=== PATIENT | female | born 1950 | race Caucasian/White ===

== ENCOUNTER 2019-09-12 06:06 | Outpatient (RCR) | payer MEDICARE, MEDICAID, SELFPAY | END 2019-09-25 00:01 | LOC: ONCMED 06:06 | PROVIDERS: Family Provider Nurse Practitioner Family; Visit Provider Internal Medicine Hematology & Oncology | DX: C50.811 Malignant neoplasm of overlapping sites of right female breast (principal); C79.51 Secondary malignant neoplasm of bone; F41.8 Other specified anxiety disorders; M19.90 Unspecified osteoarthritis, unspecified site; G89.29 Other chronic pain; Z17.0 Estrogen receptor positive status [ER+]; Z91.19 Patient's noncompliance with other medical treatment and regimen; Z92.3 Personal history of irradiation; Z79.811 Long term (current) use of aromatase inhibitors; Z79.899 Other long term (current) drug therapy ==

== ENCOUNTER 2019-10-15 06:21 | Outpatient (RCR) | payer MEDICARE, MEDICAID, SELFPAY ==
[2019-10-15 14:50] LABS: Basophils % 0.2 %; Eosinophils # 0.2 10^3/uL (0.0-0.8); Eosinophils % 2.9 %; Hematocrit 36.4 % (37.0-47.0); Hemoglobin 10.9 g/dL (11.5-15.3); Lymphocytes % 16.8 %; Mean Corpuscular HGB Conc 29.9 g/dL (30.0-36.0); Mean Corpuscular Hemoglobin 27.7 pg (28.0-34.0); Mean Corpuscular Volume 92.4 fL (81-99); Mean Platelet Volume 10.5 fL (7.4-10.4); Monocytes # 0.4 10^3/uL (0.2-0.9); Neutrophils # 4.5 10^3/uL (1.8-7.7); Neutrophils % 73.8 %; Nucleated Red Blood Cells % 0 %; Platelet Count 174 10^3/cmm (130-400); Red Blood Count 3.94 10^6/uL (4.1-5.3); Red Cell Distribution Width 15.9 % (12.1-15.1); White Blood Count 6.1 10^3/uL (4.0-10.0)
[2019-10-15 15:08] LABS: Alanine Aminotransferase 12 U/L (0-33); Albumin Level 4.1 g/dL (3.5-5.2); Alkaline Phosphatase 86 IU/L (35-105); Anion Gap 15.9 (5-19); Aspartate Amino Transferase 20 U/L (0-32); Blood Urea Nitrogen 19 mg/dL (8-23); Calcium 10.2 mg/Dl (8.8-10.2); Carbon Dioxide 29 mmol/L (22-29); Chloride 101 mmol/L (98-107); Globulin 3.7 g/dL (1.3-4.6); Glomerular Filtration Rate 62.6 mL/min (90-130); Glucose 109 mg/dL (74-106); Potassium 4.9 mmol/L (3.5-5.1); Sodium 141 mmol/L (136-145); Total Bilirubin 0.3 mg/dL (0.15-1.2); Total Protein 7.8 g/dL (6.6-8.7)
== END 2019-10-26 23:59 | disposition home or self-care (01) ==
LOC: ONCMED 06:21
PROVIDERS: Family Provider Nurse Practitioner Family; PCP Nurse Practitioner Family; Visit Provider Internal Medicine Hematology & Oncology
DX: C79.51 Secondary malignant neoplasm of bone (principal); C50.811 Malignant neoplasm of overlapping sites of right female breast; C77.3 Secondary and unspecified malignant neoplasm of axilla and upper limb lymph nodes; G89.3 Neoplasm related pain (acute) (chronic); F41.8 Other specified anxiety disorders; Z91.14 Patient's other noncompliance with medication regimen; Z91.19 Patient's noncompliance with other medical treatment and regimen; M25.562 Pain in left knee; M25.561 Pain in right knee; Z17.0 Estrogen receptor positive status [ER+]; Z79.899 Other long term (current) drug therapy; Z79.51 Long term (current) use of inhaled steroids; Z79.811 Long term (current) use of aromatase inhibitors
CPT/HCPCS: 36415; 80053; 85025; 86300; 99214

== ENCOUNTER → 2019-10-18 12:39 | Outpatient (BNVA) | payer MEDICARE, MEDICAID, SELFPAY | PROVIDERS: Family Provider Nurse Practitioner Family; PCP Nurse Practitioner Family; Visit Provider Nurse Practitioner | DX: M54.5 Low back pain (principal); M79.651 Pain in right thigh; M79.652 Pain in left thigh; R07.81 Pleurodynia; F17.210 Nicotine dependence, cigarettes, uncomplicated; Z79.891 Long term (current) use of opiate analgesic | CPT/HCPCS: 99214 ==

== ENCOUNTER 2019-10-30 05:54 | Outpatient (RCR) | payer MEDICARE, MEDICAID, SELFPAY ==
[2019-10-30 13:50] LABS: Basophils % 0.3 %; Eosinophils # 0.2 10^3/uL (0.0-0.8); Eosinophils % 3.2 %; Hemoglobin 11.4 g/dL (11.5-15.3); Lymphocytes % 15.6 %; Mean Corpuscular Hemoglobin 28.4 pg (28.0-34.0); Mean Corpuscular Volume 94.8 fL (81-99); Mean Platelet Volume 10.3 fL (7.4-10.4); Monocytes # 0.3 10^3/uL (0.2-0.9); Monocytes % 4.3 %; Neutrophils % 76.1 %; Nucleated Red Blood Cells % 0 %; Platelet Count 173 10^3/cmm (130-400); Red Blood Count 4.01 10^6/uL (4.1-5.3); Red Cell Distribution Width 15.7 % (12.1-15.1); White Blood Count 6.6 10^3/uL (4.0-10.0)
[2019-10-30 13:58] LABS: Alanine Aminotransferase 12 U/L (0-33); Albumin Level 3.9 g/dL (3.5-5.2); Alkaline Phosphatase 89 IU/L (35-105); Anion Gap 14.8 (5-19); Aspartate Amino Transferase 17 U/L (0-32); Blood Urea Nitrogen 26 mg/dL (8-23); Calcium 9.9 mg/dL (8.5-10.5); Carbon Dioxide 31 mmol/L (22-29); Chloride 100 mmol/L (98-107); Globulin 3.8 g/dL (1.3-4.6); Glomerular Filtration Rate 55.5 mL/min (90-130); Glucose 196 mg/dL (74-106); Potassium 4.8 mmol/L (3.5-5.1); Sodium 141 mmol/L (136-145); Total Bilirubin 0.2 mg/dL (0.15-1.2); Total Protein 7.7 g/dL (6.6-8.7)
== END 2019-11-24 23:59 | disposition home or self-care (01) ==
LOC: ONCMED 05:54
PROVIDERS: Family Provider Nurse Practitioner Family; PCP Nurse Practitioner Family; Visit Provider Internal Medicine Hematology & Oncology
DX: C50.811 Malignant neoplasm of overlapping sites of right female breast (principal); C79.51 Secondary malignant neoplasm of bone; Z17.0 Estrogen receptor positive status [ER+]; F41.8 Other specified anxiety disorders; Z92.3 Personal history of irradiation; Z79.899 Other long term (current) drug therapy; Z79.51 Long term (current) use of inhaled steroids; Z79.891 Long term (current) use of opiate analgesic; Z98.890 Other specified postprocedural states; Z92.23 Personal history of estrogen therapy
CPT/HCPCS: 80053; 85025; 86300; G0463

== ENCOUNTER 2019-11-29 05:57 | Outpatient (RCR) | payer MEDICARE, MEDICAID, SELFPAY ==
[2019-11-29 12:51] LABS: Basophils % 0.5 %; Eosinophils # 0.3 10^3/uL (0.0-0.8); Eosinophils % 3.8 %; Hematocrit 36.4 % (37.0-47.0); Hemoglobin 10.6 g/dL (11.5-15.3); Lymphocytes # 1.4 10^3/uL (0.8-4.8); Lymphocytes % 19.5 %; Mean Corpuscular HGB Conc 29.1 g/dL (30.0-36.0); Mean Corpuscular Volume 92.9 fL (81-99); Mean Platelet Volume 10.8 fL (7.4-10.4); Monocytes # 0.5 10^3/uL (0.2-0.9); Monocytes % 6.3 %; Neutrophils % 68.9 %; Nucleated Red Blood Cells % 0 %; Platelet Count 146 10^3/cmm (130-400); Red Blood Count 3.92 10^6/uL (4.1-5.3); Red Cell Distribution Width 16.5 % (12.1-15.1); White Blood Count 7.3 10^3/uL (4.0-10.0)
[2019-11-29 13:14] LABS: Alanine Aminotransferase 14 U/L (0-33); Albumin Level 3.8 g/dL (3.5-5.2); Alkaline Phosphatase 101 IU/L (35-105); Anion Gap 17.2 (5-19); Aspartate Amino Transferase 18 U/L (0-32); Blood Urea Nitrogen 27 mg/dL (8-23); Calcium 9.5 mg/dL (8.5-10.5); Carbon Dioxide 28 mmol/L (22-29); Chloride 99 mmol/L (98-107); Globulin 3.8 g/dL (1.3-4.6); Glomerular Filtration Rate 40.9 mL/min (90-130); Glucose 191 mg/dL (65-115); Potassium 5.2 mmol/L (3.5-5.1); Sodium 139 mmol/L (136-145); Total Bilirubin 0.3 mg/dL (0.15-1.2); Total Protein 7.6 g/dL (6.6-8.7)
--- NOTE | 2019-11-29 14:43 | ONC FU_ITS ---
Dr. Buck follow up note Patient: Samia Sarmiento Unit #: [id number]: 1950 Dicatated By: Quang Buck M.D.Date of Visit:Nov 29, 2019 Onc Med Follow-up/Prog Note History of Present Illness: Mrs. Samia Sarmiento, 68-year-old female with history of right breast cancer, as per patient in November 2016 she had a follow-up mammogram which showed 2 cm mass in her right breast, ultrasound of breast confirmed hypoechoic mass present at 12:00 in the right breast measuring 1.2 cm and no abnormal axillary lymph node were seen. On 01/12/2017 she underwent ultrasound-guided right breast core needle biopsy and pathology showed invasive ductal carcinoma with lobular growth future ER/UT positive HER-2/dre negative on 02/07/2017 she underwent right lobectomy and final pathology report confirmed invasive ductal carcinoma measuring 2.1 cm clear margins, 1/3 sentinel lymph node from right axilla was positive for metastatic adenocarcinoma, metastatic focus measures 1.4 cm with extracapsular extension present grade 2/3, pT2N1a(sn) ER 94% UT 86% HER-2/dre negative Ki-67 41% CT scan of chest abdomen pelvis showed mildly expansile osteolytic lesion vertebral segment of T9 , follow-up bone scan confirmed the 9 lytic lesion, biopsy of T9 lesion confirmed metastatic adenocarcinoma of breast origin PET scan done on 04/19/2017 showed single prominent focus of increased metabolic activity in the caudate lobe, the T9 vertebral body with a large lytic lesion the on straight increase in metabolic activity, other possible early are she is lesion are present without lytic or sclerotic changes. She was started on Femara and Xgeva, she took it for some time but decided to stop it as she thought Xgeva was causing joint pains. So she was noncompliant with Femara also. Follow-up CT PET scan done on 08/25/2017 showed progression of abnormal metabolic foci in the axial skeleton the previous T9 vertebral body lesion demonstrates mild decrease of metabolic activity, the T10 vertebral body appears to be involved as well with a new lytic lesion and the maximum SUV of 5.40, the L1 vertebral body demonstrates new increase of metabolic activity with maximal SUV 5.25. The S1 right ala demonstrate a focal increase of metabolic activity and is a new focal increase in metabolic activity in the right proximal femoral metaphysis and a new focus of increased metabolic activity in the left posterior iliac crest, but resolution of hepatic lesion, and no evidence for soft tissue involvement She has history of postmenopausal bleeding for which in the January 2015 she underwent dilatation and endometrial curettage and was found to have endometrial polyps with proliferative endometrium Genetic testing was done which was negative for any deleterious mutation. She has a problem with recurrent dental abscesses for which she underwent extraction of all teeth. As per patient she was referred to hospice but she declined and now she has decided to transfer her care to [facility]. Patient is complaining of back pain but under control with current pain medication, no lower extremity numbness no urine or stool incontinence. No nausea or vomiting, appetite is good, but looking for denture as financially she can't afford. Also complaining of anxiety and depression. Fatigue and excessive drowsiness during daytime , in the past she had sleep study done which confirmed sleep apnea but patient decided not to consider CPAP machine. As per patient she tried Femara in the past , but it caused palpitation in her blood pressure gone up and she also had ringing in her ear. And she stopped taking it immediately. underwent MRI scan of spine on 08/14/2018 which showed extensive metastatic disease throughout thoracic spine Follow-up CT PET scan done on 09/30/2018 showed extensive osseous metastatic disease in the sacrum, left iliac, right iliac, bilateral acetabulum, proximal femurs, bilateral scapular, sternum, clavicles and vertebral bodies from C2-L5. Lesions are lytic and the most hypermetabolic lesion in the anterior left iliac has SUV of 5.4. As per patient, month ago she started taking Femara, but could not tolerate and stopped taking it after 1 week because of progressive weakness e.g. could not get out of chair. Hot flashes etc. now doesn't want to take it knowing the risk versus benefits involved with hormonal therapy in recurrent ER positive breast cancer. As per patient she started taking her alternative therapy and tolerating it well her back pain has improved although she recently underwent radiation therapy to spine but she thinks her herbal therapy is helping her more than radiation did. So she wants to see her tumor markers to confirm that her herbal therapy is controlling her disease. As per patient if her tumor marker continued to go up then she might consider conventional therapy otherwise she will rely on her herbal therapy. But agreed for Xgeva, Later on decided not to consider Xgeva patient is was admitted to hospital on 03/15/19 with mental status changes, frequent fall, confusion and progressive back pain and she was diagnosed with hypercalcemia and treated with calcitonin, biphosphonate and hydration and forced diuresis with that calcium improved and she felt better, confusion resolved. CT scan of head showed no brain metastases but extensive bone metastases involving skull bones MRI scan of spine showed T8 vertebra damage and radiation therapy was consulted, s/p radiation therapy to T8 vertebra.Which she completed on 04/03/2019 CT PET scan done on 04/21/2019 showed widespread marrow activity bone marrow recovery versus active osseous metastatic disease Now being treated with Aromasin/Xgeva on hold since 10/15/2019, at patient request because of related side effects Patient start taking Aromasin again on 11/27/2019 but still not ready for Xgeva. Came for follow-up, denies any specific complaints except generalized chronic pains bilateral knee, chronic back pain but under control with current pain medication. Also complaining of off and on bloatedness. Start taking Aromasin last Tuesday, tolerating well. Also on vitamin D and calcium supplements. Not taking any potassium supplement Medications: Albuterol Sulfate 1 puff(s) Aerosol Powder, Breath Activated Inhalation q 4 to 6 hours PRN, Bumetanide 1 Tablet (of 1 mg) Oral b.i.d., Calcium 1 Tablet (of 250 mg) Capsule Oral daily, [place] 1 Capsule (of 450 mg) Oral daily, CloNIDine HCl 1 (0.1 mg) Tablet Oral b.i.d., Enalapril Maleate 1 (10 mg) Tablet Oral b.i.d., Hydrocodone-Acetaminophen 1 Tablet (of 10-325 mg) Oral q 4 hours PRN, LORazepam 1 (0.5 mg) Tablet Oral b.i.d., Magnesium 2 Tablet (of 400 mg) Oral at bedtime, Potassium Chloride ER 1 Capsule (of 10 meq) Capsule, controlled release Oral daily, Torsemide 1 Tablet (of 20 mg) Oral daily, Torsemide 1 Tablet (of 20 mg) Oral daily Allergies: Advil, morphine , NSAIDs, and Tetanus Immune Globulin. Review of Systems: Review of Systems is not available for this patient. Vital Signs: Performed on Nov 29, 2019 14:07 Height - 64.00 in Weight - 280.0 lbs (HIGH) BSA - 2.26 sq.m BMI - 48.06 (HIGH) Temperature - 97.4 F (LOW) Pulse - 72 /min Respiration - 16 /min BP - 139/79 mm(hg) O2 Sat - 96 % Pain - 8 Fatigue - 8 Performance Status: 1 - No physically strenuous activity, but ambulatory and able to carry out light or sedentary work (e.g. office work, light house work). (ECOG) Physical Examination: Respiratory - Lungs are clear to auscultation without rhonchi or wheezing, Cardiovascular - Regular rate and rhythm of heart, Extremities - no edema. Lab/Imaging: Test performed on Oct 30, 2019 13:20 Sodium 141 mmol/L Potassium 4.8 mmol/L Chloride 100 mmol/L CO2 31 mmol/L Anion Gap 14.8 BUN 26 mg/dL Creatinine 1.0 mg/dL Cr Clearance (Est) 108.97 mL/min eGFR 55.5 mL/min Glucose 196 mg/dL Calcium 9.9 mg/dL Protein, Total 7.7 g/dL Albumin 3.9 g/dL Globulin 3.8 g/dL Bilirubin, Total 0.2 mg/dL ALT (SGPT) 12 U/L AST (SGOT) 17 U/L Alkaline Phosphatase 89 IU/L WBC 6.6 10 3/uL RBC 4.01 10 6/uL HGB 11.4 g/dL HCT 38.0 % MCV 94.8 fL MCH 28.4 pg MCHC 30.0 g/dL RDW 15.7 % Platelet Count 173 10 3/cmm MPV 10.3 fL Neutrophils 5.0 10 3/uL Lymphocytes 1.0 10 3/uL Monocytes 0.3 10 3/uL Eosinophils 0.2 10 3/uL Basophils 0.0 10 3/uL Neutrophil % 76.1 % Lymphocyte % 15.6 % Monocyte % 4.3 % Eosinophil % 3.2 % Basophils % 0.3 % Test performed on Oct 30, 2019 11:45 CA 27.29 65 Units/mL Test performed on Oct 15, 2019 14:20 Manual Lymphocytes 16.8 % Manual Monocytes 6.0 % Manual Eosinophils 2.9 % Manual Basophils 0.2 % NRBCs 0.0 /100 WBC Test performed on Jun 11, 2019 10:34 Ua Color YELLOW Ua Appearance CLEAR Ua Glucose NORM Ua Bilirubin NEG Colored urine samples may result in false positive dipstick reactions. Ua Ketones NEG Ua Specific [place] 1.005 Ua Blood NEG Ua pH 6 Ua Protein NEG Ua Nitrites NEG Ua Leukocyte Esterase 1+ Ua Micro: WBC 15-25 /hpf Urine Culture NO GROWTH AT DAY 2 Ua Micro: RBC NONE /hpf Ua Micro: Squam Epith Cells 0-4 /hpf Ua Micro: Bacteria NONE Impression: Metastatic breast cancer with extensive axial skeleton involvement including T9, 10 and L1, S1 right ala, right proximal femoral metaphysis and left posterior iliac crest. Initially diagnosed on 01/12/2017 per ultrasound guided right breast core needle biopsy followed by a right lobectomy on 02/07/2017 which showed invasive ductal carcinoma measuring 2.1 cm clear margins 1/3 sentinel lymph node from the right axilla positive for metastatic adenocarcinoma, metastatic focus measured 1.4 cm with extracapsular extension present p T2,N1a (sn) ER 94%, UT 86% HER-2/dre negative Ki-67 41% staging workup confirmed T9 lesion further confirmation by biopsy. Intolerance to Femara causing palpitation, ringing in ear and hypertension. Intolerance to Xgeva causing joint pains. Anxiety/depression Excessive daytime drowsiness probably due to sleep apnea but patient is noncompliant .CT PET scan done on 11/05/2017 showed interval normalization of uptake in previously described osseous lesions indicated positive response to therapy, mild FDG uptake in lytic T9 vertebral body lesion. Minimal residual disease at the site is likely, no evidence of soft tissue disease. MRI scan of spine done on 08/14/2018 showed extensive metastatic disease is seen throughout the thoracic spine with marrow signal replacement with edema there is a pathological T8 fracture with loss of 10% height T9 and causing moderate thecal sac stenosis multiple hyperintense lesions are seen throughout the thoracic and lumbar and sacral spine suggestive of metastatic disease Treated with radiation therapy to the spine with good pain control As per radiation oncology patient never received radiation last year, as per patient she did go there, thought she had radiation therapy done.But did not receive any radiation at that time Follow-up CT PET scan done on 09/30/2018 showed extensive osseous metastatic disease involving sacrum, bilateral iliac, and acetabulum, proximal femurs, bilateral scapulae, sternum, clavicles and vertebral bodies from C2-L5, lesions are lytic and the most hypermetabolic lesion in the anterior left iliac has SUV of 5.4 On 03/15/2019 patient was admitted to hospital with mental status changes confusion and CT scan of brain showed no metastases but lab workup showed hypercalcemia treated with calcitonin, biphosphonate and hydration. Patient had MRI scan of spine which showed T8 vertebra damage and radiation therapy was consulted and she was given radiation therapy to her T8 vertebra from 03/20/2019 till 04/03/2019. CT PET scan done on 04/21/2019 showed widespread activity throughout the bone marrow, metabolically active disease cannot be reliably differentiated from the simple reactive uptake. Multiple pathological left-sided rib fractures are noted at previously seen sites of lytic disease Plan: Discussed with patient regarding her labs white blood count 7.3 hemoglobin 10.6 crit 36.4 platelets 146,000 CMP within normal limit except potassium 5 due to creatinine 1.3 [place] [id number] was 65 on 10/30/2019 and today's pending Clinically, patient is doing reasonably well, her chronic pains is under control with current pain medication. Patient start taking recommended Aromasin last Tuesday and so far tolerating well but still refusing Xgeva. At this point we'll continue with Aromasin and vitamin D/calcium supplement and then repeat her CBC CMP and tumor marker and a month if continued to improve we will monitor otherwise consider CT PET scan to assess disease status and then plan accordingly. Mild anemia, appears multifactorial, hemoglobin stable we'll continue to monitor Mild hyperkalemia, patient was on potassium supplement now recently stopped taking. We'll monitor patient was advised to maintain good hydration. We'll monitor her renal function test and electrolytes. Signed By: Quang Buck M.D. <<Signature on File>>
[2019-11-30 11:06] LABS: CA 27.29 87 U/mL (<38)
== END 2019-12-25 23:59 | disposition home or self-care (01) ==
LOC: ONCMED 05:57
PROVIDERS: Family Provider Nurse Practitioner Family; PCP Nurse Practitioner Family; Visit Provider Internal Medicine Hematology & Oncology
DX: C50.811 Malignant neoplasm of overlapping sites of right female breast (principal); C79.51 Secondary malignant neoplasm of bone; Z17.0 Estrogen receptor positive status [ER+]; D64.9 Anemia, unspecified; E87.5 Hyperkalemia; Z79.811 Long term (current) use of aromatase inhibitors; F41.8 Other specified anxiety disorders; G47.30 Sleep apnea, unspecified; Z91.19 Patient's noncompliance with other medical treatment and regimen
CPT/HCPCS: 80053; 85025; 86300; 99214

== ENCOUNTER → 2020-03-11 14:21 | Outpatient (BNVA) | payer MEDICARE, MEDICAID, SELFPAY | PROVIDERS: Family Provider Nurse Practitioner Family; PCP Nurse Practitioner Family; Visit Provider Anesthesiology | DX: M54.5 Low back pain (principal); M54.6 Pain in thoracic spine; R07.81 Pleurodynia; F17.210 Nicotine dependence, cigarettes, uncomplicated; Z79.891 Long term (current) use of opiate analgesic | CPT/HCPCS: 99214 ==

== ENCOUNTER 2020-03-13 13:52 | Outpatient (CLI) | payer MEDICARE, MEDICAID, SELFPAY ==
[2020-03-13 14:22] LABS: Basophils % 0.6 %; Eosinophils # 0.2 10^3/uL (0.0-0.8); Eosinophils % 3.3 %; Hematocrit 43.6 % (37.0-47.0); Hemoglobin 12.6 g/dL (11.5-15.3); Lymphocytes # 1.1 10^3/uL (0.8-4.8); Lymphocytes % 15.3 %; Mean Corpuscular HGB Conc 28.9 g/dL (30.0-36.0); Mean Corpuscular Hemoglobin 26.9 pg (28.0-34.0); Mean Corpuscular Volume 93.2 fL (81-99); Mean Platelet Volume 10.4 fL (7.4-10.4); Monocytes # 0.3 10^3/uL (0.2-0.9); Monocytes % 4.6 %; Neutrophils # 5.3 10^3/uL (1.8-7.7); Neutrophils % 75.8 %; Nucleated Red Blood Cells % 0 %; Platelet Count 169 10^3/cmm (130-400); Red Blood Count 4.68 10^6/uL (4.1-5.3); Red Cell Distribution Width 17.4 % (12.1-15.1); White Blood Count 6.9 10^3/uL (4.0-10.0)
[2020-03-13 14:35] LABS: Alanine Aminotransferase 19 U/L (0-33); Albumin Level 4.4 g/dL (3.5-5.2); Alkaline Phosphatase 95 IU/L (35-105); Anion Gap 15.5 (5-19); Aspartate Amino Transferase 24 U/L (0-32); Blood Urea Nitrogen 19 mg/dL (8-23); Calcium 9.8 mg/dL (8.5-10.5); Carbon Dioxide 32 mmol/L (22-29); Chloride 96 mmol/L (98-107); Globulin 3.7 g/dL (1.3-4.6); Glomerular Filtration Rate 55.3 mL/min (90-130); Glucose 151 mg/dL (65-115); Osmolality Calculated 287 mOsm/kg (285-295); Potassium 4.5 mmol/L (3.5-5.1); Sodium 139 mmol/L (136-145); Total Bilirubin 0.4 mg/dL (0.15-1.2); Total Protein 8.1 g/dL (6.6-8.7)
--- NOTE | 2020-03-13 16:22 | ONC FU_ITS ---
Dr. Buck follow up note Patient: Samia Sarmiento Unit #: [id number]: 1950 Dicatated By: Quang Buck M.D.Date of Visit:Mar 13, 2020 Onc Med Follow-up/Prog Note History of Present Illness: Mrs. Samia Sarmiento, 69-year-old female with history of right breast cancer, as per patient in November 2016 she had a follow-up mammogram which showed 2 cm mass in her right breast, ultrasound of breast confirmed hypoechoic mass present at 12:00 in the right breast measuring 1.2 cm and no abnormal axillary lymph node were seen. On 01/12/2017 she underwent ultrasound-guided right breast core needle biopsy and pathology showed invasive ductal carcinoma with lobular growth future ER/KY positive HER-2/dre negative on 02/07/2017 she underwent right lobectomy and final pathology report confirmed invasive ductal carcinoma measuring 2.1 cm clear margins, 1/3 sentinel lymph node from right axilla was positive for metastatic adenocarcinoma, metastatic focus measures 1.4 cm with extracapsular extension present grade 2/3, pT2N1a(sn) ER 94% KY 86% HER-2/dre negative Ki-67 41% CT scan of chest abdomen pelvis showed mildly expansile osteolytic lesion vertebral segment of T9 , follow-up bone scan confirmed the 9 lytic lesion, biopsy of T9 lesion confirmed metastatic adenocarcinoma of breast origin PET scan done on 04/19/2017 showed single prominent focus of increased metabolic activity in the caudate lobe, the T9 vertebral body with a large lytic lesion the on straight increase in metabolic activity, other possible early are she is lesion are present without lytic or sclerotic changes. She was started on Femara and Xgeva, she took it for some time but decided to stop it as she thought Xgeva was causing joint pains. So she was noncompliant with Femara also. Follow-up CT PET scan done on 08/25/2017 showed progression of abnormal metabolic foci in the axial skeleton the previous T9 vertebral body lesion demonstrates mild decrease of metabolic activity, the T10 vertebral body appears to be involved as well with a new lytic lesion and the maximum SUV of 5.40, the L1 vertebral body demonstrates new increase of metabolic activity with maximal SUV 5.25. The S1 right ala demonstrate a focal increase of metabolic activity and is a new focal increase in metabolic activity in the right proximal femoral metaphysis and a new focus of increased metabolic activity in the left posterior iliac crest, but resolution of hepatic lesion, and no evidence for soft tissue involvement She has history of postmenopausal bleeding for which in the January 2015 she underwent dilatation and endometrial curettage and was found to have endometrial polyps with proliferative endometrium Genetic testing was done which was negative for any deleterious mutation. She has a problem with recurrent dental abscesses for which she underwent extraction of all teeth. As per patient she was referred to hospice but she declined and now she has decided to transfer her care to [facility]. Patient is complaining of back pain but under control with current pain medication, no lower extremity numbness no urine or stool incontinence. No nausea or vomiting, appetite is good, but looking for denture as financially she can't afford. Also complaining of anxiety and depression. Fatigue and excessive drowsiness during daytime , in the past she had sleep study done which confirmed sleep apnea but patient decided not to consider CPAP machine. As per patient she tried Femara in the past , but it caused palpitation in her blood pressure gone up and she also had ringing in her ear. And she stopped taking it immediately. underwent MRI scan of spine on 08/14/2018 which showed extensive metastatic disease throughout thoracic spine Follow-up CT PET scan done on 09/30/2018 showed extensive osseous metastatic disease in the sacrum, left iliac, right iliac, bilateral acetabulum, proximal femurs, bilateral scapular, sternum, clavicles and vertebral bodies from C2-L5. Lesions are lytic and the most hypermetabolic lesion in the anterior left iliac has SUV of 5.4. As per patient, month ago she started taking Femara, but could not tolerate and stopped taking it after 1 week because of progressive weakness e.g. could not get out of chair. Hot flashes etc. now doesn't want to take it knowing the risk versus benefits involved with hormonal therapy in recurrent ER positive breast cancer. As per patient she started taking her alternative therapy and tolerating it well her back pain has improved although she recently underwent radiation therapy to spine but she thinks her herbal therapy is helping her more than radiation did. So she wants to see her tumor markers to confirm that her herbal therapy is controlling her disease. As per patient if her tumor marker continued to go up then she might consider conventional therapy otherwise she will rely on her herbal therapy. But agreed for Xgeva, Later on decided not to consider Xgeva patient is was admitted to hospital on 03/15/19 with mental status changes, frequent fall, confusion and progressive back pain and she was diagnosed with hypercalcemia and treated with calcitonin, biphosphonate and hydration and forced diuresis with that calcium improved and she felt better, confusion resolved. CT scan of head showed no brain metastases but extensive bone metastases involving skull bones MRI scan of spine showed T8 vertebra damage and radiation therapy was consulted, s/p radiation therapy to T8 vertebra.Which she completed on 04/03/2019 CT PET scan done on 04/21/2019 showed widespread marrow activity bone marrow recovery versus active osseous metastatic disease Now being treated with Aromasin/Xgeva, was on hold since 10/15/2019, at patient request because of related side effects and Patient started taking Aromasin again on 11/27/2019 but still not ready for Xgeva. Came for follow-up, complaining of weight gain and bloatedness but no abdominal pain, no diarrhea or constipation, no jaundice, no new bony pains except joint pain in the hand and wrist and shoulder patient says she has chronic arthritis and otherwise no fever chills no nausea or vomiting, patient says she is watching her diet. Medications: Albuterol Sulfate 1 puff(s) Aerosol Powder, Breath Activated Inhalation q 4 to 6 hours PRN, CloNIDine HCl 1 (0.1 mg) Tablet Oral b.i.d., Enalapril Maleate 1 (10 mg) Tablet Oral b.i.d., Hydrocodone-Acetaminophen 1 Tablet (of 10-325 mg) Oral q 4 hours PRN, LORazepam 1 (0.5 mg) Tablet Oral b.i.d., Magnesium 2 Tablet (of 400 mg) Oral at bedtime Allergies: Advil, morphine , NSAIDs, and Tetanus Immune Globulin. Review of Systems: Constitutional - Appetite is poor and weight is stable. No fever, chills, hot flashes, or night sweats. Energy level is poor, ENMT - No sinus congestion/drainage. No mouth sores. No sore throat or difficulty swallowing, Hematologic/Lymphatic - No abnormal bruising or bleeding, Respiratory - No shortness of breath. No cough. No pleuritic pain or hemoptysis, Cardiovascular - No angina pain. No palpitations, Gastrointestinal - Patient has some nausea and vomiting. No heartburn or acid reflux. No diarrhea or constipation. No blood in the stool or black stools, Genitourinary (F) - No dysuria, hematuria, frequency, urgency or incontinence, Musculoskeletal - Pt reports joint pain, Integumentary - Positive for bilateral lower edema, Neurologic - No headache or dizziness. No numbness/paresthesias or other focal neurologic symptoms, Psychiatric - Pt reports some anxiety. No depression. No insomnia. Vital Signs: Performed on Mar 13, 2020 15:45 Height - 64.00 in Weight - 296.8 lbs (HIGH) BSA - 2.31 sq.m BMI - 50.95 (HIGH) Temperature - 98.2 F (LOW) Pulse - 96 /min Respiration - 22 /min BP - 162/85 mm(hg) (HIGH) O2 Sat - 90 % (LOW) Pain - 9 Performance Status: 1 - No physically strenuous activity, but ambulatory and able to carry out light or sedentary work (e.g. office work, light house work). (ECOG) Physical Examination: Respiratory - Poor air entry, Cardiovascular - Regular rate and rhythm of heart, Extremities - 1+ edema bilaterally. Lab/Imaging: Test performed on Mar 13, 2020 14:04 Sodium 139 mmol/L Potassium 4.5 mmol/L Chloride 96 mmol/L CO2 32 mmol/L Anion Gap 15.5 BUN 19 mg/dL Creatinine 1.0 mg/dL Cr Clearance (Est) 116.0200 mL/min eGFR 55.3 mL/min Glucose 151 mg/dL Calcium 9.8 mg/dL Protein, Total 8.1 g/dL Albumin 4.4 g/dL Globulin 3.7 g/dL Bilirubin, Total 0.4 mg/dL ALT (SGPT) 19 U/L AST (SGOT) 24 U/L Alkaline Phosphatase 95 IU/L WBC 6.9 10 3/uL RBC 4.68 10 6/uL HGB 12.6 g/dL HCT 43.6 % MCV 93.2 fL MCH 26.9 pg MCHC 28.9 g/dL RDW 17.4 % Platelet Count 169 10 3/cmm MPV 10.4 fL Neutrophils 5.3 10 3/uL Lymphocytes 1.1 10 3/uL Monocytes 0.3 10 3/uL Eosinophils 0.2 10 3/uL Basophils 0.0 10 3/uL Neutrophil % 75.8 % Lymphocyte % 15.3 % Monocyte % 4.6 % Eosinophil % 3.3 % Basophils % 0.6 % NRBC % 0 % Test performed on Oct 30, 2019 11:45 CA 27.29 65 Units/mL Test performed on Oct 15, 2019 14:20 Manual Lymphocytes 16.8 % Manual Monocytes 6.0 % Manual Eosinophils 2.9 % Manual Basophils 0.2 % NRBCs 0.0 /100 WBC Impression: Metastatic breast cancer with extensive axial skeleton involvement including T9, 10 and L1, S1 right ala, right proximal femoral metaphysis and left posterior iliac crest. Initially diagnosed on 01/12/2017 per ultrasound guided right breast core needle biopsy followed by a right lobectomy on 02/07/2017 which showed invasive ductal carcinoma measuring 2.1 cm clear margins 1/3 sentinel lymph node from the right axilla positive for metastatic adenocarcinoma, metastatic focus measured 1.4 cm with extracapsular extension present p T2,N1a (sn) ER 94%, [place] 86% HER-2/dre negative Ki-67 41% staging workup confirmed T9 lesion further confirmation by biopsy. Intolerance to Femara causing palpitation, ringing in ear and hypertension. Intolerance to Xgeva causing joint pains. Anxiety/depression Excessive daytime drowsiness probably due to sleep apnea but patient is noncompliant .CT PET scan done on 11/05/2017 showed interval normalization of uptake in previously described osseous lesions indicated positive response to therapy, mild FDG uptake in lytic T9 vertebral body lesion. Minimal residual disease at the site is likely, no evidence of soft tissue disease. MRI scan of spine done on 08/14/2018 showed extensive metastatic disease is seen throughout the thoracic spine with marrow signal replacement with edema there is a pathological T8 fracture with loss of 10% height T9 and causing moderate thecal sac stenosis multiple hyperintense lesions are seen throughout the thoracic and lumbar and sacral spine suggestive of metastatic disease Treated with radiation therapy to the spine with good pain control As per radiation oncology patient never received radiation last year, as per patient she did go there, thought she had radiation therapy done.But did not receive any radiation at that time Follow-up CT PET scan done on 09/30/2018 showed extensive osseous metastatic disease involving sacrum, bilateral iliac, and acetabulum, proximal femurs, bilateral scapulae, sternum, clavicles and vertebral bodies from C2-L5, lesions are lytic and the most hypermetabolic lesion in the anterior left iliac has SUV of 5.4 On 03/15/2019 patient was admitted to hospital with mental status changes confusion and CT scan of brain showed no metastases but lab workup showed hypercalcemia treated with calcitonin, biphosphonate and hydration. Patient had MRI scan of spine which showed T8 vertebra damage and radiation therapy was consulted and she was given radiation therapy to her T8 vertebra from 03/20/2019 till 04/03/2019. CT PET scan done on 04/21/2019 showed widespread activity throughout the bone marrow, metabolically active disease cannot be reliably differentiated from the simple reactive uptake. Multiple pathological left-sided rib fractures are noted at previously seen sites of lytic disease Plan: Discussed with patient regarding her labs white blood count 6.9 hemoglobin 12.6 crit 43.6 platelets 169,000 CMP within normal limit except glucose 151, her tumor marker CA 27.29 is pending Clinically, patient is doing well with no signs symptom suggestive of disease progression, her lab work-up is within normal range but her tumor marker is pending. Patient is tolerating Aromasin better along with vitamin D and calcium. Patient wants to wait for her tumor marker, if this progressive then she may consider follow-up PET scan or bone scan and may consider Xgeva too. Return to clinic in 1 month with CBC CMP As far as her chronic musculoskeletal pain is concerned, we will refer her to rheumatology for evaluation. Signed By: Quang Buck M.D. <<Signature on File>>
[2020-03-18 06:52] LABS: CA 27.29 86 U/mL (<38)
== END 2020-03-13 13:53 | disposition home or self-care (01) ==
LOC: ONCMED 13:55
PROVIDERS: PCP Nurse Practitioner Family; Visit Provider Internal Medicine Hematology & Oncology
DX: C50.811 Malignant neoplasm of overlapping sites of right female breast (principal); C79.51 Secondary malignant neoplasm of bone; Z17.0 Estrogen receptor positive status [ER+]; M79.18 Myalgia, other site; F41.8 Other specified anxiety disorders; R40.0 Somnolence; M84.48XD Pathological fracture, other site, subsequent encounter for fracture with routine healing; Z79.811 Long term (current) use of aromatase inhibitors; Z79.899 Other long term (current) drug therapy
CPT/HCPCS: 80053; 85025; 86300; 99214

== ENCOUNTER → 2020-03-24 14:09 | Outpatient (BNVA) | payer MEDICARE, MEDICAID, SELFPAY | PROVIDERS: PCP Nurse Practitioner Family; Visit Provider Family Medicine | DX: E66.01 Morbid (severe) obesity due to excess calories (principal); R63.5 Abnormal weight gain; Z68.42 Body mass index [BMI] 45.0-49.9, adult | CPT/HCPCS: 36415; 84439; 84443 ==

== ENCOUNTER 2020-04-01 12:43 | Outpatient (CLI) | payer MEDICARE, MEDICAID, SELFPAY ==
--- NOTE | 2020-04-01 14:00 | CT_ITS ---
WS: [id number] CT ABDOMEN PELVIS TECHNIQUE: Noncontrast CT of the abdomen and pelvis with coronal and sagittal reformatted images. CLINICAL INFORMATION: swelling COMPARISON: None. DLP: 1070.[address] scans at [facility] use at least one of these dose optimization techniques: automated exposure control; mA and/or kV adjustment per patient size (includes targeted e xams where dose is matched to clinical indication); or iterative reconstruction. FINDINGS: Images lower abdomen and pelvis are somewhat limited due to beam hardening artifact. Noncontrast liver is normal. Cholecystectomy clips. Normal noncontrast spleen. Noncontrast pancreas i s unremarkable. Stable slightly prominent common bile duct normal post cholecystectomy. Slight atelec tasis in the lung bases. Adrenal glands are normal. No hydronephrosis in either kidney. No obstructing renal or ureteral calcu li. Aortic calcification. Normal caliber abdominal aorta. Diverticulosis. Small amount of edema and inflammatory stranding in the lower midabdomen eccentric to the left suspicious for acute diverticulitis. No drainable fluid collection. Further assessment is l imited due to beam hardening artifact. Fat-containing umbilical hernia. No herniated bowel. No abdominal or inguinal lymphadenopathy. Somew hat atrophic uterus. Evidence diffuse lytic and sclerotic metastatic disease throughout the visualize d bony structures. This is similar in appearance to the prior exams CT/CT abdomen pelvis wo con [id number] IMPRESSION: 1. Tiny amount of inflammatory stranding and edema in the lower abdomen eccent judith to the left nonspecific but suspicious for diverticulitis. Recommend correl ation for infection. Further assessment is limited due to beam hardening artifa ct 2. Diffuse osseous lytic and blastic metastatic disease throughout the visuali zed bony structures similar to the prior exams. PET CT could be obtained to nora luate for active disease. Chronic appearing anterior wedging at T10-T12. 3. Prior cholecystectomy. 4. No hydronephrosis. No evidence of obstructing renal or ureteral calculi. So me images degraded in the pelvis due to beam hardening artifact. 5. Fat-containing umbilical hernia.
== END 2020-04-01 12:44 | disposition home or self-care (01) ==
LOC: RADWPI 12:47
PROVIDERS: Family Provider Family Medicine; PCP Family Medicine; Visit Provider Family Medicine
DX: M79.89 Other specified soft tissue disorders (principal); R60.9 Edema, unspecified; K42.9 Umbilical hernia without obstruction or gangrene
CPT/HCPCS: 74176

== ENCOUNTER 2020-04-15 11:18 | Outpatient (CLI) | payer MEDICARE, MEDICAID, SELFPAY ==
[2020-04-15 11:59] LABS: Basophils % 0.5 %; Eosinophils # 0.3 10^3/uL (0.0-0.8); Eosinophils % 3.3 %; Hematocrit 39.9 % (37.0-47.0); Hemoglobin 11.6 g/dL (11.5-15.3); Lymphocytes % 12.9 %; Mean Corpuscular HGB Conc 29.1 g/dL (30.0-36.0); Mean Corpuscular Hemoglobin 27.6 pg (28.0-34.0); Mean Corpuscular Volume 94.8 fL (81-99); Mean Platelet Volume 10.8 fL (7.4-10.4); Monocytes # 0.4 10^3/uL (0.2-0.9); Monocytes % 5.1 %; Neutrophils # 5.94 10^3/uL (1.8-7.7); Neutrophils % 77.5 %; Nucleated Red Blood Cells % 0 %; Platelet Count 145 10^3/cmm (130-400); Red Blood Count 4.21 10^6/uL (4.1-5.3); Red Cell Distribution Width 17.8 % (12.1-15.1); White Blood Count 7.7 10^3/uL (4.0-10.0)
[2020-04-15 13:19] LABS: Alanine Aminotransferase 15 U/L (0-33); Albumin Level 4.1 g/dL (3.5-5.2); Alkaline Phosphatase 89 IU/L (35-105); Aspartate Amino Transferase 25 U/L (0-32); Blood Urea Nitrogen 17 mg/dL (8-23); Calcium 9.3 mg/dL (8.5-10.5); Carbon Dioxide 32 mmol/L (22-29); Chloride 100 mmol/L (98-107); Globulin 3.6 g/dL (1.3-4.6); Glomerular Filtration Rate 55.3 mL/min (90-130); Glucose 132 mg/dL (65-115); Osmolality Calculated 288 mOsm/kg (285-295); Sodium 140 mmol/L (136-145); Total Bilirubin 0.3 mg/dL (0.15-1.2); Total Protein 7.7 g/dL (6.6-8.7)
[2020-04-15 13:21] LABS: Anion Gap 12.3 (5-19)
[2020-04-15 13:22] LABS: Potassium 4.3 mmol/L (3.5-5.1)
--- NOTE | 2020-04-15 14:44 | ONC FU_ITS ---
Dr. Buck follow up note Patient: Samia Sarmiento Unit #: [id number]: 1950 Dicatated By: Quang Buck M.D.Date of Visit:Apr 15, 2020 Onc Med Follow-up/Prog Note History of Present Illness: Mrs. Samia Sarmiento, 69-year-old female with history of right breast cancer, as per patient in November 2016 she had a follow-up mammogram which showed 2 cm mass in her right breast, ultrasound of breast confirmed hypoechoic mass present at 12:00 in the right breast measuring 1.2 cm and no abnormal axillary lymph node were seen. On 01/12/2017 she underwent ultrasound-guided right breast core needle biopsy and pathology showed invasive ductal carcinoma with lobular growth future ER/MN positive HER-2/dre negative on 02/07/2017 she underwent right lobectomy and final pathology report confirmed invasive ductal carcinoma measuring 2.1 cm clear margins, 1/3 sentinel lymph node from right axilla was positive for metastatic adenocarcinoma, metastatic focus measures 1.4 cm with extracapsular extension present grade 2/3, pT2N1a(sn) ER 94% MN 86% HER-2/dre negative Ki-67 41% CT scan of chest abdomen pelvis showed mildly expansile osteolytic lesion vertebral segment of T9 , follow-up bone scan confirmed the 9 lytic lesion, biopsy of T9 lesion confirmed metastatic adenocarcinoma of breast origin PET scan done on 04/19/2017 showed single prominent focus of increased metabolic activity in the caudate lobe, the T9 vertebral body with a large lytic lesion the on straight increase in metabolic activity, other possible early are she is lesion are present without lytic or sclerotic changes. She was started on Femara and Xgeva, she took it for some time but decided to stop it as she thought Xgeva was causing joint pains. So she was noncompliant with Femara also. Follow-up CT PET scan done on 08/25/2017 showed progression of abnormal metabolic foci in the axial skeleton the previous T9 vertebral body lesion demonstrates mild decrease of metabolic activity, the T10 vertebral body appears to be involved as well with a new lytic lesion and the maximum SUV of 5.40, the L1 vertebral body demonstrates new increase of metabolic activity with maximal SUV 5.25. The S1 right ala demonstrate a focal increase of metabolic activity and is a new focal increase in metabolic activity in the right proximal femoral metaphysis and a new focus of increased metabolic activity in the left posterior iliac crest, but resolution of hepatic lesion, and no evidence for soft tissue involvement She has history of postmenopausal bleeding for which in the January 2015 she underwent dilatation and endometrial curettage and was found to have endometrial polyps with proliferative endometrium Genetic testing was done which was negative for any deleterious mutation. She has a problem with recurrent dental abscesses for which she underwent extraction of all teeth. As per patient she was referred to hospice but she declined and now she has decided to transfer her care to [facility]. Patient is complaining of back pain but under control with current pain medication, no lower extremity numbness no urine or stool incontinence. No nausea or vomiting, appetite is good, but looking for denture as financially she can't afford. Also complaining of anxiety and depression. Fatigue and excessive drowsiness during daytime , in the past she had sleep study done which confirmed sleep apnea but patient decided not to consider CPAP machine. As per patient she tried Femara in the past , but it caused palpitation in her blood pressure gone up and she also had ringing in her ear. And she stopped taking it immediately. underwent MRI scan of spine on 08/14/2018 which showed extensive metastatic disease throughout thoracic spine Follow-up CT PET scan done on 09/30/2018 showed extensive osseous metastatic disease in the sacrum, left iliac, right iliac, bilateral acetabulum, proximal femurs, bilateral scapular, sternum, clavicles and vertebral bodies from C2-L5. Lesions are lytic and the most hypermetabolic lesion in the anterior left iliac has SUV of 5.4. As per patient, month ago she started taking Femara, but could not tolerate and stopped taking it after 1 week because of progressive weakness e.g. could not get out of chair. Hot flashes etc. now doesn't want to take it knowing the risk versus benefits involved with hormonal therapy in recurrent ER positive breast cancer. As per patient she started taking her alternative therapy and tolerating it well her back pain has improved although she recently underwent radiation therapy to spine but she thinks her herbal therapy is helping her more than radiation did. So she wants to see her tumor markers to confirm that her herbal therapy is controlling her disease. As per patient if her tumor marker continued to go up then she might consider conventional therapy otherwise she will rely on her herbal therapy. But agreed for Xgeva, Later on decided not to consider Xgeva patient is was admitted to hospital on 03/15/19 with mental status changes, frequent fall, confusion and progressive back pain and she was diagnosed with hypercalcemia and treated with calcitonin, biphosphonate and hydration and forced diuresis with that calcium improved and she felt better, confusion resolved. CT scan of head showed no brain metastases but extensive bone metastases involving skull bones MRI scan of spine showed T8 vertebra damage and radiation therapy was consulted, s/p radiation therapy to T8 vertebra.Which she completed on 04/03/2019 CT PET scan done on 04/21/2019 showed widespread marrow activity bone marrow recovery versus active osseous metastatic disease Now being treated with Aromasin/Xgeva, was on hold since 10/15/2019, at patient request because of related side effects and Patient started taking Aromasin again on 11/27/2019 but still not ready for Xgeva. -Came for follow-up, denies any specific complaint except abdominal fullness for which she has seen her PMD Dr. Castillo and underwent CT scan of abdomen pelvis on April 01, 2020 which shows tiny amount of inflammatory stranding and edema in the lower abdomen eccentric to the left nonspecific but suspicious for diverticulitis, patient was started on oral antibiotics. And noncontrast liver is unremarkable so his adrenal glands. But diffuse osseous lytic and blastic metastatic disease throughout the visualized bony structures similar to prior scans. Chronic appearing anterior wedging at T10-T12, fat-containing umbilical hernia Otherwise no fever chills, no nausea or vomiting, no diarrhea constipation, no lower extremity numbness or urine or stool incontinence appetite is good, tolerating Aromasin well otherwise Medications: Albuterol Sulfate 1 puff(s) Aerosol Powder, Breath Activated Inhalation q 4 to 6 hours PRN, Bentyl 1 Tablet (of 20 mg) Oral t.i.d., CloNIDine HCl 1 (0.1 mg) Tablet Oral b.i.d., Doxycycline Hyclate 1 Capsule (of 100 mg) Oral b.i.d. for 14 days, Enalapril Maleate 1 (10 mg) Tablet Oral b.i.d., Hydrocodone-Acetaminophen 1 Tablet (of 10-325 mg) Oral q 4 hours PRN, LORazepam 1 (0.5 mg) Tablet Oral b.i.d., Magnesium 2 Tablet (of 400 mg) Oral at bedtime Allergies: Advil, morphine , NSAIDs, and Tetanus Immune Globulin. Review of Systems: Constitutional - Appetite is poor and weight is stable. No fever, chills, hot flashes, or night sweats. Energy level is poor, ENMT - No sinus congestion/drainage. No mouth sores. No sore throat or difficulty swallowing, Hematologic/Lymphatic - No abnormal bruising or bleeding, Respiratory - No shortness of breath. No cough. No pleuritic pain or hemoptysis, Cardiovascular - No angina pain. No palpitations, Gastrointestinal - Patient has some nausea and vomiting. No heartburn or acid reflux. No diarrhea or constipation. No blood in the stool or black stools, Genitourinary (F) - No dysuria, hematuria, frequency, urgency or incontinence, Musculoskeletal - Pt reports joint pain, Integumentary - Positive for bilateral lower edema, Neurologic - No headache or dizziness. No numbness/paresthesias or other focal neurologic symptoms, Psychiatric - Pt reports some anxiety. No depression. No insomnia. Vital Signs: Performed on Apr 15, 2020 13:39 Height - 64.00 in Weight - 294.4 lbs (LOW) BSA - 2.31 sq.m BMI - 50.53 (HIGH) Temperature - 98.3 F (LOW) Pulse - 91 /min Respiration - 26 /min BP - 152/89 mm(hg) (HIGH) O2 Sat - 90 % (LOW) Pain - 7 Performance Status: 2 - Ambulatory/capable of all self-care, unable to perform any work activities. Up and about more than 50% of waking hours. (ECOG) Physical Examination: Respiratory - Lungs are clear, Cardiovascular - Regular rate and rhythm of heart, Gastrointestinal - Soft, bowel sounds present, Extremities - 1+ visible edema. Lab/Imaging: Test performed on Mar 13, 2020 14:04 Sodium 139 mmol/L Potassium 4.5 mmol/L Chloride 96 mmol/L CO2 32 mmol/L Anion Gap 15.5 BUN 19 mg/dL Creatinine 1.0 mg/dL Cr Clearance (Est) 116.0200 mL/min eGFR 55.3 mL/min Glucose 151 mg/dL Calcium 9.8 mg/dL Protein, Total 8.1 g/dL Albumin 4.4 g/dL Globulin 3.7 g/dL Bilirubin, Total 0.4 mg/dL ALT (SGPT) 19 U/L AST (SGOT) 24 U/L Alkaline Phosphatase 95 IU/L WBC 6.9 10 3/uL RBC 4.68 10 6/uL HGB 12.6 g/dL HCT 43.6 % MCV 93.2 fL MCH 26.9 pg MCHC 28.9 g/dL RDW 17.4 % Platelet Count 169 10 3/cmm MPV 10.4 fL Neutrophils 5.3 10 3/uL Lymphocytes 1.1 10 3/uL Monocytes 0.3 10 3/uL Eosinophils 0.2 10 3/uL Basophils 0.0 10 3/uL Neutrophil % 75.8 % Lymphocyte % 15.3 % Monocyte % 4.6 % Eosinophil % 3.3 % Basophils % 0.6 % NRBC % 0 % CA 27.29 86 Units/mL Impression: Metastatic breast cancer with extensive axial skeleton involvement including T9, 10 and L1, S1 right ala, right proximal femoral metaphysis and left posterior iliac crest. Initially diagnosed on 01/12/2017 per ultrasound guided right breast core needle biopsy followed by a right lobectomy on 02/07/2017 which showed invasive ductal carcinoma measuring 2.1 cm clear margins 1/3 sentinel lymph node from the right axilla positive for metastatic adenocarcinoma, metastatic focus measured 1.4 cm with extracapsular extension present p T2,N1a (sn) ER 94%, MN 86% HER-2/dre negative Ki-67 41% staging workup confirmed T9 lesion further confirmation by biopsy. Intolerance to Femara causing palpitation, ringing in ear and hypertension. Intolerance to Xgeva causing joint pains. Anxiety/depression Excessive daytime drowsiness probably due to sleep apnea but patient is noncompliant .CT PET scan done on 11/05/2017 showed interval normalization of uptake in previously described osseous lesions indicated positive response to therapy, mild FDG uptake in lytic T9 vertebral body lesion. Minimal residual disease at the site is likely, no evidence of soft tissue disease. MRI scan of spine done on 08/14/2018 showed extensive metastatic disease is seen throughout the thoracic spine with marrow signal replacement with edema there is a pathological T8 fracture with loss of 10% height T9 and causing moderate thecal sac stenosis multiple hyperintense lesions are seen throughout the thoracic and lumbar and sacral spine suggestive of metastatic disease Treated with radiation therapy to the spine with good pain control As per radiation oncology patient never received radiation last year, as per patient she did go there, thought she had radiation therapy done.But did not receive any radiation at that time Follow-up CT PET scan done on 09/30/2018 showed extensive osseous metastatic disease involving sacrum, bilateral iliac, and acetabulum, proximal femurs, bilateral scapulae, sternum, clavicles and vertebral bodies from C2-L5, lesions are lytic and the most hypermetabolic lesion in the anterior left iliac has SUV of 5.4 On 03/15/2019 patient was admitted to hospital with mental status changes confusion and CT scan of brain showed no metastases but lab workup showed hypercalcemia treated with calcitonin, biphosphonate and hydration. Patient had MRI scan of spine which showed T8 vertebra damage and radiation therapy was consulted and she was given radiation therapy to her T8 vertebra from 03/20/2019 till 04/03/2019. CT PET scan done on 04/21/2019 showed widespread activity throughout the bone marrow, metabolically active disease cannot be reliably differentiated from the simple reactive uptake. Multiple pathological left-sided rib fractures are noted at previously seen sites of lytic disease Plan: Discussed with patient regarding her labs white blood count 7.7 hemoglobin 11.6 crit 39.9 platelets 45,000 CMP within normal limits CA-27-29 checked on March 13, 2020 was 86 compared to 65 on October 30, 2019 Clinically, patient doing reasonably well, tolerating Aromasin well but with expected side effects. Patient had CT scan of abdomen done for abdominal fullness and discomfort, ordered by her PMD showed no evidence of visceral mets but extensive bone mets. At this point we will consider CT PET scan to assess disease status and she will continue Aromasin in the meantime. Patient still reluctant to consider Xgeva or Zometa, information was given regarding Zometa patient will decide if she wants to consider it. She will return to clinic after CT PET scan for further discussion in the meantime continue with Aromasin and vitamin D/calcium supplements Signed By: Quang Buck M.D. <<Signature on File>>
[2020-04-16 13:59] LABS: CA 27.29 95 U/mL (<38)
== END 2020-04-15 11:19 | disposition home or self-care (01) ==
LOC: ONCMED 11:23
PROVIDERS: PCP Family Medicine; Visit Provider Internal Medicine Hematology & Oncology
DX: C50.811 Malignant neoplasm of overlapping sites of right female breast (principal); C79.51 Secondary malignant neoplasm of bone; C77.3 Secondary and unspecified malignant neoplasm of axilla and upper limb lymph nodes; Z17.0 Estrogen receptor positive status [ER+]; F41.8 Other specified anxiety disorders; R40.0 Somnolence; M84.58XD Pathological fracture in neoplastic disease, other specified site, subsequent encounter for fracture with routine healing; Z79.811 Long term (current) use of aromatase inhibitors
CPT/HCPCS: 80053; 85025; 86300; 99214; G0277

== ENCOUNTER 2020-05-06 14:29 | Outpatient (CLI) | payer MEDICARE, MEDICAID, SELFPAY ==
[2020-05-06 15:11] LABS: Basophils % 0.4 %; Eosinophils # 0.2 10^3/uL (0.0-0.8); Eosinophils % 3.5 %; Hematocrit 42.6 % (37.0-47.0); Hemoglobin 12.3 g/dL (11.5-15.3); Lymphocytes # 1.3 10^3/uL (0.8-4.8); Lymphocytes % 18.7 %; Mean Corpuscular HGB Conc 28.9 g/dL (30.0-36.0); Mean Corpuscular Hemoglobin 27.8 pg (28.0-34.0); Mean Corpuscular Volume 96.2 fL (81-99); Mean Platelet Volume 10.9 fL (7.4-10.4); Monocytes # 0.4 10^3/uL (0.2-0.9); Monocytes % 5.1 %; Neutrophils # 4.94 10^3/uL (1.8-7.7); Nucleated Red Blood Cells % 0 %; Platelet Count 162 10^3/cmm (130-400); Red Blood Count 4.43 10^6/uL (4.1-5.3); Red Cell Distribution Width 17.4 % (12.1-15.1); White Blood Count 6.9 10^3/uL (4.0-10.0)
[2020-05-06 15:45] LABS: Alanine Aminotransferase 16 U/L (0-33); Albumin Level 4.2 g/dL (3.5-5.2); Alkaline Phosphatase 100 IU/L (35-105); Anion Gap 13.3 (5-19); Aspartate Amino Transferase 20 U/L (0-32); Blood Urea Nitrogen 28 mg/dL (8-23); Calcium 9.4 mg/dL (8.5-10.5); Carbon Dioxide 31 mmol/L (22-29); Chloride 101 mmol/L (98-107); Globulin 3.1 g/dL (1.3-4.6); Glomerular Filtration Rate 37.5 mL/min (90-130); Glucose 143 mg/dL (65-115); Osmolality Calculated 291 mOsm/kg (285-295); Potassium 4.3 mmol/L (3.5-5.1); Sodium 141 mmol/L (136-145); Total Bilirubin 0.3 mg/dL (0.15-1.2); Total Protein 7.3 g/dL (6.6-8.7)
[2020-05-06] MEDS: denosumab 120 mg SDV SUBCUT (16:40)
--- NOTE | 2020-05-06 17:02 | ONC FU_ITS ---
Dr. Buck follow up note Patient: Samia Sarmiento Unit #: [id number]: 1950 Dicatated By: Quang Buck M.D.Date of Visit:May 06, 2020 Onc Med Follow-up/Prog Note History of Present Illness: Mrs. Samia Sarmiento, 69-year-old female with history of right breast cancer, as per patient in November 2016 she had a follow-up mammogram which showed 2 cm mass in her right breast, ultrasound of breast confirmed hypoechoic mass present at 12:00 in the right breast measuring 1.2 cm and no abnormal axillary lymph node were seen. On 01/12/2017 she underwent ultrasound-guided right breast core needle biopsy and pathology showed invasive ductal carcinoma with lobular growth future ER/ID positive HER-2/dre negative on 02/07/2017 she underwent right lobectomy and final pathology report confirmed invasive ductal carcinoma measuring 2.1 cm clear margins, 1/3 sentinel lymph node from right axilla was positive for metastatic adenocarcinoma, metastatic focus measures 1.4 cm with extracapsular extension present grade 2/3, pT2N1a(sn) ER 94% ID 86% HER-2/dre negative Ki-67 41% CT scan of chest abdomen pelvis showed mildly expansile osteolytic lesion vertebral segment of T9 , follow-up bone scan confirmed the 9 lytic lesion, biopsy of T9 lesion confirmed metastatic adenocarcinoma of breast origin PET scan done on 04/19/2017 showed single prominent focus of increased metabolic activity in the caudate lobe, the T9 vertebral body with a large lytic lesion the on straight increase in metabolic activity, other possible early are she is lesion are present without lytic or sclerotic changes. She was started on Femara and Xgeva, she took it for some time but decided to stop it as she thought Xgeva was causing joint pains. So she was noncompliant with Femara also. Follow-up CT PET scan done on 08/25/2017 showed progression of abnormal metabolic foci in the axial skeleton the previous T9 vertebral body lesion demonstrates mild decrease of metabolic activity, the T10 vertebral body appears to be involved as well with a new lytic lesion and the maximum SUV of 5.40, the L1 vertebral body demonstrates new increase of metabolic activity with maximal SUV 5.25. The S1 right ala demonstrate a focal increase of metabolic activity and is a new focal increase in metabolic activity in the right proximal femoral metaphysis and a new focus of increased metabolic activity in the left posterior iliac crest, but resolution of hepatic lesion, and no evidence for soft tissue involvement She has history of postmenopausal bleeding for which in the January 2015 she underwent dilatation and endometrial curettage and was found to have endometrial polyps with proliferative endometrium Genetic testing was done which was negative for any deleterious mutation. She has a problem with recurrent dental abscesses for which she underwent extraction of all teeth. As per patient she was referred to hospice but she declined and now she has decided to transfer her care to [facility]. Patient is complaining of back pain but under control with current pain medication, no lower extremity numbness no urine or stool incontinence. No nausea or vomiting, appetite is good, but looking for denture as financially she can't afford. Also complaining of anxiety and depression. Fatigue and excessive drowsiness during daytime , in the past she had sleep study done which confirmed sleep apnea but patient decided not to consider CPAP machine. As per patient she tried Femara in the past , but it caused palpitation in her blood pressure gone up and she also had ringing in her ear. And she stopped taking it immediately. underwent MRI scan of spine on 08/14/2018 which showed extensive metastatic disease throughout thoracic spine Follow-up CT PET scan done on 09/30/2018 showed extensive osseous metastatic disease in the sacrum, left iliac, right iliac, bilateral acetabulum, proximal femurs, bilateral scapular, sternum, clavicles and vertebral bodies from C2-L5. Lesions are lytic and the most hypermetabolic lesion in the anterior left iliac has SUV of 5.4. As per patient, month ago she started taking Femara, but could not tolerate and stopped taking it after 1 week because of progressive weakness e.g. could not get out of chair. Hot flashes etc. now doesn't want to take it knowing the risk versus benefits involved with hormonal therapy in recurrent ER positive breast cancer. As per patient she started taking her alternative therapy and tolerating it well her back pain has improved although she recently underwent radiation therapy to spine but she thinks her herbal therapy is helping her more than radiation did. So she wants to see her tumor markers to confirm that her herbal therapy is controlling her disease. As per patient if her tumor marker continued to go up then she might consider conventional therapy otherwise she will rely on her herbal therapy. But agreed for Xgeva, Later on decided not to consider Xgeva patient is was admitted to hospital on 03/15/19 with mental status changes, frequent fall, confusion and progressive back pain and she was diagnosed with hypercalcemia and treated with calcitonin, biphosphonate and hydration and forced diuresis with that calcium improved and she felt better, confusion resolved. CT scan of head showed no brain metastases but extensive bone metastases involving skull bones MRI scan of spine showed T8 vertebra damage and radiation therapy was consulted, s/p radiation therapy to T8 vertebra.Which she completed on 04/03/2019 CT PET scan done on 04/21/2019 showed widespread marrow activity bone marrow recovery versus active osseous metastatic disease Now being treated with Aromasin/Xgeva, was on hold since 10/15/2019, at patient request because of related side effects and Patient started taking Aromasin again on 11/27/2019 .Follow-up CT PET scan done on May 03, 2020 showed normalization of activity and widespread osseous metastatic disease, consistent with treated malignancy. Negative for soft tissue recurrence. , Came for follow-up, denies any specific complaint except chronic lower extremity discomfort and pain but under control with current pain medication and patient is also considering physical therapy, her primary care is managing. Otherwise denies any fever chills denies any nausea or vomiting occasionally hot flashes but no fever chills, no new bony pains. Tolerating Aromasin well. Medications: Albuterol Sulfate 1 puff(s) Aerosol Powder, Breath Activated Inhalation q 4 to 6 hours PRN, Bentyl 1 Tablet (of 20 mg) Oral t.i.d., CloNIDine HCl 1 (0.1 mg) Tablet Oral b.i.d., Doxycycline Hyclate 1 Capsule (of 100 mg) Oral b.i.d. for 14 days, Enalapril Maleate 1 (10 mg) Tablet Oral b.i.d., Hydrocodone-Acetaminophen 1 Tablet (of 10-325 mg) Oral q 4 hours PRN, LORazepam 1 (0.5 mg) Tablet Oral b.i.d., Magnesium 2 Tablet (of 400 mg) Oral at bedtime Allergies: Advil, morphine , NSAIDs, and Tetanus Immune Globulin. Review of Systems: Review of Systems is not available for this patient. Vital Signs: Performed on May 06, 2020 16:04 Height - 64.00 in Weight - 287.8 lbs (LOW) BSA - 2.28 sq.m BMI - 49.40 (HIGH) Temperature - 98.0 F (LOW) Pulse - 70 /min Respiration - 24 /min BP - 166/90 mm(hg) (HIGH) O2 Sat - 92 % (LOW) Pain - 8 Performance Status: 1 - No physically strenuous activity, but ambulatory and able to carry out light or sedentary work (e.g. office work, light house work). (ECOG) Physical Examination: Respiratory - Poor air entry otherwise clear, Cardiovascular - Regular rate and rhythm of heart, Gastrointestinal - Soft, bowel sounds present, Extremities - Trace edema bilateral. Lab/Imaging: Test performed on Apr 15, 2020 11:33 Sodium 140 mmol/L Potassium 4.3 mmol/L Chloride 100 mmol/L CO2 32 mmol/L Anion Gap 12.3 BUN 17 mg/dL Creatinine 1.0 mg/dL Cr Clearance (Est) 115.09 mL/min eGFR 55.3 mL/min Glucose 132 mg/dL Calcium 9.3 mg/dL Protein, Total 7.7 g/dL Albumin 4.1 g/dL Globulin 3.6 g/dL Bilirubin, Total 0.3 mg/dL ALT (SGPT) 15 U/L AST (SGOT) 25 U/L Alkaline Phosphatase 89 IU/L WBC 7.7 10 3/uL RBC 4.21 10 6/uL HGB 11.6 g/dL HCT 39.9 % MCV 94.8 fL MCH 27.6 pg MCHC 29.1 g/dL RDW 17.8 % Platelet Count 145 10 3/cmm MPV 10.8 fL Neutrophils 5.94 10 3/uL Lymphocytes 1.0 10 3/uL Monocytes 0.4 10 3/uL Eosinophils 0.3 10 3/uL Basophils 0.0 10 3/uL Neutrophil % 77.5 % Lymphocyte % 12.9 % Monocyte % 5.1 % Eosinophil % 3.3 % Basophils % 0.5 % NRBC % 0 % Test performed on Mar 13, 2020 14:04 CA 27.29 86 Units/mL Impression: Metastatic breast cancer with extensive axial skeleton involvement including T9, 10 and L1, S1 right ala, right proximal femoral metaphysis and left posterior iliac crest. Initially diagnosed on 01/12/2017 per ultrasound guided right breast core needle biopsy followed by a right lobectomy on 02/07/2017 which showed invasive ductal carcinoma measuring 2.1 cm clear margins 1/3 sentinel lymph node from the right axilla positive for metastatic adenocarcinoma, metastatic focus measured 1.4 cm with extracapsular extension present p T2,N1a (sn) ER 94%, ID 86% HER-2/dre negative Ki-67 41% staging workup confirmed T9 lesion further confirmation by biopsy. Intolerance to Femara causing palpitation, ringing in ear and hypertension. Intolerance to Xgeva causing joint pains. Anxiety/depression Excessive daytime drowsiness probably due to sleep apnea but patient is noncompliant .CT PET scan done on 11/05/2017 showed interval normalization of uptake in previously described osseous lesions indicated positive response to therapy, mild FDG uptake in lytic T9 vertebral body lesion. Minimal residual disease at the site is likely, no evidence of soft tissue disease. MRI scan of spine done on 08/14/2018 showed extensive metastatic disease is seen throughout the thoracic spine with marrow signal replacement with edema there is a pathological T8 fracture with loss of 10% height T9 and causing moderate thecal sac stenosis multiple hyperintense lesions are seen throughout the thoracic and lumbar and sacral spine suggestive of metastatic disease Treated with radiation therapy to the spine with good pain control As per radiation oncology patient never received radiation last year, as per patient she did go there, thought she had radiation therapy done.But did not receive any radiation at that time Follow-up CT PET scan done on 09/30/2018 showed extensive osseous metastatic disease involving sacrum, bilateral iliac, and acetabulum, proximal femurs, bilateral scapulae, sternum, clavicles and vertebral bodies from C2-L5, lesions are lytic and the most hypermetabolic lesion in the anterior left iliac has SUV of 5.4 On 03/15/2019 patient was admitted to hospital with mental status changes confusion and CT scan of brain showed no metastases but lab workup showed hypercalcemia treated with calcitonin, biphosphonate and hydration. Patient had MRI scan of spine which showed T8 vertebra damage and radiation therapy was consulted and she was given radiation therapy to her T8 vertebra from 03/20/2019 till 04/03/2019. CT PET scan done on 04/21/2019 showed widespread activity throughout the bone marrow, metabolically active disease cannot be reliably differentiated from the simple reactive uptake. Multiple pathological left-sided rib fractures are noted at previously seen sites of lytic disease Follow-up CT PET scan done on April 2020 showed excellent response with normalization of extensive bone mets and no evidence of visceral disease, patient is on daily Aromasin, now agreed for 3 monthly Xgeva started on May 06, 2020 Plan: Discussed with patient regarding her labs white blood count 6.9 hemoglobin 12.3 hematocrit 42.6 platelets 162,000 CMP within normal limit except creatinine 1.4 and glucose 143 and follow-up CT PET scan showed excellent response to the treatment now with normalization of extensive osseous metastatic disease and no evidence of visceral disease. Clinically, patient is doing well, tolerating Aromasin well but with expected side effects e.g. occasional hot flashes. After reviewing CT PET scan patient finally agreed to consider Xgeva on every 3 monthly basis, patient was reminded that Xgeva was approved on monthly basis dosing schedule but patient would consider 3 monthly only. In that case she will continue with daily Aromasin along with vitamin D and calcium supplement and will proceed with with 3 monthly Xgeva today return to clinic in 3 months with CBC CMP and for scheduled dose of Xgeva. Signed By: Quang Buck M.D. <<Signature on File>>
== END 2020-05-06 14:30 | disposition home or self-care (01) ==
LOC: ONCMED 14:33
PROVIDERS: PCP Family Medicine; Visit Provider Internal Medicine Hematology & Oncology
DX: Z51.11 Encounter for antineoplastic chemotherapy (principal); C50.811 Malignant neoplasm of overlapping sites of right female breast; Z17.0 Estrogen receptor positive status [ER+]; C79.51 Secondary malignant neoplasm of bone; I10 Essential (primary) hypertension; F41.9 Anxiety disorder, unspecified; F32.9 Major depressive disorder, single episode, unspecified; G47.33 Obstructive sleep apnea (adult) (pediatric); Z79.818 Long term (current) use of other agents affecting estrogen receptors and estrogen levels
CPT/HCPCS: 36415; 80053; 85025; 96372; 99214; J0897

== ENCOUNTER → 2020-05-14 08:09 | Outpatient (BNVA) | payer MEDICARE, MEDICAID, SELFPAY | PROVIDERS: PCP Family Medicine; Visit Provider Anesthesiology | DX: M54.42 Lumbago with sciatica, left side (principal); M54.41 Lumbago with sciatica, right side; M54.6 Pain in thoracic spine; Z79.891 Long term (current) use of opiate analgesic | CPT/HCPCS: 99213; 99214 ==

== ENCOUNTER → 2020-05-19 14:07 | Outpatient (BNVA) | payer MEDICARE, MEDICAID, SELFPAY | PROVIDERS: PCP Family Medicine; Visit Provider Internal Medicine Rheumatology | DX: M25.50 Pain in unspecified joint (principal); Z79.899 Other long term (current) drug therapy; C50.919 Malignant neoplasm of unspecified site of unspecified female breast; C79.51 Secondary malignant neoplasm of bone; K57.32 Diverticulitis of large intestine without perforation or abscess without bleeding; Q80.9 Congenital ichthyosis, unspecified; E66.01 Morbid (severe) obesity due to excess calories; Z68.42 Body mass index [BMI] 45.0-49.9, adult | CPT/HCPCS: 36415; 99204 ==

== ENCOUNTER → 2020-07-03 12:42 | Outpatient (BNVA) | payer MEDICARE, MEDICAID, SELFPAY | PROVIDERS: PCP Family Medicine; Visit Provider Anesthesiology | DX: M54.5 Low back pain (principal); M54.6 Pain in thoracic spine; F17.210 Nicotine dependence, cigarettes, uncomplicated; Z79.891 Long term (current) use of opiate analgesic | CPT/HCPCS: 99213; 99214 ==

== ENCOUNTER 2020-08-07 13:12 | Outpatient (CLI) | payer MEDICARE, MEDICAID, SELFPAY ==
[2020-08-07 13:48] LABS: Basophils % 0.4 %; Eosinophils # 0.3 10^3/uL (0.0-0.8); Eosinophils % 3.4 %; Hematocrit 44.6 % (37.0-47.0); Hemoglobin 12.7 g/dL (11.5-15.3); Lymphocytes # 1.1 10^3/uL (0.8-4.8); Lymphocytes % 14.8 %; Mean Corpuscular HGB Conc 28.5 g/dL (30.0-36.0); Mean Corpuscular Hemoglobin 26.8 pg (28.0-34.0); Mean Corpuscular Volume 94.1 fL (81-99); Mean Platelet Volume 10.2 fL (7.4-10.4); Monocytes # 0.4 10^3/uL (0.2-0.9); Monocytes % 4.9 %; Neutrophils # 5.84 10^3/uL (1.8-7.7); Neutrophils % 76.1 %; Nucleated Red Blood Cells % 0 %; Platelet Count 150 10^3/cmm (130-400); Red Blood Count 4.74 10^6/uL (4.1-5.3); Red Cell Distribution Width 17.6 % (12.1-15.1); White Blood Count 7.7 10^3/uL (4.0-10.0)
[2020-08-07 14:05] LABS: Alanine Aminotransferase 19 U/L (0-33); Albumin Level 4.2 g/dL (3.5-5.2); Alkaline Phosphatase 79 IU/L (35-105); Anion Gap 12.6 (5-19); Aspartate Amino Transferase 21 U/L (0-32); Blood Urea Nitrogen 21 mg/dL (8-23); Calcium 9.3 mg/dL (8.5-10.5); Carbon Dioxide 33 mmol/L (22-29); Chloride 99 mmol/L (98-107); Globulin 3.5 g/dL (1.3-4.6); Glomerular Filtration Rate 62.5 mL/min (90-130); Glucose 135 mg/dL (65-115); Osmolality Calculated 295 mOsm/kg (285-295); Potassium 4.6 mmol/L (3.5-5.1); Sodium 140 mmol/L (136-145); Total Bilirubin 0.4 mg/dL (0.15-1.2); Total Protein 7.7 g/dL (6.6-8.7)
[2020-08-07] MEDS: denosumab 120 mg SDV SUBCUT (15:15)
--- NOTE | 2020-08-07 16:13 | ONC FU_ITS ---
Dr. Buck follow up note Patient: Samia Sarmiento Unit #: [id number]: 1950 Dicatated By: Quang Buck M.D.Date of Visit:Aug 07, 2020 Onc Med Follow-up/Prog Note History of Present Illness: Mrs. Samia Sarmiento, 69-year-old female with history of right breast cancer, as per patient in November 2016 she had a follow-up mammogram which showed 2 cm mass in her right breast, ultrasound of breast confirmed hypoechoic mass present at 12:00 in the right breast measuring 1.2 cm and no abnormal axillary lymph node were seen. On 01/12/2017 she underwent ultrasound-guided right breast core needle biopsy and pathology showed invasive ductal carcinoma with lobular growth future ER/NC positive HER-2/dre negative on 02/07/2017 she underwent right lobectomy and final pathology report confirmed invasive ductal carcinoma measuring 2.1 cm clear margins, 1/3 sentinel lymph node from right axilla was positive for metastatic adenocarcinoma, metastatic focus measures 1.4 cm with extracapsular extension present grade 2/3, pT2N1a(sn) ER 94% NC 86% HER-2/dre negative Ki-67 41% CT scan of chest abdomen pelvis showed mildly expansile osteolytic lesion vertebral segment of T9 , follow-up bone scan confirmed the 9 lytic lesion, biopsy of T9 lesion confirmed metastatic adenocarcinoma of breast origin PET scan done on 04/19/2017 showed single prominent focus of increased metabolic activity in the caudate lobe, the T9 vertebral body with a large lytic lesion the on straight increase in metabolic activity, other possible early are she is lesion are present without lytic or sclerotic changes. She was started on Femara and Xgeva, she took it for some time but decided to stop it as she thought Xgeva was causing joint pains. So she was noncompliant with Femara also. Follow-up CT PET scan done on 08/25/2017 showed progression of abnormal metabolic foci in the axial skeleton the previous T9 vertebral body lesion demonstrates mild decrease of metabolic activity, the T10 vertebral body appears to be involved as well with a new lytic lesion and the maximum SUV of 5.40, the L1 vertebral body demonstrates new increase of metabolic activity with maximal SUV 5.25. The S1 right ala demonstrate a focal increase of metabolic activity and is a new focal increase in metabolic activity in the right proximal femoral metaphysis and a new focus of increased metabolic activity in the left posterior iliac crest, but resolution of hepatic lesion, and no evidence for soft tissue involvement She has history of postmenopausal bleeding for which in the January 2015 she underwent dilatation and endometrial curettage and was found to have endometrial polyps with proliferative endometrium Genetic testing was done which was negative for any deleterious mutation. She has a problem with recurrent dental abscesses for which she underwent extraction of all teeth. As per patient she was referred to hospice but she declined and now she has decided to transfer her care to [facility]. Patient is complaining of back pain but under control with current pain medication, no lower extremity numbness no urine or stool incontinence. No nausea or vomiting, appetite is good, but looking for denture as financially she can't afford. Also complaining of anxiety and depression. Fatigue and excessive drowsiness during daytime , in the past she had sleep study done which confirmed sleep apnea but patient decided not to consider CPAP machine. As per patient she tried Femara in the past , but it caused palpitation in her blood pressure gone up and she also had ringing in her ear. And she stopped taking it immediately. underwent MRI scan of spine on 08/14/2018 which showed extensive metastatic disease throughout thoracic spine Follow-up CT PET scan done on 09/30/2018 showed extensive osseous metastatic disease in the sacrum, left iliac, right iliac, bilateral acetabulum, proximal femurs, bilateral scapular, sternum, clavicles and vertebral bodies from C2-L5. Lesions are lytic and the most hypermetabolic lesion in the anterior left iliac has SUV of 5.4. As per patient, month ago she started taking Femara, but could not tolerate and stopped taking it after 1 week because of progressive weakness e.g. could not get out of chair. Hot flashes etc. now doesn't want to take it knowing the risk versus benefits involved with hormonal therapy in recurrent ER positive breast cancer. As per patient she started taking her alternative therapy and tolerating it well her back pain has improved although she recently underwent radiation therapy to spine but she thinks her herbal therapy is helping her more than radiation did. So she wants to see her tumor markers to confirm that her herbal therapy is controlling her disease. As per patient if her tumor marker continued to go up then she might consider conventional therapy otherwise she will rely on her herbal therapy. But agreed for Xgeva, Later on decided not to consider Xgeva patient is was admitted to hospital on 03/15/19 with mental status changes, frequent fall, confusion and progressive back pain and she was diagnosed with hypercalcemia and treated with calcitonin, biphosphonate and hydration and forced diuresis with that calcium improved and she felt better, confusion resolved. CT scan of head showed no brain metastases but extensive bone metastases involving skull bones MRI scan of spine showed T8 vertebra damage and radiation therapy was consulted, s/p radiation therapy to T8 vertebra.Which she completed on 04/03/2019 CT PET scan done on 04/21/2019 showed widespread marrow activity bone marrow recovery versus active osseous metastatic disease Now being treated with Aromasin/Xgeva, was on hold since 10/15/2019, at patient request because of related side effects and Patient started taking Aromasin again on 11/27/2019 .Follow-up CT PET scan done on May 03, 2020 showed normalization of activity and widespread osseous metastatic disease, consistent with treated malignancy. Negative for soft tissue recurrence. Came for follow-up, denies any specific complaints, no fever chills, no nausea or vomiting, no diarrhea constipation, occasionally hot flashes otherwise Tolerating Aromasin well. Medications: Albuterol Sulfate 1 puff(s) Aerosol Powder, Breath Activated Inhalation q 4 to 6 hours PRN, Bentyl 1 Tablet (of 20 mg) Oral t.i.d., CloNIDine HCl 1 (0.1 mg) Tablet Oral b.i.d., Doxycycline Hyclate 1 Capsule (of 100 mg) Oral b.i.d. for 14 days, Enalapril Maleate 1 (10 mg) Tablet Oral b.i.d., Hydrocodone-Acetaminophen 1 Tablet (of 10-325 mg) Oral q 4 hours PRN, LORazepam 1 (0.5 mg) Tablet Oral b.i.d., Magnesium 2 Tablet (of 400 mg) Oral at bedtime Allergies: Advil, morphine , NSAIDs, and Tetanus Immune Globulin. Review of Systems: Constitutional - Appetite is poor and weight is stable. No fever, chills, hot flashes, or night sweats. Energy level is poor, ENMT - No sinus congestion/drainage. No mouth sores. No sore throat or difficulty swallowing, Hematologic/Lymphatic - No abnormal bruising or bleeding, Respiratory - No shortness of breath. No cough. No pleuritic pain or hemoptysis, Cardiovascular - No angina pain. No palpitations, Gastrointestinal - Patient has some nausea and vomiting. No heartburn or acid reflux. No diarrhea or constipation. No blood in the stool or black stools, Genitourinary (F) - No dysuria, hematuria, frequency, urgency or incontinence, Musculoskeletal - Pt reports joint pain, Integumentary - Positive for bilateral lower edema, Neurologic - No headache or dizziness. No numbness/paresthesias or other focal neurologic symptoms, Psychiatric - Pt reports some anxiety. No depression. No insomnia. Vital Signs: Performed on Aug 07, 2020 14:43 Height - 64.00 in Weight - 300.6 lbs (HIGH) BSA - 2.33 sq.m BMI - 51.60 (HIGH) Temperature - 97.6 F (LOW) Pulse - 76 /min Respiration - 24 /min BP - 144/76 mm(hg) (HIGH) O2 Sat - 90 % (LOW) Pain - 7 Performance Status: 1 - No physically strenuous activity, but ambulatory and able to carry out light or sedentary work (e.g. office work, light house work). (ECOG) Physical Examination: Respiratory - Lungs are clear to auscultation, Cardiovascular - Regular rate and rhythm of heart, Gastrointestinal - Soft, bowel sounds present, Extremities - No visible deformities, no cyanosis, clubbing or edema. Pulses 4+ and equal bilaterally.Trace edema bilaterally, No mouth sores no thrush no jaundice. Lab/Imaging: Test performed on May 06, 2020 14:58 Sodium 141 mmol/L Potassium 4.3 mmol/L Chloride 101 mmol/L CO2 31 mmol/L Anion Gap 13.3 BUN 28 mg/dL Creatinine 1.4 mg/dL Cr Clearance (Est) 80.3600 mL/min eGFR 37.5 mL/min Glucose 143 mg/dL Calcium 9.4 mg/dL Osmolality - Calculated 291 mOsm/kg Protein, Total 7.3 g/dL Albumin 4.2 g/dL Globulin 3.1 g/dL Bilirubin, Total 0.3 mg/dL ALT (SGPT) 16 U/L AST (SGOT) 20 U/L Alkaline Phosphatase 100 IU/L WBC 6.9 10 3/uL RBC 4.43 10 6/uL HGB 12.3 g/dL HCT 42.6 % MCV 96.2 fL MCH 27.8 pg MCHC 28.9 g/dL RDW 17.4 % Platelet Count 162 10 3/cmm MPV 10.9 fL Neutrophils 4.94 10 3/uL Lymphocytes 1.3 10 3/uL Monocytes 0.4 10 3/uL Eosinophils 0.2 10 3/uL Basophils 0.0 10 3/uL Neutrophil % 72.0 % Lymphocyte % 18.7 % Monocyte % 5.1 % Eosinophil % 3.5 % Basophils % 0.4 % NRBC % 0 % Test performed on Apr 15, 2020 11:33 CA 27.29 95 U/mL Impression: Metastatic breast cancer with extensive axial skeleton involvement including T9, 10 and L1, S1 right ala, right proximal femoral metaphysis and left posterior iliac crest. Initially diagnosed on 01/12/2017 per ultrasound guided right breast core needle biopsy followed by a right lobectomy on 02/07/2017 which showed invasive ductal carcinoma measuring 2.1 cm clear margins 1/3 sentinel lymph node from the right axilla positive for metastatic adenocarcinoma, metastatic focus measured 1.4 cm with extracapsular extension present p T2,N1a (sn) ER 94%, NC 86% HER-2/dre negative Ki-67 41% staging workup confirmed T9 lesion further confirmation by biopsy. Intolerance to Femara causing palpitation, ringing in ear and hypertension. Intolerance to Xgeva causing joint pains. Anxiety/depression Excessive daytime drowsiness probably due to sleep apnea but patient is noncompliant .CT PET scan done on 11/05/2017 showed interval normalization of uptake in previously described osseous lesions indicated positive response to therapy, mild FDG uptake in lytic T9 vertebral body lesion. Minimal residual disease at the site is likely, no evidence of soft tissue disease. MRI scan of spine done on 08/14/2018 showed extensive metastatic disease is seen throughout the thoracic spine with marrow signal replacement with edema there is a pathological T8 fracture with loss of 10% height T9 and causing moderate thecal sac stenosis multiple hyperintense lesions are seen throughout the thoracic and lumbar and sacral spine suggestive of metastatic disease Treated with radiation therapy to the spine with good pain control As per radiation oncology patient never received radiation last year, as per patient she did go there, thought she had radiation therapy done.But did not receive any radiation at that time Follow-up CT PET scan done on 09/30/2018 showed extensive osseous metastatic disease involving sacrum, bilateral iliac, and acetabulum, proximal femurs, bilateral scapulae, sternum, clavicles and vertebral bodies from C2-L5, lesions are lytic and the most hypermetabolic lesion in the anterior left iliac has SUV of 5.4 On 03/15/2019 patient was admitted to hospital with mental status changes confusion and CT scan of brain showed no metastases but lab workup showed hypercalcemia treated with calcitonin, biphosphonate and hydration. Patient had MRI scan of spine which showed T8 vertebra damage and radiation therapy was consulted and she was given radiation therapy to her T8 vertebra from 03/20/2019 till 04/03/2019. CT PET scan done on 04/21/2019 showed widespread activity throughout the bone marrow, metabolically active disease cannot be reliably differentiated from the simple reactive uptake. Multiple pathological left-sided rib fractures are noted at previously seen sites of lytic disease Follow-up CT PET scan done on April 2020 showed excellent response with normalization of extensive bone mets and no evidence of visceral disease, patient is on daily Aromasin, now agreed for 3 monthly Xgeva started on May 06, 2020 Plan: Discussed with patient regarding her labs white blood count 7.7 hemoglobin 12.7 hematocrit 44.6 platelets 150,000 CMP within normal limits except glucose 135 Clinically, patient doing well with no new signs symptom suggestive of disease progression, tolerating Aromasin/vitamin D/calcium well. We will proceed with next 3 monthly dose of Xgeva today and then she will return to clinic in 3 months with CBC CMP in the meantime continue with Aromasin/vitamin D/calcium daily. Signed By: Quang Buck M.D. <<Signature on File>>
== END 2020-08-07 13:13 | disposition home or self-care (01) ==
LOC: ONCMED 13:15
PROVIDERS: PCP Family Medicine; Visit Provider Internal Medicine Hematology & Oncology
DX: Z51.12 Encounter for antineoplastic immunotherapy (principal); C50.811 Malignant neoplasm of overlapping sites of right female breast; C79.51 Secondary malignant neoplasm of bone; Z17.0 Estrogen receptor positive status [ER+]; F41.8 Other specified anxiety disorders; Z79.811 Long term (current) use of aromatase inhibitors; Z79.899 Other long term (current) drug therapy
CPT/HCPCS: 36415; 80053; 85025; 96372; 99214; J0897

== ENCOUNTER → 2020-08-25 11:54 | Outpatient (BNVA) | payer MEDICARE, MEDICAID, SELFPAY | PROVIDERS: PCP Family Medicine; Visit Provider Nurse Practitioner Family | DX: M19.90 Unspecified osteoarthritis, unspecified site (principal); Z11.59 Encounter for screening for other viral diseases; Z79.899 Other long term (current) drug therapy | CPT/HCPCS: 36415; 82306; 82565; 84550; 85651; 86140; 86431; 86480; 86704; 86803; 87340 ==

== ENCOUNTER → 2020-09-05 09:40 | Outpatient (BNVA) | payer MEDICARE, MEDICAID, SELFPAY | PROVIDERS: PCP Family Medicine; Visit Provider Nurse Practitioner | DX: M54.42 Lumbago with sciatica, left side (principal); M54.41 Lumbago with sciatica, right side; R29.898 Other symptoms and signs involving the musculoskeletal system; C50.919 Malignant neoplasm of unspecified site of unspecified female breast; C79.51 Secondary malignant neoplasm of bone; F32.9 Major depressive disorder, single episode, unspecified; F17.210 Nicotine dependence, cigarettes, uncomplicated; Z79.899 Other long term (current) drug therapy; Z79.891 Long term (current) use of opiate analgesic; Z71.6 Tobacco abuse counseling | CPT/HCPCS: 99215 ==

== ENCOUNTER → 2020-10-31 09:44 | Outpatient (BNVA) | payer MEDICARE, MEDICAID, SELFPAY | PROVIDERS: PCP Family Medicine Adult Medicine; Visit Provider Nurse Practitioner | DX: M54.5 Low back pain (principal); M54.6 Pain in thoracic spine; R07.81 Pleurodynia; F17.210 Nicotine dependence, cigarettes, uncomplicated; Z79.891 Long term (current) use of opiate analgesic; Z71.6 Tobacco abuse counseling | CPT/HCPCS: 99214 ==

== ENCOUNTER → 2020-12-31 13:31 | Outpatient (BNVA) | payer MEDICARE, MEDICAID, SELFPAY | PROVIDERS: PCP Family Medicine Adult Medicine; Visit Provider Anesthesiology | DX: G89.29 Other chronic pain (principal); M54.5 Low back pain; Z79.891 Long term (current) use of opiate analgesic | CPT/HCPCS: 99213 ==

== ENCOUNTER 2021-01-12 02:20 | Inpatient (IN) | payer MEDICARE, MEDICAID, SELFPAY ==
[2021-01-12] VITALS (24 sets, daily range): BP systolic 90–152; BP diastolic 55–77; PULSE 71–104; RESP 16–24; TEMP 36.7–36.9; O2SAT 84–98; BMI 73.1
--- NOTE | 2021-01-12 02:21 | XRR_ITS ---
PROCEDURE INFORMATION: Exam: XR Chest Exam date and time: 01/12/2021 2:34 AM Age: 70 years old Clinical indication: Shortness of breath; Prior surgery; Surgery type: Gb; Patient HX: HX of breast cancer with mets; Additional info: SOB TECHNIQUE: Imaging protocol: XR of the chest. Views: 1 view. COMPARISON: [place] Chest 1 [place] [id number] 03/14/2019 1:30 PM FINDINGS: Lungs: No pneumonia is seen. The vascularity is unremarkable. Pleural spaces: Unremarkable. No pleural effusion. No pneumothorax. Heart/Mediastinum: The cardiac silhouette is probably normal considering the AP lordotic projection. Bones/joints: Unremarkable. XR/XR chest 1V portable [id number] IMPRESSION: No significant abnormalities are seen in the chest.
--- NOTE | 2021-01-12 02:23 | ECG_ITS ---
[facility] Test Date: 2021-01-12 Pat Name: Samia Sarmiento Department: Room: Gender: Female Compatibility Test Engineer: : 1950 Requested By: Brittnee Landeros Order Number: [id number] Mary MD: Stephie Mooney M.D. Measurements Intervals Elizabeth Rate: 75 P: 52 WV: 198 QRS: -42 QRSD: 142 T: -28 QT: 387 QTc: 433 Interpretive Statements SINUS RHYTHM LEFT AXIS DEVIATION [QRS AXIS < -30] RIGHT BUNDLE BRANCH BLOCK [120+ ms QRS DURATION, UPRIGHT V1, 40+ ms S IN I/aVL/V4/V5/V6] POSSIBLE ANTERIOR MYOCARDIAL INFARCTION , OF INDETERMINATE AGE [30 ms Q WAVE IN V3/V4, OR R < 0.2 mV IN V4] Compared to ECG 03/14/2019 20:19:31 Left-axis deviation now present Myocardial infarct finding now present Left anterior fascicular block no longer present Electronically Signed On 01-13-2021 12:22:33 CDT by Stephie Mooney M.D. [id number]
--- NOTE | 2021-01-12 02:24 | W.ED.SOB ---
HPI - SOB/Dyspnea General: Chief Complaint: Shortness of Breath/Dyspnea Stated Complaint: sob Time Seen by Provider: 01/12/21 02:21 Source: patient and EMS Mode of arrival: EMS Limitations: no limitations History of Present Illness: HPI Narrative: 70-year-old female with history of COPD along with morbid obesity. She states she been having increasing shortness of breath tonight. Patient does not wear oxygen at home and her room air saturation here is 85%. She states that she is feels extremely short of breath especially with any exertion. She denies any chest pain. Denies any cough. States she has had some increased swelling in her legs and arms. Associated symptoms: Deny abdominal pain, chest pain, fever(s), nausea or vomiting Review of Systems Const: Denies: fever(s), chills, body aches or change in appetite Eyes: Denies: blurry vision or eye discomfort ENMT: Denies: throat pain or dental pain Card: Denies: chest pain Resp: Reports: dyspnea GI: Denies: abdominal pain, nausea, vomiting or diarrhea : Denies: dysuria Musc: Denies: neck pain or back pain Skin/Breast: Denies: rash Neuro: Denies: headache(s) Psych: Denies: depression Law/Lymph: Denies: easy bruising All/Imm: Denies: urticaria PFSH ED PFSH: Medical History Anxiety attack Breast cancer metastasized to bone diag 2014 with treatment and no activity at this time per PET scan Chronic low back pain COPD (chronic obstructive pulmonary disease) Current every day smoker Depression Encounter for long-term opiate analgesic use Enrolled in chronic care management Essential hypertension GERD (gastroesophageal reflux disease) High risk medication use Hyperlipidemia Immunization counseling Inflammatory arthritis Joint pain Low back pain Nicotine dependence, cigarettes, uncomplicated Opioid contract exists Pain in rib Pain in thoracic spine PVD (peripheral vascular disease) Type 2 diabetes mellitus without complication, without long-term current use of insulin Xeroderma Surgical History Hx laparoscopic cholecystectomy 11/01/18 Hx of arthroscopic knee surgery Right Hx of cholecystectomy Hx of lumpectomy Right Hx of oral surgery pulled all teeth 03/2017 Hx of tubal ligation Family History Unknown Prostate disease Depression Heart disease Hypertension Chronic kidney disease (CKD) Grandfather Cancer LUNG CANCER Other CAD (coronary artery disease) Rheumatoid arthritis Denies family history of Diabetes Lupus Hyperlipidemia Family history of premature coronary artery disease Stroke Social History Smoking and tobacco status: former smoker Second hand smoke exposure: No Alcohol intake: never History of recent travel: No Physical Exam Const: COMMON NORMALS: patient oriented x3 NUTRITIONAL APPEARANCE: obese morbidly obese HENMT: COMMON NORMALS: normocephalic and atraumatic HEAD & SCALP: normocephalic and atraumatic Eye: COMMON NORMALS: Equal, round and reactive pupils present and EOMs intact bilaterally PUPIL: Yes Equal, round and reactive pupils present Neck/C-Spine: COMMON NORMALS: full ROM and supple Chest: COMMONS NORMALS: normal inspection of the chest and normal palpation of entire chest wall Resp: COMMON NORMALS: normal respiratory effort, No retractions, No use of accessory muscles and clear to auscultation bilaterally AUSCULTATION: clear to auscultation bilaterally Cardio: COMMON NORMALS: regular rate, regular rhythm and No murmurs present (Cardio) RATE: regular rate RHYTHM: regular rhythm GI: COMMON NORMALS: Normal to inspection, nondistended, normoactive bowel sounds present, Soft to palpation, non-tender and no masses PALPATION: Yes Soft to palpation Extremity: COMMON NORMALS: full ROM NARRATIVE EXTREMITY EXAM: 2+edema Neuro: COMMON NORMALS: patient oriented x3, moves all extremities and no focal motor deficits Psych: COMMON NORMALS: mental status grossly normal, Normal thought process present and cooperative THOUGHT PROCESS: Normal thought process present Skin: COMMON NORMALS: no rashes or lesions noted and no wounds GENERAL SKIN EXAM: no rashes or lesions noted Course Vital Signs: Vital signs: Vital Signs Temperature 98.3 F 01/12/21 02:20 Pulse Rate 104 H 01/12/21 05:31 Respiratory Rate 18 01/12/21 05:31 Blood Pressure 90/66 01/12/21 05:31 Pulse Oximetry 97 01/12/21 05:31 MDM - SOB/Dyspnea MDM Narrative: Medical decision making narrative: Patient presents for shortness of breath does have an elevated BNP likely congestive heart failure and COPD. Patient's obesity also likely causes her hypoxia as well. I spoke to hospitalist who will admit. X-ray showed no signs of definite pneumonia. Patient is requiring oxygen here states she is not on oxygen at baseline. Lab Data: Labs: Lab Results 01/12/21 01/12/21 01/12/21 Range/Units 02:25 02:25 02:25 WBC 8.3 (4.0-10.0) 10^3/ uL RBC 4.30 (4.1-5.3) 10^6/u L Hgb 11.6 (11.5-15.3) g/dL Hct 40.5 (37.0-47.0) % MCV 94.2 (81-99) fL MCH 27.0 L (28.0-34.0) pg MCHC 28.6 L (30.0-36.0) g/dL RDW 20.2 H (12.1-15.1) % Plt Count 169 (130-400) 10^3/c mm MPV 11.2 H (7.4-10.4) fL Neut % (Auto) 77.0 % Lymph % (Auto) 14.4 % [place] % (Auto) 6.2 % Eos % (Auto) 1.6 % Baso % (Auto) 0.4 % Neut # (Auto) 6.38 (1.8-7.7) 10^3/u L Lymph # (Auto) 1.2 (0.8-4.8) 10^3/u L [place] # (Auto) 0.5 (0.2-0.9) 10^3/u L Eos # (Auto) 0.1 (0.0-0.8) 10^3/u L Baso # (Auto) 0.0 (0.0-0.1) 10^3/u L Nucleated RBC % (a uto) 0.2 % Nucleated RBCs # 0.0 /100WBC Specimen Type Sample Site ABG pH (7.35-7.45) ABG pCO2 (35-45) mmHg ABG pO2 (80.0-100.0) mmH g ABG HCO3 (22-26) mmol/L ABG Base Excess (-2.0-2.0) mmol/ L Shoaib Test Hematocrit (37-47) % Hgb O2 Saturation (95-100) % Carboxyhemoglobin (0.4-20.1) %THgb Methemoglobin (0.4-1.5) % Total Hemoglobin (12-16) g/dL O2 Delivery Device O2 Liters/Min % Wheel Setter ID Sodium 143 (136-145) mmol/L Potassium 5.0 (3.5-5.1) mmol/L Chloride 99 (98-107) mmol/L Carbon Dioxide 37 H (22-29) mmol/L Anion Gap 12.0 (5-19) BUN 21 (8-23) mg/dL Creatinine 1.3 H (0.5-0.9) mg/dL GFR Calculation 40.7 L (90-130) mL/min Glucose 139 H (65-115) mg/dL Calculated Osmolal ity 301 H (285-295) mOsm/k g Calcium 9.4 (8.5-10.5) mg/dL Total Bilirubin 0.6 (0.15-1.2) mg/dL AST 32 (0-32) U/L ALT 22 (0-33) U/L Alkaline Phosphata se 78 (35-105) IU/L Troponin T Baselin e 117 H* (0-10) ng/L NT-Pro-B Natriuret Pep 3805 H (0-125) pg/mL Total Protein 6.4 L (6.6-8.7) g/dL Albumin 3.9 (3.5-5.2) g/dL Globulin 2.5 (1.3-4.6) g/dL 01/12/21 Range/Units 02:30 WBC (4.0-10.0) 10^3/ uL RBC (4.1-5.3) 10^6/u L Hgb (11.5-15.3) g/dL Hct (37.0-47.0) % MCV (81-99) fL MCH (28.0-34.0) pg MCHC (30.0-36.0) g/dL RDW (12.1-15.1) % Plt Count (130-400) 10^3/c mm MPV (7.4-10.4) fL Neut % (Auto) % Lymph % (Auto) % [place] % (Auto) % Eos % (Auto) % Baso % (Auto) % Neut # (Auto) (1.8-7.7) 10^3/u L Lymph # (Auto) (0.8-4.8) 10^3/u L [place] # (Auto) (0.2-0.9) 10^3/u L Eos # (Auto) (0.0-0.8) 10^3/u L Baso # (Auto) (0.0-0.1) 10^3/u L Nucleated RBC % (a uto) % Nucleated RBCs # /100WBC Specimen Type Arterial Sample Site Radial, left ABG pH 7.41 (7.35-7.45) ABG pCO2 64.6 H* (35-45) mmHg ABG pO2 58.0 L (80.0-100.0) mmH g ABG HCO3 40.7 H (22-26) mmol/L ABG Base Excess 13.5 H (-2.0-2.0) mmol/ L Shoaib Test Pos Hematocrit 35.0 L (37-47) % Hgb O2 Saturation 86.1 L (95-100) % Carboxyhemoglobin 3.4 (0.4-20.1) %THgb Methemoglobin 0.7 (0.4-1.5) % Total Hemoglobin 11.4 L (12-16) g/dL O2 Delivery Device Nc O2 Liters/Min 3.0 % Wheel Setter ID [email or web address] Sodium (136-145) mmol/L Potassium (3.5-5.1) mmol/L Chloride (98-107) mmol/L Carbon Dioxide (22-29) mmol/L Anion Gap (5-19) BUN (8-23) mg/dL Creatinine (0.5-0.9) mg/dL GFR Calculation (90-130) mL/min Glucose (65-115) mg/dL Calculated Osmolal ity (285-295) mOsm/k g Calcium (8.5-10.5) mg/dL Total Bilirubin (0.15-1.2) mg/dL AST (0-32) U/L ALT (0-33) U/L Alkaline Phosphata se (35-105) IU/L Troponin T Baselin e (0-10) ng/L NT-Pro-B Natriuret Pep (0-125) pg/mL Total Protein (6.6-8.7) g/dL Albumin (3.5-5.2) g/dL Globulin (1.3-4.6) g/dL Imaging Data^: CXR: Attestation: I personally reviewed and interpreted this imaging study as follows: Radiologist's impression: No acute abnormality EKG Data^: EKG 1: Attestation: I personally reviewed and interpreted this EKG as follows: EKG Interpretation Date: 01/12/21 EKG interpretation time: 02:38 Interpretation: nsr hr [address] or t wave abnormalities qrs 142 [id number] Discharge Plan Discharge Patient Disposition: Home Clinical Impression: Dyspnea Qualifiers: Dyspnea type: unspecified Qualified Code(s): R06.00 - Dyspnea, unspecified Condition: Stable Coding Level of Care Code ED Doctor Of Chiropractic for Chg Fwd Exam Comprehensive
[2021-01-12] MEDS: ipratropium-albuterol 3 mL Neb INHALATION ×4 (02:30→21:06)
[2021-01-12 02:36] LABS: Basophils % 0.4 %; Eosinophils # 0.1 10^3/uL (0.0-0.8); Eosinophils % 1.6 %; Hematocrit 40.5 % (37.0-47.0); Hemoglobin 11.6 g/dL (11.5-15.3); Lymphocytes # 1.2 10^3/uL (0.8-4.8); Lymphocytes % 14.4 %; Mean Corpuscular HGB Conc 28.6 g/dL (30.0-36.0); Mean Corpuscular Volume 94.2 fL (81-99); Mean Platelet Volume 11.2 fL (7.4-10.4); Monocytes # 0.5 10^3/uL (0.2-0.9); Monocytes % 6.2 %; Neutrophils # 6.38 10^3/uL (1.8-7.7); Nucleated Red Blood Cells % 0.2 %; Platelet Count 169 10^3/cmm (130-400); Red Cell Distribution Width 20.2 % (12.1-15.1); White Blood Count 8.3 10^3/uL (4.0-10.0)
[2021-01-12 02:38] LABS: ABG PH Result 7.41 (7.35-7.45); Base Excess ABG 13.5 mmol/L (-2.0-2.0); Blood Gas Allen Test Pos; Blood Gas Sample Site Radial, left; Blood Gas Sample Type Arterial; Carboxyhemoglobin 3.4 %THgb (0.4-20.1); HCO3 ABG 40.7 mmol/L (22-26); HGB O2 Sat 86.1 % (95-100); Methemoglobin 0.7 % (0.4-1.5); Oxygen Device NC; Total Hemoglobin 11.4 g/dL (12-16)
[2021-01-12 02:39] LABS: ABG PCO2 64.6 mmHg (35-45)
[2021-01-12 03:07] LABS: Alanine Aminotransferase 22 U/L (0-33); Albumin Level 3.9 g/dL (3.5-5.2); Alkaline Phosphatase 78 IU/L (35-105); Aspartate Amino Transferase 32 U/L (0-32); Blood Urea Nitrogen 21 mg/dL (8-23); Calcium 9.4 mg/dL (8.5-10.5); Carbon Dioxide 37 mmol/L (22-29); Chloride 99 mmol/L (98-107); Globulin 2.5 g/dL (1.3-4.6); Glomerular Filtration Rate 40.7 mL/min (90-130); Glucose 139 mg/dL (65-115); NT Pro B Type Natriuretic Pept 3805 pg/mL (0-125); Osmolality Calculated 301 mOsm/kg (285-295); Sodium 143 mmol/L (136-145); Total Bilirubin 0.6 mg/dL (0.15-1.2); Total Protein 6.4 g/dL (6.6-8.7)
[2021-01-12 03:14] LABS: Troponin(5th) Baseline 117 ng/L (0-10)
[2021-01-12] MEDS: HYDROmorphone 1 mg/mL INJ 1 mL 0.5 MG IVP (03:37)
--- NOTE | 2021-01-12 04:13 | P.HP_ITS ---
Providers/Chief Complaint Chief Complaint: sob History of Present Illness Samia Sarmiento is a 70 year old female with history of morbid obesity, chronic hypoventilation/hypercarbia, breast cancer with metastases to, liver bone, currently on Aromasin Xgeva (status post radiotherapy for bone mets) presented with chief complaint of shortness of breath. Patient does not use oxygen or CPAP at home, questionable compliance with her medications. She is stating that she never used Lasix, she fired her PCP and is currently upset with her cancer management as well. Patient is stating that most of the time her is helping her out with daily activities including maneuvering wheelchair, yesterday when she went with her to check on her [id number] she was having difficulty getting in and out of wheelchair and it was hurting her right hip, her [id number] convinced her to go to the hospital because of her worsening of condition otherwise she was avoiding coming to the hospital. She is denying fever, productive cough, chest pain endorsing back pain, lower extremity pain, & inability to walk on her feet because of pain. She has gained significant amount of fluid weight. She is motivated to get help for her health and today had an appointment with the transit bus driver for her advanced directives. EMS was called when her was not able to pull her out of wheelchair, EMS helped her out and noticed that O2 saturation was 70% on room air she was put on nonrebreather mask, diagnostic work-up revealed normal leukocyte, high D-dimer, compensated pH with relative hypoxia, chronic kidney disease, worsening BNP, chest x-ray shows vascular congestion, cardiomegaly In the ER she was given albuterol, 40 mg IV Lasix hydromorphone 0.5 mg and albuterol Review of Systems Const: Reports: body aches, change in weight, fatigue and malaise; Denies: fever(s) Eyes: Denies: change in vision ENMT: Denies: throat pain Card: Reports: edema, swelling of feet/ankles, dyspnea on exertion and orthopnea; Denies: chest pain Resp: Reports: dyspnea GI: Denies: abdominal pain : Reports: flank pain Musc: Reports: extremity swelling, limited range of motion, muscle cramps and muscle weakness Skin/Breast: Reports: lesions and dry skin Neuro: Reports: difficulty walking; Denies: headache(s) Psych: Reports: anxiety and depression Endo: Denies: polyuria Law/Lymph: Denies: easy bruising All/Imm: Denies: urticaria Medications/Allergies Home Medications Medication Instructions Recorded Confirmed Last Taken Type exemestane 25 mg tablet 25 mg PO QDAY 10/17/19 12/23/20 Unknown History lorazepam 0.5 mg tablet 0.5 mg PO BID PRN 10/17/19 12/23/20 Unknown History magnesium 200 mg tablet 200 mg PO QDAY 10/17/19 12/23/20 Unknown History cholecalciferol (vitamin D3) 50 50 mcg PO DAILY 05/19/20 12/23/20 Unknown Hist ory mcg (2,000 unit) capsule clonidine HCl 0.1 mg tablet 0.1 mg PO BID #60 tab 05/29/20 12/23/20 Unknown Rx enalapril maleate 10 mg tablet 10 mg PO BID #60 tab 07/21/20 12/23/20 Unknown Rx lidocaine 5 % topical patch 1 patch TOPICAL .Q12 hours #30 ea 12/11/20 12/23/20 Unknown Rx albuterol sulfate 90 mcg/actuation 2 puff INHALATION Q4H PRN #8.5 g 12/23/20 12/23/20 Unknown Rx aerosol inhaler guaifenesin 600 mg tablet, 600 mg PO BID 12/31/20 12/31/20 Unknown History extended release 12 hr hydrocodone 10 mg-acetaminophen 1 tab PO .6 times a day PRN 30 12/31/20 12/31/20 Unknown Rx 325 mg tablet Days #180 tab hydrocodone 10 mg-acetaminophen 1 tab PO .6 times a day PRN 30 12/31/20 12/31/20 Unknown Rx 325 mg tablet Days #180 tab Allergies Allergy/AdvReac Type Severity Reaction Status Date / Time tetanus and diphtheria Allergy Severe arm Verified 12/31/20 13:34 toxoids swelling citalopram [From Celexa] Allergy anaphylaxis Verified 12/31/20 13:34 Corticosteroids Allergy difficulty Verified 12/31/20 13:34 (Glucocorticoids) breathing/ rash ibuprofen [From Advil] Allergy rapid pulse Verified 12/31/20 13:34 letrozole Allergy high BP/ Verified 12/31/20 13:34 caused tremendous pain in her joints nortriptyline Allergy tacycardia Verified 12/31/20 13:34 and HTN Opioids - Morphine Analogues Allergy hypes her Verified 12/31/20 13:34 up oxcarbazepine Allergy anaphylaxis Verified 12/31/20 13:34 [From Trileptal] Tetanus Vaccines and Toxoid Allergy localized Verified 12/31/20 13:34 reaction PFSH Acute PFSH: Medical History Anxiety attack Breast cancer metastasized to bone diag 2014 with treatment and no activity at this time per PET scan Chronic low back pain COPD (chronic obstructive pulmonary disease) Current every day smoker Depression Encounter for long-term opiate analgesic use Enrolled in chronic care management Essential hypertension GERD (gastroesophageal reflux disease) High risk medication use Hyperlipidemia Immunization counseling Inflammatory arthritis Joint pain Low back pain Nicotine dependence, cigarettes, uncomplicated Opioid contract exists Pain in rib Pain in thoracic spine PVD (peripheral vascular disease) Type 2 diabetes mellitus without complication, without long-term current use of insulin Xeroderma Surgical History Hx laparoscopic cholecystectomy 11/01/18 Hx of arthroscopic knee surgery Right Hx of cholecystectomy Hx of lumpectomy Right Hx of oral surgery pulled all teeth 03/2017 Hx of tubal ligation Family History Unknown Prostate disease Depression Heart disease Hypertension Chronic kidney disease (CKD) Grandfather Cancer LUNG CANCER Other CAD (coronary artery disease) Rheumatoid arthritis Denies family history of Diabetes Lupus Hyperlipidemia Family history of premature coronary artery disease Stroke Social History Smoking and tobacco status: former smoker Second hand smoke exposure: No Alcohol intake: never History of recent travel: No Vitals/I&O/Wt Last Vital Signs Temp 98.3 F 01/12/21 02:20 Pulse 76 01/12/21 03:36 Resp 18 01/12/21 03:37 BP 126/68 01/12/21 03:36 Pulse Ox 90 01/12/21 03:37 Physical Exam Narrative: EXAM NARRATIVE: Morbidly obese female currently saturating well on 4 L nasal cannula No active chest pain or shortness of breath Unkept appearance Cushingoid appearance S1, S2 systolic murmur active signs of fluid overload Low symmetry venous stasis dermatitis with 2+ pitting edema with underlying lymphedema Bilateral diminished breath sounds no active crackles or wheezing Abdomen distended, abdominal pannus with fungal rash, otherwise soft and nontender No decubitus ulcers Appropriate mood and affect EOMI, PERRLA no neurological deficits Data : 01/12/21 02:25 01/12/21 02:25 A&P Assessment and plan (1) Dyspnea: Status: Acute Qualifiers: Dyspnea type: unspecified Qualified Code(s): R06.00 - Dyspnea, unspecified (2) Chronic low back pain: Status: Acute (3) Leg weakness, bilateral: Status: Acute (4) Type 2 diabetes mellitus without complication, without long-term current use of insulin: Status: Acute (5) GERD (gastroesophageal reflux disease): Status: Acute (6) Essential hypertension: Status: Acute (7) Acute exacerbation of CHF (congestive heart failure): Status: Acute (8) COPD exacerbation: Status: Acute (9) Acute respiratory failure with hypoxia: Status: Acute Additional A&P Information Acute hypoxia This seems secondary to CHF exacerbation clinically fluid overloaded with high BNP, noticed high D-dimer considering history of cancer this is expected, I will start her on heparin drip for now as she is high risk for clot formation as well considering history of cancer I would not use Lovenox because of chronic kidney disease, kindly reevaluate if she would benefit from a VQ scan versus CTA as her creatinine has not worsened from baseline Currently saturating well on 4 L nasal cannula DuoNeb every 4 as needed Home O2 evaluation No signs of pneumonia on chest x-ray, it is consistent with pulmonary vascular congestion and cardiomegaly Would use Bumex 1 mg daily for CHF exacerbation her EF is 65% with mild pulmonary hypertension Echo 2019 Breast cancer with metastases Currently on hormonal therapy received radiotherapy in the past secondary to bony metastases Poor functional status, wheelchair-bound Follows up with Dr. Buck Chronic hypercapnia/obesity hypoventilation without acute exacerbation Acute COPD exacerbation with hypoxia Her hypercapnia seems to be compensated with appropriate level of bicarb High risk for intubation as she is currently requiring opioids and has history of obesity hypoventilation Type 2 diabetes: Consistent carb/moderate sliding scale Goals of care discussed with the patient and her : Full code Consistent carb diet DVT prophylaxis not indicated due to Heparin GTT Attestations Medical Necessity Statement*: Anticipating discharge in less than 48 hours currently requiring oxygen for acute hypoxia high risk for intubation Time Spent in Patient Care: (>than 50% of time spent in counselling and/or direct pt care on unit) . 40mins Coding Level of Care Code Acute Weekend Receptionist for Chg Fwd Diagnoses Dyspnea R06.00 Dyspnea type: unspecified Chronic low back pain M54.5; G89.29 Leg weakness, bilateral R29.898 Type 2 diabetes mellitus without complication, without long-term current use of insulin E11.9 GERD (gastroesophageal reflux disease) K21.9 Essential hypertension I10 Acute exacerbation of CHF (congestive heart failure) I50.9 COPD exacerbation J44.1 Acute respiratory failure with hypoxia J96.01
[2021-01-12] MEDS: FUROsemide 10 mg/mL SDV 4mL 40 MG IVP (04:19)
--- NOTE | 2021-01-12 04:23 | ECG_ITS ---
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 Measurements Intervals [place] Rate: 70 P: 70 GA: 204 QRS: -44 QRSD: 138 T: -28 QT: 380 QTc: 413 Interpretive Statements SINUS RHYTHM LEFT AXIS DEVIATION [QRS AXIS < -30] RIGHT BUNDLE BRANCH BLOCK [120+ ms QRS DURATION, UPRIGHT V1, 40+ ms S IN I/aVL/V4/V5/V6] POSSIBLE ANTERIOR MYOCARDIAL INFARCTION , OF INDETERMINATE AGE [30 ms Q WAVE IN V3/V4, OR R < 0.2 mV IN V4] Compared to ECG 01/12/2021 02:38:16 No significant changes Electronically Signed On 01-13-2021 12:38:09 CDT by Stephie Mooney M.D. [id number]
[2021-01-12 05:34] LABS: Troponin 5 2HR Delta -4.9 ABS# (0-10)
[2021-01-12 05:35] LABS: Troponin 5 2HR 112.1 ng/L (0-10)
[2021-01-12 07:25] LABS: Glucose Point of Care 115 mg/dL (70-110)
[2021-01-12 07:35] LABS: Platelet Count 161 10^3/cmm (130-400)
[2021-01-12] MEDS: cloNIDine 0.1 mg Tablet PO ×2 (08:14→17:57)
--- NOTE | 2021-01-12 08:23 | ECG_ITS ---
[facility] ED Test Date: 2021-01-12 Pat Name: Samia Sarmiento Department: Room: 250 Gender: Female Facing Machine Operator: : 1950 Requested By: Brittnee Landeros Order Number: [id number] Mary MD: Stephie Mooney M.D. Measurements Intervals [place] Rate: 75 P: 71 WV: 199 QRS: -39 QRSD: 138 T: -15 QT: 389 QTc: 436 Interpretive Statements SINUS RHYTHM MARKED LEFT AXIS DEVIATION [QRS AXIS < -30] RIGHT BUNDLE BRANCH BLOCK [120+ ms QRS DURATION, UPRIGHT V1, 40+ ms S IN I/aVL/V4/V5/V6] Compared to ECG 01/12/2021 04:10:28 Myocardial infarct finding no longer present Electronically Signed On 01-13-2021 12:37:02 CDT by Stephie Mooney M.D. [id number]
--- NOTE | 2021-01-12 10:53 | USCV_ITS ---
Samia Sarmiento Age: 70 Gender: F : 1950 Exam Date: 01/12/2021 16:38 Ordering Phys: Nandiin Aquino MD Technologist: ANDREINA [place] [facility] [place] PE HISTORY: PE PROCEDURES: The venous duplex Doppler examination of both lower extremities was performed in the standard fashion. The following venous structures were evaluated: common femoral vein, profunda vein, proximal portion of the greater saphenous vein, superficial femoral vein, and the popliteal vein. In addition, the posterior tibial and peroneal trunk were evaluated. Serial compression, augmentation maneuvers, and spectral Doppler flow evaluation were performed. FINDINGS: No DVT seen in any vessel examined CONCLUSIONS No evidence of right lower extremity DVT. No evidence of left lower extremity DVT. Wei Douglass MD (Electronically Signed) Final Date: 13 January 2021 16:06 S
[2021-01-12] MEDS: nystatin powder 15 gm Btl 1 APPLIC TOPICAL ×2 (11:35→17:54)
[2021-01-12] MEDS: enoxaparin 100 mg/mL Syringe SUBCUT (11:35)
[2021-01-12] MEDS: enoxaparin 60 mg/0.6 mL Syringe 50 MG SUBCUT (11:36)
--- NOTE | 2021-01-12 12:09 | PC.NUTR ---
NUTRITION WEIGHT ASSESSMENT: Ht. 62 inches. Wt. 400 pounds. BMI of 73.2 kg/m2 indicates Morbid Obesity.
[2021-01-12 12:35] LABS: Glucose Point of Care 145 mg/dL (70-110)
--- NOTE | 2021-01-12 13:16 | PC.NURSE ---
patient refused AM dose of Bumex. patient stated that it does not work for her and she does not take it at home. she stated that she was given lasix overnight and that works for her. Dr. Aquino notified by Chon ARMAS. patient taken down to nuclear medicine for pulmonary perfusion test and patient refused to try and get on the table for the scan and also states that she would not be able to lay in the position that they needed her to lay in. Dr. Aquino notified
--- NOTE | 2021-01-12 13:45 | PC.CHAP ---
Pastoral Care Encounter/Spiritual Assessment Type of Contact [] Declined intensive care ambulance paramedic visit [] Patient/Family/Request visit [] Outpatient visit [] Follow-up visit [] Physician referral [] Code/Alert [x] Routine visit [] Staff referral [] Actively dying [] Patient sleeping [] Family support [] [] Out of room [] Palliative care [] [] Receiving care in room [] Pre-surgical visit [] Trauma [] Long length of stay [] ICU visit [] Other: Relational/Emotional Strength [] Patient feels connected with others/family/visitors/staff [] Distress [] Loneliness/isolation [] Abandonment Spirituality of Patient [x] Person of Jeanie [x] Attends Mormon of their Jeanie [x] Believes in Prayer [] Reads Bible or Samaritan materials [] There are Spiritual issues to be addressed Media Buyer Interventions [x] Prayer [] Active listening [] Non-anxious presence [] Spiritual/emotional support [] Crisis/trauma care [] Spiritual counseling [] Bereavement support [] Provided bereavement packet [] Provided Bible/devotional materials [] Provided toy/stuffed animal, coloring book to patient or family member [] Provided Communion [] Anointing/[place] [] Salvation [] Completed spiritual assessment [] Other: Impact on Illness or Injury [] Angry [] Fearful [] Anxious [] Often cries [] Exhaustion [] Unable to work [] Unable to attend congregational [] Unable to walk/stand [] Unable to read [] Unable to drive [] Unable to eat/drink [] Unable to sleep [] Unable to be with family [] Patient intubated [] Other: Summary she was happy Time spent with patient
[2021-01-12] MEDS: HYDROcodone-acetaminophen 5-325 mg Tablet 1 TAB PO (15:05)
--- NOTE | 2021-01-12 16:23 | P.PN_ITS ---
Subjective Subjective: Interval history: Patient complaining dyspnea today. Attempted to get VQ scan this morning, however patient could not lie flat to complete the test. Lower extremity Doppler has been ordered and pending. Renally dosed full dose Lovenox started in the interim. 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 [employer] [place]: no focal neuro deficits Ext: 2+ pitting edema B/L, anasarca+ Urinary Catheter Management^: Root: Cath Placed During This Visit: yes Reason for Continuing Indwelling Catheter: Accurate Measurement of Urinary Output in Critically Ill Patients Urinary Catheter Date of Insertion: 01/12/21 Urinary Catheter Time of Insertion: 05:11 Data : 01/12/21 07:27 01/12/21 02:25 A&P Assessment and plan (1) Dyspnea: Status: Acute Qualifiers: Dyspnea type: unspecified Qualified Code(s): R06.00 - Dyspnea, unspecified (2) Chronic low back pain: Status: Acute (3) Leg weakness, bilateral: Status: Acute (4) Type 2 diabetes mellitus without complication, without long-term current use of insulin: Status: Acute (5) GERD (gastroesophageal reflux disease): Status: Acute (6) Essential hypertension: Status: Acute (7) Acute exacerbation of CHF (congestive heart failure): Status: Acute (8) COPD exacerbation: Status: Acute (9) Acute respiratory failure with hypoxia: Status: Acute Additional A&P Information Acute hypoxic respiratory failure Likely to multifactorial related to CHF exacerbation clinically fluid overloaded with high BNP, gross anasarca. Likely also contributed by obesity hypoventilation syndrome. Likely also has underlying COPD with chronic hypercapnia given ABG with compensated respiratory acidosis. D-dimer noted to be elevated, attempted to get VQ scan given GABRIELA, however unable to complete the study as patient could not lie flat. Lower extremity Doppler has been ordered. Full dose Lovenox in the interim. Patient has a new oxygen requirement of 4 L/min, normally does not use oxygen at home. Echocardiogram from February 2019 with normal LVEF, no regional wall motion abnormalities, normal diastolic function. Will repeat echocardiogram to ascertain any changes. Continue DuoNeb every 4 as needed BiPAP as needed Home O2 evaluation No signs of pneumonia on chest x-ray Increase diuresis from 1 mg p.o. Bumex daily to Lasix 80 mg IV every 12 hours Root catheter to measure accurate urine output. Currently charted as no output, I am uncertain if this is accurate. Add Bipap prn Breast cancer with metastases Currently on hormonal therapy received radiotherapy in the past secondary to bony metastases Poor functional status, wheelchair-bound Follows up with Dr. Buck Type 2 diabetes: Consistent carb/moderate sliding scale Full code Consistent carb diet DVT prophylaxis : lovenox Attestations Medical Necessity Statement*: Chf exacerbation, needs iv diuresis, optimizaqtion of respiratory status, change to inpatient admission Coding Level of Care Code Acute Outpatient Coder for Chg Fwd Diagnoses Dyspnea R06.00 Dyspnea type: unspecified Chronic low back pain M54.5; G89.29 Leg weakness, bilateral R29.898 Type 2 diabetes mellitus without complication, without long-term current use of insulin E11.9 GERD (gastroesophageal reflux disease) K21.9 Essential hypertension I10 Acute exacerbation of CHF (congestive heart failure) I50.9 COPD exacerbation J44.1 Acute respiratory failure with hypoxia J96.01
[2021-01-12 16:57] LABS: Glucose Point of Care 134 mg/dL (70-110)
[2021-01-12] MEDS: FUROsemide 10 mg/mL SDV 10mL 80 MG IVP (17:53)
[2021-01-12 21:28] LABS: Glucose Point of Care 141 mg/dL (70-110)
[2021-01-13] VITALS (15 sets, daily range): BP systolic 112–165; BP diastolic 61–78; PULSE 71–87; RESP 16–22; TEMP 36.7–37.4; O2SAT 89–97
[2021-01-13] MEDS: HYDROcodone-acetaminophen 5-325 mg Tablet 1 TAB PO ×4 (00:15→16:58)
[2021-01-13] MEDS: LORazepam 0.5 mg Tablet PO (00:16)
[2021-01-13] MEDS: FUROsemide 10 mg/mL SDV 10mL 80 MG IVP ×2 (04:18→16:57)
--- NOTE | 2021-01-13 06:00 | USCV_ITS ---
Torsten Samia Age: 70 Gender: F : 1950 Exam Date: 01/13/2021 06:56 Ordering Phys: Nandini Aquino MD Technologist: Luana Del Toro Exam Location: [facility] [place] Indication: EF BP: 167 / 78 HR: 81 Rhythm: Sinus Technical Quality: Very technically difficult study MEASUREMENTS (Male / Female) Normal Values 2D ECHO RV Chamber Size 4.3 cm LA Width 3.8 cm LA Height 5.2 cm RA Width 4.4 cm RA Height 4.4 cm M-MODE LV Diastolic Diameter MM 5.3 cm 4.2 - 5.9 / 3.9 - 5.3 cm LV Systolic Diameter MM 3.2 cm LV Ejection Fraction MM Teich 69.6 % IVS Diastolic Thickness MM 1.2 cm 0.6 - 1.0 / 0.6 - 0.9 cm IVS Systolic Thickness MM 1.4 cm LVPW Diastolic Thickness MM 1.1 cm 0.6 - 1.0 / 0.6 - 0.9 cm LVPW Systolic Thickness MM 1.5 cm FINDINGS Left Ventricle Right Ventricle Right Atrium Left Atrium Mitral Valve Aortic Valve Tricuspid Valve Pulmonic Valve Pericardium Aorta CONCLUSIONS Technically very difficult study with suboptimal images therefore cannot interpret accurately. 1-Probably left ventricular ejection fraction is normal. Estimated ejection fraction around 55%. 2-There is no pericardial effusion. 3-Due to technically difficult study cannot compare with prior echocardiogram Aliyah Dempsey MD (Electronically Signed) Final Date: 15 January 2021 20:47 S
--- NOTE | 2021-01-13 06:09 | PC.NURSE ---
This nurse went into patients room at 0010 to check on patient. Patient was crying and stating she was having a lot of pain and panic attacks. Patient also stated that she had been asking for pain medication for the past three hours. This nurse had been patients room four times to check on patient and assess her pain prior to this time and patient had told this nurse every time that she was doing good and had no pain. When this nurse told patient that I could get her pain medication she stated I can have it every four hours and no one has brought it to me. This nurse educated patient that her pain medication is a PRN med and that the patient would have to ask for the medication, that I can not bring it in every four hours like a scheduled medication.
[2021-01-13 06:37] LABS: Glucose Point of Care 102 mg/dL (70-110)
[2021-01-13 06:55] LABS: Anion Gap 13.5 (5-19); Blood Urea Nitrogen 19 mg/dL (8-23); Calcium 9.5 mg/dL (8.5-10.5); Carbon Dioxide 36 mmol/L (22-29); Chloride 94 mmol/L (98-107); Glomerular Filtration Rate 40.7 mL/min (90-130); Glucose 93 mg/dL (65-115); Osmolality Calculated 290 mOsm/kg (285-295); Potassium 4.5 mmol/L (3.5-5.1); Sodium 139 mmol/L (136-145)
[2021-01-13] MEDS: cloNIDine 0.1 mg Tablet PO ×2 (08:50→16:57)
[2021-01-13] MEDS: sennosides-docusate Tablet 1 TAB PO (08:50)
[2021-01-13] MEDS: nystatin powder 15 gm Btl 1 APPLIC TOPICAL ×2 (08:50→16:57)
[2021-01-13] MEDS: ipratropium-albuterol 3 mL Neb INHALATION ×3 (09:09→20:09)
--- NOTE | 2021-01-13 10:08 | PC.CHAP ---
Pastoral Care Encounter/Spiritual Assessment Type of Contact [] Declined maintenance service supervisor visit [] Patient/Family/Request visit [] Outpatient visit [] Follow-up visit [] Physician referral [] Code/Alert [x] Routine visit [] Staff referral [] Actively dying [] Patient sleeping [] Family support [] [] Out of room [] Palliative care [] [] Receiving care in room [] Pre-surgical visit [] Trauma [] Long length of stay [] ICU visit [] Other: Relational/Emotional Strength [x] Patient feels connected with others/family/visitors/staff [] Distress [] Loneliness/isolation [] Abandonment Spirituality of Patient [x] Person of Jeanie [x] Attends Rastafari of their Jeanie [x] Believes in Prayer [x] Reads Bible or Jehovah'S Witness materials [x] There are Spiritual issues to be addressed Hospital Housekeeper Interventions [x] Prayer [x] Active listening [x] Non-anxious presence [x] Spiritual/emotional support [] Crisis/trauma care x[] Spiritual counseling [] Bereavement support [] Provided bereavement packet [] Provided Bible/devotional materials [] Provided toy/stuffed animal, coloring book to patient or family member [] Provided Communion [] Anointing/[place] [] Salvation [] Completed spiritual assessment [] Other: Impact on Illness or Injury [] Angry [] Fearful [] Anxious [] Often cries [] Exhaustion [] Unable to work [] Unable to attend samaritan [] Unable to walk/stand [] Unable to read [] Unable to drive [] Unable to eat/drink [] Unable to sleep [] Unable to be with family [] Patient intubated [] Other: [place] patient night of 19 spiritual battles saw hannah today doing much better Time spent with patient 15 min
[2021-01-13 11:22] LABS: Glucose Point of Care 148 mg/dL (70-110)
[2021-01-13] MEDS: enoxaparin 100 mg/mL Syringe SUBCUT (11:29)
[2021-01-13] MEDS: enoxaparin 60 mg/0.6 mL Syringe 50 MG SUBCUT (11:29)
--- NOTE | 2021-01-13 17:03 | PM.PN ---
Subjective Subjective: Interval history: Complains of generalized body ache, deconditioning, O2 sats dropped to 89%, patient states chronically runs between 88 to 90% at home. Previously diagnosed with sleep apnea, however has not worn a CPAP in years. Diuresed approximately 3.9 L over 24 hours, renal function is stable. Venous Duplex without evidence of DVT. Reports feeling depressed, extremely anxious, unable to sleep at night due to thoughts about her and her family's mortality. Medications: Reviewed: Yes Vitals/I&O/Wt Last Vital Signs Temp 98.1 F 01/13/21 16:00 Pulse 78 01/13/21 16:00 Resp 18 01/13/21 16:00 BP 151/76 01/13/21 16:57 Pulse Ox 90 01/13/21 16:00 01/13/21 01/13/21 01/13/21 06:59 14:59 22:59 Intake Total 600 / 600 Output Total 3200 / 5900 725 / 725 Balance -3200 / -5420 -125 / -125 Weight last 48 hrs Weight 181.437 kg Physical Exam Narrative: EXAM NARRATIVE: GEN: Awake, alert and oriented, lying in bed, propped up in bed, unable to lie flat CVS: S1S2 N RS: B/L rales on auscultation B/L Abd: Soft, nt/nd , bs+ LEGAL CASHIER: no focal neuro deficits Ext: 2+ pitting edema B/L, anasarca+ Urinary Catheter Management^: Root: Cath Placed During This Visit: yes Reason for Continuing Indwelling Catheter: Accurate Measurement of Urinary Output in Critically Ill Patients Urinary Catheter Date of Insertion: 01/12/21 Urinary Catheter Time of Insertion: 05:11 Data : 01/12/21 07:27 01/13/21 05:44 A&P Assessment and plan (1) Dyspnea: Status: Acute Qualifiers: Dyspnea type: unspecified Qualified Code(s): R06.00 - Dyspnea, unspecified (2) Chronic low back pain: Status: Acute (3) Leg weakness, bilateral: Status: Acute (4) Type 2 diabetes mellitus without complication, without long-term current use of insulin: Status: Acute (5) GERD (gastroesophageal reflux disease): Status: Acute (6) Essential hypertension: Status: Acute (7) Acute exacerbation of CHF (congestive heart failure): Status: Acute (8) COPD exacerbation: Status: Acute (9) Acute respiratory failure with hypoxia: Status: Acute (10) Depression: Status: Acute Additional A&P Information Acute hypoxic respiratory failure Likely to multifactorial related to CHF exacerbation clinically fluid overloaded with high BNP, gross anasarca. Likely also contributed by obesity hypoventilation syndrome. Likely also has underlying COPD with chronic hypercapnia given ABG with compensated respiratory acidosis. Reports baseline oxygen saturation between 88 to 90% at home. Has qualified for a CPAP based on sleep study several years ago, however does not wear CPAP for unclear reasons, need a repeat study with titration as an outpatient. D-dimer noted to be elevated, attempted to get VQ scan given GABRIELA, however unable to complete the study as patient could not lie flat. Lower extremity Doppler negative, discontinue presumptive anticoagulation Echocardiogram from February 2019 with normal LVEF, no regional wall motion abnormalities, normal diastolic function. Repeat echocardiogram pending. Continue every 6 hours scheduled BiPAP as needed Home O2 evaluation No signs of pneumonia on chest x-ray Continue Lasix 80 mg IV every 12 hours Root catheter to measure accurate urine output. Currently charted as no output, I am uncertain if this is accurate. Add Bipap prn Breast cancer with metastases Currently on hormonal therapy, resume aromasin Poor functional status, wheelchair-bound PT/OT assessment Type 2 diabetes: Consistent carb/moderate sliding scale Depression: add paroxitene 10mg po daily Full code Consistent carb diet DVT prophylaxis : lovenox Dispo: Home with HH vs SNF Attestations Medical Necessity Statement*: ongoing need for iv diuresis Coding Level of Care Code Acute Carbon Paper Machine Operator for Chg Fwd Diagnoses Dyspnea R06.00 Dyspnea type: unspecified Chronic low back pain M54.5; G89.29 Leg weakness, bilateral R29.898 Type 2 diabetes mellitus without complication, without long-term current use of insulin E11.9 GERD (gastroesophageal reflux disease) K21.9 Essential hypertension I10 Acute exacerbation of CHF (congestive heart failure) I50.9 COPD exacerbation J44.1 Acute respiratory failure with hypoxia J96.01 Depression F32.9
[2021-01-13 17:38] LABS: Glucose Point of Care 143 mg/dL (70-110)
[2021-01-13] MEDS: cyclobenzaprine 10 mg Tablet PO (17:49)
[2021-01-13] MEDS: HYDROcodone-acetaminophen 10-325 mg Tablet 1 TAB PO (20:42)
[2021-01-13] MEDS: PARoxetine 20 mg Tablet 10 MG PO (20:42)
[2021-01-13 23:22] LABS: Glucose Point of Care 142 mg/dL (70-110)
[2021-01-14] VITALS (16 sets, daily range): BP systolic 126–202; BP diastolic 70–95; PULSE 66–82; RESP 16–20; TEMP 36.4–37.2; O2SAT 92–98
[2021-01-14] MEDS: ipratropium-albuterol 3 mL Neb INHALATION (02:03)
[2021-01-14] MEDS: FUROsemide 10 mg/mL SDV 10mL 80 MG IVP ×2 (04:12→16:47)
[2021-01-14] MEDS: HYDROcodone-acetaminophen 10-325 mg Tablet 1 TAB PO ×4 (04:28→20:58)
[2021-01-14] MEDS: cyclobenzaprine 10 mg Tablet PO ×2 (05:45→20:58)
[2021-01-14 06:40] LABS: Glucose Point of Care 112 mg/dL (70-110)
[2021-01-14] MEDS: cloNIDine 0.1 mg Tablet PO ×2 (08:23→17:49)
[2021-01-14] MEDS: LORazepam 0.5 mg Tablet PO ×2 (08:23→20:58)
[2021-01-14] MEDS: sennosides-docusate Tablet 1 TAB PO (08:23)
[2021-01-14] MEDS: enoxaparin 100 mg/mL Syringe SUBCUT (10:41)
[2021-01-14] MEDS: enoxaparin 60 mg/0.6 mL Syringe 50 MG SUBCUT (10:41)
[2021-01-14 11:34] LABS: Glucose Point of Care 136 mg/dL (70-110)
[2021-01-14 17:26] LABS: Glucose Point of Care 121 mg/dL (70-110)
--- NOTE | 2021-01-14 18:43 | P.PN_ITS ---
Subjective Subjective: Interval history: Is improving today, less dyspneic, improving generalized anasarca. Medications: Reviewed: Yes Vitals/I&O/Wt Last Vital Signs Temp 98.5 F 01/14/21 16:00 Pulse 76 01/14/21 16:00 Resp 18 01/14/21 16:00 BP 139/73 01/14/21 17:49 Pulse Ox 93 01/14/21 16:00 01/14/21 01/14/21 01/14/21 06:59 14:59 22:59 Intake Total 300 / 1580 600 / 600 Output Total 1800 / 5425 3200 / 3200 Balance -1500 / -3845 -2600 / -2600 Physical Exam Narrative: EXAM NARRATIVE: GEN: Awake, alert and oriented, no acute distress CVS: S1S2 N RS: CTA B/L Abd: Soft, nt/nd , bs+ INSPECTOR FINAL ASSEMBLY MECHANICAL: no focal neuro deficits Urinary Catheter Management^: Root: Cath Placed During This Visit: yes Reason for Continuing Indwelling Catheter: Acute Urinary Retention or Obstruction Urinary Catheter Date of Insertion: 01/12/21 Urinary Catheter Time of Insertion: 05:11 Data : 01/12/21 07:27 01/13/21 05:44 A&P Assessment and plan (1) Dyspnea: Status: Acute Qualifiers: Dyspnea type: unspecified Qualified Code(s): R06.00 - Dyspnea, unspecified (2) Chronic low back pain: Status: Acute (3) Leg weakness, bilateral: Status: Acute (4) Type 2 diabetes mellitus without complication, without long-term current use of insulin: Status: Acute (5) GERD (gastroesophageal reflux disease): Status: Acute (6) Essential hypertension: Status: Acute (7) Acute exacerbation of CHF (congestive heart failure): Status: Acute (8) COPD exacerbation: Status: Acute (9) Acute respiratory failure with hypoxia: Status: Acute (10) Depression: Status: Acute Additional A&P Information Acute hypoxic respiratory failure Likely to multifactorial related to CHF exacerbation clinically fluid overloaded with high BNP, gross anasarca. Likely also contributed by obesity hypoventilation syndrome. Likely also has underlying COPD with chronic hypercapnia given ABG with compensated respiratory acidosis. Reports baseline oxygen saturation between 88 to 90% at home. Has qualified for a CPAP based on sleep study several years ago, however does not wear CPAP for unclear reasons, need a repeat study with titration as an outpatient. D-dimer noted to be elevated, attempted to get VQ scan given GABRIELA, however unable to complete the study as patient could not lie flat. Lower extremity Doppler negative, discontinue presumptive anticoagulation Echocardiogram from February 2019 with normal LVEF, no regional wall motion abnormalities, normal diastolic function. Repeat echocardiogram pending. Continue every 6 hours scheduled BiPAP as needed Home O2 evaluation No signs of pneumonia on chest x-ray Change lasix to 100mg po q12h and monitor urine output Root catheter to measure accurate urine output. Currently charted as no output, I am uncertain if this is accurate. Add Bipap prn Breast cancer with metastases Currently on hormonal therapy, resume aromasin Poor functional status, wheelchair-bound PT/OT assessment Type 2 diabetes: Consistent carb/moderate sliding scale Depression: add paroxitene 10mg po daily--> increase to 20 po daily, no anaphylaxis Full code Consistent carb diet DVT prophylaxis : lovenox Dispo: Home with HH vs SNF Attestations Medical Necessity Statement*: chnage diuretics to oral, if continues to diurese well, likely discharge in the next 24 hrs Coding Level of Care Code Acute Special Systems Technician for Chg Fwd Diagnoses Dyspnea R06.00 Dyspnea type: unspecified Chronic low back pain M54.5; G89.29 Leg weakness, bilateral R29.898 Type 2 diabetes mellitus without complication, without long-term current use of insulin E11.9 GERD (gastroesophageal reflux disease) K21.9 Essential hypertension I10 Acute exacerbation of CHF (congestive heart failure) I50.9 COPD exacerbation J44.1 Acute respiratory failure with hypoxia J96.01 Depression F32.9
[2021-01-14 20:54] LABS: Glucose Point of Care 132 mg/dL (70-110)
[2021-01-14] MEDS: PARoxetine 20 mg Tablet PO (20:58)
[2021-01-15] VITALS (9 sets, daily range): BP systolic 124–143; BP diastolic 70–85; PULSE 71–85; RESP 17–20; TEMP 36.7–37.2; O2SAT 85–95
[2021-01-15] MEDS: HYDROcodone-acetaminophen 10-325 mg Tablet 1 TAB PO ×3 (01:40→13:37)
[2021-01-15 05:30] LABS: Alanine Aminotransferase 15 U/L (0-33); Albumin Level 3.6 g/dL (3.5-5.2); Alkaline Phosphatase 60 IU/L (35-105); Anion Gap 7.3 (5-19); Aspartate Amino Transferase 21 U/L (0-32); Blood Urea Nitrogen 20 mg/dL (8-23); Calcium 9.3 mg/dL (8.5-10.5); Chloride 90 mmol/L (98-107); Globulin 2.8 g/dL (1.3-4.6); Glomerular Filtration Rate 44.7 mL/min (90-130); Glucose 88 mg/dL (65-115); Osmolality Calculated 288 mOsm/kg (285-295); Potassium 4.3 mmol/L (3.5-5.1); Sodium 138 mmol/L (136-145); Total Bilirubin 0.7 mg/dL (0.15-1.2); Total Protein 6.4 g/dL (6.6-8.7)
[2021-01-15 05:36] LABS: Carbon Dioxide 45 mmol/L (22-29)
[2021-01-15 06:33] LABS: Glucose Point of Care 101 mg/dL (70-110)
[2021-01-15] MEDS: FUROsemide 40 mg Tablet 100 MG PO (08:48)
[2021-01-15] MEDS: sennosides-docusate Tablet 1 TAB PO (08:48)
[2021-01-15] MEDS: nystatin powder 15 gm Btl 1 APPLIC TOPICAL (08:49)
[2021-01-15] MEDS: cyclobenzaprine 10 mg Tablet PO (08:49)
[2021-01-15] MEDS: cloNIDine 0.1 mg Tablet PO (08:49)
--- NOTE | 2021-01-15 09:30 | PC.SOCIAL ---
Pg 2 IMM. Explained to pt & spouse Pg 2 IMM. No questions voiced. Signed, dated, & timed a copy & placed in chart.
--- NOTE | 2021-01-15 10:26 | P.DS_ITS ---
Discharge Providers Date of Admission: 01/12/21 16:28 Date of Discharge: January 15, 2021 Attending Provider at Admission: Aliyah Riley MD Attending Provider at Discharge: Nandini Aquino MD Diagnoses at Discharge Discharge Diagnosis (1) Dyspnea: Status: Acute Qualifiers: Dyspnea type: unspecified Qualified Code(s): R06.00 - Dyspnea, uns pecified (2) Chronic low back pain: Status: Acute (3) Leg weakness, bilateral: Status: Acute (4) Type 2 diabetes mellitus without complication, without long-term current use of insulin: Status: Acute (5) GERD (gastroesophageal reflux disease): Status: Acute (6) Essential hypertension: Status: Acute (7) Acute exacerbation of CHF (congestive heart failure): Status: Acute (8) COPD exacerbation: Status: Acute (9) Acute respiratory failure with hypoxia: Status: Acute (10) Depression: Status: Acute Reason for Visit Reason for Visit: sob Hospital Course Hospital Course Samia Sarmiento is a 70 year old female with history of morbid obesity, chronic hypoventilation/hypercarbia, breast cancer with metastases to, liver bone, currently on Aromasin Xgeva (status post radiotherapy for bone mets) presented with chief complaint of shortness of breath. She has been diagnosed with sleep apnea in the past, however does not wear CPAP at home, this history dates back at least 7 to 8 years. She was noted to have acute hypoxia, O2 sats 70%, on work-up overall picture consistent with CHF exacerbation, clinically fluid overloaded with high BNP. Her D-dimer was also noted to be elevated, considering her history of cancer there was concern for PE and she was started on empiric heparin anticoagulation. CT of the chest could not be obtained as her creatinine had worsened from baseline. VQ scan was unable to be completed because patient was unable to lie flat for the testing. Lower extremity Doppler was performed and was negative for the same. Empiric anticoagulation was then discontinued. She was saturating 92 to 93% on 5 L supplemental O2 at the time of discharge. Suspect that patient has more chronic hypoxic hypercapnic respiratory failure as a result of obesity hypoventilation syndrome and CHF. At home she is not compliant with Lasix as she states that her pharmacy replaces this drug with the generic equivalent and it does not work like the brand name. She is encouraged to continue taking Lasix to avoid further exacerbations. Her lisinopril remains on hold due to GABRIELA. Renal function is stable to improving at the time of discharge. She is net negative 15L at the time of discharge, feels improved, anasarca is improving. She is being discharged today with improved respiratory status. She also reported feeling depressed, unable to sleep at night due to thoughts about her and her family's mortality and anxiety around her diagnosis of breast cancer. Started her on 20 mg of paroxetine daily which she tolerated well. Is currently being discharged with 15 days of paroxetine, to follow-up with her primary care provider for further refills and management. Physical Exam Narrative: EXAM NARRATIVE: GEN: Awake, alert and oriented, no acute distress CVS: S1S2 N RS: CTA B/L Abd: Soft, nt/nd , bs+ MEDICAL HEALTH RESEARCHER: no focal neuro deficits EXT: generalized anasarca, however improved over admission Urinary Catheter Management^: Root: Cath Placed During This Visit: yes Reason for Continuing Indwelling Catheter: Accurate Measurement of Urinary Outp ut in Critically Ill Patients Urinary Catheter Date of Insertion: 01/12/21 Urinary Catheter Time of Insertion: 05:11 Discharge Data Data Completed and Pending: Completed Studies During Hospitalization Category Date Time Status XR chest 1V adam ble [id number] Urgent Exams 01/12/21 02:21 [place] [id number] Routin e Ultrasound 01/12/21 10:53 Completed Pending at discharge Category Date Time Status CV echo limited 9 [id number] Routine Ultrasound 01/13/21 06:00 Taken Labs from last 24 hours 01/15/21 01/15/21 01/14/21 06:13 04:03 20:51 Sodium 138 Potassium 4.3 Chloride 90 L Carbon Dioxide 45 H* Anion Gap 7.3 BUN 20 Creatinine 1.2 H GFR Calculation 44.7 L Glucose 88 POC Glucose 101 132 H Calculated Osmolal ity 288 Calcium 9.3 Total Bilirubin 0.7 AST 21 ALT 15 Alkaline Phosphata se 60 Total Protein 6.4 L Albumin 3.6 Globulin 2.8 01/14/21 01/14/21 17:14 11:07 Sodium Potassium Chloride Carbon Dioxide Anion Gap BUN Creatinine GFR Calculation Glucose POC Glucose 121 H 136 H Calculated Osmolal ity Calcium Total Bilirubin AST ALT Alkaline Phosphata se Total Protein Albumin Globulin Addt'l Data from Hospital Stay: Laboratory Results WBC 8.3 10^3/uL (4.0- 10.0) 04/19/21 02:25 RBC 4.30 10^6/uL (4.1 -5.3) 01/12/21 02:25 Hgb 11.6 g/dL (11.5-1 5.3) 01/12/21 02:25 Hct 40.5 % (37.0-47.0 ) 01/12/21 02:25 MCV 94.2 fL (81-99) 01/12/21 02:25 MCH 27.0 pg (28.0-34. 0) L 01/12/21 02:25 MCHC 28.6 g/dL (30.0-3 6.0) L 01/12/21 02:25 RDW 20.2 % (12.1-15.1 ) H 01/12/21 02:25 Plt Count 161 10^3/cmm (130 -400) 01/12/21 07:27 MPV 11.2 fL (7.4-10.4 ) H 01/12/21 02:25 Neut % (Auto) 77.0 % 01/12/21 02:25 Lymph % (Auto) 14.4 % 01/12/21 02:25 [place] % (Auto) 6.2 % 01/12/21 02:25 Eos % (Auto) 1.6 % 01/12/21 02:25 Baso % (Auto) 0.4 % 01/12/21 02:25 Neut # (Auto) 6.38 10^3/uL (1.8 -7.7) 01/12/21 02:25 Lymph # (Auto) 1.2 10^3/uL (0.8- 4.8) 01/12/21 02:25 [place] # (Auto) 0.5 10^3/uL (0.2- 0.9) 01/12/21 02:25 Eos # (Auto) 0.1 10^3/uL (0.0- 0.8) 01/12/21 02:25 Baso # (Auto) 0.0 10^3/uL (0.0- 0.1) 01/12/21 02:25 Nucleated RBC % (a uto) 0.2 % 01/12/21 02:25 Nucleated RBCs # 0.0 /100WBC 01/12/21 02:25 D-Dimer 2.40 ug/mIFEU (0- 0.59) H 01/12/21 04:45 Specimen Type Arterial 01/12/21 02:30 Sample Site Radial, left 01/12/21 02:30 ABG pH 7.41 (7.35-7.45) 01/12/21 02:30 ABG pCO2 64.6 mmHg (35-45) H* 01/12/21 02:30 ABG pO2 58.0 mmHg (80.0-1 00.0) L 01/12/21 02:30 ABG HCO3 40.7 mmol/L (22-2 6) H 01/12/21 02:30 ABG Base Excess 13.5 mmol/L (-2.0 -2.0) H 01/12/21 02:30 Shoaib Test Pos 01/12/21 02:30 Hematocrit 35.0 % (37-47) L 01/12/21 02:30 Hgb O2 Saturation 86.1 % (95-100) L 01/12/21 02:30 Carboxyhemoglobin 3.4 %THgb (0.4-20 .1) 01/12/21 02:30 Methemoglobin 0.7 % (0.4-1.5) 01/12/21 02:30 Total Hemoglobin 11.4 g/dL (12-16) L 01/12/21 02:30 O2 Delivery Device Nc 01/12/21 02:30 O2 Liters/Min 3.0 % 01/12/21 02:30 Racking Machine Operator ID [email or web address] 01/12/21 02:30 Sodium 138 mmol/L (136-1 45) 01/15/21 04:03 Potassium 4.3 mmol/L (3.5-5 .1) 01/15/21 04:03 Chloride 90 mmol/L (98-107 ) L 01/15/21 04:03 Carbon Dioxide 45 mmol/L (22-29) H* 01/15/21 04:03 Anion Gap 7.3 (5-19) 01/15/21 04:03 BUN 20 mg/dL (8-23) 01/15/21 04:03 Creatinine 1.2 mg/dL (0.5-0. 9) H 01/15/21 04:03 GFR Calculation 44.7 mL/min (90-1 30) L 01/15/21 04:03 Glucose 88 mg/dL (65-115) 01/15/21 04:03 POC Glucose 101 mg/dL (70-110 ) 01/15/21 06:13 Calculated Osmolal ity 288 mOsm/kg (285- 295) 01/15/21 04:03 Calcium 9.3 mg/dL (8.5-10 .5) 01/15/21 04:03 Total Bilirubin 0.7 mg/dL (0.15-1 .2) 01/15/21 04:03 AST 21 U/L (0-32) 01/15/21 04:03 ALT 15 U/L (0-33) 01/15/21 04:03 Alkaline Phosphata se 60 IU/L (35-105) 01/15/21 04:03 Troponin T Baselin e 117 ng/L (0-10) H* 01/12/21 02:25 Troponin T 120 Min [place] 112.1 ng/L (0-10) H 01/12/21 05:00 Delta Troponin T -4.9 ABS# (0-10) L 01/12/21 05:00 NT-Pro-B Natriuret Pep 3805 pg/mL (0-125 ) H 01/12/21 02:25 Total Protein 6.4 g/dL (6.6-8.7 ) L 01/15/21 04:03 Albumin 3.6 g/dL (3.5-5.2 ) 01/15/21 04:03 Globulin 2.8 g/dL (1.3-4.6 ) 01/15/21 04:03 TSH 1.30 uIU/mL (0.27 -4.20) 01/13/21 05:44 Impressions Chest X-Ray 01/12/21 02:21 IMPRESSION: No significant abnormalities are seen in the chest. Vitals: Last Vital Signs Temp 98.7 F 01/15/21 07:24 Pulse 85 01/15/21 08:12 Resp 20 H 01/15/21 08:12 BP 143/85 01/15/21 08:49 Pulse Ox 91 01/15/21 08:12 Discharge Plan Discharge Patient Disposition: Home Condition: Stable Prescriptions: New paroxetine HCl 20 mg Tablet 20 mg PO BEDTIME 15 Days Qty: 15 RF: 0 Continued lorazepam [Ativan] 0.5 mg tablet 0.5 mg PO BID RF: 0 exemestane 25 mg tablet 25 mg PO DAILY@18 RF: 0 magnesium 200 mg tablet 200 mg PO BID@ RF: 0 cholecalciferol (vitamin D3) 50 mcg (2,000 unit) capsule 150 mcg PO BID@ RF: 0 hydrocodone-acetaminophen 10-325 mg tablet 1 tab PO .6 times a day PRN (Reason: pain) 30 Days Qty: 180 RF: 0 albuterol sulfate [Ventolin HFA] 90 mcg/actuation HFA aerosol inhaler 2 puff INHALATION Q4H PRN (Reason: shortness of breath or wheezing) Qty: 8.5 RF: 5 clonidine HCl 0.1 mg tablet 0.1 mg PO BID Qty: 60 RF: 11 cyclobenzaprine 10 mg tablet 10 mg PO TID PRN (Reason: Muscle Spasm) RF: 0 lidocaine 5 % adhesive patch,medicated See Rx Instructions .ROUTE .COMPLEX RF: 0 Changed Lasix 40 mg Tablet 80 mg PO BID 15 Days Qty: 60 RF: 0 Discontinued enalapril maleate 10 mg tablet 10 mg PO BID Qty: 60 RF: 5 Referrals: Ronald Nuno MD [Physician] - 01/27/21 2:30 pm Patient Instructions: Opioid Safety Discharge Attestations Time Spent in Discharge Care*: greater than 30 min Quality Metrics Clinical Quality Measures During this hospital stay, did patient experience: None Coding Level of Care Code Acute g FW SC note Diagnoses Dyspnea R06.00 Dyspnea type: unspecified Chronic low back pain M54.5; G89.29 Leg weakness, bilateral R29.898 Type 2 diabetes mellitus without complication, without long-term current use of insulin E11.9 GERD (gastroesophageal reflux disease) K21.9 Essential hypertension I10 Acute exacerbation of CHF (congestive heart failure) I50.9 COPD exacerbation J44.1 Acute respiratory failure with hypoxia J96.01 Depression F32.9
[2021-01-15] MEDS: acetaZOLAMIDE 250 mg Tablet PO (10:58)
[2021-01-15 11:38] LABS: Glucose Point of Care 133 mg/dL (70-110)
--- NOTE | 2021-01-16 17:33 | PC.RESP ---
Pulmonary Rehab information sent to patient.
== END 2021-01-15 15:35 | disposition home health service (06) | DRG 291 ==
LOC: ER 02:23 → MEDSURG 04:29
PROVIDERS: Admitting Provider Internal Medicine; Emergency Provider Emergency Medicine; Visit Provider Student in an Organized Health Care Education/Training Program
DX: I13.0 Hypertensive heart and chronic kidney disease with heart failure and stage 1 through stage 4 chronic kidney disease, or unspecified chronic kidney disease (principal); J96.01 Acute respiratory failure with hypoxia; E66.2 Morbid (severe) obesity with alveolar hypoventilation; Z68.45 Body mass index [BMI] 70 or greater, adult; C78.7 Secondary malignant neoplasm of liver and intrahepatic bile duct; C79.51 Secondary malignant neoplasm of bone; E87.2 Acidosis; J44.1 Chronic obstructive pulmonary disease with (acute) exacerbation; J96.12 Chronic respiratory failure with hypercapnia; N17.9 Acute kidney failure, unspecified; I50.9 Heart failure, unspecified; N18.9 Chronic kidney disease, unspecified; E11.22 Type 2 diabetes mellitus with diabetic chronic kidney disease; C50.919 Malignant neoplasm of unspecified site of unspecified female breast; Z79.811 Long term (current) use of aromatase inhibitors; Z79.899 Other long term (current) drug therapy; Z92.3 Personal history of irradiation; F41.9 Anxiety disorder, unspecified; G89.29 Other chronic pain; M54.5 Low back pain; Z87.891 Personal history of nicotine dependence; F32.9 Major depressive disorder, single episode, unspecified; K21.9 Gastro-esophageal reflux disease without esophagitis; E78.5 Hyperlipidemia, unspecified; E11.51 Type 2 diabetes mellitus with diabetic peripheral angiopathy without gangrene; I27.20 Pulmonary hypertension, unspecified; T50.1X6A Underdosing of loop [high-ceiling] diuretics, initial encounter; Z91.19 Patient's noncompliance with other medical treatment and regimen
CPT/HCPCS: 36415; 36416; 36600; 51702; 71045; 80048; 80053; 82805; 82962; 83880; 84443; 84484; 85025; 85049; 85378; 93005; 93308; 93970; 94640; 94660; 96372; 96374; 96375; 97110; 97161; 97530; 99285; G0378; J1170; J1650; J1815; J1940; J7611; S0156

== ENCOUNTER 2021-01-27 14:26 | Outpatient (CLI) | payer OTHER, MEDICAID, SELFPAY ==
[2021-01-27 15:29] LABS: Alanine Aminotransferase 21 U/L (0-33); Albumin Level 3.9 g/dL (3.5-5.2); Alkaline Phosphatase 76 IU/L (35-105); Anion Gap 11.9 (5-19); Aspartate Amino Transferase 22 U/L (0-32); Blood Urea Nitrogen 23 mg/dL (8-23); Calcium 9.9 mg/dL (8.5-10.5); Carbon Dioxide 37 mmol/L (22-29); Chloride 94 mmol/L (98-107); Globulin 3.3 g/dL (1.3-4.6); Glomerular Filtration Rate 44.7 mL/min (90-130); Glucose 219 mg/dL (65-115); Osmolality Calculated 298 mOsm/kg (285-295); Potassium 3.9 mmol/L (3.5-5.1); Sodium 139 mmol/L (136-145); Total Bilirubin 0.6 mg/dL (0.15-1.2); Total Protein 7.2 g/dL (6.6-8.7)
[2021-01-27 16:41] LABS: Basophils % 0.5 %; Eosinophils # 0.2 10^3/uL (0.0-0.8); Eosinophils % 1.9 %; Hematocrit 44.6 % (37.0-47.0); Hemoglobin 12.9 g/dL (11.5-15.3); Lymphocytes # 1.4 10^3/uL (0.8-4.8); Lymphocytes % 17.2 %; Mean Corpuscular HGB Conc 28.9 g/dL (30.0-36.0); Mean Corpuscular Hemoglobin 26.5 pg (28.0-34.0); Mean Corpuscular Volume 91.6 fL (81-99); Mean Platelet Volume 10.7 fL (7.4-10.4); Monocytes # 0.5 10^3/uL (0.2-0.9); Monocytes % 6.2 %; Neutrophils # 6.07 10^3/uL (1.8-7.7); Neutrophils % 73.8 %; Nucleated Red Blood Cells % 0 %; Platelet Count 196 10^3/cmm (130-400); Red Blood Count 4.87 10^6/uL (4.1-5.3); Red Cell Distribution Width 17.6 % (12.1-15.1); White Blood Count 8.2 10^3/uL (4.0-10.0)
[2021-01-28 13:13] LABS: CA 27.29 51 U/mL (<38)
== END 2021-01-27 14:27 | disposition home or self-care (01) ==
PROVIDERS: PCP Family Medicine Adult Medicine; Visit Provider Internal Medicine Hematology & Oncology
DX: C50.811 Malignant neoplasm of overlapping sites of right female breast (principal); Z17.0 Estrogen receptor positive status [ER+]; C79.51 Secondary malignant neoplasm of bone
CPT/HCPCS: 36415; 80053; 85025; 86300

== ENCOUNTER → 2021-03-06 13:32 | Outpatient (BNVA) | payer MEDICARE, MEDICAID, SELFPAY | PROVIDERS: PCP Family Medicine Adult Medicine; Visit Provider Nurse Practitioner | DX: G89.29 Other chronic pain (principal); M54.5 Low back pain; M25.50 Pain in unspecified joint; Z79.891 Long term (current) use of opiate analgesic; Z87.891 Personal history of nicotine dependence | CPT/HCPCS: 99215 ==

== ENCOUNTER → 2021-04-10 14:26 | Outpatient (BNVA) | payer MEDICARE, MEDICAID, SELFPAY | PROVIDERS: PCP Family Medicine; Visit Provider Anesthesiology | DX: G89.29 Other chronic pain (principal); M54.5 Low back pain; C50.919 Malignant neoplasm of unspecified site of unspecified female breast; C79.51 Secondary malignant neoplasm of bone; Z78.9 Other specified health status; Z79.891 Long term (current) use of opiate analgesic; Z87.891 Personal history of nicotine dependence | CPT/HCPCS: 99214 ==

== ENCOUNTER 2021-04-28 05:57 | Emergency (ER) | payer MEDICARE, MEDICAID, SELFPAY ==
[2021-04-28 06:10] VITALS: PULSE 77; RESP 16; TEMP 37.7; O2SAT 95
--- NOTE | 2021-04-28 06:12 | CT_ITS ---
WS: [id number] CT ABDOMEN AND PELVIS WITH CONTRAST HISTORY: Abdominal pain. TECHNIQUE: Imaging performed of the abdomen and pelvis with IV contrast. Single phase imaging of the abdomen. Coronal and sagittal reformats are submitted. All CT scans at [facility] use at least one of these dose optimization techniques: automated exposure control; mA and/or kV adjustment per patient size (includes targeted exams where dose is matched to clinical indication); or iterativ e reconstruction. IV CONTRAST: Visipaque 320; 95 mL IV. Oral contrast: No DLP: 1645.15 mGy.cm COMPARISON: 04/01/2020 Lower thorax: Increased soft tissue surrounding the lower thoracic vertebral bodies similar to the pr ior study. Patient has known treated breast cancer. Cannot confirm progression of metastatic changes at the thoracolumbar junction. Mild dependent changes at the lung bases. Mildly enlarged heart. No hi atal hernia. Liver/biliary system: Normal size with no intrahepatic dilatation. Gallbladder: Status post cholecystectomy. Common bile duct is prominent and probably physiologic and similar to the prior study. Pancreas: Normal size pancreas and pancreatic duct. No adjacent inflammation. Spleen: Normal size spleen with central calcification. Splenic artery calcifications. Adrenal glands: Normal. Right kidney: Mild cortical thinning with no obstruction. No mass. Left kidney: Mild cortical thinning with no obstruction or mass. Aorta: Mild atherosclerosis with no aneurysm. Lymphadenopathy: None. Free fluid: No free fluid noted within the abdomen or pelvis. GI tract: No GI tract obstruction. The appendix is not definitely visualized. No secondary findings o f appendicitis. There are numerous diverticula in the descending and sigmoid colon with tortuosity. N o evidence at this time for acute diverticulitis. Abdominal wall: There is diffuse soft tissue anasarca which is new since the prior study. Fat-contain ing ventral abdominal wall hernia over the pelvis. Similar to the prior study. No herniation of bowel loops. Pelvis: Well-distended urinary bladder. No free fluid or adenopathy. Uterus is midline. No pelvic mas s. Bones: Patient has known metastatic bone disease which is been treated. Very similar appearance to 04/01/2020. No obvious progression of disease or evidence for recurrent metastatic disease. CT/CT abdomen pelvis w con* [id number] IMPRESSION: 1. New diffuse soft tissue anasarca. No free fluid. 2. Diverticulosis without evidence for diverticulitis. 3. Ventral abdominal wall hernia contains fat only and is stable. 4. 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 No obvious progression or new lesions identified. Subtle new lesions would be difficult to visualize due to the extent of the treated disease. 5. Prior cholecystectomy. 6. No metastatic disease in the liver or adrenal glands.
--- NOTE | 2021-04-28 06:25 | ED_ITS ---
HPI - Abdominal Pain General: Chief Complaint: Abdominal Pain Stated Complaint: pressure in abd Time Seen by Provider: 04/28/21 06:00 History of Present Illness: HPI narrative: 70-year-old female with a history of breast cancer with extensive metastasis especially to the axial skeleton. At one point she had a liver mets as well. She also had fluid overload with congestive heart failure which accounted for most recent hospitalization. She is on Lasix. She is noticing some discomfort in her abdomen the last couple of days. In recent notes her been comments that she been difficult time getting up and moving around at all she is able to get up out of her chair now she states when she tries to stretch she feels like she has a pulling sensation in her abdomen and feels like she has lumps in her abdomen. She denies any dysuria urgency or frequency she denies any vomiting or diarrhea. Her most recent oncology visit was July of last year. She is not been doing any treatment since then other than an alternative treatment. She has not had any other oncology follow-up she does follow-up with the pain clinic for management of her pain from bony metastasis. MD elicited complaint: abdominal pain Pertinent past history: other (Breast cancer with systemic mets, congestive heart failure) Onset (ago): day(s) Pain Consistency: constant Location: Periumbilical Severity: moderate Quality: cramping and aching Radiation: none Migration to: no migration Exacerbating factors: movement Relieving factors: nothing Associated Symptoms: Reports GI cramping and poor appetite; Denies anorexia, belching, bloating, change in bowel habits, change in stool character, chills, coffee ground emesis, constipation, diarrhea, dyspepsia, dysuria, excessive flatus, fever(s), heartburn, hematochezia, hematuria, hematemesis, fecal incontinence, loose stools, melena, nausea, syncope and vomiting Review of Systems Const: Denies: fever(s) or chills ENMT: Denies: throat pain, ear or mastoid pain, nasal discharge or nasal congestion Card: Denies: syncope Resp: Denies: dyspnea, productive cough or non-productive cough GI: Reports: GI cramping; Denies: nausea, vomiting, hematemesis, coffee ground emesis, heartburn, diarrhea, constipation, bloating, belching, excessive flatus, fecal incontinence, change in bowel habits, change in stool character, hematochezia or melena : Denies: dysuria or hematuria Skin/Breast: Denies: rash or pruritus PFSH ED PFSH: Medical History Acute respiratory failure with hypoxia Anxiety attack Breast cancer metastasized to bone diag 2014 with treatment and no activity at this time per PET scan Chronic low back pain COPD (chronic obstructive pulmonary disease) Current every day smoker Depression Dyspnea Encounter for long-term opiate analgesic use Enrolled in chronic care management Essential hypertension GERD (gastroesophageal reflux disease) High risk medication use Hyperlipidemia Inflammatory arthritis Joint pain Leg weakness, bilateral Nicotine dependence, cigarettes, uncomplicated Opioid contract exists Pain in rib Pain in thoracic spine PVD (peripheral vascular disease) Sleep apnea Type 2 diabetes mellitus without complication, without long-term current use of insulin Xeroderma Surgical History Hx laparoscopic cholecystectomy 11/01/18 Hx of arthroscopic knee surgery Right Hx of cholecystectomy Hx of lumpectomy Right Hx of oral surgery pulled all teeth 03/2017 Hx of tubal ligation Family History Unknown Prostate disease Depression Heart disease Hypertension Chronic kidney disease (CKD) Grandfather Cancer LUNG CANCER Other CAD (coronary artery disease) Rheumatoid arthritis Denies family history of Diabetes Lupus Hyperlipidemia Family history of premature coronary artery disease Stroke Social History Smoking and tobacco status: former smoker Second hand smoke exposure: No Alcohol intake: never History of recent travel: No Physical Exam Const: COMMON NORMALS: no acute distress GENERAL APPEARANCE: cooperative ORIENTATION/CONSCIOUSNESS: Yes awake, Yes oriented to person, Yes oriented to place and Yes oriented to time HENMT: COMMON NORMALS: normocephalic, atraumatic and hearing grossly normal bilaterally HEAD & SCALP: normocephalic and atraumatic Neck/C-Spine: COMMON NORMALS: no JVD Resp: COMMON NORMALS: normal respiratory effort, No retractions, No use of accessory muscles and clear to auscultation bilaterally AUSCULTATION: clear to auscultation bilaterally and diminished lung sounds Cardio: COMMON NORMALS: no JVD, regular rate, regular rhythm and No murmurs present (Cardio) RATE: regular rate RHYTHM: regular rhythm GI: COMMON NORMALS: Soft to palpation and No hepatosplenomegaly present AUSCULTATION: Yes normoactive bowel sounds PALPATION: Yes Soft to palpation, No Tenderness to palpation present (GI), No Guarding due to palpation present (GI) and Yes No hepatosplenomegaly present Extremity: COMMON NORMALS: normal to inspection, capillary refill normal and no calf tenderness Neuro: SENSORIUM/ORIENTATION: Yes oriented to person, Yes oriented to place and Yes oriented to time Course Vital Signs: Vital signs: Vital Signs Temperature 99.8 F H 04/28/21 06:10 Pulse Rate 71 04/28/21 08:03 Respiratory Rate 18 04/28/21 08:03 Blood Pressure 187/114 04/28/21 08:03 Pulse Oximetry 94 04/28/21 08:03 MDM - Abdominal Pain MDM Narrative: Medical decision making narrative: Reviewed CT and labs. No new metastasis. Ordering to give her oral potassium supplementation. Increase her Lasix to 120 twice daily for 5 days start potassium 20 mEq twice daily for the same timeframe. We will have her follow-up with her primary care doctor within the next 5 to 7 days for repeat lab work. Return to the emergency room if has further problems. Lab Data: Labs: Lab Results 04/28/21 04/28/21 04/28/21 Range/Units 06:30 06:30 06:30 WBC 10.3 H (4.0-10.0) 10^3/ uL RBC 3.84 L (4.1-5.3) 10^6/u L Hgb 11.1 L (11.5-15.3) g/dL Hct 36.9 L (37.0-47.0) % MCV 96.1 (81-99) fL MCH 28.9 (28.0-34.0) pg MCHC 30.1 (30.0-36.0) g/dL RDW 15.7 H (12.1-15.1) % Plt Count 188 (130-400) 10^3/c mm MPV 10.5 H (7.4-10.4) fL Neut % (Auto) 78.1 % Lymph % (Auto) 13.8 % [place] % (Auto) 4.6 % Eos % (Auto) 2.8 % Baso % (Auto) 0.2 % Neut # (Auto) 8.06 H (1.8-7.7) 10^3/u L Lymph # (Auto) 1.4 (0.8-4.8) 10^3/u L [place] # (Auto) 0.5 (0.2-0.9) 10^3/u L Eos # (Auto) 0.3 (0.0-0.8) 10^3/u L Baso # (Auto) 0.0 (0.0-0.1) 10^3/u L Nucleated RBC % (a uto) 0 % Nucleated RBCs # 0.0 /100WBC Sodium 146 H (136-145) mmol/L Potassium 2.9 L (3.5-5.1) mmol/L Chloride 100 (98-107) mmol/L Carbon Dioxide 39 H (22-29) mmol/L Anion Gap 9.9 (5-19) BUN 8 (8-23) mg/dL Creatinine 1.3 H (0.5-0.9) mg/dL GFR Calculation 40.7 L (90-130) mL/min Glucose 140 H (65-115) mg/dL Calculated Osmolal ity 303 H (285-295) mOsm/k g Lactic Acid 0.9 (0.5-2.2) mmol/L Calcium 9.8 (8.5-10.5) mg/dL Total Bilirubin 0.9 (0.15-1.2) mg/dL AST 27 (0-32) U/L ALT 13 (0-33) U/L Alkaline Phosphata se 85 (35-105) IU/L Total Protein 6.2 L (6.6-8.7) g/dL Albumin 3.9 (3.5-5.2) g/dL Globulin 2.3 (1.3-4.6) g/dL Lipase 12 L (13-60) U/L Urine Color (Yellow) Urine Appearance (CLEAR) Urine pH (5-7) Ur Specific Gravit y (1.005-1.030) Urine Protein (Negative) Urine Glucose (UA) (Normal) Urine Ketones (Negative) Urine Blood (Negative) Urine Nitrate (Negative) Urine Bilirubin (Negative) Prot Sulfosalicyli c Acd (Negative) Urine Urobilinogen (Negative) mg/dL Ur Leukocyte Quiana ase (Negative) 04/28/21 Range/Units 07:17 WBC (4.0-10.0) 10^3/ uL RBC (4.1-5.3) 10^6/u L Hgb (11.5-15.3) g/dL Hct (37.0-47.0) % MCV (81-99) fL MCH (28.0-34.0) pg MCHC (30.0-36.0) g/dL RDW (12.1-15.1) % Plt Count (130-400) 10^3/c mm MPV (7.4-10.4) fL Neut % (Auto) % Lymph % (Auto) % [place] % (Auto) % Eos % (Auto) % Baso % (Auto) % Neut # (Auto) (1.8-7.7) 10^3/u L Lymph # (Auto) (0.8-4.8) 10^3/u L [place] # (Auto) (0.2-0.9) 10^3/u L Eos # (Auto) (0.0-0.8) 10^3/u L Baso # (Auto) (0.0-0.1) 10^3/u L Nucleated RBC % (a uto) % Nucleated RBCs # /100WBC Sodium (136-145) mmol/L Potassium (3.5-5.1) mmol/L Chloride (98-107) mmol/L Carbon Dioxide (22-29) mmol/L Anion Gap (5-19) BUN (8-23) mg/dL Creatinine (0.5-0.9) mg/dL GFR Calculation (90-130) mL/min Glucose (65-115) mg/dL Calculated Osmolal ity (285-295) mOsm/k g Lactic Acid (0.5-2.2) mmol/L Calcium (8.5-10.5) mg/dL Total Bilirubin (0.15-1.2) mg/dL AST (0-32) U/L ALT (0-33) U/L Alkaline Phosphata se (35-105) IU/L Total Protein (6.6-8.7) g/dL Albumin (3.5-5.2) g/dL Globulin (1.3-4.6) g/dL Lipase (13-60) U/L Urine Color Yellow (Yellow) Urine Appearance Clear (CLEAR) Urine pH 8 H (5-7) Ur Specific Gravit y 1.010 (1.005-1.030) Urine Protein Neg (Negative) Urine Glucose (UA) Norm (Normal) Urine Ketones Negative (Negative) Urine Blood Neg (Negative) Urine Nitrate Negative (Negative) Urine Bilirubin Neg (Negative) Prot Sulfosalicyli c Acd Negative (Negative) Urine Urobilinogen Norm (Negative) mg/dL Ur Leukocyte Quiana ase Negative (Negative) Discharge Plan Discharge Patient Disposition: Home Clinical Impression: Breast cancer metastasized to bone, Morbid obesity with BMI of 45.0-49.9, adult, CHF (congestive heart failure), Anasarca Condition: Stable Prescriptions: New potassium chloride 20 mEq tablet extended release 20 meq PO BID Qty: 20 RF: 0 No Action lorazepam [Ativan] 0.5 mg tablet 0.5 mg PO BID RF: 0 exemestane 25 mg tablet 25 mg PO DAILY@18 RF: 0 magnesium 200 mg tablet 200 mg PO BID@, RF: 0 cholecalciferol (vitamin D3) 50 mcg (2,000 unit) capsule 150 mcg PO BID@, RF: 0 albuterol sulfate [Ventolin HFA] 90 mcg/actuation HFA aerosol inhaler 2 puff INHALATION Q4H PRN (Reason: shortness of breath or wheezing) Qty: 8.5 RF: 5 hydrocodone-acetaminophen 5-325 mg tablet 1 tab PO Q8H PRN (Reason: pain) 30 Days Qty: 90 RF: 0 hydrocodone-acetaminophen 5-325 mg tablet 1 tab PO TID PRN (Reason: pain) 30 Days Qty: 90 RF: 0 oxycodone [OxyContin] 15 mg tablet,oral only,ext.rel.12 hr 15 mg PO BID 30 Days Qty: 90 RF: 0 oxycodone [OxyContin] 15 mg tablet,oral only,ext.rel.12 hr 15 mg PO Q12H 30 Days Qty: 60 RF: 0 enalapril maleate 10 mg tablet 10 mg PO BID Qty: 180 RF: 1 cyclobenzaprine 10 mg tablet 10 mg PO TID PRN (Reason: Muscle Spasm) RF: 0 lidocaine 5 % adhesive patch,medicated See Rx Instructions .ROUTE .COMPLEX RF: 0 Lasix 40 mg Tablet 80 mg PO BID 15 Days Qty: 60 RF: 0 Discharge Orders: Discharge ED (Routine); Ordered 04/28/21 Ordered By: Jose A Neri Referrals: Ralf Castillo DO [Primary Care Provider] - Patient Instructions: Opioid Safety Activity Restrictions/Additional Instructions: Increase Lasix 220 mg twice daily for the next 5 days. Start potassium 20 mEq twice daily. Follow-up with your primary care doctor within the next 5 to 7 d ays for recheck on electrolytes kidney function. Coding Level of Care Code ED Narrow Gauge Operator for Mallory Fwd Exam Detailed
[2021-04-28 06:44] LABS: Basophils % 0.2 %; Eosinophils # 0.3 10^3/uL (0.0-0.8); Eosinophils % 2.8 %; Hematocrit 36.9 % (37.0-47.0); Hemoglobin 11.1 g/dL (11.5-15.3); Lymphocytes # 1.4 10^3/uL (0.8-4.8); Lymphocytes % 13.8 %; Mean Corpuscular HGB Conc 30.1 g/dL (30.0-36.0); Mean Corpuscular Hemoglobin 28.9 pg (28.0-34.0); Mean Corpuscular Volume 96.1 fL (81-99); Mean Platelet Volume 10.5 fL (7.4-10.4); Monocytes # 0.5 10^3/uL (0.2-0.9); Monocytes % 4.6 %; Neutrophils # 8.06 10^3/uL (1.8-7.7); Neutrophils % 78.1 %; Nucleated Red Blood Cells % 0 %; Platelet Count 188 10^3/cmm (130-400); Red Blood Count 3.84 10^6/uL (4.1-5.3); Red Cell Distribution Width 15.7 % (12.1-15.1); White Blood Count 10.3 10^3/uL (4.0-10.0)
[2021-04-28 07:06] LABS: Alanine Aminotransferase 13 U/L (0-33); Albumin Level 3.9 g/dL (3.5-5.2); Alkaline Phosphatase 85 IU/L (35-105); Anion Gap 9.9 (5-19); Aspartate Amino Transferase 27 U/L (0-32); Blood Urea Nitrogen 8 mg/dL (8-23); Calcium 9.8 mg/dL (8.5-10.5); Carbon Dioxide 39 mmol/L (22-29); Chloride 100 mmol/L (98-107); Globulin 2.3 g/dL (1.3-4.6); Glomerular Filtration Rate 40.7 mL/min (90-130); Glucose 140 mg/dL (65-115); Lactic Sepsis W/Reflex 0.9 mmol/L (0.5-2.2); Lipase 12 U/L (13-60); Osmolality Calculated 303 mOsm/kg (285-295); Sodium 146 mmol/L (136-145); Total Bilirubin 0.9 mg/dL (0.15-1.2); Total Protein 6.2 g/dL (6.6-8.7)
[2021-04-28 07:13] LABS: Potassium 2.9 mmol/L (3.5-5.1)
[2021-04-28 07:27] VITALS: BP 170/99; PULSE 65; RESP 18; O2SAT 90
[2021-04-28] MEDS: iodixanol 320 mg/mL 100mL Btl IV (07:37)
[2021-04-28] MEDS: potassium chloride oral liq 20 mEq/15 mL UDC 60 MEQ PO (07:47)
[2021-04-28 07:49] LABS: Add Urine Microscopic? NO; Charge for UA Resulting for Rev
[2021-04-28 07:57] LABS: Bilirubin Urine Neg (Negative); Blood Urine Neg (Negative); Glucose Urine UA Norm (Normal); Ketones Urine Negative (Negative); Leukocyte Esterase Urine Negative (Negative); Nitrate Urine Negative (Negative); Protein Urine Neg (Negative); Sulfosalicylic Acid Urine Negative (Negative); Urine Appearance Clear (CLEAR); Urine Color Yellow (Yellow); Urobilinogen Urine Norm (Negative); pH Urine 8 (5-7)
[2021-04-28 08:03] VITALS: BP 187/114; PULSE 71; RESP 18; O2SAT 94
[2021-04-28 09:34] VITALS: BP 181/124; PULSE 84; RESP 18; O2SAT 90
== END 2021-04-28 09:34 | disposition home or self-care (01) ==
PROVIDERS: Emergency Provider Family Medicine; PCP Family Medicine
DX: C50.919 Malignant neoplasm of unspecified site of unspecified female breast (principal); C79.51 Secondary malignant neoplasm of bone; E66.01 Morbid (severe) obesity due to excess calories; Z68.42 Body mass index [BMI] 45.0-49.9, adult; R60.1 Generalized edema; I11.0 Hypertensive heart disease with heart failure; I50.9 Heart failure, unspecified; J44.9 Chronic obstructive pulmonary disease, unspecified; E78.5 Hyperlipidemia, unspecified; E11.9 Type 2 diabetes mellitus without complications; Z87.891 Personal history of nicotine dependence
CPT/HCPCS: 74177; 80053; 81003; 83605; 83690; 85025; 99283; Q9967

== ENCOUNTER 2021-05-01 21:20 | Inpatient (IN) | payer MEDICARE, MEDICAID, SELFPAY ==
[2021-05-01] VITALS (10 sets, daily range): BP systolic 87–139; BP diastolic 53–84; PULSE 60–81; RESP 11–28; O2SAT 94–100; BMI 61.9
--- NOTE | 2021-05-01 21:29 | XRR_ITS ---
PROCEDURE INFORMATION: Exam: XR Chest Exam date and time: 05/01/2021 9:29 PM Age: 70 years old Clinical indication: Shortness of breath; Additional info: Resp failure TECHNIQUE: Imaging protocol: XR of the chest. Views: 1 view. COMPARISON: CR XR chest 1V portable [id number] 01/12/2021 2:20 AM FINDINGS: Tubes, catheters and devices: Endotracheal tube is in satisfactory position. Feeding tube is in satisfactory position. Lungs: There is increased lung markings and hazy bilateral airspace opacities with consolidation in the left lower lobe. Possible small left pleural effusion. No pneumothorax. Pleural spaces: See Lungs finding. Heart/Mediastinum: Stable cardiomediastinal silhouette. Bones/joints: Degenerative changes of the spine seen. XR/XR chest 1V portable [id number] IMPRESSION: Nonspecific imaging findings, which can be seen with pulmonary edema or pneumonia. Clinical correlation is recommended.
--- NOTE | 2021-05-01 21:31 | ECG_ITS ---
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 Measurements Intervals [place] Rate: 63 P: 62 AL: 186 QRS: -66 QRSD: 170 T: -77 QT: 493 QTc: 507 Interpretive Statements SINUS RHYTHM RIGHT BUNDLE BRANCH BLOCK [120+ ms QRS DURATION, UPRIGHT V1, 40+ ms S IN I/aVL/V4/V5/V6] LEFT ANTERIOR FASCICULAR BLOCK [QRS AXIS <= -45, QR IN I, RS IN II] POSSIBLE ANTERIOR MYOCARDIAL INFARCTION [30 ms Q WAVE IN V3/V4, OR R < 0.2 mV IN V4], OF INDETERMINATE AGE MODERATE T-WAVE ABNORMALITY, CONSIDER LATERAL ISCHEMIA [-0.1+ mV T WAVE IN I/aVL/V5/V6] MODERATE T-WAVE ABNORMALITY, CONSIDER INFERIOR ISCHEMIA [-0.1+ mV T WAVE IN II/aVF] Compared to ECG 01/12/2021 09:10:01 Left anterior fascicular block now present Myocardial infarct finding now present T-wave abnormality now present Possible ischemia now present Left-axis deviation no longer present Electronically Signed On 05-03-2021 12:19:57 CDT by Cam Jj M.D. [email or web address]
[2021-05-01 21:38] LABS: Basophils # 0.1 10^3/uL (0.0-0.1); Basophils % 0.4 %; Eosinophils % 0.1 %; Hematocrit 39.9 % (37.0-47.0); Hemoglobin 11.7 g/dL (11.5-15.3); Lymphocytes # 0.8 10^3/uL (0.8-4.8); Lymphocytes % 5.5 %; Mean Corpuscular HGB Conc 29.3 g/dL (30.0-36.0); Mean Corpuscular Hemoglobin 28.6 pg (28.0-34.0); Mean Corpuscular Volume 97.6 fL (81-99); Monocytes # 0.8 10^3/uL (0.2-0.9); Monocytes % 5.6 %; Neutrophils # 11.79 10^3/uL (1.8-7.7); Nucleated Red Blood Cells # 0.2 /100WBC; Nucleated Red Blood Cells % 1.5 %; Platelet Count 165 10^3/cmm (130-400); Red Blood Count 4.09 10^6/uL (4.1-5.3)
[2021-05-01 21:54] LABS: Albumin Level 3.8 g/dL (3.5-5.2); Alkaline Phosphatase 105 IU/L (35-105); Anion Gap 17.9 (5-19); Blood Urea Nitrogen 26 mg/dL (8-23); C Reactive Protein 119.9 mg/L (0.0-4.9); Calcium 9.6 mg/dL (8.5-10.5); Carbon Dioxide 34 mmol/L (22-29); Chloride 102 mmol/L (98-107); Globulin 2.8 g/dL (1.3-4.6); Glomerular Filtration Rate 32.1 mL/min (90-130); Glucose 139 mg/dL (65-115); Osmolality Calculated 317 mOsm/kg (285-295); Potassium 3.9 mmol/L (3.5-5.1); Sodium 150 mmol/L (136-145); Total Bilirubin 2.9 mg/dL (0.15-1.2); Total Protein 6.6 g/dL (6.6-8.7)
--- NOTE | 2021-05-01 21:55 | ED_ITS ---
Documented by User: Alexx Sanon MD 05/02/21 16:02 HPI - Altered Mental Status General: Chief Complaint: Shortness of Breath/Dyspnea Stated Complaint: RESP. DISTRESS Time Seen by Provider: 05/01/21 21:24 History of Present Illness: HPI narrative: Ms. Sarmiento is a 70-year-old lady with complex past medical history including hypertension, hyperlipidemia, tobaccoism, diabetes, fluid retention who presents to the emergency department with altered mental status. Per chart review she was recently in the emergency department and at that time had mild volume overload. Since discharge the exact events are unclear however per EMS report she was found hypoxic with oxygen saturations in the 50s. They placed her on CPAP. History is otherwise limited as the patient has altered mental status and does not meaningfully participate i n history. There is no family at bedside at this time. History is limited by acuity of condition, mental status change, unstable vital signs. MD complaint: altered mental status and decreased responsiveness PFS ED PFSH: Medical History Acute respiratory failure with hypoxia Anxiety attack Breast cancer metastasized to bone diag 2014 with treatment and no activity at this time per PET scan Chronic low back pain COPD (chronic obstructive pulmonary disease) Current every day smoker Depression Dyspnea Encounter for long-term opiate analgesic use Enrolled in chronic care management Essential hypertension GERD (gastroesophageal reflux disease) High risk medication use Hyperlipidemia Inflammatory arthritis Joint pain Leg weakness, bilateral Nicotine dependence, cigarettes, uncomplicated Opioid contract exists Pain in rib Pain in thoracic spine PVD (peripheral vascular disease) Sleep apnea Type 2 diabetes mellitus without complication, without long-term current use of insulin Xeroderma Surgical History Hx laparoscopic cholecystectomy 11/01/18 Hx of arthroscopic knee surgery Right Hx of cholecystectomy Hx of lumpectomy Right Hx of oral surgery pulled all teeth 03/2017 Hx of tubal ligation Family History Unknown Prostate disease Depression Heart disease Hypertension Chronic kidney disease (CKD) Grandfather Cancer LUNG CANCER Other CAD (coronary artery disease) Rheumatoid arthritis Denies family history of Diabetes Lupus Hyperlipidemia Family history of premature coronary artery disease Stroke Social History Smoking and tobacco status: former smoker Second hand smoke exposure: No Alcohol intake: never History of recent travel: No Physical Exam Narrative: EXAM NARRATIVE: GENERAL/CONSTITUTIONAL - ill-appearing. Respiratory distress. Obese. Eyes - PERRL, no conjunctival injection ENMT - Atraumatic external nose and ears. Very dry mucous membranes NECK - supple. trachea midline CARDIOVASCULAR - regular rate and rhythm. Peripheral pulses 2+ and equal RESPIRATORY -- diffuse rhonchorous breath sounds. Respiratory distress present. ABDOMEN/GI - Limited exam due to mental status, no obvious elicitable discomfort or palpable masses. Exam also limited by body habitus. MSK - Extremities without obvious deformity or acute traumatic injury SKIN - pale, cool, Dry NEURO - altered mental status. Does not follow commands. Requires frequent stimulation to open eyes. Does not meaningfully attempt to answer questions. PSYCH - unable to assess due to mental status change Procedures ABG Interpretation ABG Interpretation 1: ABG Results: 7.42/56/197/36.1 Interpretation: abnormal Additional Comments: Baseline ABG showing hypercapnia, normal pH, increased PaO2 secondary to preoxygenation/intubation. We will plan to titrate down FiO2 for target SPO2 of 92 to 99%. Plan repeat ABG ABG Interpretation 2: ABG Results: 7.43/56.9/71.3 Interpretation: abnormal Additional Comments: Repeat ABG showing continued hypercapnia, normal pH, decreased PaO2. Plan to increase respiratory rate and continue to titrate FiO2. Plan to repeat ABG Intubation Time out performed: Yes sedative: Etomidate paralytic: Vecuronium Laryngoscope: other (glydescope 4) ET Tube Size: 7.5 ET Tube Uncuffed: Yes Tube Secured Depth (cm): 25 Tube Secured Location: lips Tube Placement Confirmation: visualized tube passing through cords, equal breath sounds bilaterally, no breath sounds over epigastrium and confirmation by capnometry Patient Tolerated Procedure: well Intubation Complications: none Course ED course: - Patient was seen and evaluated by me at bedside immediately upon arrival. - Patient placed on cardiac monitors, IV access obtained. Initial oxygen saturations in the 70s to 80s. Physical exam maneuvers in patients with treatment of BiPAP for preoxygenation with some improvement in SPO2. - Initial evaluation notable for patient with significant altered mental status. She is ill-appearing in respiratory distress - Per EMS report blood glucose normal. - Patient intubated as noted without acute decompensation. Confirmation via video laryngoscopy visualization, tube fogging, breath sounds. Subsequently position confirmed with chest x-ray - Labs notable for leukocytosis, lactic acid elevated. Metabolic panel with hypernatremia and transaminitis. Elevated troponin. - Imaging notable for bilateral infiltrates noted on chest x-ray. - Given critical illness as well as SIRS criteria and possible pulmonary source of infection IV fluids and empiric antibiotics ordered - Given mental status change of unclear circumstances CT head ordered. Patient has a history of diffuse metastatic disease which puts her at high risk for various pathologies including pulmonary embolism. Additional sources of infection without a clear history also need to be excluded therefore chest abdomen and pelvis included in CT scan. Given patient's critical illness failure to identify potential pathologies could likely lead to further decompensation including - Patient care handed off to overnight ED physician Dr. Landeros pending completion of CT scans and disposition as currently no available ICU beds are present at this facility. Vital Signs: Vital signs: Vital Signs Temperature 98 F 05/02/21 03:02 Pulse Rate 46 L 05/02/21 14:37 Respiratory Rate 14 05/02/21 14:37 Blood Pressure 139/86 05/02/21 14:00 Pulse Oximetry 92 05/02/21 14:37 MDM - Altered Mental Status Medical Records: Attestation: I reviewed the patient's medical records. Lab Data: Attestation: I reviewed the patient's lab results. Labs: Lab Results 05/01/21 05/01/21 05/01/21 Range/Units 21:30 21:30 21:30 WBC 14.0 H (4.0-10.0) 10^3/ uL RBC 4.09 L (4.1-5.3) 10^6/u L Hgb 11.7 (11.5-15.3) g/dL Hct 39.9 (37.0-47.0) % MCV 97.6 (81-99) fL MCH 28.6 (28.0-34.0) pg MCHC 29.3 L (30.0-36.0) g/dL RDW 16.0 H (12.1-15.1) % Plt Count 165 (130-400) 10^3/c mm MPV 11.0 H (7.4-10.4) fL Neut % (Auto) 84.0 % Lymph % (Auto) 5.5 % Lake % (Auto) 5.6 % Eos % (Auto) 0.1 % Baso % (Auto) 0.4 % Neut # (Auto) 11.79 H (1.8-7.7) 10^3/u L Lymph # (Auto) 0.8 (0.8-4.8) 10^3/u L Lake # (Auto) 0.8 (0.2-0.9) 10^3/u L Eos # (Auto) 0.0 (0.0-0.8) 10^3/u L Baso # (Auto) 0.1 (0.0-0.1) 10^3/u L Nucleated RBC % (a uto) 1.5 % Nucleated RBCs # 0.2 /100WBC Specimen Type Sample Site O2 Sat Pulse Oxime try % ABG pH (7.35-7.45) ABG pCO2 (35-45) mmHg ABG pO2 (80.0-100.0) mmH g ABG HCO3 (22-26) mmol/L ABG O2 Saturation ABG Base Excess (-2.0-2.0) mmol/ L Shoaib Test A-a O2 Gradient (5-10) mmHg Hematocrit (37-47) % Hgb O2 Saturation (95-100) % Carboxyhemoglobin (0.4-20.1) %THgb Methemoglobin (0.4-1.5) % Total Hemoglobin (12-16) g/dL Ionized Calcium (1.1-1.4) mmol/L Respiration Rate % O2 Delivery Device Vent Mode Mechanical Rate Spontaneous Rate % FiO2 % Tidal Volume PEEP cmH20 Specimen Drawn By Malt Specifications Control Assistant ID Blood Gas Notified Time Sodium 150 H (136-145) mmol/L Potassium 3.9 (3.5-5.1) mmol/L Chloride 102 (98-107) mmol/L Carbon Dioxide 34 H (22-29) mmol/L Anion Gap 17.9 (5-19) BUN 26 H (8-23) mg/dL Creatinine 1.6 H (0.5-0.9) mg/dL GFR Calculation 32.1 L (90-130) mL/min Glucose 139 H (65-115) mg/dL Calculated Osmolal ity 317 H (285-295) mOsm/k g Lactic Acid 4.1 H* (0.5-2.2) mmol/L Lactate (0.5-2.2) mmol/L Calcium 9.6 (8.5-10.5) mg/dL Total Bilirubin 2.9 H (0.15-1.2) mg/dL AST 2390 H (0-32) U/L ALT 1283 H (0-33) U/L Alkaline Phosphata se 105 (35-105) IU/L Creatine Kinase (26-192) U/L Troponin T Baselin e (0-10) ng/L Troponin T 120 Min [place] (0-10) ng/L Delta Troponin T (0-10) ABS# Troponin T Hi Sens 6Hr (0-10) ng/L Troponin T Hi Sens 6Hr Delta (0-12) ng/L C-Reactive Protein 119.9 H (0.0-4.9) mg/L NT-Pro-B Natriuret Pep (0-125) pg/mL Total Protein 6.6 (6.6-8.7) g/dL Albumin 3.8 (3.5-5.2) g/dL Globulin 2.8 (1.3-4.6) g/dL Procalcitonin (0-0.5) ng/mL Urine Color (Yellow) Urine Appearance (CLEAR) Urine pH (5-7) Ur Specific Gravit y (1.005-1.030) Urine Protein (Negative) Urine Glucose (UA) (Normal) Urine Ketones (Negative) Urine Blood (Negative) Urine Nitrate (Negative) Urine Bilirubin (Negative) Urine Urobilinogen (Negative) mg/dL Ur Leukocyte Quiana ase (Negative) Urine RBC (0-2) /hpf Urine WBC (0-5) /hpf Ur Squamous Epith Cells (0-5) /hpf Amorphous Sediment /hpf Urine Bacteria (NONE) /hpf Hyaline Casts /lpf Salicylates (3-10) mg/dL Urine Opiates Scre en (Negative) ng/mL Acetaminophen (10-30) ug/mL Ur Barbiturates Sc reen (Negative) ng/mL Ur Phencyclidine S crn (Negative) ng/mL Ur Amphetamines Sc reen (Negative) ng/mL U Benzodiazepines Scrn (Negative) ng/mL Urine Cocaine Scre en (Negative) ng/mL U Marijuana (THC) Screen (Negative) ng/mL Ethyl Alcohol (0-10) mg/dL SARS-CoV-2 Ag (Rap id) (Negative) 05/01/21 05/01/21 05/01/21 Range/Units 21:30 21:30 21:30 WBC (4.0-10.0) 10^3/ uL RBC (4.1-5.3) 10^6/u L Hgb (11.5-15.3) g/dL Hct (37.0-47.0) % MCV (81-99) fL MCH (28.0-34.0) pg MCHC (30.0-36.0) g/dL RDW (12.1-15.1) % Plt Count (130-400) 10^3/c mm MPV (7.4-10.4) fL Neut % (Auto) % Lymph % (Auto) % Lake % (Auto) % Eos % (Auto) % Baso % (Auto) % Neut # (Auto) (1.8-7.7) 10^3/u L Lymph # (Auto) (0.8-4.8) 10^3/u L Lake # (Auto) (0.2-0.9) 10^3/u L Eos # (Auto) (0.0-0.8) 10^3/u L Baso # (Auto) (0.0-0.1) 10^3/u L Nucleated RBC % (a uto) % Nucleated RBCs # /100WBC Specimen Type Sample Site O2 Sat Pulse Oxime try % ABG pH (7.35-7.45) ABG pCO2 (35-45) mmHg ABG pO2 (80.0-100.0) mmH g ABG HCO3 (22-26) mmol/L ABG O2 Saturation ABG Base Excess (-2.0-2.0) mmol/ L Shoaib Test A-a O2 Gradient (5-10) mmHg Hematocrit (37-47) % Hgb O2 Saturation (95-100) % Carboxyhemoglobin (0.4-20.1) %THgb Methemoglobin (0.4-1.5) % Total Hemoglobin (12-16) g/dL Ionized Calcium (1.1-1.4) mmol/L Respiration Rate % O2 Delivery Device Vent Mode Mechanical Rate Spontaneous Rate % FiO2 % Tidal Volume PEEP cmH20 Specimen Drawn By Malt Specifications Control Assistant ID Blood Gas Notified Time Sodium (136-145) mmol/L Potassium (3.5-5.1) mmol/L Chloride (98-107) mmol/L Carbon Dioxide (22-29) mmol/L Anion Gap (5-19) BUN (8-23) mg/dL Creatinine (0.5-0.9) mg/dL GFR Calculation (90-130) mL/min Glucose (65-115) mg/dL Calculated Osmolal ity (285-295) mOsm/k g Lactic Acid (0.5-2.2) mmol/L Lactate (0.5-2.2) mmol/L Calcium (8.5-10.5) mg/dL Total Bilirubin (0.15-1.2) mg/dL AST (0-32) U/L ALT (0-33) U/L Alkaline Phosphata se (35-105) IU/L Creatine Kinase (26-192) U/L Troponin T Baselin e 543 H* (0-10) ng/L Troponin T 120 Min [place] (0-10) ng/L Delta Troponin T (0-10) ABS# Troponin T Hi Sens 6Hr (0-10) ng/L Troponin T Hi Sens 6Hr Delta (0-12) ng/L C-Reactive Protein (0.0-4.9) mg/L NT-Pro-B Natriuret Pep 14565 H (0-125) pg/mL Total Protein (6.6-8.7) g/dL Albumin (3.5-5.2) g/dL Globulin (1.3-4.6) g/dL Procalcitonin 0.50 (0-0.5) ng/mL Urine Color (Yellow) Urine Appearance (CLEAR) Urine pH (5-7) Ur Specific Gravit y (1.005-1.030) Urine Protein (Negative) Urine Glucose (UA) (Normal) Urine Ketones (Negative) Urine Blood (Negative) Urine Nitrate (Negative) Urine Bilirubin (Negative) Urine Urobilinogen (Negative) mg/dL Ur Leukocyte Quiana ase (Negative) Urine RBC (0-2) /hpf Urine WBC (0-5) /hpf Ur Squamous Epith Cells (0-5) /hpf Amorphous Sediment /hpf Urine Bacteria (NONE) /hpf Hyaline Casts /lpf Salicylates < 0.3 L (3-10) mg/dL Urine Opiates Scre en (Negative) ng/mL Acetaminophen < 5.0 L (10-30) ug/mL Ur Barbiturates Sc reen (Negative) ng/mL Ur Phencyclidine S crn (Negative) ng/mL Ur Amphetamines Sc reen (Negative) ng/mL U Benzodiazepines Scrn (Negative) ng/mL Urine Cocaine Scre en (Negative) ng/mL U Marijuana (THC) Screen (Negative) ng/mL Ethyl Alcohol < 10 (0-10) mg/dL SARS-CoV-2 Ag (Rap id) (Negative) 05/01/21 05/01/21 05/01/21 Range/Units 21:30 22:18 22:44 WBC (4.0-10.0) 10^3/ uL RBC (4.1-5.3) 10^6/u L Hgb (11.5-15.3) g/dL Hct (37.0-47.0) % MCV (81-99) fL MCH (28.0-34.0) pg MCHC (30.0-36.0) g/dL RDW (12.1-15.1) % Plt Count (130-400) 10^3/c mm MPV (7.4-10.4) fL Neut % (Auto) % Lymph % (Auto) % Lake % (Auto) % Eos % (Auto) % Baso % (Auto) % Neut # (Auto) (1.8-7.7) 10^3/u L Lymph # (Auto) (0.8-4.8) 10^3/u L Lake # (Auto) (0.2-0.9) 10^3/u L Eos # (Auto) (0.0-0.8) 10^3/u L Baso # (Auto) (0.0-0.1) 10^3/u L Nucleated RBC % (a uto) % Nucleated RBCs # /100WBC Specimen Type Arterial Sample Site Radial, left O2 Sat Pulse Oxime try 100.0 % ABG pH 7.42 (7.35-7.45) ABG pCO2 56.0 H (35-45) mmHg ABG pO2 197.0 H (80.0-100.0) mmH g ABG HCO3 36.1 H (22-26) mmol/L ABG O2 Saturation 100.0 ABG Base Excess 9.9 H (-2.0-2.0) mmol/ L Shoaib Test Pos A-a O2 Gradient 58.0 H (5-10) mmHg Hematocrit 33.1 L (37-47) % Hgb O2 Saturation 97.3 (95-100) % Carboxyhemoglobin 2.3 (0.4-20.1) %THgb Methemoglobin 0.4 (0.4-1.5) % Total Hemoglobin 10.8 L (12-16) g/dL Ionized Calcium 1.3 (1.1-1.4) mmol/L Respiration Rate 12.0 % O2 Delivery Device Vent Vent Mode Cmv Mechanical Rate 12.0 Spontaneous Rate 0.0 % FiO2 100.0 % Tidal Volume 0.50 PEEP 8.0 cmH20 Specimen Drawn By [place] Specifications Control Assistant ID glen Blood Gas Notified Time 2230 Sodium 152.0 H (136-145) mmol/L Potassium 3.4 L (3.5-5.1) mmol/L Chloride (98-107) mmol/L Carbon Dioxide (22-29) mmol/L Anion Gap (5-19) BUN (8-23) mg/dL Creatinine (0.5-0.9) mg/dL GFR Calculation (90-130) mL/min Glucose 157.0 H (65-115) mg/dL Calculated Osmolal ity (285-295) mOsm/k g Lactic Acid (0.5-2.2) mmol/L Lactate (0.5-2.2) mmol/L Calcium (8.5-10.5) mg/dL Total Bilirubin (0.15-1.2) mg/dL AST (0-32) U/L ALT (0-33) U/L Alkaline Phosphata se (35-105) IU/L Creatine Kinase (26-192) U/L Troponin T Baselin e (0-10) ng/L Troponin T 120 Min [place] (0-10) ng/L Delta Troponin T (0-10) ABS# Troponin T Hi Sens 6Hr (0-10) ng/L Troponin T Hi Sens 6Hr Delta (0-12) ng/L C-Reactive Protein (0.0-4.9) mg/L NT-Pro-B Natriuret Pep (0-125) pg/mL Total Protein (6.6-8.7) g/dL Albumin (3.5-5.2) g/dL Globulin (1.3-4.6) g/dL Procalcitonin (0-0.5) ng/mL Urine Color Yellow (Yellow) Urine Appearance Clear (CLEAR) Urine pH 5 (5-7) Ur Specific Gravit y 1.015 (1.005-1.030) Urine Protein 3+ H (Negative) Urine Glucose (UA) Norm (Normal) Urine Ketones Negative (Negative) Urine Blood 3+ H (Negative) Urine Nitrate Negative (Negative) Urine Bilirubin 1+ H (Negative) Urine Urobilinogen 1 H (Negative) mg/dL Ur Leukocyte Quiana ase Negative (Negative) Urine RBC 5-10 H (0-2) /hpf Urine WBC 0-4 H (0-5) /hpf Ur Squamous Epith Cells 0-4 H (0-5) /hpf Amorphous Sediment 1+ /hpf Urine Bacteria 2+ H (NONE) /hpf Hyaline Casts 15-25 H /lpf Salicylates (3-10) mg/dL Urine Opiates Scre en (Negative) ng/mL Acetaminophen (10-30) ug/mL Ur Barbiturates Sc reen (Negative) ng/mL Ur Phencyclidine S crn (Negative) ng/mL Ur Amphetamines Sc reen (Negative) ng/mL U Benzodiazepines Scrn (Negative) ng/mL Urine Cocaine Scre en (Negative) ng/mL U Marijuana (THC) Screen (Negative) ng/mL Ethyl Alcohol (0-10) mg/dL SARS-CoV-2 Ag (Rap id) Negative (Negative) 05/01/21 05/01/21 05/01/21 Range/Units 22:44 23:39 23:44 WBC (4.0-10.0) 10^3/ uL RBC (4.1-5.3) 10^6/u L Hgb (11.5-15.3) g/dL Hct (37.0-47.0) % MCV (81-99) fL MCH (28.0-34.0) pg MCHC (30.0-36.0) g/dL RDW (12.1-15.1) % Plt Count (130-400) 10^3/c mm MPV (7.4-10.4) fL Neut % (Auto) % Lymph % (Auto) % Lake % (Auto) % Eos % (Auto) % Baso % (Auto) % Neut # (Auto) (1.8-7.7) 10^3/u L Lymph # (Auto) (0.8-4.8) 10^3/u L Lake # (Auto) (0.2-0.9) 10^3/u L Eos # (Auto) (0.0-0.8) 10^3/u L Baso # (Auto) (0.0-0.1) 10^3/u L Nucleated RBC % (a uto) % Nucleated RBCs # /100WBC Specimen Type Arterial Sample Site Radial, left O2 Sat Pulse Oxime try % ABG pH 7.43 (7.35-7.45) ABG pCO2 56.9 H (35-45) mmHg ABG pO2 71.3 L (80.0-100.0) mmH g ABG HCO3 37.3 H (22-26) mmol/L ABG O2 Saturation 94.0 ABG Base Excess 11.3 H (-2.0-2.0) mmol/ L Shoaib Test Pos A-a O2 Gradient 37.5 H (5-10) mmHg Hematocrit 30.0 L (37-47) % Hgb O2 Saturation 91.7 L (95-100) % Carboxyhemoglobin 2.0 (0.4-20.1) %THgb Methemoglobin 0.5 (0.4-1.5) % Total Hemoglobin 9.8 L (12-16) g/dL Ionized Calcium 1.2 (1.1-1.4) mmol/L Respiration Rate % O2 Delivery Device Vent Vent Mode Mechanical Rate 12.0 Spontaneous Rate % FiO2 60.0 % Tidal Volume 0.42 PEEP 8.0 cmH20 Specimen Drawn By [place] Specifications Control Assistant ID glen Blood Gas Notified Time Sodium 150.0 H (136-145) mmol/L Potassium 3.4 L (3.5-5.1) mmol/L Chloride (98-107) mmol/L Carbon Dioxide (22-29) mmol/L Anion Gap (5-19) BUN (8-23) mg/dL Creatinine (0.5-0.9) mg/dL GFR Calculation (90-130) mL/min Glucose 164.0 H (65-115) mg/dL Calculated Osmolal ity (285-295) mOsm/k g Lactic Acid (0.5-2.2) mmol/L Lactate (0.5-2.2) mmol/L Calcium (8.5-10.5) mg/dL Total Bilirubin (0.15-1.2) mg/dL AST (0-32) U/L ALT (0-33) U/L Alkaline Phosphata se (35-105) IU/L Creatine Kinase (26-192) U/L Troponin T Baselin e (0-10) ng/L Troponin T 120 Min [place] 548.5 H (0-10) ng/L Delta Troponin T 5.5 (0-10) ABS# Troponin T Hi Sens 6Hr (0-10) ng/L Troponin T Hi Sens 6Hr Delta (0-12) ng/L C-Reactive Protein (0.0-4.9) mg/L NT-Pro-B Natriuret Pep (0-125) pg/mL Total Protein (6.6-8.7) g/dL Albumin (3.5-5.2) g/dL Globulin (1.3-4.6) g/dL Procalcitonin (0-0.5) ng/mL Urine Color (Yellow) Urine Appearance (CLEAR) Urine pH (5-7) Ur Specific Gravit y (1.005-1.030) Urine Protein (Negative) Urine Glucose (UA) (Normal) Urine Ketones (Negative) Urine Blood (Negative) Urine Nitrate (Negative) Urine Bilirubin (Negative) Urine Urobilinogen (Negative) mg/dL Ur Leukocyte Quiana ase (Negative) Urine RBC (0-2) /hpf Urine WBC (0-5) /hpf Ur Squamous Epith Cells (0-5) /hpf Amorphous Sediment /hpf Urine Bacteria (NONE) /hpf Hyaline Casts /lpf Salicylates (3-10) mg/dL Urine Opiates Scre en Positive H (Negative) ng/mL Acetaminophen (10-30) ug/mL Ur Barbiturates Sc reen Negative (Negative) ng/mL Ur Phencyclidine S crn Negative (Negative) ng/mL Ur Amphetamines Sc reen Negative (Negative) ng/mL U Benzodiazepines Scrn Negative (Negative) ng/mL Urine Cocaine Scre en Negative (Negative) ng/mL U Marijuana (THC) Screen Negative (Negative) ng/mL Ethyl Alcohol (0-10) mg/dL SARS-CoV-2 Ag (Rap id) (Negative) 05/01/21 05/01/21 05/02/21 Range/Units 23:44 23:44 02:55 WBC (4.0-10.0) 10^3/ uL RBC (4.1-5.3) 10^6/u L Hgb (11.5-15.3) g/dL Hct (37.0-47.0) % MCV (81-99) fL MCH (28.0-34.0) pg MCHC (30.0-36.0) g/dL RDW (12.1-15.1) % Plt Count (130-400) 10^3/c mm MPV (7.4-10.4) fL Neut % (Auto) % Lymph % (Auto) % Lake % (Auto) % Eos % (Auto) % Baso % (Auto) % Neut # (Auto) (1.8-7.7) 10^3/u L Lymph # (Auto) (0.8-4.8) 10^3/u L Lake # (Auto) (0.2-0.9) 10^3/u L Eos # (Auto) (0.0-0.8) 10^3/u L Baso # (Auto) (0.0-0.1) 10^3/u L Nucleated RBC % (a uto) % Nucleated RBCs # /100WBC Specimen Type Arterial Sample Site Radial, right O2 Sat Pulse Oxime try % ABG pH 7.42 (7.35-7.45) ABG pCO2 59.2 H (35-45) mmHg ABG pO2 101.0 H (80.0-100.0) mmH g ABG HCO3 38.1 H (22-26) mmol/L ABG O2 Saturation 98.2 ABG Base Excess 11.4 H (-2.0-2.0) mmol/ L Shoaib Test Pos A-a O2 Gradient 42.5 H (5-10) mmHg Hematocrit 35.8 L (37-47) % Hgb O2 Saturation 96.3 (95-100) % Carboxyhemoglobin 1.6 (0.4-20.1) %THgb Methemoglobin 0.4 (0.4-1.5) % Total Hemoglobin 11.7 L (12-16) g/dL Ionized Calcium 1.2 (1.1-1.4) mmol/L Respiration Rate % O2 Delivery Device Vent Vent Mode Mechanical Rate 14.0 Spontaneous Rate % FiO2 70.0 % Tidal Volume 0.50 PEEP 8.0 cmH20 Specimen Drawn By Malt Specifications Control Assistant ID glen Blood Gas Notified Time Sodium 150.0 H (136-145) mmol/L Potassium 3.3 L (3.5-5.1) mmol/L Chloride (98-107) mmol/L Carbon Dioxide (22-29) mmol/L Anion Gap (5-19) BUN (8-23) mg/dL Creatinine (0.5-0.9) mg/dL GFR Calculation (90-130) mL/min Glucose 164.0 H (65-115) mg/dL Calculated Osmolal ity (285-295) mOsm/k g Lactic Acid (0.5-2.2) mmol/L Lactate 3.2 H (0.5-2.2) mmol/L Calcium (8.5-10.5) mg/dL Total Bilirubin (0.15-1.2) mg/dL AST (0-32) U/L ALT (0-33) U/L Alkaline Phosphata se (35-105) IU/L Creatine Kinase 285 H (26-192) U/L Troponin T Baselin e (0-10) ng/L Troponin T 120 Min [place] (0-10) ng/L Delta Troponin T (0-10) ABS# Troponin T Hi Sens 6Hr (0-10) ng/L Troponin T Hi Sens 6Hr Delta (0-12) ng/L C-Reactive Protein (0.0-4.9) mg/L NT-Pro-B Natriuret Pep (0-125) pg/mL Total Protein (6.6-8.7) g/dL Albumin (3.5-5.2) g/dL Globulin (1.3-4.6) g/dL Procalcitonin (0-0.5) ng/mL Urine Color (Yellow) Urine Appearance (CLEAR) Urine pH (5-7) Ur Specific Gravit y (1.005-1.030) Urine Protein (Negative) Urine Glucose (UA) (Normal) Urine Ketones (Negative) Urine Blood (Negative) Urine Nitrate (Negative) Urine Bilirubin (Negative) Urine Urobilinogen (Negative) mg/dL Ur Leukocyte Quiana ase (Negative) Urine RBC (0-2) /hpf Urine WBC (0-5) /hpf Ur Squamous Epith Cells (0-5) /hpf Amorphous Sediment /hpf Urine Bacteria (NONE) /hpf Hyaline Casts /lpf Salicylates (3-10) mg/dL Urine Opiates Scre en (Negative) ng/mL Acetaminophen (10-30) ug/mL Ur Barbiturates Sc reen (Negative) ng/mL Ur Phencyclidine S crn (Negative) ng/mL Ur Amphetamines Sc reen (Negative) ng/mL U Benzodiazepines Scrn (Negative) ng/mL Urine Cocaine Scre en (Negative) ng/mL U Marijuana (THC) Screen (Negative) ng/mL Ethyl Alcohol (0-10) mg/dL SARS-CoV-2 Ag (Rap id) (Negative) 05/02/21 05/02/21 Range/Units 03:26 07:51 WBC (4.0-10.0) 10^3/ uL RBC (4.1-5.3) 10^6/u L Hgb (11.5-15.3) g/dL Hct (37.0-47.0) % MCV (81-99) fL MCH (28.0-34.0) pg MCHC (30.0-36.0) g/dL RDW (12.1-15.1) % Plt Count (130-400) 10^3/c mm MPV (7.4-10.4) fL Neut % (Auto) % Lymph % (Auto) % Lake % (Auto) % Eos % (Auto) % Baso % (Auto) % Neut # (Auto) (1.8-7.7) 10^3/u L Lymph # (Auto) (0.8-4.8) 10^3/u L Lake # (Auto) (0.2-0.9) 10^3/u L Eos # (Auto) (0.0-0.8) 10^3/u L Baso # (Auto) (0.0-0.1) 10^3/u L Nucleated RBC % (a uto) % Nucleated RBCs # /100WBC Specimen Type Arterial Sample Site Radial, right O2 Sat Pulse Oxime try % ABG pH 7.49 H (7.35-7.45) ABG pCO2 51.8 H (35-45) mmHg ABG pO2 72.8 L (80.0-100.0) mmH g ABG HCO3 39.0 H (22-26) mmol/L ABG O2 Saturation 95.4 ABG Base Excess 13.8 H (-2.0-2.0) mmol/ L Shoaib Test Pos A-a O2 Gradient 47.3 H (5-10) mmHg Hematocrit 32.2 L (37-47) % Hgb O2 Saturation 93.2 L (95-100) % Carboxyhemoglobin 1.5 (0.4-20.1) %THgb Methemoglobin 0.8 (0.4-1.5) % Total Hemoglobin 10.5 L (12-16) g/dL Ionized Calcium 1.2 (1.1-1.4) mmol/L Respiration Rate % O2 Delivery Device Vent Vent Mode Mechanical Rate Spontaneous Rate % FiO2 70.0 % Tidal Volume 0.50 PEEP 8.0 cmH20 Specimen Drawn By Malt Specifications Control Assistant ID Amh Blood Gas Notified Time Sodium 149.0 H (136-145) mmol/L Potassium 3.1 L (3.5-5.1) mmol/L Chloride (98-107) mmol/L Carbon Dioxide (22-29) mmol/L Anion Gap (5-19) BUN (8-23) mg/dL Creatinine (0.5-0.9) mg/dL GFR Calculation (90-130) mL/min Glucose 138.0 H (65-115) mg/dL Calculated Osmolal ity (285-295) mOsm/k g Lactic Acid (0.5-2.2) mmol/L Lactate (0.5-2.2) mmol/L Calcium (8.5-10.5) mg/dL Total Bilirubin (0.15-1.2) mg/dL AST (0-32) U/L ALT (0-33) U/L Alkaline Phosphata se (35-105) IU/L Creatine Kinase (26-192) U/L Troponin T Baselin e (0-10) ng/L Troponin T 120 Min [place] (0-10) ng/L Delta Troponin T (0-10) ABS# Troponin T Hi Sens 6Hr 526.6 H (0-10) ng/L Troponin T Hi Sens 6Hr Delta -16.4 L (0-12) ng/L C-Reactive Protein (0.0-4.9) mg/L NT-Pro-B Natriuret Pep (0-125) pg/mL Total Protein (6.6-8.7) g/dL Albumin (3.5-5.2) g/dL Globulin (1.3-4.6) g/dL Procalcitonin (0-0.5) ng/mL Urine Color (Yellow) Urine Appearance (CLEAR) Urine pH (5-7) Ur Specific Gravit y (1.005-1.030) Urine Protein (Negative) Urine Glucose (UA) (Normal) Urine Ketones (Negative) Urine Blood (Negative) Urine Nitrate (Negative) Urine Bilirubin (Negative) Urine Urobilinogen (Negative) mg/dL Ur Leukocyte Quiana ase (Negative) Urine RBC (0-2) /hpf Urine WBC (0-5) /hpf Ur Squamous Epith Cells (0-5) /hpf Amorphous Sediment /hpf Urine Bacteria (NONE) /hpf Hyaline Casts /lpf Salicylates (3-10) mg/dL Urine Opiates Scre en (Negative) ng/mL Acetaminophen (10-30) ug/mL Ur Barbiturates Sc reen (Negative) ng/mL Ur Phencyclidine S crn (Negative) ng/mL Ur Amphetamines Sc reen (Negative) ng/mL U Benzodiazepines Scrn (Negative) ng/mL Urine Cocaine Scre en (Negative) ng/mL U Marijuana (THC) Screen (Negative) ng/mL Ethyl Alcohol (0-10) mg/dL SARS-CoV-2 Ag (Rap id) (Negative) Imaging Data^: CXR: Attestation: I personally reviewed and interpreted this imaging study as follows: My impression: Infiltrates present. Endotracheal tube in satisfactory position. EKG Data^: EKG 1: Attestation: I personally reviewed and interpreted this EKG as follows: EKG interpretation date: 05/01/20 Prior EKG tracings: available for review Ischemic changes: non-specific ST-T wave changes Interpretation: Twelve-lead EKG shows a sinus rhythm at a rate of 63 NC 186. QRS duration 170. QTc [address] segment abnormalities present as well as right bundle branch block Interpretation: Sinus rhythm. Right bundle branch block. Prolonged QTC. EKG 2: Attestation: I personally reviewed and interpreted this EKG as follows: EKG interpretation date: 05/01/20 Prior EKG tracings: available for review Ischemic changes: non-specific ST-T wave changes Interpretation: Twelve-lead EKG shows a sinus rhythm at a rate of 70. NC interval 197. QRS duration 168. QTc [address] segment abnormalities and right bundle branch block present Interpretation: Sinus rhythm. Right bundle branch block. Nonspecific ST segment abnormalities. Prolonged QTC. Critical Care Time Critical Care Time: Critical Care Time: Yes Total Critical Care Time: 75 Attestation: This case had a high probability of a clinically significant, sudden, or life threatening deterioration of this patient's condition which required my full and direct attention, intervention and personal management. Discharge Plan Discharge Patient Disposition: Admitted As Inpatient Admit Provider: Reji Thomas Clinical Impression: Respiratory failure, Morbid obesity with BMI of 45.0-49.9, adult, Type 2 diabetes mellitus without complication, without long-term current use of ins ulin, Breast cancer metastasized to bone, COPD (chronic obstructive pulmonary disease), Acute exacerbation of CHF (congestive heart failure), Sleep apnea, Pneumonia Condition: Stable Coding Level of Care Code ED Flash Welder for Chg Fwd Exam Expanded Problem Focused Documented by User: Jose A Neri DO 05/02/21 12:06 HPI - Altered Mental Status General: Chief Complaint: Shortness of Breath/Dyspnea Stated Complaint: RESP. DISTRESS Time Seen by Provider: 05/01/21 21:24 History of Present Illness: HPI narrative: 70-year-old female with a history of breast cancer with extensive bony metastasis. She was seen a few days ago with complaint of periumbilical pain had some increased fluid retention and her Lasix was increased she was also hypokalemic at that time. She came in last night and respiratory distress was found in the field O2 sat range in the 50s. She was responsive to painful stimuli she was intubated on arrival. She is currently on antibiotics. Labratory testing reviewed. I picked up care of the patient she is intubated sedated on the ventilator. Review of Systems General: Reports: ROS unobtainable due to mental status PFSH ED PFSH: Medical History Acute respiratory failure with hypoxia Anxiety attack Breast cancer metastasized to bone diag 2014 with treatment and no activity at this time per PET scan Chronic low back pain COPD (chronic obstructive pulmonary disease) Current every day smoker Depression Dyspnea Encounter for long-term opiate analgesic use Enrolled in chronic care management Essential hypertension GERD (gastroesophageal reflux disease) High risk medication use Hyperlipidemia Inflammatory arthritis Joint pain Leg weakness, bilateral Nicotine dependence, cigarettes, uncomplicated Opioid contract exists Pain in rib Pain in thoracic spine PVD (peripheral vascular disease) Sleep apnea Type 2 diabetes mellitus without complication, without long-term current use of insulin Xeroderma Surgical History Hx laparoscopic cholecystectomy 11/01/18 Hx of arthroscopic knee surgery Right Hx of cholecystectomy Hx of lumpectomy Right Hx of oral surgery pulled all teeth 03/2017 Hx of tubal ligation Family History Unknown Prostate disease Depression Heart disease Hypertension Chronic kidney disease (CKD) Grandfather Cancer LUNG CANCER Other CAD (coronary artery disease) Rheumatoid arthritis Denies family history of Diabetes Lupus Hyperlipidemia Family history of premature coronary artery disease Stroke Social History Smoking and tobacco status: former smoker Second hand smoke exposure: No Alcohol intake: never History of recent travel: No Physical Exam HENMT: COMMON NORMALS: normocephalic and atraumatic HEAD & SCALP: normocephalic and atraumatic Resp: OTHER: Diminished breath sounds on the ventilator. few crackles at the bases. Cardio: COMMON NORMALS: regular rhythm and No murmurs present (Cardio) RATE: bradycardic RHYTHM: regular rhythm Extremity: NARRATIVE EXTREMITY EXAM: Chronic venous stasis changes. There is actually relatively minimal edema at this time. Course Vital Signs: Vital signs: Vital Signs Temperature 98 F 05/02/21 03:02 Pulse Rate 46 L 05/02/21 14:37 Respiratory Rate 14 05/02/21 14:37 Blood Pressure 139/86 05/02/21 14:00 Pulse Oximetry 92 05/02/21 14:37 MDM - Altered Mental Status MDM Narrative: Medical decision making narrative: Patient appears to be in congestive heart failure. Her most recent ejection fraction was 65% in February 2019. According to the note she is not being getting treatment for her cancer she has known bony and liver metastasis. When we seen in the other day she was satting normally and not particular short of breath and only complaint was abdominal pain she appears to be more exacerbated congestive heart failure despite the fact we had increased her Lasix. She was hypokalemic at that time as well although however on arrival here that seems to have been resolved. I am suspicious of Covid as well. Were going to go ahead and get a send out Covid we also gave her some Lasix. Currently we do not have ICU capacity our facility and will seek transfer. She has been covered with IV antibiotics for the possibility of secondary bacterial pneumonia as well. Contacted daughter who is in [facility]. They would like us to continue all efforts. We reviewed her medical condition. We contacted approximately [phone] hospitals in the region not able to get the patient transferred. We were able to get her on one waiting list however they said it may be days before a bed becomes available. In that interim ICU bed became available in our facility will admit her here talk to Dr. Thomas orders have been written. Lab Data: Labs: Lab Results 05/01/21 05/01/21 05/01/21 Range/Units 21:30 21:30 21:30 WBC 14.0 H (4.0-10.0) 10^3/ uL RBC 4.09 L (4.1-5.3) 10^6/u L Hgb 11.7 (11.5-15.3) g/dL Hct 39.9 (37.0-47.0) % MCV 97.6 (81-99) fL MCH 28.6 (28.0-34.0) pg MCHC 29.3 L (30.0-36.0) g/dL RDW 16.0 H (12.1-15.1) % Plt Count 165 (130-400) 10^3/c mm MPV 11.0 H (7.4-10.4) fL Neut % (Auto) 84.0 % Lymph % (Auto) 5.5 % Lake % (Auto) 5.6 % Eos % (Auto) 0.1 % Baso % (Auto) 0.4 % Neut # (Auto) 11.79 H (1.8-7.7) 10^3/u L Lymph # (Auto) 0.8 (0.8-4.8) 10^3/u L Lake # (Auto) 0.8 (0.2-0.9) 10^3/u L Eos # (Auto) 0.0 (0.0-0.8) 10^3/u L Baso # (Auto) 0.1 (0.0-0.1) 10^3/u L Nucleated RBC % (a uto) 1.5 % Nucleated RBCs # 0.2 /100WBC Specimen Type Sample Site O2 Sat Pulse Oxime try % ABG pH (7.35-7.45) ABG pCO2 (35-45) mmHg ABG pO2 (80.0-100.0) mmH g ABG HCO3 (22-26) mmol/L ABG O2 Saturation ABG Base Excess (-2.0-2.0) mmol/ L Shoaib Test A-a O2 Gradient (5-10) mmHg Hematocrit (37-47) % Hgb O2 Saturation (95-100) % Carboxyhemoglobin (0.4-20.1) %THgb Methemoglobin (0.4-1.5) % Total Hemoglobin (12-16) g/dL Ionized Calcium (1.1-1.4) mmol/L Respiration Rate % O2 Delivery Device Vent Mode Mechanical Rate Spontaneous Rate % FiO2 % Tidal Volume PEEP cmH20 Specimen Drawn By Malt Specifications Control Assistant ID Blood Gas Notified Time Sodium 150 H (136-145) mmol/L Potassium 3.9 (3.5-5.1) mmol/L Chloride 102 (98-107) mmol/L Carbon Dioxide 34 H (22-29) mmol/L Anion Gap 17.9 (5-19) BUN 26 H (8-23) mg/dL Creatinine 1.6 H (0.5-0.9) mg/dL GFR Calculation 32.1 L (90-130) mL/min Glucose 139 H (65-115) mg/dL Calculated Osmolal ity 317 H (285-295) mOsm/k g Lactic Acid 4.1 H* (0.5-2.2) mmol/L Lactate (0.5-2.2) mmol/L Calcium 9.6 (8.5-10.5) mg/dL Total Bilirubin 2.9 H (0.15-1.2) mg/dL AST 2390 H (0-32) U/L ALT 1283 H (0-33) U/L Alkaline Phosphata se 105 (35-105) IU/L Creatine Kinase (26-192) U/L Troponin T Baselin e (0-10) ng/L Troponin T 120 Min [place] (0-10) ng/L Delta Troponin T (0-10) ABS# Troponin T Hi Sens 6Hr (0-10) ng/L Troponin T Hi Sens 6Hr Delta (0-12) ng/L C-Reactive Protein 119.9 H (0.0-4.9) mg/L NT-Pro-B Natriuret Pep (0-125) pg/mL Total Protein 6.6 (6.6-8.7) g/dL Albumin 3.8 (3.5-5.2) g/dL Globulin 2.8 (1.3-4.6) g/dL Procalcitonin (0-0.5) ng/mL Urine Color (Yellow) Urine Appearance (CLEAR) Urine pH (5-7) Ur Specific Gravit y (1.005-1.030) Urine Protein (Negative) Urine Glucose (UA) (Normal) Urine Ketones (Negative) Urine Blood (Negative) Urine Nitrate (Negative) Urine Bilirubin (Negative) Urine Urobilinogen (Negative) mg/dL Ur Leukocyte Quiana ase (Negative) Urine RBC (0-2) /hpf Urine WBC (0-5) /hpf Ur Squamous Epith Cells (0-5) /hpf Amorphous Sediment /hpf Urine Bacteria (NONE) /hpf Hyaline Casts /lpf Salicylates (3-10) mg/dL Urine Opiates Scre en (Negative) ng/mL Acetaminophen (10-30) ug/mL Ur Barbiturates Sc reen (Negative) ng/mL Ur Phencyclidine S crn (Negative) ng/mL Ur Amphetamines Sc reen (Negative) ng/mL U Benzodiazepines Scrn (Negative) ng/mL Urine Cocaine Scre en (Negative) ng/mL U Marijuana (THC) Screen (Negative) ng/mL Ethyl Alcohol (0-10) mg/dL SARS-CoV-2 Ag (Rap id) (Negative) 05/01/21 05/01/21 05/01/21 Range/Units 21:30 21:30 21:30 WBC (4.0-10.0) 10^3/ uL RBC (4.1-5.3) 10^6/u L Hgb (11.5-15.3) g/dL Hct (37.0-47.0) % MCV (81-99) fL MCH (28.0-34.0) pg MCHC (30.0-36.0) g/dL RDW (12.1-15.1) % Plt Count (130-400) 10^3/c mm MPV (7.4-10.4) fL Neut % (Auto) % Lymph % (Auto) % Lake % (Auto) % Eos % (Auto) % Baso % (Auto) % Neut # (Auto) (1.8-7.7) 10^3/u L Lymph # (Auto) (0.8-4.8) 10^3/u L Lake # (Auto) (0.2-0.9) 10^3/u L Eos # (Auto) (0.0-0.8) 10^3/u L Baso # (Auto) (0.0-0.1) 10^3/u L Nucleated RBC % (a uto) % Nucleated RBCs # /100WBC Specimen Type Sample Site O2 Sat Pulse Oxime try % ABG pH (7.35-7.45) ABG pCO2 (35-45) mmHg ABG pO2 (80.0-100.0) mmH g ABG HCO3 (22-26) mmol/L ABG O2 Saturation ABG Base Excess (-2.0-2.0) mmol/ L Shoaib Test A-a O2 Gradient (5-10) mmHg Hematocrit (37-47) % Hgb O2 Saturation (95-100) % Carboxyhemoglobin (0.4-20.1) %THgb Methemoglobin (0.4-1.5) % Total Hemoglobin (12-16) g/dL Ionized Calcium (1.1-1.4) mmol/L Respiration Rate % O2 Delivery Device Vent Mode Mechanical Rate Spontaneous Rate % FiO2 % Tidal Volume PEEP cmH20 Specimen Drawn By Malt Specifications Control Assistant ID Blood Gas Notified Time Sodium (136-145) mmol/L Potassium (3.5-5.1) mmol/L Chloride (98-107) mmol/L Carbon Dioxide (22-29) mmol/L Anion Gap (5-19) BUN (8-23) mg/dL Creatinine (0.5-0.9) mg/dL GFR Calculation (90-130) mL/min Glucose (65-115) mg/dL Calculated Osmolal ity (285-295) mOsm/k g Lactic Acid (0.5-2.2) mmol/L Lactate (0.5-2.2) mmol/L Calcium (8.5-10.5) mg/dL Total Bilirubin (0.15-1.2) mg/dL AST (0-32) U/L ALT (0-33) U/L Alkaline Phosphata se (35-105) IU/L Creatine Kinase (26-192) U/L Troponin T Baselin e 543 H* (0-10) ng/L Troponin T 120 Min [place] (0-10) ng/L Delta Troponin T (0-10) ABS# Troponin T Hi Sens 6Hr (0-10) ng/L Troponin T Hi Sens 6Hr Delta (0-12) ng/L C-Reactive Protein (0.0-4.9) mg/L NT-Pro-B Natriuret Pep 72578 H (0-125) pg/mL Total Protein (6.6-8.7) g/dL Albumin (3.5-5.2) g/dL Globulin (1.3-4.6) g/dL Procalcitonin 0.50 (0-0.5) ng/mL Urine Color (Yellow) Urine Appearance (CLEAR) Urine pH (5-7) Ur Specific Gravit y (1.005-1.030) Urine Protein (Negative) Urine Glucose (UA) (Normal) Urine Ketones (Negative) Urine Blood (Negative) Urine Nitrate (Negative) Urine Bilirubin (Negative) Urine Urobilinogen (Negative) mg/dL Ur Leukocyte Quiana ase (Negative) Urine RBC (0-2) /hpf Urine WBC (0-5) /hpf Ur Squamous Epith Cells (0-5) /hpf Amorphous Sediment /hpf Urine Bacteria (NONE) /hpf Hyaline Casts /lpf Salicylates < 0.3 L (3-10) mg/dL Urine Opiates Scre en (Negative) ng/mL Acetaminophen < 5.0 L (10-30) ug/mL Ur Barbiturates Sc reen (Negative) ng/mL Ur Phencyclidine S crn (Negative) ng/mL Ur Amphetamines Sc reen (Negative) ng/mL U Benzodiazepines Scrn (Negative) ng/mL Urine Cocaine Scre en (Negative) ng/mL U Marijuana (THC) Screen (Negative) ng/mL Ethyl Alcohol < 10 (0-10) mg/dL SARS-CoV-2 Ag (Rap id) (Negative) 05/01/21 05/01/21 05/01/21 Range/Units 21:30 22:18 22:44 WBC (4.0-10.0) 10^3/ uL RBC (4.1-5.3) 10^6/u L Hgb (11.5-15.3) g/dL Hct (37.0-47.0) % MCV (81-99) fL MCH (28.0-34.0) pg MCHC (30.0-36.0) g/dL RDW (12.1-15.1) % Plt Count (130-400) 10^3/c mm MPV (7.4-10.4) fL Neut % (Auto) % Lymph % (Auto) % Lake % (Auto) % Eos % (Auto) % Baso % (Auto) % Neut # (Auto) (1.8-7.7) 10^3/u L Lymph # (Auto) (0.8-4.8) 10^3/u L Lake # (Auto) (0.2-0.9) 10^3/u L Eos # (Auto) (0.0-0.8) 10^3/u L Baso # (Auto) (0.0-0.1) 10^3/u L Nucleated RBC % (a uto) % Nucleated RBCs # /100WBC Specimen Type Arterial Sample Site Radial, left O2 Sat Pulse Oxime try 100.0 % ABG pH 7.42 (7.35-7.45) ABG pCO2 56.0 H (35-45) mmHg ABG pO2 197.0 H (80.0-100.0) mmH g ABG HCO3 36.1 H (22-26) mmol/L ABG O2 Saturation 100.0 ABG Base Excess 9.9 H (-2.0-2.0) mmol/ L Shoaib Test Pos A-a O2 Gradient 58.0 H (5-10) mmHg Hematocrit 33.1 L (37-47) % Hgb O2 Saturation 97.3 (95-100) % Carboxyhemoglobin 2.3 (0.4-20.1) %THgb Methemoglobin 0.4 (0.4-1.5) % Total Hemoglobin 10.8 L (12-16) g/dL Ionized Calcium 1.3 (1.1-1.4) mmol/L Respiration Rate 12.0 % O2 Delivery Device Vent Vent Mode Cmv Mechanical Rate 12.0 Spontaneous Rate 0.0 % FiO2 100.0 % Tidal Volume 0.50 PEEP 8.0 cmH20 Specimen Drawn By [place] Specifications Control Assistant ID glen Blood Gas Notified Time 2230 Sodium 152.0 H (136-145) mmol/L Potassium 3.4 L (3.5-5.1) mmol/L Chloride (98-107) mmol/L Carbon Dioxide (22-29) mmol/L Anion Gap (5-19) BUN (8-23) mg/dL Creatinine (0.5-0.9) mg/dL GFR Calculation (90-130) mL/min Glucose 157.0 H (65-115) mg/dL Calculated Osmolal ity (285-295) mOsm/k g Lactic Acid (0.5-2.2) mmol/L Lactate (0.5-2.2) mmol/L Calcium (8.5-10.5) mg/dL Total Bilirubin (0.15-1.2) mg/dL AST (0-32) U/L ALT (0-33) U/L Alkaline Phosphata se (35-105) IU/L Creatine Kinase (26-192) U/L Troponin T Baselin e (0-10) ng/L Troponin T 120 Min [place] (0-10) ng/L Delta Troponin T (0-10) ABS# Troponin T Hi Sens 6Hr (0-10) ng/L Troponin T Hi Sens 6Hr Delta (0-12) ng/L C-Reactive Protein (0.0-4.9) mg/L NT-Pro-B Natriuret Pep (0-125) pg/mL Total Protein (6.6-8.7) g/dL Albumin (3.5-5.2) g/dL Globulin (1.3-4.6) g/dL Procalcitonin (0-0.5) ng/mL Urine Color Yellow (Yellow) Urine Appearance Clear (CLEAR) Urine pH 5 (5-7) Ur Specific Gravit y 1.015 (1.005-1.030) Urine Protein 3+ H (Negative) Urine Glucose (UA) Norm (Normal) Urine Ketones Negative (Negative) Urine Blood 3+ H (Negative) Urine Nitrate Negative (Negative) Urine Bilirubin 1+ H (Negative) Urine Urobilinogen 1 H (Negative) mg/dL Ur Leukocyte Quiana ase Negative (Negative) Urine RBC 5-10 H (0-2) /hpf Urine WBC 0-4 H (0-5) /hpf Ur Squamous Epith Cells 0-4 H (0-5) /hpf Amorphous Sediment 1+ /hpf Urine Bacteria 2+ H (NONE) /hpf Hyaline Casts 15-25 H /lpf Salicylates (3-10) mg/dL Urine Opiates Scre en (Negative) ng/mL Acetaminophen (10-30) ug/mL Ur Barbiturates Sc reen (Negative) ng/mL Ur Phencyclidine S crn (Negative) ng/mL Ur Amphetamines Sc reen (Negative) ng/mL U Benzodiazepines Scrn (Negative) ng/mL Urine Cocaine Scre en (Negative) ng/mL U Marijuana (THC) Screen (Negative) ng/mL Ethyl Alcohol (0-10) mg/dL SARS-CoV-2 Ag (Rap id) Negative (Negative) 05/01/21 05/01/21 05/01/21 Range/Units 22:44 23:39 23:44 WBC (4.0-10.0) 10^3/ uL RBC (4.1-5.3) 10^6/u L Hgb (11.5-15.3) g/dL Hct (37.0-47.0) % MCV (81-99) fL MCH (28.0-34.0) pg MCHC (30.0-36.0) g/dL RDW (12.1-15.1) % Plt Count (130-400) 10^3/c mm MPV (7.4-10.4) fL Neut % (Auto) % Lymph % (Auto) % Lake % (Auto) % Eos % (Auto) % Baso % (Auto) % Neut # (Auto) (1.8-7.7) 10^3/u L Lymph # (Auto) (0.8-4.8) 10^3/u L Lake # (Auto) (0.2-0.9) 10^3/u L Eos # (Auto) (0.0-0.8) 10^3/u L Baso # (Auto) (0.0-0.1) 10^3/u L Nucleated RBC % (a uto) % Nucleated RBCs # /100WBC Specimen Type Arterial Sample Site Radial, left O2 Sat Pulse Oxime try % ABG pH 7.43 (7.35-7.45) ABG pCO2 56.9 H (35-45) mmHg ABG pO2 71.3 L (80.0-100.0) mmH g ABG HCO3 37.3 H (22-26) mmol/L ABG O2 Saturation 94.0 ABG Base Excess 11.3 H (-2.0-2.0) mmol/ L Shoaib Test Pos A-a O2 Gradient 37.5 H (5-10) mmHg Hematocrit 30.0 L (37-47) % Hgb O2 Saturation 91.7 L (95-100) % Carboxyhemoglobin 2.0 (0.4-20.1) %THgb Methemoglobin 0.5 (0.4-1.5) % Total Hemoglobin 9.8 L (12-16) g/dL Ionized Calcium 1.2 (1.1-1.4) mmol/L Respiration Rate % O2 Delivery Device Vent Vent Mode Mechanical Rate 12.0 Spontaneous Rate % FiO2 60.0 % Tidal Volume 0.42 PEEP 8.0 cmH20 Specimen Drawn By [place] Malt Specifications Control Assistant ID [email or web address] Blood Gas Notified Time Sodium 150.0 H (136-145) mmol/L Potassium 3.4 L (3.5-5.1) mmol/L Chloride (98-107) mmol/L Carbon Dioxide (22-29) mmol/L Anion Gap (5-19) BUN (8-23) mg/dL Creatinine (0.5-0.9) mg/dL GFR Calculation (90-130) mL/min Glucose 164.0 H (65-115) mg/dL Calculated Osmolal ity (285-295) mOsm/k g Lactic Acid (0.5-2.2) mmol/L Lactate (0.5-2.2) mmol/L Calcium (8.5-10.5) mg/dL Total Bilirubin (0.15-1.2) mg/dL AST (0-32) U/L ALT (0-33) U/L Alkaline Phosphata se (35-105) IU/L Creatine Kinase (26-192) U/L Troponin T Baselin e (0-10) ng/L Troponin T 120 Min [place] 548.5 H (0-10) ng/L Delta Troponin T 5.5 (0-10) ABS# Troponin T Hi Sens 6Hr (0-10) ng/L Troponin T Hi Sens 6Hr Delta (0-12) ng/L C-Reactive Protein (0.0-4.9) mg/L NT-Pro-B Natriuret Pep (0-125) pg/mL Total Protein (6.6-8.7) g/dL Albumin (3.5-5.2) g/dL Globulin (1.3-4.6) g/dL Procalcitonin (0-0.5) ng/mL Urine Color (Yellow) Urine Appearance (CLEAR) Urine pH (5-7) Ur Specific Gravit y (1.005-1.030) Urine Protein (Negative) Urine Glucose (UA) (Normal) Urine Ketones (Negative) Urine Blood (Negative) Urine Nitrate (Negative) Urine Bilirubin (Negative) Urine Urobilinogen (Negative) mg/dL Ur Leukocyte Quiana ase (Negative) Urine RBC (0-2) /hpf Urine WBC (0-5) /hpf Ur Squamous Epith Cells (0-5) /hpf Amorphous Sediment /hpf Urine Bacteria (NONE) /hpf Hyaline Casts /lpf Salicylates (3-10) mg/dL Urine Opiates Scre en Positive H (Negative) ng/mL Acetaminophen (10-30) ug/mL Ur Barbiturates Sc reen Negative (Negative) ng/mL Ur Phencyclidine S crn Negative (Negative) ng/mL Ur Amphetamines Sc reen Negative (Negative) ng/mL U Benzodiazepines Scrn Negative (Negative) ng/mL Urine Cocaine Scre en Negative (Negative) ng/mL U Marijuana (THC) Screen Negative (Negative) ng/mL Ethyl Alcohol (0-10) mg/dL SARS-CoV-2 Ag (Rap id) (Negative) 05/01/21 05/01/21 05/02/21 Range/Units 23:44 23:44 02:55 WBC (4.0-10.0) 10^3/ uL RBC (4.1-5.3) 10^6/u L Hgb (11.5-15.3) g/dL Hct (37.0-47.0) % MCV (81-99) fL MCH (28.0-34.0) pg MCHC (30.0-36.0) g/dL RDW (12.1-15.1) % Plt Count (130-400) 10^3/c mm MPV (7.4-10.4) fL Neut % (Auto) % Lymph % (Auto) % Lake % (Auto) % Eos % (Auto) % Baso % (Auto) % Neut # (Auto) (1.8-7.7) 10^3/u L Lymph # (Auto) (0.8-4.8) 10^3/u L Lake # (Auto) (0.2-0.9) 10^3/u L Eos # (Auto) (0.0-0.8) 10^3/u L Baso # (Auto) (0.0-0.1) 10^3/u L Nucleated RBC % (a uto) % Nucleated RBCs # /100WBC Specimen Type Arterial Sample Site Radial, right O2 Sat Pulse Oxime try % ABG pH 7.42 (7.35-7.45) ABG pCO2 59.2 H (35-45) mmHg ABG pO2 101.0 H (80.0-100.0) mmH g ABG HCO3 38.1 H (22-26) mmol/L ABG O2 Saturation 98.2 ABG Base Excess 11.4 H (-2.0-2.0) mmol/ L Shoaib Test Pos A-a O2 Gradient 42.5 H (5-10) mmHg Hematocrit 35.8 L (37-47) % Hgb O2 Saturation 96.3 (95-100) % Carboxyhemoglobin 1.6 (0.4-20.1) %THgb Methemoglobin 0.4 (0.4-1.5) % Total Hemoglobin 11.7 L (12-16) g/dL Ionized Calcium 1.2 (1.1-1.4) mmol/L Respiration Rate % O2 Delivery Device Vent Vent Mode Mechanical Rate 14.0 Spontaneous Rate % FiO2 70.0 % Tidal Volume 0.50 PEEP 8.0 cmH20 Specimen Drawn By Malt Specifications Control Assistant ID nabde Blood Gas Notified Time Sodium 150.0 H (136-145) mmol/L Potassium 3.3 L (3.5-5.1) mmol/L Chloride (98-107) mmol/L Carbon Dioxide (22-29) mmol/L Anion Gap (5-19) BUN (8-23) mg/dL Creatinine (0.5-0.9) mg/dL GFR Calculation (90-130) mL/min Glucose 164.0 H (65-115) mg/dL Calculated Osmolal ity (285-295) mOsm/k g Lactic Acid (0.5-2.2) mmol/L Lactate 3.2 H (0.5-2.2) mmol/L Calcium (8.5-10.5) mg/dL Total Bilirubin (0.15-1.2) mg/dL AST (0-32) U/L ALT (0-33) U/L Alkaline Phosphata se (35-105) IU/L Creatine Kinase 285 H (26-192) U/L Troponin T Baselin e (0-10) ng/L Troponin T 120 Min [place] (0-10) ng/L Delta Troponin T (0-10) ABS# Troponin T Hi Sens 6Hr (0-10) ng/L Troponin T Hi Sens 6Hr Delta (0-12) ng/L C-Reactive Protein (0.0-4.9) mg/L NT-Pro-B Natriuret Pep (0-125) pg/mL Total Protein (6.6-8.7) g/dL Albumin (3.5-5.2) g/dL Globulin (1.3-4.6) g/dL Procalcitonin (0-0.5) ng/mL Urine Color (Yellow) Urine Appearance (CLEAR) Urine pH (5-7) Ur Specific Gravit y (1.005-1.030) Urine Protein (Negative) Urine Glucose (UA) (Normal) Urine Ketones (Negative) Urine Blood (Negative) Urine Nitrate (Negative) Urine Bilirubin (Negative) Urine Urobilinogen (Negative) mg/dL Ur Leukocyte Quiana ase (Negative) Urine RBC (0-2) /hpf Urine WBC (0-5) /hpf Ur Squamous Epith Cells (0-5) /hpf Amorphous Sediment /hpf Urine Bacteria (NONE) /hpf Hyaline Casts /lpf Salicylates (3-10) mg/dL Urine Opiates Scre en (Negative) ng/mL Acetaminophen (10-30) ug/mL Ur Barbiturates Sc reen (Negative) ng/mL Ur Phencyclidine S crn (Negative) ng/mL Ur Amphetamines Sc reen (Negative) ng/mL U Benzodiazepines Scrn (Negative) ng/mL Urine Cocaine Scre en (Negative) ng/mL U Marijuana (THC) Screen (Negative) ng/mL Ethyl Alcohol (0-10) mg/dL SARS-CoV-2 Ag (Rap id) (Negative) 05/02/21 05/02/21 Range/Units 03:26 07:51 WBC (4.0-10.0) 10^3/ uL RBC (4.1-5.3) 10^6/u L Hgb (11.5-15.3) g/dL Hct (37.0-47.0) % MCV (81-99) fL MCH (28.0-34.0) pg MCHC (30.0-36.0) g/dL RDW (12.1-15.1) % Plt Count (130-400) 10^3/c mm MPV (7.4-10.4) fL Neut % (Auto) % Lymph % (Auto) % Lake % (Auto) % Eos % (Auto) % Baso % (Auto) % Neut # (Auto) (1.8-7.7) 10^3/u L Lymph # (Auto) (0.8-4.8) 10^3/u L Lake # (Auto) (0.2-0.9) 10^3/u L Eos # (Auto) (0.0-0.8) 10^3/u L Baso # (Auto) (0.0-0.1) 10^3/u L Nucleated RBC % (a uto) % Nucleated RBCs # /100WBC Specimen Type Arterial Sample Site Radial, right O2 Sat Pulse Oxime try % ABG pH 7.49 H (7.35-7.45) ABG pCO2 51.8 H (35-45) mmHg ABG pO2 72.8 L (80.0-100.0) mmH g ABG HCO3 39.0 H (22-26) mmol/L ABG O2 Saturation 95.4 ABG Base Excess 13.8 H (-2.0-2.0) mmol/ L Shoaib Test Pos A-a O2 Gradient 47.3 H (5-10) mmHg Hematocrit 32.2 L (37-47) % Hgb O2 Saturation 93.2 L (95-100) % Carboxyhemoglobin 1.5 (0.4-20.1) %THgb Methemoglobin 0.8 (0.4-1.5) % Total Hemoglobin 10.5 L (12-16) g/dL Ionized Calcium 1.2 (1.1-1.4) mmol/L Respiration Rate % O2 Delivery Device Vent Vent Mode Mechanical Rate Spontaneous Rate % FiO2 70.0 % Tidal Volume 0.50 PEEP 8.0 cmH20 Specimen Drawn By Malt Specifications Control Assistant ID Amh Blood Gas Notified Time Sodium 149.0 H (136-145) mmol/L Potassium 3.1 L (3.5-5.1) mmol/L Chloride (98-107) mmol/L Carbon Dioxide (22-29) mmol/L Anion Gap (5-19) BUN (8-23) mg/dL Creatinine (0.5-0.9) mg/dL GFR Calculation (90-130) mL/min Glucose 138.0 H (65-115) mg/dL Calculated Osmolal ity (285-295) mOsm/k g Lactic Acid (0.5-2.2) mmol/L Lactate (0.5-2.2) mmol/L Calcium (8.5-10.5) mg/dL Total Bilirubin (0.15-1.2) mg/dL AST (0-32) U/L ALT (0-33) U/L Alkaline Phosphata se (35-105) IU/L Creatine Kinase (26-192) U/L Troponin T Baselin e (0-10) ng/L Troponin T 120 [place] (0-10) ng/L Delta Troponin T (0-10) ABS# Troponin T Hi Sens 6Hr 526.6 H (0-10) ng/L Troponin T Hi Sens 6Hr Delta -16.4 L (0-12) ng/L C-Reactive Protein (0.0-4.9) mg/L NT-Pro-B Natriuret Pep (0-125) pg/mL Total Protein (6.6-8.7) g/dL Albumin (3.5-5.2) g/dL Globulin (1.3-4.6) g/dL Procalcitonin (0-0.5) ng/mL Urine Color (Yellow) Urine Appearance (CLEAR) Urine pH (5-7) Ur Specific Gravit y (1.005-1.030) Urine Protein (Negative) Urine Glucose (UA) (Normal) Urine Ketones (Negative) Urine Blood (Negative) Urine Nitrate (Negative) Urine Bilirubin (Negative) Urine Urobilinogen (Negative) mg/dL Ur Leukocyte Quiana ase (Negative) Urine RBC (0-2) /hpf Urine WBC (0-5) /hpf Ur Squamous Epith Cells (0-5) /hpf Amorphous Sediment /hpf Urine Bacteria (NONE) /hpf Hyaline Casts /lpf Salicylates (3-10) mg/dL Urine Opiates Scre en (Negative) ng/mL Acetaminophen (10-30) ug/mL Ur Barbiturates Sc reen (Negative) ng/mL Ur Phencyclidine S crn (Negative) ng/mL Ur Amphetamines Sc reen (Negative) ng/mL U Benzodiazepines Scrn (Negative) ng/mL Urine Cocaine Scre en (Negative) ng/mL U Marijuana (THC) Screen (Negative) ng/mL Ethyl Alcohol (0-10) mg/dL SARS-CoV-2 Ag (Rap id) (Negative) Discharge Plan Discharge Patient Disposition: Admitted As Inpatient Admit Provider: Reji Thomas Clinical Impression: Respiratory failure, Morbid obesity with BMI of 45.0-49.9, adult, Type 2 diabetes mellitus without complication, without long-term current use of insulin, Breast cancer metastasized to bone, COPD (chronic obstructive pulmonary disease), Acute exacerbation of CHF (congestive heart failure), Sleep apnea, Pneumonia Condition: Stable Coding Level of Care Code ED Flash Welder for Chg Fwd Exam Expanded Problem Focused
[2021-05-01 21:56] LABS: Lactic Sepsis W/Reflex 4.1 mmol/L (0.5-2.2)
--- NOTE | 2021-05-01 21:56 | CTR_ITS ---
PROCEDURE INFORMATION: Exam: CTA Chest With Contrast Exam date and time: 05/01/2021 9:56 PM Age: 70 years old Clinical indication: Other: PT intubated; Shortness of breath; Additional info: AMS, hypoxic respiratory failure with history of metastatic TECHNIQUE: Imaging protocol: Computed tomographic angiography of the chest with contrast. 3D rendering (Not supervised by radiologist): MIP and/or 3D reconstructed images were created by the technologist. Radiation optimization: All CT scans at this facility use at least one of these dose optimization techniques: automated exposure control; mA and/or kV adjustment per patient size (includes targeted exams where dose is matched to clinical indication); or iterative reconstruction. Contrast material: VISI 320; Contrast volume: 95 ml; Contrast route: INTRAVENOUS (IV); COMPARISON: CR XR chest 1V portable [id number] 05/01/2021 10:05 PM RADIATION DOSE METRICS: Total DLP (mGy-cm): 2120.24 FINDINGS: Tubes, catheters and devices: A nasogastric tube is present. An endotracheal tube is present, its tip approximately 5.9 cm from the radha. Pulmonary arteries: Normal. No pulmonary emboli. Aorta: Unremarkable. No aortic aneurysm. No aortic dissection. Lungs: There are strandy and patchy opacities present in the lung bases bilaterally, left more extensive than right, findings that may represent atelectasis although bilateral basilar infiltrates and pneumonia cannot be excluded in the appropriate clinical setting. Pleural spaces: Unremarkable. No pneumothorax. No pleural effusion. Heart: Unremarkable. No cardiomegaly. No pericardial effusion. Lymph nodes: Small mediastinal lymph nodes are seen that are below CT criteria for lymphadenopathy. Bones/joints: There are diffuse lytic lesions seen within the visualized osseous structures compatible with bony metastatic disease. Soft tissues: Unremarkable. IMPRESSION: 1. There is no evidence for pulmonary emboli. 2. Strandy and patchy opacities in the lung bases bilaterally, left more prominent than right, findings that may represent atelectasis although bilateral basilar infiltrates and pneumonia cannot be excluded in the appropriate clinical setting. 3. Diffuse lytic lesions seen within the visualized osseous structures compatible with diffuse bony metastatic disease. PROCEDURE INFORMATION: Exam: CT Abdomen And Pelvis With Contrast Exam date and time: 05/01/2021 9:56 PM Age: 70 years old Clinical indication: Other: PT intubated; Shortness of breath; Additional info: AMS, hypoxic respiratory failure with history of metastatic TECHNIQUE: Imaging protocol: Computed tomography of the abdomen and pelvis with contrast. Radiation optimization: All CT scans at this facility use at least one of these dose optimization techniques: automated exposure control; mA and/or kV adjustment per patient size (includes targeted exams where dose is matched to clinical indication); or iterative reconstruction. Contrast material: VISI 320; Contrast volume: 95 ml; Contrast route: INTRAVENOUS (IV); COMPARISON: CR XR chest 1V portable [id number] 05/01/2021 10:05 PM RADIATION DOSE METRICS: Total DLP (mGy-cm): 2120.24 FINDINGS: Tubes, catheters and devices: A nasogastric tube is present with its tip in the mid stomach region. Liver: There is hypoattenuation of the hepatic parenchyma compatible with fatty infiltration. Gallbladder and bile ducts: Status post cholecystectomy. Pancreas: Normal. No ductal dilation. Spleen: Normal. No splenomegaly. Adrenal glands: Normal. No mass. Kidneys and ureters: Normal. No hydronephrosis. Stomach and bowel: Diverticula are seen on the descending and sigmoid colon. There are no inflammatory changes present to suggest diverticulitis. Appendix: The appendix is visualized and is normal in configuration. Intraperitoneal space: Unremarkable. No free air. No significant fluid collection. Vasculature: Unremarkable. No abdominal aortic aneurysm. Lymph nodes: Unremarkable. No enlarged lymph nodes. Urinary bladder: Root catheter is seen. Reproductive: Unremarkable as visualized. Bones/joints: There are diffuse lytic lesions seen within the visualized osseous structures compatible with diffuse bony metastatic disease. Soft tissues: There is an umbilical hernia present containing fat. CT/CT angio chest w abd pel w con IMPRESSION: 1. Fatty infiltration of the liver 2. Diverticulosis of the descending and sigmoid colon 3. Umbilical hernia containing fat 4. Normal appendix 5. Diffuse bony metastatic disease Radiation Dose CTDIVOL = (mGy): DLP = 2120.24~2120.24 (mGy-cm)
--- NOTE | 2021-05-01 21:56 | CTR_ITS ---
PROCEDURE INFORMATION: Exam: CT Head Without Contrast Exam date and time: 05/01/2021 9:56 PM Age: 70 years old Clinical indication: Altered mental status/memory loss TECHNIQUE: Imaging protocol: Computed tomography of the head without contrast. Radiation optimization: All CT scans at this facility use at least one of these dose optimization techniques: automated exposure control; mA and/or kV adjustment per patient size (includes targeted exams where dose is matched to clinical indication); or iterative reconstruction. COMPARISON: MR head wo con* [id number] 03/19/2019 10:38 AM RADIATION DOSE METRICS: Total DLP (mGy-cm): 1958.83 FINDINGS: Tubes, catheters and devices: An orogastric tube and endotracheal tube are seen. Brain: There is mild diffuse cerebral atrophy. Patchy areas of hypoattenuation are seen in the deep white matter of the cerebral hemispheres bilaterally compatible with deep white matter microvascular disease. Cerebral ventricles: No ventriculomegaly. Paranasal sinuses: Mucosal thickening is seen within the ethmoidal, maxillary and sphenoidal sinuses. Mastoid air cells: Visualized mastoid air cells are well aerated. Bones/joints: There are multiple lytic lesions seen within the neural cranium compatible with bony metastatic disease. Lytic lesions are seen within the mandible. Lytic lesions are also seen within the C1 and C2 vertebra. Soft tissues: Unremarkable. CT/CT head wo con* [id number] IMPRESSION: 1. Diffuse bony metastatic disease. 2. There are no acute intracranial findings. Radiation Dose CTDIVOL = (mGy): DLP = 1958.83 (mGy-cm)
[2021-05-01 22:04] LABS: Troponin(5th) Baseline 543 ng/L (0-10)
[2021-05-01 22:06] LABS: Alanine Aminotransferase 1283 U/L (0-33)
[2021-05-01 22:15] LABS: Aspartate Amino Transferase 2390 U/L (0-32)
[2021-05-01 22:42] LABS: NT Pro B Type Natriuretic Pept 28167 pg/mL (0-125)
[2021-05-01] MEDS: propofol 1,000 MG/100 ML INJ 19.05 MG IV (22:46)
[2021-05-01] MEDS: vecuronium 10 mg SDV 20 MG IVP (22:47)
[2021-05-01] MEDS: cefepime 2,000 MG in sodium chloride 0.9% (plus) 50 ML 100 MG IV (22:47)
[2021-05-01] MEDS: LACTATED RINGERS 1572 ML IV (22:47)
[2021-05-01 22:56] LABS: ABG PH Result 7.42 (7.35-7.45); Base Excess ABG 9.9 mmol/L (-2.0-2.0); HCO3 ABG 36.1 mmol/L (22-26)
[2021-05-01 22:57] LABS: Oxygen Device VENT; Potassium Level - ABG 3.4 mmol/L (3.5-5.0)
[2021-05-01 22:58] LABS: Blood Gas Vent Mode CMV
[2021-05-01] MEDS: aspirin 300 mg Supp PR (22:58)
[2021-05-01 22:59] LABS: Arterial Blood Gas Hematocrit 33.1 % (37-47)
[2021-05-01 23:00] LABS: Blood Gas CCRB Time 2230; Carboxyhemoglobin 2.3 %THgb (0.4-20.1); HGB O2 Sat 97.3 % (95-100); Ionized Calcium Level - ABG 1.3 mmol/L (1.1-1.4); Methemoglobin 0.4 % (0.4-1.5); Total Hemoglobin 10.8 g/dL (12-16)
[2021-05-01 23:11] LABS: Urine Appearance Clear (CLEAR); Urine Color Yellow (Yellow)
[2021-05-01 23:12] LABS: Bilirubin Urine 1+ (Negative); Blood Urine 3+ (Negative); Glucose Urine UA Norm (Normal); Ketones Urine Negative (Negative); Leukocyte Esterase Urine Negative (Negative); Nitrate Urine Negative (Negative); Protein Urine 3+ (Negative); Specific Gravity, Urine 1.015 (1.005-1.030); Urobilinogen Urine 1 mg/dL (Negative); pH Urine 5 (5-7)
[2021-05-01 23:13] LABS: Hyaline Casts Urine 15-25 /lpf
[2021-05-01 23:14] LABS: Add Urine Culture? Yes; Amorphous Sediment Urine 1+ /hpf; Amphetamines Screen Urine Negative (Negative); Bacteria Urine 2+ /hpf; Barbiturates Screen Urine Negative (Negative); Benzodiazepines Screen Urine Negative (Negative); Cocaine Screen Urine Negative (Negative); Opiate Screen Urine Positive (Negative); PCP Screen Urine Negative (Negative); Squamous Epithelial Cell Urine 0-4 /hpf (0-5); THC Screen Urine Negative (Negative); WBC Urine 0-4 /hpf (0-5)
[2021-05-01 23:22] LABS: Reflex Lactate Order REFLEX LACTIC ORDERD
--- NOTE | 2021-05-01 23:31 | ECG_ITS ---
[facility] Test Date: 2021-05-01 Pat Name: Samia Sarimento Department: Room: Gender: Female Interlibrary Loan Specialist: : 1950 Requested By: Alexx Sanon Order Number: [id number] Hernandez MD: Cam Jj M.D. Measurements Intervals [place] Rate: 70 P: 70 SD: 197 QRS: -64 QRSD: 168 T: -79 QT: 499 QTc: 539 Interpretive Statements SINUS RHYTHM POSSIBLE LEFT ATRIAL ENLARGEMENT [-0.1mV P WAVE IN V1/V2] RIGHT BUNDLE BRANCH BLOCK [120+ ms QRS DURATION, UPRIGHT V1, 40+ ms S IN I/aVL/V4/V5/V6] LEFT ANTERIOR FASCICULAR BLOCK [QRS AXIS <= -45, QR IN I, RS IN II] MODERATE T-WAVE ABNORMALITY, CONSIDER LATERAL ISCHEMIA [-0.1+ mV T WAVE IN I/aVL/V5/V6] MODERATE T-WAVE ABNORMALITY, CONSIDER INFERIOR ISCHEMIA [-0.1+ mV T WAVE IN II/aVF] Compared to ECG 05/01/2021 22:06:20 Myocardial infarct finding no longer present T-wave abnormality still present Possible ischemia still present Electronically Signed On 05-03-2021 12:25:07 CDT by Cam Jj M.D. [id number]
[2021-05-01 23:39] LABS: Acetaminophen < 5.0 ug/mL (10-30); Alcohol Level < 10 mg/dL (0-10); Salicylate < 0.3 mg/dL (3-10)
[2021-05-02] VITALS (95 sets, daily range): BP systolic 102–157; BP diastolic 65–100; PULSE 0–72; RESP 6–32; TEMP 36.6; O2SAT 87–99
[2021-05-02 00:09] LABS: Lactate (Lactic Acid level) 3.2 mmol/L (0.5-2.2)
[2021-05-02 00:14] LABS: Troponin 5 2HR Delta 5.5 ABS# (0-10)
[2021-05-02 00:19] LABS: Troponin 5 2HR 548.5 ng/L (0-10)
[2021-05-02 00:23] LABS: Blood Gas Allen Test Pos; Blood Gas Sample Site Radial, left; Blood Gas Sample Type Arterial
[2021-05-02 00:59] LABS: Creatine Phosphokinase 285 U/L (26-192)
[2021-05-02] MEDS: iodixanol 320 mg/mL 100mL Btl IV (01:51)
[2021-05-02 02:28] LABS: SARS Covid-2 Antigen Negative (Negative)
[2021-05-02 03:10] LABS: ABG PCO2 59.2 mmHg (35-45); ABG PH Result 7.42 (7.35-7.45); Alveolar-Arterial Oxygen Gradi 42.5 mmHg (5-10); Arterial Blood Gas Hematocrit 35.8 % (37-47); Base Excess ABG 11.4 mmol/L (-2.0-2.0); Blood Gas Allen Test Pos; Blood Gas Sample Site Radial, right; Blood Gas Sample Type Arterial; Carboxyhemoglobin 1.6 %THgb (0.4-20.1); HCO3 ABG 38.1 mmol/L (22-26); HGB O2 Sat 96.3 % (95-100); Ionized Calcium Level - ABG 1.2 mmol/L (1.1-1.4); Methemoglobin 0.4 % (0.4-1.5); Oxygen Device VENT; Oxygen Saturation ABG 98.2; Potassium Level - ABG 3.3 mmol/L (3.5-5.0); Total Hemoglobin 11.7 g/dL (12-16)
--- NOTE | 2021-05-02 03:31 | ECG_ITS ---
[facility] Test Date: 2021-05-02 Pat Name: Samia Sarmiento Department: Room: Gender: Female Eye Physician: : 1950 Requested By: Alexx Sanon Order Number: [id number] Hernandez MD: Cam Jj M.D. Measurements Intervals [place] Rate: 57 P: 65 WV: 202 QRS: -68 QRSD: 166 T: 257 QT: 581 QTc: 567 Interpretive Statements SINUS BRADYCARDIA POSSIBLE LEFT ATRIAL ENLARGEMENT [-0.1mV P WAVE IN V1/V2] RIGHT BUNDLE BRANCH BLOCK [120+ ms QRS DURATION, UPRIGHT V1, 40+ ms S IN I/aVL/V4/V5/V6] LEFT ANTERIOR FASCICULAR BLOCK [QRS AXIS <= -45, QR IN I, RS IN II] MODERATE T-WAVE ABNORMALITY, CONSIDER LATERAL ISCHEMIA [-0.1+ mV T WAVE IN I/aVL/V5/V6] MODERATE T-WAVE ABNORMALITY, CONSIDER INFERIOR ISCHEMIA [-0.1+ mV T WAVE IN II/aVF] Compared to ECG 05/01/2021 23:43:49 Sinus rhythm no longer present T-wave abnormality still present Possible ischemia still present Electronically Signed On 05-03-2021 12:24:54 CDT by Cam Jj M.D. [id number]
[2021-05-02] MEDS: propofol 1,000 MG/100 ML INJ 19.05 MG IV ×4 (03:54→19:33)
[2021-05-02 04:08] LABS: Troponin 5 6HR Delta -16.4 ng/L (0-12)
[2021-05-02 04:09] LABS: Troponin 5 6HR 526.6 ng/L (0-10)
[2021-05-02] MEDS: sodium chloride 0.9% 1,000 ML 125 ML IV (04:11)
[2021-05-02 05:49] LABS: Blood Gas Allen Test Pos; Blood Gas Sample Type Arterial; Blood Gas Tidal Volume 0.42; Ionized Calcium Level - ABG 1.2 mmol/L (1.1-1.4)
[2021-05-02 06:04] LABS: ABG PCO2 56.9 mmHg (35-45); ABG PH Result 7.43 (7.35-7.45); Alveolar-Arterial Oxygen Gradi 37.5 mmHg (5-10); Base Excess ABG 11.3 mmol/L (-2.0-2.0); Blood Gas Sample Site Radial, left; HCO3 ABG 37.3 mmol/L (22-26); HGB O2 Sat 91.7 % (95-100); Methemoglobin 0.5 % (0.4-1.5); Oxygen Device VENT; PO2 ABG 71.3 mmHg (80.0-100.0); Potassium Level - ABG 3.4 mmol/L (3.5-5.0); Total Hemoglobin 9.8 g/dL (12-16)
--- NOTE | 2021-05-02 07:07 | ECG_ITS ---
[facility] Test Date: 2021-05-02 Pat Name: Samia Sarmiento Department: Room: Gender: Female Blocker Metal Base: : 1950 Requested By: Jose A Marcus Order Number: [id number] Mary MD: Cam Jj M.D. Measurements Intervals [place] Rate: 56 P: 71 WY: 204 QRS: -66 QRSD: 169 T: 253 QT: 595 QTc: 576 Interpretive Statements SINUS BRADYCARDIA POSSIBLE LEFT ATRIAL ENLARGEMENT [-0.1mV P WAVE IN V1/V2] RIGHT BUNDLE BRANCH BLOCK [120+ ms QRS DURATION, UPRIGHT V1, 40+ ms S IN I/aVL/V4/V5/V6] LEFT ANTERIOR FASCICULAR BLOCK [QRS AXIS <= -45, QR IN I, RS IN II] POSSIBLE ANTERIOR MYOCARDIAL INFARCTION [30 ms Q WAVE IN V3/V4, OR R < 0.2 mV IN V4], OF INDETERMINATE AGE MODERATE T-WAVE ABNORMALITY, CONSIDER LATERAL ISCHEMIA [-0.1+ mV T WAVE IN I/aVL/V5/V6] MODERATE T-WAVE ABNORMALITY, CONSIDER INFERIOR ISCHEMIA [-0.1+ mV T WAVE IN II/aVF] Compared to ECG 05/02/2021 03:25:12 Myocardial infarct finding now present T-wave abnormality still present Possible ischemia still present Electronically Signed On 05-03-2021 12:19:15 CDT by Cam Jj M.D. [id number]
[2021-05-02] MEDS: FUROsemide 10 mg/mL SDV 10mL 100 MG IVP (07:11)
[2021-05-02 08:02] LABS: ABG PCO2 51.8 mmHg (35-45); ABG PH Result 7.49 (7.35-7.45); Alveolar-Arterial Oxygen Gradi 47.3 mmHg (5-10); Arterial Blood Gas Hematocrit 32.2 % (37-47); Base Excess ABG 13.8 mmol/L (-2.0-2.0); Blood Gas Allen Test Pos; Blood Gas Operator Identificat AMH; Blood Gas Sample Site Radial, right; Blood Gas Sample Type Arterial; Carboxyhemoglobin 1.5 %THgb (0.4-20.1); HGB O2 Sat 93.2 % (95-100); Ionized Calcium Level - ABG 1.2 mmol/L (1.1-1.4); Methemoglobin 0.8 % (0.4-1.5); Oxygen Device VENT; Oxygen Saturation ABG 95.4; PO2 ABG 72.8 mmHg (80.0-100.0); Potassium Level - ABG 3.1 mmol/L (3.5-5.0); Total Hemoglobin 10.5 g/dL (12-16)
--- NOTE | 2021-05-02 11:13 | P.HP_ITS ---
Providers/Chief Complaint Chief Complaint: RESP. DISTRESS History of Present Illness Most of the history taken through chart review and through conversation from ER physician. Samia Sarmiento is a 70 year old female with history of morbid obesity, obstructive sleep apnea not compliant with Lasix or CPAP, diastolic congestive heart failure, chronic hypoventilation/hypercarbia, metastatic right breast cancer with extensive axial skeletal involvement (including T9, 10 and L1, S1, right ala, right proximal femoral metaphysis and left posterior iliac crest) history of radiotherapy, with recent PET CT 05/03/20 being negative for any disease activity, currently being maintained on exemestane 25 mg. Patient was brought to the ER on May 01 with complaint of altered mental status via EMS. Prior to that patient was in the ER on April 28 and was found to have mild CHF. Yesterday she was found to be hypoxic with oxygen saturation in high 50s at home when she was placed on CPAP by EMS and as patient was not able to tolerate CPAP well she was intubated in the ER. Patient has been holding in ER since last night and attempts were made to be transferred to patient ICU due to nonavailability of ICU bed at [facility]. While patient was awaiting acceptance at outpatient hospital ICU bed was made available hence hospitalist service was requested for admission and further work-up. On examination currently patient is on ventilator setting of rate 14, tidal volume 500, 50% FiO2 with PEEP of 8. Patient has remained afebrile since presentation, blood pressure has been ranging from 110 systolic to 152 systolic with lowest of 87 systolic once. Patient has had a urine output of 3.5 L and has normal saline running at 125 cc/h. No blood work has been done today morning while blood work since last night shows a white count of 14,000, hemoglobin of 11.7, platelet count of 165 with a left shift, morning ABG showing a pH of 7.49, PCO2 of 51.8, PO2 of 72.8, chemistry from last night showing a sodium of 150, potassium of 3.9, carbon dioxide of 34 BUN of 26, creatinine of 1.6, lactic acid of 4.1, total bilirubin of 2.9, AST/ALT of 2390/1283, alkaline phosphatase of 105, baseline troponin of 543 with delta of -16 and 6 hours, CRP of 119, proBNP of 28,000, procalcitonin 0.5 with a UA negative for nitrite negative for leukoesterase with 3+ blood with urine drug screen negative and alcohol negative, rapid Covid antigen negative PCR is pending with imaging as below. Review of Systems General: Reports: ROS unobtainable due to endotracheal tube Medications/Allergies Home Medications Medication Instructions Recorded Confirmed Last Taken Type exemestane 25 mg tablet 25 mg PO DAILY@18 10/17/19 05/02/21 Unknown History lorazepam 0.5 mg tablet 0.5 mg PO BID 10/17/19 05/02/21 Unknown History magnesium 200 mg tablet 200 mg PO BID@10/17/19 05/02/21 Unknown History cholecalciferol (vitamin D3) 50 150 mcg PO BID@05/19/20 05/02/21 Unknown History mcg (2,000 unit) capsule albuterol sulfate 90 mcg/actuation 2 puff INHALATION Q4H PRN #8.5 g 12/23/20 05/02/21 Unknown Rx aerosol inhaler cyclobenzaprine 10 mg PO TID PRN 01/12/21 05/02/21 Unknown History lidocaine See Rx Instructions .ROUTE .COMPLEX 01/12/21 05/02/21 Unknown History enalapril maleate 10 mg tablet 10 mg PO BID #180 tab 03/31/21 05/02/21 Unknown Rx hydrocodone 5 mg-acetaminophen 325 1 tab PO TID PRN 30 Days #90 tab 04/10/21 05/02/21 Unknown Rx mg tablet oxycodone 15 mg tablet,crush 15 mg PO Q12H 30 Days #60 tab 04/10/21 05/02/21 Unknown Rx resistant,extended release 12 hr potassium chloride 20 meq PO BID #20 tab 04/28/21 05/02/21 Unknown Rx furosemide [Lasix] 40 mg PO BID 05/02/21 05/02/21 Unknown History Allergies Allergy/AdvReac Type Severity Reaction Status Date / Time tetanus and diphtheria Allergy Severe arm Verified 04/10/21 15:14 toxoids swelling citalopram [From Celexa] Allergy anaphylaxis Verified 04/10/21 15:14 Corticosteroids Allergy difficulty Verified 04/10/21 15:14 (Glucocorticoids) breathing/ rash ibuprofen [From Advil] Allergy rapid pulse Verified 04/10/21 15:14 letrozole Allergy high BP/ Verified 04/10/21 15:14 caused tremendous pain in her joints nortriptyline Allergy tacycardia Verified 04/10/21 15:14 and HTN Opioids - Morphine Analogues Allergy hypes her Verified 04/10/21 15:14 up oxcarbazepine Allergy anaphylaxis Verified 04/10/21 15:14 [From Trileptal] Tetanus Vaccines and Toxoid Allergy localized Verified 04/10/21 15:14 reaction PFSH Acute PFSH: Medical History Acute respiratory failure with hypoxia Anxiety attack Breast cancer metastasized to bone diag 2014 with treatment and no activity at this time per PET scan Chronic low back pain COPD (chronic obstructive pulmonary disease) Current every day smoker Depression Dyspnea Encounter for long-term opiate analgesic use Enrolled in chronic care management Essential hypertension GERD (gastroesophageal reflux disease) High risk medication use Hyperlipidemia Inflammatory arthritis Joint pain Leg weakness, bilateral Nicotine dependence, cigarettes, uncomplicated Opioid contract exists Pain in rib Pain in thoracic spine PVD (peripheral vascular disease) Sleep apnea Type 2 diabetes mellitus without complication, without long-term current use of insulin Xeroderma Surgical History Hx laparoscopic cholecystectomy 11/01/18 Hx of arthroscopic knee surgery Right Hx of cholecystectomy Hx of lumpectomy Right Hx of oral surgery pulled all teeth 03/2017 Hx of tubal ligation Family History Unknown Prostate disease Depression Heart disease Hypertension Chronic kidney disease (CKD) Grandfather Cancer LUNG CANCER Other CAD (coronary artery disease) Rheumatoid arthritis Denies family history of Diabetes Lupus Hyperlipidemia Family history of premature coronary artery disease Stroke Social History Smoking and tobacco status: former smoker Second hand smoke exposure: No Alcohol intake: never History of recent travel: No Vitals/I&O/Wt Last Vital Signs Temp 98 F 05/02/21 03:02 Pulse 55 L 05/02/21 08:32 Resp 21 H 05/02/21 08:32 BP 110/70 05/02/21 04:00 Pulse Ox 93 05/02/21 08:32 05/01/21 05/02/21 05/02/21 22:59 06:59 14:59 Intake Total 50.635 / 50.635 2260.919 / 2311.554 99.667 / 99.667 Balance 50.635 / 50.635 2260.919 / 2311.554 99.667 / 99.667 Weight last 48 hrs Weight 158.757 kg Physical Exam Narrative: EXAM NARRATIVE: General: Intubated, sedated HEENT: PERRLA, pupils bilaterally equal and reactive Chest: Normal vesicular breath sounds, occasional rhonchi present all over lung dasilva, equal good air entry bilaterally CVS: S1-S2 regular, no murmurs, bradycardia, no gallops, no rubs Abdomen: Soft, nontender, no organomegaly, bowel sounds present Neuro: Intubated, sedated Urinary Catheter Management^: Root: Cath Placed During This Visit: yes Reason for Continuing Indwelling Catheter: Accurate Measurement of Urinary Out put in Critically Ill Patients Urinary Catheter Date of Insertion: 05/01/21 Urinary Catheter Time of Insertion: 22:42 Data : 05/02/21 11:26 05/02/21 11:26 Micro: Microbiology 05/01/21 21:15 Blood Culture - Preliminary Blood SPECIMEN COLLECTED 05/01/21 21:30 Blood Culture - Preliminary Blood SPECIMEN COLLECTED A&P Assessment and plan (1) Respiratory failure: Status: Acute (2) Acute exacerbation of CHF (congestive heart failure): Status: Acute (3) Pneumonia: Status: Acute (4) COPD (chronic obstructive pulmonary disease): Status: Acute (5) Encephalopathy acute: Status: Acute (6) Hypernatremia: Status: Acute (7) Acute kidney injury superimposed on CKD: Status: Acute (8) Liver dysfunction: Status: Acute (9) Bradycardia: Status: Acute (10) Type 2 diabetes mellitus without complication, without long-term current us e of insulin: Status: Acute (11) Breast cancer metastasized to bone: Status: Acute Additional A&P Information Repeat CBC, CMP. Respiratory failure: Most likely a combination of congestive heart failure, pneumonia in setting of underlying obstructive sleep apnea and COPD. Patient has history of hypoventilation and hypercarbia. Repeat ABG in 1 hour. Keep saturation over 90%. For now keep sedated with fentanyl, Precedex. Stop propofol. Check sputum culture, blood culture, urine culture, MRSA swab, procalcitonin, urine Legionella, bacterial antigen, sputum Cx from ET tube. COVID-19 PCR sent out from the ER. Isolation precaution. For now hold off on starting on dexamethasone, remdesivir till COVID-19 PCR comes back. At present CHF seems to be the primary component. Stop IV fluids. Lasix 40 mg IV once. Will dose lasix daily as per I/o. For now monitor input and output as patient is having good urine output since today morning. Echocardiogram done in December showed an EF 55% though was a poor study. Strict input output charting, daily weights. Root catheterization. Replete potassium 40 meq. Recheck BMP in AM. Continue with vancomycin and Zosyn. Will de-escalate antibiotics as per culture results. Metabolic encephalopathy: Could be secondary to sepsis, hypercapnia present on admission. Urine drug screen negative on admission. Alcohol levels negative on admission. Check ammonia levels to rule out hepatic encephalopathy given abnormal LFTs. Continue with home dose of pain medication to avoid withdrawal. GABRIELA on CKD: Baseline creatinine for last 1 year seems to be 1.1-1.3. 1.[address] abdomen pelvis negative for obstructive nephropathy. We'll continue to monitor renal functions. No metabolic encephalopathy presently. Liver dysfunction: Could be secondary to CHF vs sepsis versus history of liver mets. CT abdomen results appreciated. Check ammonia levels, hepatitis panel, liver ultrasound. Hypernatremia: Free water deficit around 3 L. Stop normal saline. Start patient on free water flushes to fifty every 4 hours for now. Repeat BMP every morning. Check urine lites. Bradycardia: Unknown cause. Could be secondary to severe sepsis. Repeat EKG to to confirm no cardiac blocks. We'll continue to monitor. Type 2 diabetes mellitus: Check HbA1c, lipid panel. For now start insulin sliding scale at low-dose protocol. Goal blood sugar around 200. Elevated troponin: Most likely demand ischemia from severe sepsis. Delta negative. Repeat troponin. EKG negative for any signs of ischemia. CODE STATUS: As per the conversation with family members for now they would like to continue the aggressive treatment and would like to revisit the goals of care and CODE STATUS in next 24 to 48 hours. NPO. Famotidine for PUD prophylaxis Attestations Medical Necessity Statement*: Admission for more than 2 midnights for management of altered mental status, respiratory failure with needing intubation, GABRIELA on CKD, acute liver dysfunction Critical Care Time: The high probability of a clinically significant, sudden or life threatening deterioration of the patient's [respiratory, hepatic, neur ology, renal] system(s) required my full and direct attention, intervention and personal management. The critical care time is as shown. This time is in addition to time spent performing any reported procedures but includes the following: [x] Data and vital sign review and interpretation [x] Patient assessment, examination and intervention [x] Documentation [x] Medication orders and management Critical Care Time (min): 100 Coding Level of Care Code Acute Spectrographer for g Fwd Diagnoses Respiratory failure J96.90 Acute exacerbation of CHF (congestive heart failure) I50.9 Pneumonia J18.9 COPD (chronic obstructive pulmonary disease) J44.9 Encephalopathy acute G93.40 Hypernatremia E87.0 Acute kidney injury superimposed on CKD N17.9; N18.9 Liver dysfunction K76.89 Bradycardia R00.1 Type 2 diabetes mellitus without complication, without long-term current use of insulin E11.9 Breast cancer metastasized to bone C50.919; C79.51
[2021-05-02] MEDS: dexamethasone 10 mg/mL INJ IVP (11:36)
--- NOTE | 2021-05-02 11:36 | USCV_ITS ---
Samia Sarmiento Age: 70 Gender: F : 1950 Exam Date: 05/02/2021 13:25 Ordering Phys: Reji Thomas MD Technologist: Monet Oneill [place] [facility] [place]: Possible CHF BP: 110 / 70 HR: 48 Rhythm: Sinus Technical Quality: Technically difficult study MEASUREMENTS (Male / Female) Normal Values 2D ECHO LV Diastolic Diameter PLAX 4.0 cm 4.2 - 5.9 / 3.9 - 5.3 cm LV Systolic Diameter PLAX 2.7 cm LV Chamber Size 4.0 cm IVS Diastolic Thickness 1.3 cm 0.6 - 1.0 / 0.6 - 0.9 cm IVS Systolic Thickness 1.9 cm LVPW Diastolic Thickness 1.2 cm 0.6 - 1.0 / 0.6 - 0.9 cm LVPW Systolic Thickness 1.7 cm RV Chamber Size 3.0 cm LVOT Diameter 2.0 cm LV Ejection Fraction 2D Teich 62.2 % LV Ejection Fraction MOD 2C 60.0 % LV Ejection Fraction 2C AL 64.1 % LA Diameter 4.3 cm LA Width 2.8 cm LA Height 6.0 cm RA Width 3.2 cm RA Height 4.9 cm Aorta at Sinotubular Diameter 2.6 cm M-MODE LV Diastolic Diameter MM 5.1 cm 4.2 - 5.9 / 3.9 - 5.3 cm LV Systolic Diameter MM 3.3 cm LV Ejection Fraction MM Teich 62.9 % IVS Diastolic Thickness MM 1.7 cm 0.6 - 1.0 / 0.6 - 0.9 cm IVS Systolic Thickness MM 2.2 cm LVPW Diastolic Thickness MM 1.7 cm 0.6 - 1.0 / 0.6 - 0.9 cm LVPW Systolic Thickness MM 2.2 cm RV Diastolic Diameter MM 1.8 cm Aortic Annulus Diameter 3.2 cm LA Ao Ratio MM 1.5 MV E Point Septal Separation 0.9 cm DOPPLER AV Peak Velocity 280.6 cm/s LVOT Peak Velocity 96.0 cm/s AV Area Cont Eq vti 1.2 cm squared AV Area Cont Eq pk 1.1 cm squared MV Area PHT 3.1 cm squared Mitral E to A Ratio 0.8 MV E' Velocity 34.5 cm/s Mitral E to MV E' Ratio 17.0 Mitral E to LV E' Lateral Ratio 15.8 Mitral E to LV E' Septal Ratio 19.0 TR Peak Velocity 255.9 cm/s TR Peak Gradient 26.2 mmHg TR Mean Velocity 211.4 cm/s TR Mean Gradient 19.2 mmHg TR Velocity Time Integral 121.6 cm TV Peak E Velocity 34.0 cm/s Right Atrial Pressure 15.0 mmHg Pulmonary Artery Systolic Pressu 41.2 mmHg PV Peak Velocity 98.0 cm/s RV Acceleration Time 0.1 s RV Ejection Time 0.3 s RV AcT/ET 0.3 FINDINGS Left Ventricle Normal left ventricular size. LV systolic function is normal with EF of 55-60%. No regional wall motion abnormalities. Grade 1 diastolic dysfunction Right Ventricle The right ventricle is mildly dilated Right Atrium The right atrium is normal in size. RA pressure is elevated Left Atrium The left atrium is normal in size. Mitral Valve Structurally normal mitral valve without significant stenosis or prolapse. There is mild mitral regurgitation. Aortic Valve Aoric valve is thickened. Mild to moderate aortic stenosis with mean gradient across the aortic valve of 20.5mmHg and aortic valve area of 1.17cm2. There is no aortic regurgitation. Tricuspid Valve Structurally normal tricuspid valve without significant stenosis. Mild to moderate tricuspid regurgitation. RVSP is 40- 45mmHg. Mild pulmonary hypertension Pulmonic Valve Structurally normal pulmonic valve without significant stenosis. There is mild pulmonic regurgitation. Pericardium Normal pericardium without effusion. Aorta Normal ascending aorta dimension. CONCLUSIONS LV systolic function is normal with EF of 55-60% Grade 1 diastolic dysfunction RA pressure is elevated Mild mitral regurgitation Mild to moderate aortic stenosis Mild to moderate tricuspid regurgitation Mild pulmonary hypertension RV is dilated Elevated RA pressure Compared to prior echocardiogram from 03/15/2019, patient now has grade 1 diastolic dysfunction and patient has mild to moderate aortic stenosis. Cam Jj MD (Electronically Signed) Final Date: 02 May 2021 21:08 S
[2021-05-02 11:49] LABS: Basophils % 0.3 %; Eosinophils % 0.2 %; Hematocrit 36.2 % (37.0-47.0); Hemoglobin 10.6 g/dL (11.5-15.3); Lymphocytes # 0.9 10^3/uL (0.8-4.8); Mean Corpuscular HGB Conc 29.3 g/dL (30.0-36.0); Mean Corpuscular Hemoglobin 28.7 pg (28.0-34.0); Mean Corpuscular Volume 98.1 fL (81-99); Mean Platelet Volume 11.1 fL (7.4-10.4); Monocytes # 0.3 10^3/uL (0.2-0.9); Monocytes % 3.2 %; Neutrophils # 8.42 10^3/uL (1.8-7.7); Neutrophils % 85.9 %; Nucleated Red Blood Cells # 0.1 /100WBC; Nucleated Red Blood Cells % 0.9 %; Platelet Count 145 10^3/cmm (130-400); Red Blood Count 3.69 10^6/uL (4.1-5.3); White Blood Count 9.8 10^3/uL (4.0-10.0)
[2021-05-02 12:22] LABS: Albumin Level 3.3 g/dL (3.5-5.2); Alkaline Phosphatase 93 IU/L (35-105); Anion Gap 13.2 (5-19); Blood Urea Nitrogen 30 mg/dL (8-23); Calcium 8.9 mg/dL (8.5-10.5); Carbon Dioxide 37 mmol/L (22-29); Chloride 104 mmol/L (98-107); Globulin 2.4 g/dL (1.3-4.6); Glomerular Filtration Rate 34.5 mL/min (90-130); Glucose 104 mg/dL (65-115); Osmolality Calculated 318 mOsm/kg (285-295); Potassium 3.2 mmol/L (3.5-5.1); Sodium 151 mmol/L (136-145); Total Bilirubin 1.4 mg/dL (0.15-1.2); Total Protein 5.7 g/dL (6.6-8.7)
[2021-05-02 12:29] LABS: Troponin T (5th) Once 519 ng/L (0-10)
[2021-05-02 12:30] LABS: Thyroid Stimulating Hormone 1.05 uIU/mL (0.27-4.20)
[2021-05-02 12:31] LABS: NT Pro B Type Natriuretic Pept 16379 pg/mL (0-125); Procalcitonin 0.81 ng/mL (0-0.5)
[2021-05-02 12:33] LABS: Alanine Aminotransferase 1872 U/L (0-33)
[2021-05-02 12:42] LABS: Iron 193 ug/dL (37-145)
[2021-05-02 12:45] LABS: Aspartate Amino Transferase 3161 U/L (0-32)
--- NOTE | 2021-05-02 12:49 | PC.NURSE ---
1230- recd from [facility], intubated and on vent.
[2021-05-02] MEDS: magnesium oxide 400 mg tablet 200 MG PO ×2 (12:58→22:20)
[2021-05-02] MEDS: famotidine 20 mg/2 mL INJ IVP (12:58)
[2021-05-02] MEDS: vancomycin 1,500 MG/300 ML PIGGYBACK 200 MG IV (12:59)
--- NOTE | 2021-05-02 13:55 | PC.NURSE ---
[facility]
--- NOTE | 2021-05-02 13:56 | PC.NURSE ---
jignesh doing echo.
[2021-05-02] MEDS: ipratropium-albuterol 3 mL Neb INHALATION (14:37)
[2021-05-02 15:31] LABS: Total Iron Binding Capacity 209.99999 mcg/dl; Unsaturated Iron Binding < 17 ug/dL (112-347)
--- NOTE | 2021-05-02 15:39 | PC.RESP ---
RT Shift Note Frequent safety and respiratory rounds continue. Orders completed as indicated. Patient monitored pre and post treatments throughout shift. Patient [Did.] tolerate treatments appropriately. Condition DidNotChange]. Patient and/or housing management representative educated on respiratory treatment and medications. Patient and/or housing management representative [unable to comprehend]. Will continue to monitor patient progress.
[2021-05-02] MEDS: piperacillin-tazobactam 3.375 GM in sodium chloride 0.9% (plus) 50 ML IV ×2 (16:16→22:42)
--- NOTE | 2021-05-02 19:21 | PC.NURSE ---
vax info per friend who says she has always refused vax, so nor=t given.
[2021-05-02 19:32] LABS: Potassium, Radom Urine 46 mmol/L; Urine Random Chloride 24 mmol/L; Urine Random Sodium 46 mmol/L
--- NOTE | 2021-05-02 20:38 | ECG_ITS ---
[facility] Test Date: 2021-05-03 Pat Name: Samia Sarmiento Department: Room: ICU12 Gender: Female [employer]: : 1950 Requested By: Reji Thomas Order Number: [id number] Mary MD: Cam Jj M.D. Measurements Intervals [place] Rate: 43 P: 59 [place]: 187 QRS: -49 QRSD: 155 T: 241 QT: 607 QTc: 517 Interpretive Statements SINUS BRADYCARDIA RIGHT BUNDLE BRANCH BLOCK [120+ ms QRS DURATION, UPRIGHT V1, 40+ ms S IN I/aVL/V4/V5/V6] LEFT ANTERIOR FASCICULAR BLOCK [QRS AXIS <= -45, QR IN I, RS IN II] LEFT VENTRICULAR HYPERTROPHY AND ST-T CHANGE [VOLTAGE CRITERIA PLUS ST/T ABNORMALITY] DIFFUSE T WAVE INVERSIONS Compared to ECG 05/02/2021 07:17:25 Left ventricular hypertrophy now present ST (T wave) deviation now present T-wave abnormality no longer present Possible ischemia no longer present Myocardial infarct finding still present Electronically Signed On 05-03-2021 12:13:35 CDT by Cam Jj M.D. [email or web address]
[2021-05-02] MEDS: lactulose oral liq 20 gm/30 mL UDC 10 GM PO (21:10)
[2021-05-02] MEDS: lidocaine 1% 5 ML in potassium chloride premix 100 ML 25 ML IV (21:11)
[2021-05-02] MEDS: heparin 5,000 unit/mL INJ 1 mL 5000 UNIT SUBCUT (21:11)
[2021-05-02] MEDS: FUROsemide 10 mg/mL SDV 4mL 40 MG IVP (21:11)
[2021-05-02 21:30] LABS: Ammonia 41 umol/L (11-51); Lactic Sepsis W/Reflex 1.7 mmol/L (0.5-2.2)
[2021-05-02 21:47] LABS: Anion Gap 19.7 (5-19); Blood Urea Nitrogen 34 mg/dL (8-23); Calcium 9.2 mg/dL (8.5-10.5); Carbon Dioxide 34 mmol/L (22-29); Chloride 102 mmol/L (98-107); Gamma Glutamyl Transferase 58 U/L (5-36); Glomerular Filtration Rate 37.4 mL/min (90-130); Glucose 165 mg/dL (65-115); Osmolality Calculated 325 mOsm/kg (285-295); Potassium 3.7 mmol/L (3.5-5.1); Sodium 152 mmol/L (136-145)
[2021-05-02 21:49] LABS: Troponin T (5th) Once 439 ng/L (0-10)
[2021-05-02 22:14] LABS: Lactate Dehydrogenase 1675 U/L (135-214)
[2021-05-02 23:25] LABS: Hepatitis A Antibody IgM Non-Reactive (Nonreactive); Hepatitis B Core AB, Total Non-Reactive (Nonreactive); Hepatitis B Surface AB 3.5 (11.5-1000); Hepatitis B Surface Antigen Non-Reactive (Nonreactive); Hepatitis C Virus Antibody Non-Reactive (Nonreactive)
[2021-05-03] VITALS (33 sets, daily range): BP systolic 121–167; BP diastolic 70–112; PULSE 37–81; RESP 14–19; TEMP 36.7–37.3; O2SAT 92–97
[2021-05-03] MEDS: famotidine 20 mg/2 mL INJ IVP ×2 (00:48→11:12)
[2021-05-03] MEDS: ipratropium-albuterol 3 mL Neb INHALATION ×4 (03:20→21:38)
[2021-05-03 04:23] LABS: Basophils % 0.2 %; Hematocrit 34.7 % (37.0-47.0); Hemoglobin 10.6 g/dL (11.5-15.3); Lymphocytes # 0.6 10^3/uL (0.8-4.8); Lymphocytes % 5.9 %; Mean Corpuscular HGB Conc 30.5 g/dL (30.0-36.0); Mean Corpuscular Hemoglobin 29.3 pg (28.0-34.0); Mean Corpuscular Volume 95.9 fL (81-99); Mean Platelet Volume 11.8 fL (7.4-10.4); Monocytes # 0.2 10^3/uL (0.2-0.9); Monocytes % 2.1 %; Neutrophils % 90.7 %; Nucleated Red Blood Cells # 0.1 /100WBC; Nucleated Red Blood Cells % 0.6 %; Platelet Count 148 10^3/cmm (130-400); Red Blood Count 3.62 10^6/uL (4.1-5.3); Red Cell Distribution Width 15.5 % (12.1-15.1); White Blood Count 10.6 10^3/uL (4.0-10.0)
[2021-05-03 04:34] LABS: INR 1.49 (0.8-1.2)
[2021-05-03 04:48] LABS: Albumin Level 3.2 g/dL (3.5-5.2); Alkaline Phosphatase 87 IU/L (35-105); Anion Gap 16.4 (5-19); Blood Urea Nitrogen 32 mg/dL (8-23); Calcium 8.8 mg/dL (8.5-10.5); Carbon Dioxide 34 mmol/L (22-29); Chloride 101 mmol/L (98-107); Globulin 2.7 g/dL (1.3-4.6); Glomerular Filtration Rate 40.7 mL/min (90-130); Glucose 171 mg/dL (65-115); Magnesium 1.9 mg/dL (1.7-2.3); Osmolality Calculated 317 mOsm/kg (285-295); Potassium 3.4 mmol/L (3.5-5.1); Sodium 148 mmol/L (136-145); Total Bilirubin 1.4 mg/dL (0.15-1.2); Total Protein 5.9 g/dL (6.6-8.7)
[2021-05-03 04:59] LABS: Alanine Aminotransferase 1493 U/L (0-33)
[2021-05-03 05:00] LABS: Aspartate Amino Transferase 1128 U/L (0-32)
[2021-05-03 05:51] LABS: ABG PCO2 51.8 mmHg (35-45); Arterial Blood Gas Hematocrit 32.5 % (37-47); Base Excess ABG 14.7 mmol/L (-2.0-2.0); Blood Gas Allen Test Pos; Blood Gas Sample Site Radial, right; Blood Gas Sample Type Arterial; HCO3 ABG 39.9 mmol/L (22-26); Oxygen Device VENT; PO2 ABG 71.3 mmHg (80.0-100.0)
--- NOTE | 2021-05-03 06:00 | USR_ITS ---
PROCEDURE INFORMATION: Exam: US Abdomen, Limited; Right Upper Quadrant Exam date and time: 05/03/2021 6:00 AM Age: 70 years old Clinical indication: Abnormal findings; Abnormal lab test; Elevated liver enzymes; Additional info: Acute liver abnormality, h/o ? ? liver mets TECHNIQUE: Imaging protocol: US abdomen. Real time ultrasound with image documentation. Limited exam focused on the right upper quadrant. COMPARISON: US gall bladder [id number] 02/10/2018 11:21 AM FINDINGS: Liver: Somewhat increased echogenicity of the liver may indicate fatty infiltration. No focal hepatic mass visible by ultrasound at this time. Small amount of peritoneal fluid/ascites seen in the right upper quadrant, around the right lobe of the liver. Gallbladder: Prior cholecystectomy. Common bile duct: Mild to moderate extra hepatic biliary tree dilation, with common duct measuring up to about 14-15 mm. Possibly mild intrahepatic biliary prominence. No visible common duct stone by ultrasound. Significance uncertain. Correlation with laboratory/bilirubin levels may be helpful to determine if there is any significant biliary obstruction. Pancreas: Mild prominence/dilation of the pancreatic duct, measuring up to 3-4 mm. Visible pancreas otherwise otherwise appears essentially. Some of the pancreas is obscured by bowel gas. Right kidney: Images of the right kidney show no hydronephrosis. US/US liver [id number] IMPRESSION: 1. Prior cholecystectomy. 2. Mild to moderate biliary tree dilation, see above discussion. 3. No focal hepatic mass visible by ultrasound at this time. 4. Small amount of peritoneal fluid in the right upper quadrant, details above. 5. Other findings discussed above.
[2021-05-03] MEDS: vancomycin 1,500 MG/300 ML PIGGYBACK 200 MG IV (06:03)
--- NOTE | 2021-05-03 06:20 | PC.NURSE ---
Shift Note Frequent safety and comfort rounds continue. Orders and nursing care completed as indicated. MD notified of frequent episodes of bradycardia with out BP changes. EKG completed, labs done. will continue to monitor. Patient is alert and follows commands. currently sedated for ventilator management with fentanyl and versed. lasix given this shift, UOP 2000. Patient monitored for response to all interventions and treatments. Education provided including ventilator management and disease process management. Patient reinforcement needed. Will continue to monitor.
[2021-05-03] MEDS: piperacillin-tazobactam 3.375 GM in sodium chloride 0.9% (plus) 50 ML IV ×3 (08:24→21:25)
--- NOTE | 2021-05-03 08:26 | USR_ITS ---
PROCEDURE INFORMATION: Exam: US Duplex Lower Extremity Veins, Bilateral Exam date and time: 05/03/2021 8:26 AM Age: 70 years old Clinical indication: Other: Respiratory failure. Possible dvt TECHNIQUE: Imaging protocol: Real-time duplex ultrasound of the extremities with 2-D castle scale, color Doppler flow and spectral waveform analysis with image documentation. Complete exam focused on the bilateral lower extremity veins. COMPARISON: US Renal Kidney Structu* [id number] 03/15/2019 3:15 PM FINDINGS: Right deep veins: Unremarkable. The common femoral, femoral, proximal profunda femoral and popliteal veins are patent without thrombus. Normal Doppler waveforms. Normal compressibility and/or augmentation response. Right superficial veins: Saphenofemoral junction is patent without thrombus. Left deep veins: Unremarkable. The common femoral, femoral, proximal profunda femoral and popliteal veins are patent without thrombus. Normal Doppler waveforms. Normal compressibility and/or augmentation response. Left superficial veins: Saphenofemoral junction is patent without thrombus. Soft tissues: Unremarkable. Other findings: Technically difficult study secondary to the body habitus of the patient. US/CV venous duplex [facility] [id number] IMPRESSION: No evidence for deep venous thrombosis.
[2021-05-03] MEDS: potassium chloride oral liq 20 mEq/15 mL UDC 40 MEQ PO (08:28)
[2021-05-03] MEDS: magnesium sulfate premix 2 GM/50 ML PIGGYBACK IV (08:28)
[2021-05-03] MEDS: lactulose oral liq 20 gm/30 mL UDC 10 GM PO ×2 (08:28→21:24)
--- NOTE | 2021-05-03 08:31 | PM.PN ---
Subjective Subjective: Interval history: Overnight patient has remained sedated and intubated. Her heart rates have been running in high 30s. Sedation was switched to Versed given bradycardia. She has remained hemodynamically stable though without needing any pressors. Urine output since last night 2 L. Has remained afebrile. Labs and ABG appreciated. Vitals/I&O/Wt Last Vital Signs Temp 98.1 F 05/03/21 03:00 Pulse 39 L 05/03/21 06:00 Resp 14 05/03/21 03:20 BP 138/73 05/03/21 04:00 Pulse Ox 93 05/03/21 04:00 05/02/21 05/03/21 05/03/21 22:59 06:59 14:59 Intake Total 319.051 / 1718.718 50 / 1768.718 400 / 400 Output Total 1999 / 1999 2100 / 4100 Balance -1680.949 / -281.282 -2050 / -2331.282 400 / 400 Weight last 48 hrs Weight 127.459 kg Weight 158.757 kg Physical Exam Narrative: EXAM NARRATIVE: General: Intubated, sedated HEENT: PERRLA, pupils bilaterally equal and reactive Chest: Normal vesicular breath sounds, occasional rhonchi present all over lung dasilva, equal good air entry bilaterally CVS: S1-S2 regular, no murmurs, bradycardia, no gallops, no rubs Abdomen: Soft, nontender, no organomegaly, bowel sounds present Neuro: Intubated, sedated Urinary Catheter Management^: Root: Cath Placed During This Visit: yes Reason for Continuing Indwelling Catheter: Accurate Measurement of Urinary Output in Critically Ill Patients Urinary Catheter Date of Insertion: 05/01/21 Urinary Catheter Time of Insertion: 22:42 Data : 05/03/21 09:20 05/03/21 04:02 Micro: Microbiology 05/01/21 21:15 Blood Culture - Preliminary Blood NEGATIVE TO DATE 05/01/21 21:30 Blood Culture - Preliminary Blood NEGATIVE TO DATE 05/02/21 11:44 Gram Stain - Final Sputum - Endotracheal Tube Aspirate 05/01/21 22:44 Legionella Urinary Antigen - Final Urine Catheterized 05/01/21 22:44 Bacterial Antigens - Final Urine Kidney A&P Assessment and plan (1) Respiratory failure: Status: Acute (2) Acute exacerbation of CHF (congestive heart failure): Status: Acute (3) Pneumonia: Status: Acute (4) COPD (chronic obstructive pulmonary disease): Status: Acute (5) Encephalopathy acute: Status: Acute (6) Hypernatremia: Status: Acute (7) Acute kidney injury superimposed on CKD: Status: Acute (8) Liver dysfunction: Status: Acute (9) Bradycardia: Status: Acute (10) Type 2 diabetes mellitus without complication, without long-term current use of insulin: Status: Acute (11) Breast cancer metastasized to bone: Status: Acute Additional A&P Information Respiratory failure: Given her persistent hypoxia even on ventilation elevated D-dimer cannot rule out secondary to pulmonary embolism. Could be secondary to congestive heart failure, pneumonia with underlying obstructive sleep apnea. Keep saturation over 90%. For now keep sedated with fentanyl, Versed. Stop propofol. Sputum culture, blood culture preliminary appreciated. MRSA negative, procalcitonin elevated. Urine Legionella, bacterial antigen negative. COVID-19 PCR pending. Continue with isolation precautions. For now hold off on starting on dexamethasone, remdesivir till COVID-19 PCR comes back. At present CHF seems to be the primary component. Start on IV Lasix 40 mg daily. Monitor input and output as patient is having good urine output since today morning. Shows an EF 55 to 60% with grade 1 diastolic dysfunction, mildly dilated RV with normal RA pressures with mild to moderate aortic stenosis mean gradient of 20.5 mmHg across the aortic valve with mild pulmonary hypertension with RVSP of 45 mmHg. Strict input output charting, daily weights. Root catheterization. Start patient on a heparin drip given high chances of pulmonary embolism. Unfortunately cannot do CTA given GABRIELA. Continue with vancomycin and Zosyn. Will de-escalate antibiotics as per culture results. Metabolic encephalopathy: Could be secondary to sepsis, hypernatremia present on admission. Urine drug screen, alcohol levels negative. Ammonia negative on admission. Continue with lactulose 10 mg twice daily for now. Continue with home dose of pain medication to avoid withdrawal. GABRIELA on CKD: Baseline creatinine for last 1 year seems to be 1.1-1.3. Creatinine back to baseline today. CT abdomen pelvis negative for obstructive nephropathy. We'll continue to monitor renal functions. No metabolic encephalopathy presently. Liver dysfunction: Improving. Could be secondary to CHF vs sepsis versus history of liver mets. CT abdomen liver ultrasound results appreciated. Ammonia levels negative. Hepatitis panel appreciated. Will discuss with [facility] for a possible need of a HIDA scan given possible biliary dilatation. Hypernatremia: Improving. Free water deficit around 3 L. Stop normal saline. Start patient on free water flushes to fifty every 4 hours for now. Repeat BMP every morning. Check urine lites. Bradycardia: Unknown cause. Could be secondary to severe sepsis. Repeat EKG to to confirm no cardiac blocks. We'll continue to monitor. Prolonged QTC: As seen in the EKG done last night. Stop Zofran. Medical reconciliation done for QTC prolonging drugs. Type 2 diabetes mellitus: Check HbA1c, lipid panel. For now start insulin sliding scale at low-dose protocol. Goal blood sugar around 200. Elevated troponin: Most likely demand ischemia from severe sepsis. Delta negative. Repeat troponin. EKG negative for any signs of ischemia. CODE STATUS: As per the conversation with family members for now they would like to continue the aggressive treatment and would like to revisit the goals of care and CODE STATUS in next 24 to 48 hours. NPO. Famotidine for PUD prophylaxis Patient's care discussed in detail with Dr. Vaughan from [facility]. Attestations Medical Necessity Statement*: Patient requires further hospitalization for management of failure secondary to possible pulmonary embolism, sepsis, metabolic encephalopathy, ventilator dependent. Critical Care Time: The high probability of a clinically significant, sudden or life threatening deterioration of the patient's respiratory, cardiac, neurological, hematological system(s) required my full and direct attention, intervention and personal management. The critical care time is as shown. This time is in addition to time spent performing any reported procedures but includes the following: [x] Data and vital sign review and interpretation [x] Patient assessment, examination and intervention [x] Documentation [x] Medication orders and management Critical Care Time (min): 90 Coding Level of Care Code Acute Assistant Oceanographer for [facility] Fwd Diagnoses Respiratory failure J96.90 Acute exacerbation of CHF (congestive heart failure) I50.9 Pneumonia J18.9 COPD (chronic obstructive pulmonary disease) J44.9 Encephalopathy acute G93.40 Hypernatremia E87.0 Acute kidney injury superimposed on CKD N17.9; N18.9 Liver dysfunction K76.89 Bradycardia R00.1 Type 2 diabetes mellitus without complication, without long-term current use of insulin E11.9 Breast cancer metastasized to bone C50.919; C79.60
[2021-05-03] MEDS: heparin drip 25,000 UNIT/500 ML PREMIX 35 UNIT IV (09:30)
[2021-05-03] MEDS: heparin 5,000 unit/mL INJ 1 mL IV (09:39)
[2021-05-03 09:46] LABS: Platelet Count 144 10^3/cmm (130-400)
[2021-05-03 11:21] LABS: Total Bilirubin 1.2 mg/dL (0.15-1.2)
--- NOTE | 2021-05-03 11:54 | PC.NURSE ---
0700 Report received, assessment completed as charted. VSS, HR has been bradycardic overnight, MD aware. ETT in place, vent settings per RT. Fentanyl and versed infusing per orders. Root cath draining freely to BSD. Pt skin stained with dirt, wiped down with bath wipes and catheter care performed. Will monitor. 1200 PIV x 2 replaced this AM. Pt has 20gx2 in R arm with gtts infusing per orders. Heparin gtt started per orders with bolus per protocol. Pt repositioned q2h and PRN. No other issues noted.
[2021-05-03] MEDS: magnesium oxide 400 mg tablet 200 MG PO ×2 (14:50→21:24)
--- NOTE | 2021-05-03 14:56 | PC.RESP ---
RT Shift Note Frequent safety and respiratory rounds continue. Orders completed as indicated. Patient monitored pre and post treatments throughout shift. Patient [Did.] tolerate treatments appropriately. Condition [.DidNotChange]. Patient and/or physician representative educated on respiratory treatment and medications. Patient and/or physician representative [unable to comprehend. Will continue to monitor patient progress.
[2021-05-03 16:03] LABS: Partial Thromboplastin Time 73.5 SECONDS (23.9-36.7)
[2021-05-03] MEDS: HYDROcodone-acetaminophen 5-325 mg Tablet 1 TAB PO (16:37)
--- NOTE | 2021-05-03 17:08 | PM.CONSULT ---
Providers/Reason For Consult Consulting Physician/Specialty*: Pulmonary critical care medicine Reason for Consult*: Acute respiratory failure requiring mechanical ventilation Attending Physician: Reji Thomas MD Primary Care Provider: Ralf Castillo DO History of Present Illness History of Present Illness Samia Sarmiento is a 70 year old female with a history of metastatic breast cancer. She has significant bony metastasis. The patient also has hypertension, obstructive sleep apnea, obesity hypoventilation syndrome, hyperlipidemia, diabetes, heart failure, super morbid obesity. The patient was brought to the emergency department on May 02 with altered mental status. According to medical records, the patient was hypoxic and her oxygen saturation was recorded to be in the 50s by the EMS. The patient was initially put on CPAP but is actually intubated. I could not find any arterial blood gas prior to intubation. Post intubation ABG is consistent with chronic hypercapnic respiratory failure. A chest x-ray postintubation revealed infiltrate predominantly in the right lower lung. A CT angiogram of the chest abdomen and pelvis was performed. No pulmonary emboli was identified. The patient had bilateral lower lobe subpleural atelectasis primarily on the left side with volume loss. Diffuse lytic bone lesions were seen from the malignancy. No significant abdominal pathology. Venous duplex study did not reveal any evidence of DVT. CT scan of the head also revealed metastatic bony disease but no intracranial abnormalities. Liver ultrasound revealed mildly dilated biliary tree likely postcholecystectomy. No stone was identified. Small amount of perihepatic fluid was identified. An ultrasound revealed an ejection fraction of 55 to 60%. Grade 1 diastolic dysfunction. Normal RV was mildly dilated. Right atrial pressure was elevated. Mild to moderate aortic stenosis. RVSP estimated 40 to 45 mmHg. The patient was seen and examined in the ICU. She was easily arousable and was following commands. A bedside ultrasound revealed mildly dilated RV but without any evidence of Garzon sign. The patient also does not have any evidence of RV pressure volume overload. The patient was noted to be bradycardic this morning. An EKG revealed sinus bradycardia with symmetric T wave inversion in inferior leads. There was evidence of right bundle branch block. Her troponin assay yesterday was high however the trajectory of the high-sensitivity troponin was not consistent with acute coronary syndrome. Review of Systems Narrative: Unable to obtain because of clinical condition Meds/Allergies Home Medications and Allergies Home Medications Medication Instructions Recorded Confirmed Last Taken Type exemestane 25 mg tablet 25 mg PO DAILY@18 10/17/19 05/02/21 Unknown History lorazepam 0.5 mg tablet 0.5 mg PO BID 10/17/19 05/02/21 Unknown History magnesium 200 mg tablet 200 mg PO BID@10/17/19 05/02/21 Unknown History cholecalciferol (vitamin D3) 50 150 mcg PO BID@05/19/20 05/02/21 Unknown History mcg (2,000 unit) capsule albuterol sulfate 90 mcg/actuation 2 puff INHALATION Q4H PRN #8.5 g 12/23/20 05/02/21 Unknown Rx aerosol inhaler cyclobenzaprine 10 mg PO TID PRN 01/12/21 05/02/21 Unknown History lidocaine See Rx Instructions .ROUTE .COMPLEX 01/12/21 05/02/21 Unknown History enalapril maleate 10 mg tablet 10 mg PO BID #180 tab 03/31/21 05/02/21 Unknown Rx hydrocodone 5 mg-acetaminophen 325 1 tab PO TID PRN 30 Days #90 tab 04/10/21 05/02/21 Unknown Rx mg tablet oxycodone 15 mg tablet,crush 15 mg PO Q12H 30 Days #60 tab 04/10/21 05/02/21 Unknown Rx resistant,extended release 12 hr potassium chloride 20 meq PO BID #20 tab 04/28/21 05/02/21 Unknown Rx furosemide [Lasix] 40 mg PO BID 05/02/21 05/02/21 Unknown History Allergies Allergy/AdvReac Type Severity Reaction Status Date / Time tetanus and diphtheria Allergy Severe arm Verified 04/10/21 15:14 toxoids swelling citalopram [From Celexa] Allergy anaphylaxis Verified 04/10/21 15:14 Corticosteroids Allergy difficulty Verified 04/10/21 15:14 (Glucocorticoids) breathing/ rash ibuprofen [From Advil] Allergy rapid pulse Verified 04/10/21 15:14 letrozole Allergy high BP/ Verified 04/10/21 15:14 caused tremendous pain in her joints nortriptyline Allergy tacycardia Verified 04/10/21 15:14 and HTN Opioids - Morphine Analogues Allergy hypes her Verified 04/10/21 15:14 up oxcarbazepine Allergy anaphylaxis Verified 04/10/21 15:14 [From Trileptal] Tetanus Vaccines and Toxoid Allergy localized Verified 04/10/21 15:14 reaction Current Medications Current Medications Generic Name Dose Route Start Last Admin Trade Name Freq PRN Reason Stop Dose Admin Hydrocodone Bitart/Acetaminophen 1 tab 05/03/21 16:00 05/03/21 16:37 Hydrocodone-Acetaminophen 5-325 Mg Tablet PO 1 tab Q8H OFELIA Administration Albuterol/Ipratropium 3 ml 05/02/21 15:00 05/03/21 14:54 Ipratropium-Albuterol 3 Ml Neb INHALATION 3 ml Q6H.RESPIRATORY OFELIA Administration Famotidine 20 mg 05/02/21 11:45 05/03/21 11:12 Famotidine 20 Mg/2 Ml Inj IVP 20 mg Q12H OFELIA Administration Heparin Sodium (Beef Lung) 0 unit 05/03/21 08:23 05/03/21 09:39 Heparin 5,000 Unit/Ml Inj 1 Ml IV 6,400 unit PRN PRN Administration Heparin weight-base protocol Protocol Propofol 1,000 mg in 100 mls @ 0 mls/hr 05/01/21 22:00 05/02/21 21:07 Diprivan IV 0 mcg/kg/min .Q0M OFELIA 0 mls/hr Titration Protocol Per Protocol Fentanyl 1,000 mcg/ Sodium 100 mls @ 0 mls/hr 05/01/21 22:00 05/03/21 15:00 Chloride IV 75 mcg/hr .Q0M OFELIA 7.5 mls/hr Titration Protocol Per Protocol Piperacillin Sod/Tazobactam 50 mls @ 12.5 mls/hr 05/02/21 14:00 05/03/21 14:49 Sod 3.375 gm/ Sodium Chloride IV 12.5 mls/hr Q8H OFELIA Administration Protocol Midazolam HCl 100 mg/ Sodium 100 mls @ 0 mls/hr 05/02/21 20:00 05/02/21 21:07 Chloride IV 3 mg/hr .Q0M OFELIA 3 mls/hr Administration Protocol Per Protocol Heparin Sodium/Sodium Chloride 25,000 unit in 500 mls @ 0 mls/hr 05/03/21 08:30 05/03/21 09:30 Heparin Drip IV 13.73 unit/kg/hr .Q0M OFELIA 35 mls/hr Administration Protocol Per Protocol Lactulose 10 gm 05/02/21 20:30 05/03/21 08:28 Lactulose Oral Liq 20 Gm/30 Ml Udc PO 10 gm Q12H OFELIA Administration Protocol Magnesium Oxide 200 mg 05/02/21 14:00 05/03/21 14:50 Magnesium Oxide 400 Mg Tablet PO 200 mg BID@ OFELIA Administration PFSH Acute PFSH: Medical History Acute respiratory failure with hypoxia Anxiety attack Breast cancer metastasized to bone diag 2014 with treatment and no activity at this time per PET scan Chronic low back pain COPD (chronic obstructive pulmonary disease) Current every day smoker Depression Dyspnea Encounter for long-term opiate analgesic use Enrolled in chronic care management Essential hypertension GERD (gastroesophageal reflux disease) High risk medication use Hyperlipidemia Inflammatory arthritis Joint pain Leg weakness, bilateral Nicotine dependence, cigarettes, uncomplicated Opioid contract exists Pain in rib Pain in thoracic spine PVD (peripheral vascular disease) Sleep apnea Type 2 diabetes mellitus without complication, without long-term current use of insulin Xeroderma Surgical History Hx laparoscopic cholecystectomy 11/01/18 Hx of arthroscopic knee surgery Right Hx of cholecystectomy Hx of lumpectomy Right Hx of oral surgery pulled all teeth 03/2017 Hx of tubal ligation Family History Unknown Prostate disease Depression Heart disease Hypertension Chronic kidney disease (CKD) Grandfather Cancer LUNG CANCER Other CAD (coronary artery disease) Rheumatoid arthritis Denies family history of Diabetes Lupus Hyperlipidemia Family history of premature coronary artery disease Stroke Social History Smoking and tobacco status: former smoker Second hand smoke exposure: No Alcohol intake: never History of recent travel: No Vitals/I&O/Wt Last Vital Signs Temp 98.7 F 05/03/21 12:00 Pulse 51 L 05/03/21 16:00 Resp 14 05/03/21 14:55 BP 167/99 05/03/21 16:00 Pulse Ox 92 05/03/21 16:00 05/03/21 05/03/21 05/03/21 06:59 14:59 22:59 Intake Total 50 / 1768.718 635.75 / 635.75 136.667 / 772.417 Output Total 2100 / 4100 850 / 850 Balance -2050 / -2331.282 635.75 / 635.75 -713.333 / -77.583 Weight last 48 hrs Weight 281 lb Weight 350 lb Physical Exam Narrative: EXAM NARRATIVE: General: Patient is intubated and sedated Neck: Unable to assess due to body habitus Respiratory: Auscultation: Crackles at bilateral lung bases Cardiovascular: Regular rate and rhythm, S1-S2 present, bilateral peripheral edema. Abdomen: Soft, distended from obesity, positive bowel sound Skin: No rash Neuro: Arousable follows simple commands Urinary Catheter Management^: Root: Cath Placed During This Visit: yes Reason for Continuing Indwelling Catheter: Accurate Measurement of Urinary Output in Critically Ill Patients Urinary Catheter Date of Insertion: 05/01/21 Urinary Catheter Time of Insertion: 22:42 Data Micro: Micro: Microbiology 05/02/21 11:44 Gram Stain - Final Sputum - Endotrac heal Tube Aspirate Sputum Culture - P reliminary 05/01/21 22:44 Urine Culture - Pr eliminary Urine,Clean Catch 05/01/21 21:15 Blood Culture - Pr eliminary Blood NEGATIVE TO NEGRA E 05/01/21 21:30 Blood Culture - Pr eliminary Blood NEGATIVE TO NEGRA E 05/01/21 22:44 Legionella Urinary Antigen - Final Urine Catheterize d 05/01/21 22:44 Bacterial Antigens - Final Urine Kidney Other Data: Attestation for Other Data: I personally reviewed and interpreted the following: Other data: I have reviewed the patient's laboratory, microbiologic and radiologic data. The patient has evidence of multiorgan dysfunction likely as a generalized process of hypoxia and possibly hypotension. A&P Assessment and plan (1) Acute respiratory failure with hypoxia: This is a 70-year-old lady currently intubated for respiratory failure. The patient seems to be doing fairly well. She is on volume control mechanical ventilation however I believe she'll do well on pressure support ventilation. He for extubation tomorrow. The more important thing is what contributed to the patient's respiratory failure. From the history it appears that the patient had encephalopathy which likely precipitated the respiratory failure. However, what caused the encephalopathy is unclear. The patient has multiple STAPLE CUTTER acting medication at home which includes opioid, narcotics. The patient also has chronic hypercapnic respiratory failure likely secondary to obesity hypoventilation syndrome which could have gotten worse with worsening right heart failure. However these are all spiculations. The patient currently seems to be doing well. She was started on a heparin drip for concerns of pulmonary embolism as the echocardiogram showed evidence of RV dilation. However, a CT angiogram had ruled out any pulmonary embolism. In addition, there is no evidence of Garzon sign on the echocardiogram. The TAPSE is normal. The DVT study was also negative. I'm going to discontinue the therapeutic heparin and start the patient on Lovenox 40 mg twice a day. Status: Acute (2) Chronic hypercapnic respiratory failure: This is likely secondary to obesity hypoventilation syndrome however needs further work-up as outpatient. Status: Acute (3) Encephalopathy: See above Status: Acute (4) Metastatic breast cancer: The patient has metastatic breast cancer with diffuse bony lesions. No evidence of metastatic disease in the brain on CT scan of the head. Status: Acute (5) Heart failure with preserved ejection fraction: The patient likely has heart failure with preserved ejection fraction. She has been diuresed with Lasix. Liver enzymes are improving. Status: Acute (6) Obstructive sleep apnea: Needs to be evaluated as outpatient. Status: Acute (7) Obesity hypoventilation syndrome: See above Status: Acute (8) Bradycardia: It is unclear to me. The patient did have elevated troponin however it did not follow the trajectory of acute coronary syndrome. The patient most likely has type II FL. Additionally, there was no wall motion abnormalities on the echocardiogram that was obtained yesterday. We'll continue to closely monitor. Status: Acute (9) Morbid obesity: Status: Acute (10) Acute kidney injury: The acute kidney injury and elevated liver enzymes are likely due to generalized hypoperfusion state. This is getting better. I expect the patient to get extubated tomorrow. Status: Acute (11) Elevated liver enzymes: Status: Acute Coding Level of Care Code Acute Roll Clamp Operator for Mallory Bateman Diagnoses Acute respiratory failure with hypoxia J96.01 Chronic hypercapnic respiratory failure J96.12 Encephalopathy G93.40 Metastatic breast cancer C50.919 Heart failure with preserved ejection fraction I50.30 Obstructive sleep apnea G47.33 Obesity hypoventilation syndrome E66.2 Bradycardia R00.1 Morbid obesity E66.01 Acute kidney injury N17.9 Elevated liver enzymes R74.8 Time Spent (min) 43
--- NOTE | 2021-05-03 17:24 | PC.NURSE ---
Shift Note Frequent safety and comfort rounds continue. Orders and/or nursing care completed as indicated. Patient monitored for response to intervention and treatment(s). Education provided includes treatment plan and medications that are being used. Sister verbalizes understanding. Pt wakes to touch, will follow simple commands. Bilateral wrist restraints in place, removed and reapplied per protocol. MD to order CTA in the morning to check heart function. Gtts infusing per orders, MRSA swab obtained. Still waiting for PCR sendoff results, remains in isolation. Will continue to monitor.
[2021-05-03] MEDS: enoxaparin 40 mg/0.4 mL Syringe SUBCUT (21:24)
[2021-05-03 22:48] LABS: Quest SARS-CoV-2 RNA NOT DETECTED (NOT DETECTED)
[2021-05-04] VITALS (39 sets, daily range): BP systolic 117–181; BP diastolic 63–107; PULSE 37–79; RESP 14–25; TEMP 36.7–37.1; O2SAT 92–100; BMI 49.2
[2021-05-04] MEDS: famotidine 20 mg/2 mL INJ IVP ×2 (00:44→11:38)
[2021-05-04] MEDS: ipratropium-albuterol 3 mL Neb INHALATION ×4 (03:31→21:25)
--- NOTE | 2021-05-04 07:31 | PC.NURSE ---
Shift Note Frequent safety and comfort rounds continue. Orders and/or nursing care completed as indicated. Patient monitored for response to intervention and treatment(s). Education provided includes medication and equipment. Patient is unable to comprehend teaching due to being intubated and sedated at this point in time. Patient has IV's to the right forearm and right wrist. She has Fentanyl infusing @ 50 mcg/hr and Versed @ 3mg/hr. Vent settings are as follows; VT-420, Rate-14, Peep-8, and FiO2-50%. OG tube is connected to low intermitt. wall suction, gastric content is dark green. Patient has no wounds or skin issues noted at this time. Will continue to monitor.
[2021-05-04] MEDS: enoxaparin 40 mg/0.4 mL Syringe SUBCUT ×2 (07:51→20:44)
[2021-05-04] MEDS: lactulose oral liq 20 gm/30 mL UDC 10 GM PO (07:51)
[2021-05-04] MEDS: piperacillin-tazobactam 3.375 GM in sodium chloride 0.9% (plus) 100 ML IV (07:52)
--- NOTE | 2021-05-04 10:01 | PC.CHAP ---
Pastoral Care Encounter/Spiritual Assessment Type of Contact [] Declined middle school spanish teacher visit [] Patient/Family/Request visit [] Outpatient visit [] Follow-up visit [] Physician referral [] Code/Alert [x] Routine visit [] Staff referral [] Actively dying [] Patient sleeping [] Family support [] [] Out of room [] Palliative care [] [] Receiving care in room [] Pre-surgical visit [] Trauma [] Long length of stay [x] ICU visit [] Other: Relational/Emotional Strength [] Patient feels connected with others/family/visitors/staff [] Distress [] Loneliness/isolation [] Abandonment Spirituality of Patient [] Person of Jeanie [] Attends Jew of their Jeanie [] Believes in Prayer [] Reads Bible or Orthodox materials [] There are Spiritual issues to be addressed Fish Peddler Interventions [x] Prayer [] Active listening [] Non-anxious presence [] Spiritual/emotional support [] Crisis/trauma care [] Spiritual counseling [] Bereavement support [] Provided bereavement packet [] Provided Bible/devotional materials [] Provided toy/stuffed animal, coloring book to patient or family member [] Provided Communion [] Anointing/[place] [] Salvation [x] Completed spiritual assessment [] Other: Impact on Illness or Injury [] Angry [] Fearful [] Anxious [] Often cries [] Exhaustion [] Unable to work [] Unable to attend hindu [] Unable to walk/stand [] Unable to read [] Unable to drive [] Unable to eat/drink [] Unable to sleep [] Unable to be with family [] Patient intubated [] Other: Summary Time spent with patient
--- NOTE | 2021-05-04 10:29 | PC.NURSE ---
0700 Report received, pt assessment completed as charted. VSS, HR remains bradycardic, MD aware. PT pericare, beasley care performed and repositioned. Pt wakes up but does not follow commands. ETT in place, vent setting per RT. Gtts infusing per orders. PIV's intact and functioning well. Beasley cath draining cloudy, rinku urine to BSD. Bilateral wrist restraints in place. Removed and replaced per protocol. No other issues noted. Will monitor.
[2021-05-04] MEDS: magnesium oxide 400 mg tablet 200 MG PO (13:41)
[2021-05-04] MEDS: piperacillin-tazobactam 3.375 GM in sodium chloride 0.9% (plus) 50 ML IV (15:12)
[2021-05-04] MEDS: amlodipine 10 mg Tablet PO (15:23)
[2021-05-04 15:44] LABS: Basophils % 0.3 %; Hematocrit 40.6 % (37.0-47.0); Hemoglobin 12.1 g/dL (11.5-15.3); Lymphocytes % 7.2 %; Mean Corpuscular HGB Conc 29.8 g/dL (30.0-36.0); Mean Corpuscular Hemoglobin 29.1 pg (28.0-34.0); Mean Corpuscular Volume 97.6 fL (81-99); Monocytes # 0.5 10^3/uL (0.2-0.9); Monocytes % 3.7 %; Neutrophils # 11.53 10^3/uL (1.8-7.7); Neutrophils % 85.4 %; Nucleated Red Blood Cells # 0.1 /100WBC; Platelet Count 172 10^3/cmm (130-400); Red Blood Count 4.16 10^6/uL (4.1-5.3); Red Cell Distribution Width 15.7 % (12.1-15.1); White Blood Count 13.5 10^3/uL (4.0-10.0)
[2021-05-04 16:02] LABS: Ammonia 21 umol/L (11-51)
[2021-05-04 16:10] LABS: Albumin Level 3.5 g/dL (3.5-5.2); Alkaline Phosphatase 87 IU/L (35-105); Aspartate Amino Transferase 395 U/L (0-32); Blood Urea Nitrogen 35 mg/dL (8-23); Calcium 9.3 mg/dL (8.5-10.5); Carbon Dioxide 35 mmol/L (22-29); Chloride 105 mmol/L (98-107); Globulin 3.2 g/dL (1.3-4.6); Glomerular Filtration Rate 40.7 mL/min (90-130); Glucose 128 mg/dL (65-115); Magnesium 2.4 mg/dL (1.7-2.3); Osmolality Calculated 326 mOsm/kg (285-295); Sodium 153 mmol/L (136-145); Total Bilirubin 1.4 mg/dL (0.15-1.2); Total Protein 6.7 g/dL (6.6-8.7)
--- NOTE | 2021-05-04 16:42 | PC.NURSE ---
91 ml of versed and 15 ml fent wasted with PAWEL Nelson
[2021-05-04 16:45] LABS: Alanine Aminotransferase 1127 U/L (0-33); Anion Gap 16.6 (5-19); Potassium 3.6 mmol/L (3.5-5.1)
--- NOTE | 2021-05-04 17:01 | PC.NURSE ---
Wasted 91ml versed and 15ml fentanyl with Mague ARMAS.
--- NOTE | 2021-05-04 17:01 | PC.RESP ---
Smoking Cessation and Pulmonary Rehab information sent to patient.
--- NOTE | 2021-05-04 17:18 | P.PN_ITS ---
Subjective Subjective: Interval history: In last 24 hours patient has remained intubated and sedated. Patient underwent CTA which was negative for pulmonary embolism and heparin drip was stopped. Patient has remained hemodynamically stable with heart rate going down into 35's. Has remained afebrile. Today morning patient is on 70% FiO2 with tidal volume of 500 PEEP of 8 saturating 94%. Documented urine output in last 24 hours around 1500 cc. Vitals/I&O/Wt Last Vital Signs Temp 98.7 F 05/04/21 16:00 Pulse 72 05/04/21 16:34 Resp 22 H 05/04/21 15:26 BP 153/90 05/04/21 16:00 Pulse Ox 92 05/04/21 16:34 05/04/21 05/04/21 05/04/21 06:59 14:59 22:59 Intake Total 136.75 / 1274.584 205.542 / 205.542 154.375 / 359.917 Output Total 600 / 1450 550 / 550 Balance -463.25 / -175.416 205.542 / 205.542 -395.625 / -190.083 Weight last 48 hrs Weight 126.184 kg Weight 127.459 kg Physical Exam Narrative: EXAM NARRATIVE: General: Intubated, sedated HEENT: PERRLA, pupils bilaterally equal and reactive Chest: Normal vesicular breath sounds, occasional rhonchi present all over lung dasilva, equal good air entry bilaterally CVS: S1-S2 regular, no murmurs, bradycardia, no gallops, no rubs Abdomen: Soft, nontender, no organomegaly, bowel sounds present Neuro: Intubated, sedated Urinary Catheter Management^: Root: Cath Placed During This Visit: yes Reason for Continuing Indwelling Catheter: Accurate Measurement of Urinary Output in Critically Ill Patients Urinary Catheter Date of Insertion: 05/01/21 Urinary Catheter Time of Insertion: 22:42 Data : 05/04/21 15:23 05/04/21 15:23 Micro: Microbiology 05/02/21 11:44 Gram Stain - Final Sputum - Endotracheal Tube Aspirate Sputum Culture - Final 05/01/21 22:44 Urine Culture - Final Urine,Clean Catch A&P Assessment and plan (1) Respiratory failure: Status: Acute (2) Acute exacerbation of CHF (congestive heart failure): Status: Acute (3) Pneumonia: Status: Acute (4) COPD (chronic obstructive pulmonary disease): Status: Acute (5) Encephalopathy acute: Status: Acute (6) Hypernatremia: Status: Acute (7) Acute kidney injury superimposed on CKD: Status: Acute (8) Liver dysfunction: Status: Acute (9) Bradycardia: Status: Acute (10) Type 2 diabetes mellitus without complication, without long-term current u se of insulin: Status: Acute (11) Breast cancer metastasized to bone: Status: Acute Additional A&P Information Respiratory failure: Most likely secondary to acute metabolic encephalopathy secondary to bradycardia. Cannot rule out component of aspiration pneumonia. Pulmonary emboli ruled out with CTA done yesterday. Keep sedated with fentanyl and Versed. Sedation medication. Keep saturation 90% with mean arterial pressure over 65. COVID-19 PCR negative. Remove isolation precautions. Sputum culture, blood culture preliminary appreciated. MRSA negative, procalcitonin elevated. Urine Legionella, bacterial antigen negative. Monitor input and output as patient is having good urine output since today morning. Shows an EF 55 to 60% with grade 1 diastolic dysfunction, mildly dilated RV with normal RA pressures with mild to moderate aortic stenosis mean gradient of 20.5 mmHg across the aortic valve with mild pulmonary hypertension with RVSP of 45 mmHg. Strict input output charting, daily weights. Root catheterization. MRSA negative. Stop vancomycin. Continue with Zosyn. Can plan to do overall 5 to 7-day course. Metabolic encephalopathy: Most likely secondary to bradycardia. Patient has remained persistent bradycardic. Could be secondary to sepsis, hypernatremia present on admission. Urine drug screen, alcohol levels negative. Ammonia negative on admission. Continue with lactulose 10 mg twice daily for now. Continue with home dose of pain medication to avoid withdrawal. GABRIELA on CKD: Baseline creatinine for last 1 year seems to be 1.1-1.3. Creatinine back to baseline today. CT abdomen pelvis negative for obstructive nephropathy. We'll continue to monitor renal functions. No metabolic encephalopathy presently. Liver dysfunction: Improving. Most likely secondary to congestive heart failure. CT abdomen liver ultrasound results appreciated. Ammonia levels negative. Hepatitis panel appreciated. Will discuss with product owner for a possible need of a HIDA scan given possible biliary dilatation. Hypernatremia: T3 today. Free water deficit around 3 L. Stop normal saline. Start patient on free water flushes to fifty every 4 hours for now. Repeat BMP every morning. Check urine lites. Bradycardia: Unknown cause. Could be secondary to severe sepsis. Repeat EKG to to confirm no cardiac blocks. We'll continue to monitor. Can consider temporary pacemaker. Can consider cardiology consult for permanent pacemaker implantation if patient is extubated. Prolonged QTC: As seen in the EKG done last night. Stop Zofran. Medical reconciliation done for QTC prolonging drugs. Type 2 diabetes mellitus: Check HbA1c, lipid panel. For now start insulin sliding scale at low-dose protocol. Goal blood sugar around 200. Elevated troponin: Most likely demand ischemia from severe sepsis. Delta negative. Repeat troponin. EKG negative for any signs of ischemia. CODE STATUS: As per the conversation with family members for now they would like to continue the aggressive treatment and would like to revisit the goals of care and CODE STATUS in next 24 to 48 hours. NPO. Famotidine for PUD prophylaxis Case discussed with product owner. Appreciate help. Plan for today is sedation vacation, possible extubation. Further diuresis. The patient wakes up and heart rate remains low then possible temporary pacemaker implantation and cardiac consultation. We will continue to follow. Resume full care once patient is out of ICU. Attestations Medical Necessity Statement*: Requires further hospitalization for management of respiratory failure secondary to acute metabolic encephalopathy secondary to bradycardia, possible aspiration pneumonia, bradycardia, hypernatremia, GABRIELA on CKD. Critical Care Time: The high probability of a clinically significant, sudden or life threatening deterioration of the patient's [cardiac, respiratory, neurological, renal,] system(s) required my full and direct attention, intervention and personal management. The critical care time is as shown. This time is in addition to time spent performing any reported procedures but includ es the following: [x] Data and vital sign review and interpretation [x] Patient assessment, examination and intervention [x] Documentation [x] Medication orders and management Critical Care Time (min): 60 Coding Level of Care Code Acute Automobile Rental Agent for g Fwd Diagnoses Respiratory failure J96.90 Acute exacerbation of CHF (congestive heart failure) I50.9 Pneumonia J18.9 COPD (chronic obstructive pulmonary disease) J44.9 Encephalopathy acute G93.40 Hypernatremia E87.0 Acute kidney injury superimposed on CKD N17.9; N18.9 Liver dysfunction K76.89 Bradycardia R00.1 Type 2 diabetes mellitus without complication, without long-term current use of insulin E11.9 Breast cancer metastasized to bone C50.919; C79.43
--- NOTE | 2021-05-04 18:31 | PC.NURSE ---
Shift Note Frequent safety and comfort rounds continue. Orders and/or nursing care completed as indicated. Patient monitored for response to intervention and treatment(s). Education provided to sister and r/t treatment plan and extubation goals and results. Both parties verbalize understanding. Pt remains on bipap, 12/6 and 30%. Pt remains sleepy and only follows certain commands. Will continue to monitor.
--- NOTE | 2021-05-04 19:21 | P.PN_ITS ---
Subjective Subjective: Interval history: -pt seen at bedside multiple times today -intubated and sedated in am; bradycardic - improved after tapering off sedation -drowsy but following commands, successfully extubated to BiPAP 12/5/ FIO2 30% -Labs and imaging reviewed Medications: Reviewed: Yes Vitals/I&O/Wt Last Vital Signs Temp 98.7 F 05/04/21 16:00 Pulse 75 05/04/21 18:27 Resp 22 H 05/04/21 15:26 BP 153/90 05/04/21 16:00 Pulse Ox 98 05/04/21 18:27 05/04/21 05/04/21 05/04/21 06:59 14:59 22:59 Intake Total 136.75 / 1274.584 205.542 / 205.542 154.375 / 359.917 Output Total 600 / 1450 550 / 550 Balance -463.25 / -175.416 205.542 / 205.542 -395.625 / -190.083 Weight last 48 hrs Weight 278 lb 3 oz Weight 281 lb Physical Exam Narrative: EXAM NARRATIVE: General: lying in bed,extubated to BiPAP HEENT:NCAT, PERRLA, EOMI Neck: Supple Lungs: Reduced breath sounds bilaterally Heart: s1/s2, RRR Abd: soft, NT, ND, BS + Normoactive Extremities: No edema RADIO DIVISION CAPTAIN:Drowsy, following commands, and limited RADIO DIVISION CAPTAIN exam possible SKIN: no rash Urinary Catheter Management^: Root: Cath Placed During This Visit: yes Reason for Continuing Indwelling Catheter: Accurate Measurement of Urinary Output in Critically Ill Patients Urinary Catheter Date of Insertion: 05/01/21 Urinary Catheter Time of Insertion: 22:42 Data : 05/04/21 15:23 05/04/21 15:23 Other Labs: Laboratory Results WBC 13.5 10^3/uL (4.0-10.0) H 05/04/21 15:23 RBC 4.16 10^6/uL (4.1-5.3) 05/04/21 15:23 Hgb 12.1 g/dL (11.5-15.3) 05/04/21 15:23 Hct 40.6 % (37.0-47.0) 05/04/21 15:23 MCV 97.6 fL (81-99) 05/04/21 15:23 MCH 29.1 pg (28.0-34.0) 05/04/21 15:23 MCHC 29.8 g/dL (30.0-36.0) L 05/04/21 15:23 RDW 15.7 % (12.1-15.1) H 05/04/21 15:23 Plt Count 172 10^3/cmm (130-400) 05/04/21 15:23 MPV 12.0 fL (7.4-10.4) H 05/04/21 15:23 Neut % (Auto) 85.4 % 05/04/21 15:23 Lymph % (Auto) 7.2 % 05/04/21 15:23 [place] % (Auto) 3.7 % 05/04/21 15:23 Eos % (Auto) 0.0 % 05/04/21 15:23 Baso % (Auto) 0.3 % 05/04/21 15:23 Neut # (Auto) 11.53 10^3/uL (1.8-7.7) H 05/04/21 15:23 Lymph # (Auto) 1.0 10^3/uL (0.8-4.8) 05/04/21 15:23 [place] # (Auto) 0.5 10^3/uL (0.2-0.9) 05/04/21 15:23 Eos # (Auto) 0.0 10^3/uL (0.0-0.8) 05/04/21 15:23 Baso # (Auto) 0.0 10^3/uL (0.0-0.1) 05/04/21 15:23 Nucleated RBC % (auto) 1.0 % 05/04/21 15:23 Nucleated RBCs # 0.1 /100WBC 05/04/21 15:23 PT 18.40 SECONDS (12.1-14.9) H 05/03/21 04:02 INR 1.49 (0.8-1.2) H 05/03/21 04:02 APTT 73.5 SECONDS (23.9-36.7) H 05/03/21 15:37 D-Dimer 11.00 ug/mIFEU (0-0.59) H 05/03/21 09:20 Specimen Type Arterial 05/03/21 05:45 Sample Site Radial, right 05/03/21 05:45 O2 Sat Pulse Oximetry 100.0 % 05/01/21 22:18 ABG pH 7.50 (7.35-7.45) H 05/03/21 05:45 ABG pCO2 51.8 mmHg (35-45) H 05/03/21 05:45 ABG pO2 71.3 mmHg (80.0-100.0) L 05/03/21 05:45 ABG HCO3 39.9 mmol/L (22-26) H 05/03/21 05:45 ABG O2 Saturation 95.4 05/02/21 07:51 ABG Base Excess 14.7 mmol/L (-2.0-2.0) H 05/03/21 05:45 Shoaib Test Pos 05/03/21 05:45 A-a O2 Gradient 47.3 mmHg (5-10) H 05/02/21 07:51 Hematocrit 32.5 % (37-47) L 05/03/21 05:45 Hgb O2 Saturation 93.2 % (95-100) L 05/02/21 07:51 Carboxyhemoglobin 1.5 %THgb (0.4-20.1) 05/02/21 07:51 Methemoglobin 0.8 % (0.4-1.5) 05/02/21 07:51 Total Hemoglobin 10.5 g/dL (12-16) L 05/02/21 07:51 Sodium 149.0 mmol/L (131-143) H 05/02/21 07:51 Potassium 3.1 mmol/L (3.5-5.0) L 05/02/21 07:51 Glucose 138.0 mg/dL (70-115) H 05/02/21 07:51 Ionized Calcium 1.2 mmol/L (1.1-1.4) 05/02/21 07:51 Respiration Rate 12.0 % 05/01/21 22:18 O2 Delivery Device Vent 05/03/21 05:45 Vent Mode Cmv 05/01/21 22:18 Mechanical Rate 14.0 05/02/21 02:55 Spontaneous Rate 0.0 % 05/01/21 22:18 FiO2 70.0 % 05/03/21 05:45 Tidal Volume 0.50 05/03/21 05:45 PEEP 8.0 cmH20 05/03/21 05:45 Specimen Drawn By [place] 05/01/21 23:39 Bus System Operator ID tata 05/03/21 05:45 Blood Gas Notified Time 222905/01/21 22:18 Sodium 153 mmol/L (136-145) H 05/04/21 15:23 Potassium 3.6 mmol/L (3.5-5.1) 05/04/21 15:23 Chloride 105 mmol/L (98-107) 05/04/21 15:23 Carbon Dioxide 35 mmol/L (22-29) H 05/04/21 15:23 Anion Gap 16.6 (5-19) 05/04/21 15:23 BUN 35 mg/dL (8-23) H 05/04/21 15:23 Creatinine 1.3 mg/dL (0.5-0.9) H 05/04/21 15:23 GFR Calculation 40.7 mL/min (90-130) L 05/04/21 15:23 Glucose 128 mg/dL (65-115) H 05/04/21 15:23 Calculated Osmolality 326 mOsm/kg (285-295) H 05/04/21 15:23 Lactic Acid 1.7 mmol/L (0.5-2.2) 05/02/21 20:56 Lactate 3.2 mmol/L (0.5-2.2) H 05/01/21 23:44 Calcium 9.3 mg/dL (8.5-10.5) 05/04/21 15:23 Phosphorus 3.0 mg/dL (2.5-4.5) 05/03/21 04:02 Magnesium 2.4 mg/dL (1.7-2.3) H 05/04/21 15:23 Iron 193 ug/dL (37-145) H 05/02/21 11:26 TIBC 209.92738 mcg/dl 05/02/21 11:26 % Saturation 91.0 % (20-50) H 05/02/21 11:26 Unsat Iron Binding < 17 ug/dL (112-347) L 05/02/21 11:26 Total Bilirubin 1.4 mg/dL (0.15-1.2) H 05/04/21 15:23 Direct Bilirubin 0.70 mg/dL (0.00-0.30) H 05/03/21 09:20 Indirect Bilirubin 0.50 05/03/21 09:20 GGT 58 U/L (5-36) H 05/02/21 20:56 AST 395 U/L (0-32) H 05/04/21 15:23 ALT 1127 U/L (0-33) H 05/04/21 15:23 Alkaline Phosphatase 87 IU/L (35-105) 05/04/21 15:23 Ammonia 21 umol/L (11-51) 05/04/21 15:23 Lactate Dehydrogenase 1675 U/L (135-214) H 05/02/21 20:56 Creatine Kinase 285 U/L (26-192) H 05/01/21 23:44 Troponin T Gen 5 ng/L 439 ng/L (0-10) H* 05/02/21 20:56 Troponin T Baseline 543 ng/L (0-10) H* 05/01/21 21:30 Troponin T 120 Minute 548.5 ng/L (0-10) H 05/01/21 23:44 Delta Troponin T 5.5 ABS# (0-10) 05/01/21 23:44 Troponin T Hi Sens 6Hr 526.6 ng/L (0-10) H 05/02/21 03:26 Troponin T Hi Sens 6Hr Delta -16.4 ng/L (0-12) L 05/02/21 03:26 C-Reactive Protein 119.9 mg/L (0.0-4.9) H 05/01/21 21:30 NT-Pro-B Natriuret Pep 24906 pg/mL (0-125) H 05/02/21 11:26 Total Protein 6.7 g/dL (6.6-8.7) 05/04/21 15:23 Albumin 3.5 g/dL (3.5-5.2) 05/04/21 15:23 Globulin 3.2 g/dL (1.3-4.6) 05/04/21 15:23 Procalcitonin 0.81 ng/mL (0-0.5) H 05/02/21 11:26 TSH 1.05 uIU/mL (0.27-4.20) 05/02/21 11:26 Urine Color Yellow (Yellow) 05/01/21 22:44 Urine Appearance Clear (CLEAR) 05/01/21 22:44 Urine pH 5 (5-7) 05/01/21 22:44 Ur Specific [place] 1.015 (1.005-1.030) 05/01/21 22:44 Urine Protein 3+ (Negative) H 05/01/21 22:44 Urine Glucose (UA) Norm (Normal) 05/01/21 22:44 Urine Ketones Negative (Negative) 05/01/21 22:44 Urine Blood 3+ (Negative) H 05/01/21 22:44 Urine Nitrate Negative (Negative) 05/01/21 22:44 Urine Bilirubin 1+ (Negative) H 05/01/21 22:44 Urine Urobilinogen 1 mg/dL (Negative) H 05/01/21 22:44 Ur Leukocyte Esterase Negative (Negative) 05/01/21 22:44 Urine RBC 5-10 /hpf (0-2) H 05/01/21 22:44 Urine WBC 0-4 /hpf (0-5) H 05/01/21 22:44 Ur Squamous Epith Cells 0-4 /hpf (0-5) H 05/01/21 22:44 Amorphous Sediment 1+ /hpf 05/01/21 22:44 Urine Bacteria 2+ /hpf (NONE) H 05/01/21 22:44 Hyaline Casts 15-25 /lpf H 05/01/21 22:44 Ur Random Sodium 46 mmol/L 05/02/21 19:05 Ur Random Potassium 46 mmol/L 05/02/21 19:05 Ur Random Chloride 24 mmol/L 05/02/21 19:05 Salicylates < 0.3 mg/dL (3-10) L 05/01/21 21:30 Urine Opiates Screen Positive ng/mL (Negative) H 05/01/21 22:44 Acetaminophen < 5.0 ug/mL (10-30) L 05/01/21 21:30 Ur Barbiturates Screen Negative ng/mL (Negative) 05/01/21 22:44 Ur Phencyclidine Scrn Negative ng/mL (Negative) 05/01/21 22:44 Ur Amphetamines Screen Negative ng/mL (Negative) 05/01/21 22:44 U Benzodiazepines Scrn Negative ng/mL (Negative) 05/01/21 22:44 Urine Cocaine Screen Negative ng/mL (Negative) 05/01/21 22:44 U Marijuana (THC) Screen Negative ng/mL (Negative) 05/01/21 22:44 Ethyl Alcohol < 10 mg/dL (0-10) 05/01/21 21:30 Nasal/Oral COVID-19 PCR Cancelled 05/02/21 11:38 Hepatitis A IgM Ab Non-reactive (Nonreactive) 05/02/21 20:56 Hep Bs Antigen Non-reactive (Nonreactive) 05/02/21 20:56 Hep Bs Antibody 3.5 (11.5-1000) L 05/02/21 20:56 Hep B Core Total Ab Non-reactive (Nonreactive) 05/02/21 20:56 Hepatitis C Antibody Non-reactive (Nonreactive) 05/02/21 20:56 SARS-CoV-2 RNA (RT-PCR) Not detected (NOT DETECTED) 05/02/21 13:23 SARS-CoV-2 Ag (Rapid) Negative (Negative) 05/01/21 21:30 Impressions Chest X-Ray 05/01/21 21:29 IMPRESSION: Nonspecific imaging findings, which can be seen with pulmonary edema or pneumonia. Clinical correlation is recommended. Chest/Abdomen/Pelvis CT 05/01/21 21:56 IMPRESSION: 1. Fatty infiltration of the liver 2. Diverticulosis of the descending and sigmoid colon 3. Umbilical hernia containing fat 4. Normal appendix 5. Diffuse bony metastatic disease Radiation Dose CTDIVOL = (mGy): DLP = 2120.24~2120.24 (mGy-cm) Head CT 05/01/21 21:56 IMPRESSION: 1. Diffuse bony metastatic disease. 2. There are no acute intracranial findings. Radiation Dose CTDIVOL = (mGy): DLP = 1958.83 (mGy-cm) Liver Ultrasound 05/03/21 06:00 IMPRESSION: 1. Prior cholecystectomy. 2. Mild to moderate biliary tree dilation, see above discussion. 3. No focal hepatic mass visible by ultrasound at this time. 4. Small amount of peritoneal fluid in the right upper quadrant, details above. 5. Other findings discussed above. Venous Duplex 05/03/21 08:26 IMPRESSION: No evidence for deep venous thrombosis. Micro: Microbiology 05/03/21 16:46 MRSA Culture - Final Nose 05/02/21 11:44 Gram Stain - Final Sputum - Endotracheal Tube Aspirate Sputum Culture - Final 05/01/21 22:44 Urine Culture - Final Urine,Clean Catch A&P Assessment and plan (1) Elevated liver enzymes: Status: Acute (2) Acute kidney injury: Status: Acute (3) Morbid obesity: Status: Acute (4) Obesity hypoventilation syndrome: Status: Acute (5) Obstructive sleep apnea: Status: Acute (6) Heart failure with preserved ejection fraction: Status: Acute Qualifiers: Heart failure chronicity: acute on chronic Qualified Code(s): I50.33 - Acute on chronic diastolic (congestive) heart failure (7) Encephalopathy: Status: Acute (8) Metastatic breast cancer: Status: Acute (9) Chronic hypercapnic respiratory failure: Status: Acute (10) Bradycardia: Status: Acute (11) Acute exacerbation of CHF (congestive heart failure): Status: Acute Qualifiers: Heart failure type: unspecified Qualified Code(s): I50.9 - Heart failure, unspecified (12) COPD (chronic obstructive pulmonary disease): Status: Acute Qualifiers: COPD type: unspecified COPD Qualified Code(s): J44.9 - Chronic obstructive pulmonary disease, unspecified (13) Breast cancer metastasized to bone: Status: Acute Qualifiers: Laterality: unspecified laterality Qualified Code(s): C50.919 - Malignant neoplasm of unspecified site of unspecified female breast; C79.51 - Secondary malignant neoplasm of bone (14) Morbid obesity with BMI of 45.0-49.9, adult: Status: Acute (15) Aortic stenosis, moderate: Status: Acute Overall : Samia Sarmiento is a 70 year old female with a history of metastatic breast cancer to bones, hypertension, obstructive sleep apnea, obesity hypoventilation syndrome, hyperlipidemia, diabetes, heart failure, morbid obesity brought to the ER on 05/02/21 with altered mental status. According to medical records, the patient was hypoxic and her oxygen saturation was recorded to be in the 50s by the EMS. The patient was initially put on CPAP but later go intubated. Post intubation ABG is consistent with chronic hypercapnic respiratory failure. A chest x-ray postintubation revealed infiltrate predominantly in the right lower lung. A CT angiogram of the chest abdomen and pelvis was performed. No pulmonary emboli was identified. The patient had bilateral lower lobe subpleural atelectasis primarily on the left side with volume loss. Diffuse lytic bone lesions were seen from the malignancy. No significant abdominal pathology. Venous duplex study did not reveal any evidence of DVT. CT scan of the head also revealed metastatic bony disease but no intracranial abnormalities. Liver ultrasound revealed mildly dilated biliary tree likely postcholecystectomy. No stone was identified. Small amount of perihepatic fluid was identified. Echo showed EF of 55 to 60%. Grade 1 diastolic dysfunction. Normal RV was mildly dilated. Right atrial pressure was elevated. Mild to moderate aortic stenosis. RVSP estimated 40 to 45 mmHg. # AMS due to chronic hypercapneic respiratory failure vs Hepatic encephalopathy vs Hypernatremia vs medication (on opiates for cancer related pain) - Tapered off sedation - dc lactulose as pt has 3-4 stools for last 2 days;l ammonia 21 - CT head no e/o brain mets - [place] 5-325 q 6 hr taurus for pain # Acute on chronic respiratory failure in pt with COPD/KAREN/Obesity Hypoventilation syndrome/Morbid Obesity - extubated to BIPAP 12/5 FIO2 30% and continue every night - Duoneb nebs q 6 hr neb - PTOT/IS/Out of bed to chair - On Zosyn, bacterial antigen, legionella antigen, MRSA nare negative - swallow evaluation tomorrow and will start soft feed # Bradycardia with RBBB # Mild to moderate Aortic stenosis - on ECHO - Hemodynamically stable - heart rate improved after discontinuing sedation - monitor HR # Elevated Liver enzymes likely hypoxic insult - Improving - Liver USG: Mild to moderate extra hepatic biliary tree dilation, with common duct measuring up to about 14-15 mm. Possibly mild intrahepatic biliary prominence. -No focal hepatic mass visible by ultrasound at this time - monitor LFTs - Avoid hepatotoxic medications # Hypernatremia - Started on d5w@ 50 cc/hr - monitor BMP # Diabetes - moderately controlled - started on D5 for hypernatremia - monitor fsbs and scale coverage # Metastatic breast cancer metastasized to bone prognosis: Guarded Code: Full Recommendations conveyed to hospitalist, RN, RT covering the patient. Attestations Medical Necessity Statement*: Extubated today - will be transferred out of ICU if she is stable overnight Time Spent in Patient Care: Greater than 35 minutes (>than 50% of time spent in counselling and/or direct pt care on unit) . 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 Patient Type Established History Comprehensive Exam Comprehensive Medical Decision Making High Complexity Diagnoses Elevated liver enzymes R74.8 Acute kidney injury N17.9 Morbid obesity E66.01 Obesity hypoventilation syndrome E66.2 Obstructive sleep apnea G47.33 Heart failure with preserved ejection fraction I50.33 Heart failure chronicity: acute on chronic Encephalopathy G93.40 Metastatic breast cancer C50.919 Chronic hypercapnic respiratory failure J96.12 Bradycardia R00.1 Acute exacerbation of CHF (congestive heart failure) I50.9 Heart failure type: unspecified COPD (chronic obstructive pulmonary disease) J44.9 COPD type: unspecified COPD Breast cancer metastasized to bone C50.919; C79.51 Laterality: unspecified laterality Morbid obesity with BMI of 45.0-49.9, adult E66.01; Z68.42 Aortic stenosis, moderate I35.0 Time Spent (min) 60
[2021-05-04] MEDS: dextrose 5% 1,000 ML 50 ML IV (20:44)
[2021-05-04 21:20] LABS: Glucose Point of Care 125 mg/dL (70-110)
[2021-05-05] VITALS (32 sets, daily range): BP systolic 124–184; BP diastolic 66–108; PULSE 56–89; RESP 14–29; TEMP 36.3–37.1; O2SAT 92–99; BMI 48.5
[2021-05-05] MEDS: famotidine 20 mg/2 mL INJ IVP ×2 (00:38→11:31)
[2021-05-05] MEDS: piperacillin-tazobactam 3.375 GM in sodium chloride 0.9% (plus) 50 ML IV ×3 (00:40→16:18)
[2021-05-05] MEDS: ipratropium-albuterol 3 mL Neb INHALATION ×4 (03:19→21:26)
[2021-05-05] MEDS: morphine 4 mg/mL SDV 1 mL 2 MG IVP (03:54)
--- NOTE | 2021-05-05 05:48 | PC.NURSE ---
Shift Note Frequent safety and comfort rounds continue. Orders and/or nursing care completed as indicated. Patient monitored for response to intervention and treatment(s). Education provided includes keeping the bipap on her face. Patient did not directly acknowledge teaching, but after a few reminders, there was less attempts at removing the mask. Pt became more alert throughout the night. Pt began moaning at one point, and attempts to reposition her did not help. Dr. Aquino notified and a one time order received and administered by this nurse (see MAR). Will continue to monitor.
[2021-05-05] MEDS: enoxaparin 40 mg/0.4 mL Syringe SUBCUT ×2 (07:48→19:47)
[2021-05-05 12:06] LABS: Glucose Point of Care 154 mg/dL (70-110)
[2021-05-05 12:28] LABS: Basophils % 0.2 %; Eosinophils % 0.1 %; Hematocrit 40.3 % (37.0-47.0); Lymphocytes # 1.2 10^3/uL (0.8-4.8); Lymphocytes % 8.7 %; Mean Corpuscular HGB Conc 29.8 g/dL (30.0-36.0); Mean Corpuscular Hemoglobin 28.6 pg (28.0-34.0); Mean Corpuscular Volume 96.2 fL (81-99); Mean Platelet Volume 11.6 fL (7.4-10.4); Monocytes # 0.7 10^3/uL (0.2-0.9); Neutrophils # 11.35 10^3/uL (1.8-7.7); Neutrophils % 82.7 %; Nucleated Red Blood Cells # 0.1 /100WBC; Nucleated Red Blood Cells % 0.5 %; Platelet Count 169 10^3/cmm (130-400); Red Blood Count 4.19 10^6/uL (4.1-5.3); Red Cell Distribution Width 15.8 % (12.1-15.1); White Blood Count 13.7 10^3/uL (4.0-10.0)
[2021-05-05 13:01] LABS: Alanine Aminotransferase 660 U/L (0-33); Albumin Level 3.1 g/dL (3.5-5.2); Alkaline Phosphatase 72 IU/L (35-105); Anion Gap 9.9 (5-19); Aspartate Amino Transferase 168 U/L (0-32); Blood Urea Nitrogen 28 mg/dL (8-23); Calcium 8.6 mg/dL (8.5-10.5); Carbon Dioxide 37 mmol/L (22-29); Chloride 108 mmol/L (98-107); Globulin 2.7 g/dL (1.3-4.6); Glomerular Filtration Rate 49.4 mL/min (90-130); Glucose 131 mg/dL (65-115); Osmolality Calculated 321 mOsm/kg (285-295); Sodium 152 mmol/L (136-145); Total Bilirubin 1.6 mg/dL (0.15-1.2); Total Protein 5.8 g/dL (6.6-8.7)
[2021-05-05 13:19] LABS: Potassium 2.9 mmol/L (3.5-5.1)
[2021-05-05 14:04] LABS: Magnesium 2.2 mg/dL (1.7-2.3)
[2021-05-05 14:26] LABS: Lipase 41 U/L (13-60)
[2021-05-05 15:08] LABS: ABG PCO2 45.1 mmHg (35-45); ABG PH Result 7.54 (7.35-7.45); Alveolar-Arterial Oxygen Gradi 8.1 mmHg (5-10); Arterial Blood Gas Hematocrit 39.5 % (37-47); Base Excess ABG 14.4 mmol/L (-2.0-2.0); Blood Gas Allen Test Pos; Blood Gas Operator Identificat MONRO; Blood Gas Sample Site Radial, right; Blood Gas Sample Type Arterial; Carboxyhemoglobin 1.7 %THgb (0.4-20.1); HCO3 ABG 38.7 mmol/L (22-26); HGB O2 Sat 93.1 % (95-100); Ionized Calcium Level - ABG 1.2 mmol/L (1.1-1.4); Methemoglobin 0.7 % (0.4-1.5); Oxygen Device NC; Oxygen Saturation ABG 95.4; PO2 ABG 81.5 mmHg (80.0-100.0); Potassium Level - ABG 2.9 mmol/L (3.5-5.0); Total Hemoglobin 12.9 g/dL (12-16)
[2021-05-05] MEDS: lidocaine 1% 5 ML in potassium chloride premix 100 ML 25 ML IV ×2 (15:28→19:46)
--- NOTE | 2021-05-05 16:08 | PC.SOCIAL ---
IMM UPDATE Gave IMM update to pt's daughter, Anna. She verbalized understanding. Initialed, dated, timed and placed in chart.
--- NOTE | 2021-05-05 16:12 | PM.PN ---
Subjective Subjective: Interval history: Patient extubated successfully to BiPAP yesterday. Currently on examination has been turned down to 2 L oxygen supplementation unfortunately remains confused. Has remained hemodynamically stable with heart rates better post taking off sedation. Patient has been confused since extubation on and off so was placed back on BiPAP. Medications: Reviewed: Yes Vitals/I&O/Wt Last Vital Signs Temp 97.4 F L 05/05/21 14:00 Pulse 66 05/05/21 16:01 Resp 18 05/05/21 16:00 BP 156/79 05/05/21 16:00 Pulse Ox 94 05/05/21 16:00 05/05/21 05/05/21 05/05/21 06:59 14:59 22:59 Intake Total 50 / 459.917 939.167 / 939.167 Output Total 800 / 1350 Balance -750 / -890.083 939.167 / 939.167 Weight last 48 hrs Weight 124.284 kg Weight 126.184 kg Physical Exam Narrative: EXAM NARRATIVE: General: No acute distress, extubated, confused but awake, moving all limbs HEENT: PERRLA, pupils bilaterally equal and reactive Chest: Normal vesicular breath sounds, occasional rhonchi present all over lung dasilva, equal good air entry bilaterally CVS: S1-S2 regular, no murmurs, bradycardia, no gallops, no rubs Abdomen: Soft, nontender, no organomegaly, bowel sounds present Neuro: No facial deformity, moving all limbs Urinary Catheter Management^: Root: Cath Placed During This Visit: yes Reason for Continuing Indwelling Catheter: Accurate Measurement of Urinary Output in Critically Ill Patients Urinary Catheter Date of Insertion: 05/01/21 Urinary Catheter Time of Insertion: 22:42 Data : 05/06/21 04:35 05/06/21 04:35 Micro: Microbiology 05/03/21 16:46 MRSA Culture - Final Nose 05/02/21 11:44 Gram Stain - Final Sputum - Endotracheal Tube Aspirate Sputum Culture - Final A&P Assessment and plan (1) Respiratory failure: Status: Acute (2) Acute exacerbation of CHF (congestive heart failure): Status: Acute Qualifiers: Heart failure type: unspecified Qualified Code(s): I50.9 - Heart failure, unspecified (3) Pneumonia: Status: Acute (4) COPD (chronic obstructive pulmonary disease): Status: Acute Qualifiers: COPD type: unspecified COPD Qualified Code(s): J44.9 - Chronic obstructive pulmonary disease, unspecified (5) Encephalopathy acute: Status: Acute (6) Hypernatremia: Status: Acute (7) Acute kidney injury superimposed on CKD: Status: Acute (8) Liver dysfunction: Status: Acute (9) Bradycardia: Status: Acute (10) Type 2 diabetes mellitus without complication, without long-term current use of insulin: Status: Acute (11) Breast cancer metastasized to bone: Status: Acute Qualifiers: Laterality: unspecified laterality Qualified Code(s): C50.919 - Malignant neoplasm of unspecified site of unspecified female breast; C79.51 - Secondary malignant neoplasm of bone Additional A&P Information Respiratory failure: Most likely secondary to acute metabolic encephalopathy secondary to multiple factors including worsening of chronic hypercapnia due to pain medications, hypernatremia, possible bradycardia, Monitor ABG. Continue with oxygen supplementation keeping saturation over 88%. BiPAP as needed and nightly. DuoNebs every 6 hour, budesonide twice daily. For hypernatremia: Stable at 152 today. We will try to get an NG tube. Continue with D5W at 75 cc/h. Monitor BMP and sodium levels daily. Pulmonary emboli ruled out with CTA. COVID-19 PCR negative. Remove isolation precautions. Sputum culture, blood culture preliminary appreciated. MRSA negative, procalcitonin elevated. Urine Legionella, bacterial antigen negative. Continue Zosyn for now. Will most likely to 5-day course. Monitor input and output as patient is having good urine output since today morning. Shows an EF 55 to 60% with grade 1 diastolic dysfunction, mildly dilated RV with normal RA pressures with mild to moderate aortic stenosis mean gradient of 20.5 mmHg across the aortic valve with mild pulmonary hypertension with RVSP of 45 mmHg. Strict input output charting, daily weights. Patient overall 1 L negative since admission. Root catheterization. GABRIELA on CKD: Baseline creatinine for last 1 year seems to be 1.1-1.3. Creatinine back to baseline today. CT abdomen pelvis negative for obstructive nephropathy. We'll continue to monitor renal functions. No metabolic encephalopathy presently. Liver dysfunction: Improving. Most likely secondary to congestive heart failure. CT abdomen liver ultrasound results appreciated. Ammonia levels negative. Hepatitis panel appreciated. Will discuss with equipment validation engineer for a possible need of a HIDA scan given possible biliary dilatation. Bradycardia: Unknown cause. Could be secondary to severe sepsis versus sedation. Better now. Continue to monitor with telemetry.. Prolonged QTC: As seen in the EKG done last night. Stop Zofran. Medical reconciliation done for QTC prolonging drugs. Type 2 diabetes mellitus: Check HbA1c, lipid panel. Insulin sliding scale at low-dose protocol. Goal blood sugar around 200. Elevated troponin: Most likely demand ischemia from severe sepsis. Delta negative. Repeat troponin. EKG negative for any signs of ischemia. CODE STATUS: Full code NPO. Once more awake will get physical therapy/speech therapy. Famotidine for PUD prophylaxis Case discussed with equipment validation engineer. Appreciate help. Plan for today is sedation vacation, possible extubation. Further diuresis. The patient wakes up and heart rate remains low then possible temporary pacemaker implantation and cardiac consultation. We will continue to follow. Resume full care once patient is out of ICU. Attestations Medical Necessity Statement*: Requires further hospitalization for management of metabolic encephalopathy secondary to hypercapnia leading to respiratory failure, extubated yesterday still confused requiring BiPAP ventilation. Critical Care Time: The high probability of a clinically significant, sudden or life threatening deterioration of the patient's [respiratory, renal, cardiac] system(s) required my full and direct attention, intervention and personal management. The critical care time is as shown. This time is in addition to time spent performing any reported procedures but includes the following: [x] Data and vital sign review and interpretation [x] Patient assessment, examination and intervention [x] Documentation [x] Medication orders and management Critical Care Time (min): 50 Coding Level of Care Code Acute Steam Hoist Operator for g Fwd Diagnoses Respiratory failure J96.90 Acute exacerbation of CHF (congestive heart failure) I50.9 Heart failure type: unspecified Pneumonia J18.9 COPD (chronic obstructive pulmonary disease) J44.9 COPD type: unspecified COPD Encephalopathy acute G93.40 Hypernatremia E87.0 Acute kidney injury superimposed on CKD N17.9; N18.9 Liver dysfunction K76.89 Bradycardia R00.1 Type 2 diabetes mellitus without complication, without long-term current use of insulin E11.9 Breast cancer metastasized to bone C50.919; C79.51 Laterality: unspecified laterality
[2021-05-05] MEDS: dextrose 5% 1,000 ML 75 ML IV (16:17)
--- NOTE | 2021-05-05 18:07 | PC.NURSE ---
Shift Note Frequent safety and comfort rounds continue. Orders and/or nursing care completed as indicated. Patient monitored for response to intervention and treatment(s). Attempted to work with physical therapy and speech therapy today. Pt unable to participate in therapy activities at this time. Able to place patient on on nasal cannula at 2l for a portion of the shift. Pt placed back on bipap at 30%.Education provided includes the importance of TCDB and attempting to get patient to follow commands. Pt unable to follow commands for the majority of the day. Patient will need reinforcement of education. Will continue to closely monitor.
[2021-05-05 18:18] LABS: Glucose Point of Care 149 mg/dL (70-110)
[2021-05-05 21:42] LABS: Glucose Point of Care 149 mg/dL (70-110)
[2021-05-05] MEDS: HYDROmorphone 1 mg/mL INJ 1 mL 0.5 MG IVP (21:58)
--- NOTE | 2021-05-05 22:23 | PM.PN ---
Subjective Subjective: Interval history: - Seen multiple times at bedside today - Labs and imaging reviewed - Still appears drowsy intermittently responding to commands - As per family patient has bipolar disorder and takes her medications at home-and does not prefer to talk for hours together Medications: Reviewed: Yes Vitals/I&O/Wt Last Vital Signs Temp 98.2 F 05/05/21 20:00 Pulse 66 05/05/21 21:29 Resp 25 H 05/05/21 21:58 BP 161/91 05/05/21 20:00 Pulse Ox 96 05/05/21 21:58 05/05/21 05/05/21 05/05/21 06:59 14:59 22:59 Intake Total 50 / 459.917 50 / 50 1101.667 / 1151.667 Output Total 800 / 1350 1550 / 1550 Balance -750 / -890.083 -448.333 / -398.333 Weight last 48 hrs Weight 274 lb Weight 278 lb 3 oz Physical Exam Narrative: EXAM NARRATIVE: General: Sitting in bed on 2 L nasal cannula HEENT:NCAT, PERRLA, EOMI Neck: Supple Lungs: Improved breath sounds bilaterally Heart: s1/s2, RRR Abd: soft, NT, ND, BS + Normoactive Extremities: No edema 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 HELPER: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, following commands, and limited CHARM 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 HELPER exam possible SKIN: no rash Urinary Catheter Management^: Root: Cath Placed During This Visit: yes Reason for Continuing Indwelling Catheter: Accurate Measurement of Urinary Output in Critically Ill Patients Urinary Catheter Date of Insertion: 05/01/21 Urinary Catheter Time of Insertion: 22:42 Data : 05/05/21 12:15 05/05/21 12:15 Other Labs: Laboratory Results WBC 13.7 10^3/uL (4.0-10.0) H 05/05/21 12:15 RBC 4.19 10^6/uL (4.1-5.3) 05/05/21 12:15 Hgb 12.0 g/dL (11.5-15.3) 05/05/21 12:15 Hct 40.3 % (37.0-47.0) 05/05/21 12:15 MCV 96.2 fL (81-99) 05/05/21 12:15 MCH 28.6 pg (28.0-34.0) 05/05/21 12:15 MCHC 29.8 g/dL (30.0-36.0) L 05/05/21 12:15 RDW 15.8 % (12.1-15.1) H 05/05/21 12:15 Plt Count 169 10^3/cmm (130-400) 05/05/21 12:15 MPV 11.6 fL (7.4-10.4) H 05/05/21 12:15 Neut % (Auto) 82.7 % 05/05/21 12:15 Lymph % (Auto) 8.7 % 05/05/21 12:15 [place] % (Auto) 5.0 % 05/05/21 12:15 Eos % (Auto) 0.1 % 05/05/21 12:15 Baso % (Auto) 0.2 % 05/05/21 12:15 Neut # (Auto) 11.35 10^3/uL (1.8-7.7) H 05/05/21 12:15 Lymph # (Auto) 1.2 10^3/uL (0.8-4.8) 05/05/21 12:15 [place] # (Auto) 0.7 10^3/uL (0.2-0.9) 05/05/21 12:15 Eos # (Auto) 0.0 10^3/uL (0.0-0.8) 05/05/21 12:15 Baso # (Auto) 0.0 10^3/uL (0.0-0.1) 05/05/21 12:15 Nucleated RBC % (auto) 0.5 % 05/05/21 12:15 Nucleated RBCs # 0.1 /100WBC 05/05/21 12:15 PT 18.40 SECONDS (12.1-14.9) H 05/03/21 04:02 INR 1.49 (0.8-1.2) H 05/03/21 04:02 APTT 73.5 SECONDS (23.9-36.7) H 05/03/21 15:37 D-Dimer 11.00 ug/mIFEU (0-0.59) H 05/03/21 09:20 Specimen Type Arterial 05/05/21 14:54 Sample Site Radial, right 05/05/21 14:54 O2 Sat Pulse Oximetry 100.0 % 05/01/21 22:18 ABG pH 7.54 (7.35-7.45) H 05/05/21 14:54 ABG pCO2 45.1 mmHg (35-45) H 05/05/21 14:54 ABG pO2 81.5 mmHg (80.0-100.0) 05/05/21 14:54 ABG HCO3 38.7 mmol/L (22-26) H 05/05/21 14:54 ABG O2 Saturation 95.4 05/05/21 14:54 ABG Base Excess 14.4 mmol/L (-2.0-2.0) H 05/05/21 14:54 Shoaib Test Pos 05/05/21 14:54 A-a O2 Gradient 8.1 mmHg (5-10) 05/05/21 14:54 Hematocrit 39.5 % (37-47) 05/05/21 14:54 Hgb O2 Saturation 93.1 % (95-100) L 05/05/21 14:54 Carboxyhemoglobin 1.7 %THgb (0.4-20.1) 05/05/21 14:54 Methemoglobin 0.7 % (0.4-1.5) 05/05/21 14:54 Total Hemoglobin 12.9 g/dL (12-16) 05/05/21 14:54 Sodium 153.0 mmol/L (131-143) H 05/05/21 14:54 Potassium 2.9 mmol/L (3.5-5.0) L 05/05/21 14:54 Glucose 143.0 mg/dL (70-115) H 05/05/21 14:54 Ionized Calcium 1.2 mmol/L (1.1-1.4) 05/05/21 14:54 Respiration Rate 12.0 % 05/01/21 22:18 O2 Delivery Device Nc 05/05/21 14:54 O2 Liters/Min 2.0 % 05/05/21 14:54 Vent Mode Cmv 05/01/21 22:18 Mechanical Rate 14.0 05/02/21 02:55 Spontaneous Rate 0.0 % 05/01/21 22:18 FiO2 28.0 % 05/05/21 14:54 Tidal Volume 0.50 05/03/21 05:45 PEEP 8.0 cmH20 05/03/21 05:45 Specimen Drawn By Glen 05/01/21 23:39 Bioinformatics Computer Scientist ID Liya 05/05/21 14:54 Blood Gas Notified Time 222905/01/21 22:18 Sodium 152 mmol/L (136-145) H 05/05/21 12:15 Potassium 2.9 mmol/L (3.5-5.1) L 05/05/21 12:15 Chloride 108 mmol/L (98-107) H 05/05/21 12:15 Carbon Dioxide 37 mmol/L (22-29) H 05/05/21 12:15 Anion Gap 9.9 (5-19) 05/05/21 12:15 BUN 28 mg/dL (8-23) H 05/05/21 12:15 Creatinine 1.1 mg/dL (0.5-0.9) H 05/05/21 12:15 GFR Calculation 49.4 mL/min (90-130) L 05/05/21 12:15 Glucose 131 mg/dL (65-115) H 05/05/21 12:15 POC Glucose 149 mg/dL (70-110) H 05/05/21 21:39 Calculated Osmolality 321 mOsm/kg (285-295) H 05/05/21 12:15 Lactic Acid 1.7 mmol/L (0.5-2.2) 05/02/21 20:56 Lactate 3.2 mmol/L (0.5-2.2) H 05/01/21 23:44 Calcium 8.6 mg/dL (8.5-10.5) 05/05/21 12:15 Phosphorus 3.0 mg/dL (2.5-4.5) 05/03/21 04:02 Magnesium 2.2 mg/dL (1.7-2.3) 05/05/21 12:15 Iron 193 ug/dL (37-145) H 05/02/21 11:26 TIBC 209.11285 mcg/dl 05/02/21 11:26 % Saturation 91.0 % (20-50) H 05/02/21 11:26 Unsat Iron Binding < 17 ug/dL (112-347) L 05/02/21 11:26 Total Bilirubin 1.6 mg/dL (0.15-1.2) H 05/05/21 12:15 Direct Bilirubin 0.70 mg/dL (0.00-0.30) H 05/03/21 09:20 Indirect Bilirubin 0.50 05/03/21 09:20 GGT 58 U/L (5-36) H 05/02/21 20:56 AST 168 U/L (0-32) H 05/05/21 12:15 ALT 660 U/L (0-33) H 05/05/21 12:15 Alkaline Phosphatase 72 IU/L (35-105) 05/05/21 12:15 Ammonia 21 umol/L (11-51) 05/04/21 15:23 Lactate Dehydrogenase 1675 U/L (135-214) H 05/02/21 20:56 Creatine Kinase 285 U/L (26-192) H 05/01/21 23:44 Troponin T Gen 5 ng/L 439 ng/L (0-10) H* 05/02/21 20:56 Troponin T Baseline 543 ng/L (0-10) H* 05/01/21 21:30 Troponin T 120 Minute 548.5 ng/L (0-10) H 05/01/21 23:44 Delta Troponin T 5.5 ABS# (0-10) 05/01/21 23:44 Troponin T Hi Sens 6Hr 526.6 ng/L (0-10) H 05/02/21 03:26 Troponin T Hi Sens 6Hr Delta -16.4 ng/L (0-12) L 05/02/21 03:26 C-Reactive Protein 119.9 mg/L (0.0-4.9) H 05/01/21 21:30 NT-Pro-B Natriuret Pep 10214 pg/mL (0-125) H 05/02/21 11:26 Total Protein 5.8 g/dL (6.6-8.7) L 05/05/21 12:15 Albumin 3.1 g/dL (3.5-5.2) L 05/05/21 12:15 Globulin 2.7 g/dL (1.3-4.6) 05/05/21 12:15 Lipase 41 U/L (13-60) 05/05/21 12:15 Procalcitonin 0.81 ng/mL (0-0.5) H 05/02/21 11:26 TSH 1.05 uIU/mL (0.27-4.20) 05/02/21 11:26 Urine Color Yellow (Yellow) 05/01/21 22:44 Urine Appearance Clear (CLEAR) 05/01/21 22:44 Urine pH 5 (5-7) 05/01/21 22:44 Ur Specific [place] 1.015 (1.005-1.030) 05/01/21 22:44 Urine Protein 3+ (Negative) H 05/01/21 22:44 Urine Glucose (UA) Norm (Normal) 05/01/21 22:44 Urine Ketones Negative (Negative) 05/01/21 22:44 Urine Blood 3+ (Negative) H 05/01/21 22:44 Urine Nitrate Negative (Negative) 05/01/21 22:44 Urine Bilirubin 1+ (Negative) H 05/01/21 22:44 Urine Urobilinogen 1 mg/dL (Negative) H 05/01/21 22:44 Ur Leukocyte Esterase Negative (Negative) 05/01/21 22:44 Urine RBC 5-10 /hpf (0-2) H 05/01/21 22:44 Urine WBC 0-4 /hpf (0-5) H 05/01/21 22:44 Ur Squamous Epith Cells 0-4 /hpf (0-5) H 05/01/21 22:44 Amorphous Sediment 1+ /hpf 05/01/21 22:44 Urine Bacteria 2+ /hpf (NONE) H 05/01/21 22:44 Hyaline Casts 15-25 /lpf H 05/01/21 22:44 Ur Random Sodium 46 mmol/L 05/02/21 19:05 Ur Random Potassium 46 mmol/L 05/02/21 19:05 Ur Random Chloride 24 mmol/L 05/02/21 19:05 Salicylates < 0.3 mg/dL (3-10) L 05/01/21 21:30 Urine Opiates Screen Positive ng/mL (Negative) H 05/01/21 22:44 Acetaminophen < 5.0 ug/mL (10-30) L 05/01/21 21:30 Ur Barbiturates Screen Negative ng/mL (Negative) 05/01/21 22:44 Ur Phencyclidine Scrn Negative ng/mL (Negative) 05/01/21 22:44 Ur Amphetamines Screen Negative ng/mL (Negative) 05/01/21 22:44 U Benzodiazepines Scrn Negative ng/mL (Negative) 05/01/21 22:44 Urine Cocaine Screen Negative ng/mL (Negative) 05/01/21 22:44 U Marijuana (THC) Screen Negative ng/mL (Negative) 05/01/21 22:44 Ethyl Alcohol < 10 mg/dL (0-10) 05/01/21 21:30 Nasal/Oral COVID-19 PCR Cancelled 05/02/21 11:38 Hepatitis A IgM Ab Non-reactive (Nonreactive) 05/02/21 20:56 Hep Bs Antigen Non-reactive (Nonreactive) 05/02/21 20:56 Hep Bs Antibody 3.5 (11.5-1000) L 05/02/21 20:56 Hep B Core Total Ab Non-reactive (Nonreactive) 05/02/21 20:56 Hepatitis C Antibody Non-reactive (Nonreactive) 05/02/21 20:56 SARS-CoV-2 RNA (RT-PCR) Not detected (NOT DETECTED) 05/02/21 13:23 SARS-CoV-2 Ag (Rapid) Negative (Negative) 05/01/21 21:30 Impressions Chest X-Ray 05/01/21 21:29 IMPRESSION: Nonspecific imaging findings, which can be seen with pulmonary edema or pneumonia. Clinical correlation is recommended. Chest/Abdomen/Pelvis CT 05/01/21 21:56 IMPRESSION: 1. Fatty infiltration of the liver 2. Diverticulosis of the descending and sigmoid colon 3. Umbilical hernia containing fat 4. Normal appendix 5. Diffuse bony metastatic disease Radiation Dose CTDIVOL = (mGy): DLP = 2120.24~2120.24 (mGy-cm) Head CT 05/01/21 21:56 IMPRESSION: 1. Diffuse bony metastatic disease. 2. There are no acute intracranial findings. Radiation Dose CTDIVOL = (mGy): DLP = 1958.83 (mGy-cm) Liver Ultrasound 05/03/21 06:00 IMPRESSION: 1. Prior cholecystectomy. 2. Mild to moderate biliary tree dilation, see above discussion. 3. No focal hepatic mass visible by ultrasound at this time. 4. Small amount of peritoneal fluid in the right upper quadrant, details above. 5. Other findings discussed above. Venous Duplex 05/03/21 08:26 IMPRESSION: No evidence for deep venous thrombosis. Micro: Microbiology 05/03/21 16:46 MRSA Culture - Final Nose A&P Assessment and plan (1) Elevated liver enzymes: Status: Acute (2) Acute kidney injury: Status: Acute (3) Morbid obesity: Status: Acute (4) Obesity hypoventilation syndrome: Status: Acute (5) Obstructive sleep apnea: Status: Acute (6) Heart failure with preserved ejection fraction: Status: Acute Qualifiers: Heart failure chronicity: acute on chronic Qualified Code(s): I50.33 - Acute on chronic diastolic (congestive) heart failure (7) Encephalopathy: Status: Acute (8) Metastatic breast cancer: Status: Acute (9) Chronic hypercapnic respiratory failure: Status: Acute (10) Bradycardia: Status: Acute (11) Acute exacerbation of CHF (congestive heart failure): Status: Acute Qualifiers: Heart failure type: unspecified Qualified Code(s): I50.9 - Heart failure, unspecified (12) COPD (chronic obstructive pulmonary disease): Status: Acute Qualifiers: COPD type: unspecified COPD Qualified Code(s): J44.9 - Chronic obstructive pulmonary disease, unspecified (13) Breast cancer metastasized to bone: Status: Acute Qualifiers: Laterality: unspecified laterality Qualified Code(s): C50.919 - Malignant neoplasm of unspecified site of unspecified female breast; C79.51 - Secondary malignant neoplasm of bone (14) Morbid obesity with BMI of 45.0-49.9, adult: Status: Acute (15) Aortic stenosis, moderate: Status: Acute Overall : Samia Sarmiento is a 70 year old female with a history of metastatic breast cancer to bones, hypertension, obstructive sleep apnea, obesity hypoventilation syndrome, hyperlipidemia, diabetes, heart failure, morbid obesity brought to the ER on 05/02/21 with altered mental status. According to medical records, the patient was hypoxic and her oxygen saturation was recorded to be in the 50s by the EMS. The patient was initially put on CPAP but later go intubated. Post intubation ABG is consistent with chronic hypercapnic respiratory failure. A chest x-ray postintubation revealed infiltrate predominantly in the right lower lung. A CT angiogram of the chest abdomen and pelvis was performed. No pulmonary emboli was identified. The patient had bilateral lower lobe subpleural atelectasis primarily on the left side with volume loss. Diffuse lytic bone lesions were seen from the malignancy. No significant abdominal pathology. Venous duplex study did not reveal any evidence of DVT. CT scan of the head also revealed metastatic bony disease but no intracranial abnormalities. Liver ultrasound revealed mildly dilated biliary tree likely postcholecystectomy. No stone was identified. Small amount of perihepatic fluid was identified. Echo showed EF of 55 to 60%. Grade 1 diastolic dysfunction. Normal RV was mildly dilated. Right atrial pressure was elevated. Mild to moderate aortic stenosis. RVSP estimated 40 to 45 mmHg. # AMS due to chronic hypercapneic respiratory failure vs Hepatic encephalopathy vs Hypernatremia vs medication (on opiates for cancer related pain) - Tapered off sedation and extubated yesterday to BiPAP-still appears drowsy and confused -ABG did not show any CO2 retention - dc lactulose as pt has 3-4 stools for last 2 days;l ammonia 21 - CT head no e/o brain mets -Held p.o. [place] 5-325 q 6 hr taurus for pain and started on Dilaudid 0.5 mg every 6 as needed -CMP suggestive of hypernatremia-started on D5 at 75 cc and will monitor # Acute on chronic respiratory failure in pt with COPD/KAREN/Obesity Hypoventilation syndrome/Morbid Obesity #Compensated metabolic alkalosis secondary to chronic CO2 retention - extubated to BIPAP 12/5 FIO2 30% and continue every night and requiring 2 L nasal cannula during daytime -ABG 7.5 4/45/81/38/95% on 2 L nasal cannula - Duoneb nebs q 6 hr neb - PTOT/IS/Out of bed to chair - On Zosyn, bacterial antigen, legionella antigen, MRSA nare negative -Patient failed swallow evaluation as per speech therapy, continue daily evaluation # Bradycardia with RBBB # Mild to moderate Aortic stenosis - on ECHO - Hemodynamically stable - heart rate improved after discontinuing sedation - monitor HR # Elevated Liver enzymes likely hypoxic insult - Improving - Liver USG: Mild to moderate extra hepatic biliary tree dilation, with common duct measuring up to about 14-15 mm. Possibly mild intrahepatic biliary prominence. -No focal hepatic mass visible by ultrasound at this time - monitor LFTs - Avoid hepatotoxic medications #Worsening renal functions #Hypokalemia 2.9 # Hypernatremia-152 -Supplemented KCl 80 M EQ -Increased on d5w@75 cc/hr -Recommended to place NG tube and give free water every 6 hours - monitor BMP -Diamox 100 mg once and will DC diuretics # Diabetes - moderately controlled - started on D5 for hypernatremia - monitor fsbs and scale coverage # Metastatic breast cancer metastasized to bone prognosis: Guarded Code: Full Family: Updated DVT prophylaxis: Lovenox 40 every 12 Recommendations conveyed to hospitalist, RN, RT covering the patient. Attestations Medical Necessity Statement*: Altered mental status-secondary to metabolic encephalopathy versus medication induced-currently on D5W to correct hypernatremia Time Spent in Patient Care: Greater than 35 minutes (>than 50% of time spent in counselling and/or direct pt care on unit). Critical Care Time: The high probability of a clinically significant, sudden or life threatening deterioration of the patient's [neurological, pulmonary, cardiac, renal, endocrine] system(s) required my full and direct attention, intervention and personal management. The critical care time is as shown. This time is in addition to time spent performing any reported procedures but includes the following: [x] Data and vital sign review and interpretation [x] Patient assessment, examination and intervention [x] Documentation [x] Medication orders and management Critical Care Time (min): 60 Coding Level of Care Code Established Pt Acute Delivery Room Supervisor for Chg Fwd Patient Type Established History Comprehensive Exam Comprehensive Medical Decision Making High Complexity Diagnoses Elevated liver enzymes R74.8 Acute kidney injury N17.9 Morbid obesity E66.01 Obesity hypoventilation syndrome E66.2 Obstructive sleep apnea G47.33 Heart failure with preserved ejection fraction I50.33 Heart failure chronicity: acute on chronic Encephalopathy G93.40 Metastatic breast cancer C50.919 Chronic hypercapnic respiratory failure J96.12 Bradycardia R00.1 Acute exacerbation of CHF (congestive heart failure) I50.9 Heart failure type: unspecified COPD (chronic obstructive pulmonary disease) J44.9 COPD type: unspecified COPD Breast cancer metastasized to bone C50.919; C79.51 Laterality: unspecified laterality Morbid obesity with BMI of 45.0-49.9, adult E66.01; Z68.42 Aortic stenosis, moderate I35.0 Time Spent (min) 60
[2021-05-06] VITALS (31 sets, daily range): BP systolic 132–188; BP diastolic 67–99; PULSE 55–73; RESP 12–24; TEMP 36.6–36.7; O2SAT 92–98
[2021-05-06] MEDS: lidocaine 1% 5 ML in potassium chloride premix 100 ML 25 ML IV (00:12)
[2021-05-06] MEDS: famotidine 20 mg/2 mL INJ IVP ×2 (00:14→11:56)
[2021-05-06] MEDS: piperacillin-tazobactam 3.375 GM in sodium chloride 0.9% (plus) 50 ML IV ×3 (00:15→15:48)
[2021-05-06] MEDS: ipratropium-albuterol 3 mL Neb INHALATION ×4 (02:48→22:02)
--- NOTE | 2021-05-06 02:50 | PC.RESP ---
RT Shift Note Frequent safety and respiratory rounds continue. Orders completed as indicated. Patient monitored pre and post treatments throughout shift. Patient [Did.] tolerate treatments appropriately. Condition [.DidNotChange]. Patient and/or fraud representative educated on respiratory treatment and medications. Patient and/or fraud representative [responded to teaching.]. Will continue to monitor patient progress.
[2021-05-06] MEDS: HYDROmorphone 1 mg/mL INJ 1 mL 0.5 MG IVP ×2 (04:24→15:48)
[2021-05-06] MEDS: dextrose 5% 1,000 ML 75 ML IV ×2 (04:25→21:09)
[2021-05-06 05:10] LABS: Basophils % 0.3 %; Eosinophils # 0.2 10^3/uL (0.0-0.8); Eosinophils % 1.4 %; Hemoglobin 11.9 g/dL (11.5-15.3); Lymphocytes # 1.3 10^3/uL (0.8-4.8); Lymphocytes % 11.8 %; Mean Corpuscular Hemoglobin 28.2 pg (28.0-34.0); Mean Corpuscular Volume 97.2 fL (81-99); Mean Platelet Volume 11.8 fL (7.4-10.4); Monocytes # 0.7 10^3/uL (0.2-0.9); Monocytes % 6.6 %; Neutrophils # 8.45 10^3/uL (1.8-7.7); Neutrophils % 78.1 %; Nucleated Red Blood Cells % 0.2 %; Platelet Count 158 10^3/cmm (130-400); Red Blood Count 4.22 10^6/uL (4.1-5.3); Red Cell Distribution Width 16.2 % (12.1-15.1); White Blood Count 10.8 10^3/uL (4.0-10.0)
[2021-05-06 05:31] LABS: Alanine Aminotransferase 494 U/L (0-33); Alkaline Phosphatase 73 IU/L (35-105); Anion Gap 11.6 (5-19); Aspartate Amino Transferase 95 U/L (0-32); Blood Urea Nitrogen 23 mg/dL (8-23); Calcium 8.4 mg/dL (8.5-10.5); Carbon Dioxide 34 mmol/L (22-29); Chloride 108 mmol/L (98-107); Globulin 2.7 g/dL (1.3-4.6); Glomerular Filtration Rate 49.4 mL/min (90-130); Glucose 132 mg/dL (65-115); Magnesium 2.1 mg/dL (1.7-2.3); Osmolality Calculated 316 mOsm/kg (285-295); Phosphorus 2.3 mg/dL (2.5-4.5); Potassium 3.6 mmol/L (3.5-5.1); Sodium 150 mmol/L (136-145); Total Bilirubin 1.7 mg/dL (0.15-1.2); Total Protein 5.7 g/dL (6.6-8.7)
[2021-05-06] MEDS: enoxaparin 40 mg/0.4 mL Syringe SUBCUT ×2 (09:03→21:15)
--- NOTE | 2021-05-06 10:49 | PC.CHAP ---
Pastoral Care Encounter/Spiritual Assessment Type of Contact [] Declined assembling inspector visit [] Patient/Family/Request visit [] Outpatient visit [] Follow-up visit [] Physician referral [] Code/Alert [x] Routine visit [] Staff referral [] Actively dying [] Patient sleeping [] Family support [] [] Out of room [] Palliative care [] [] Receiving care in room [] Pre-surgical visit [] Trauma [] Long length of stay [x] ICU visit [x] Other: oxygen Relational/Emotional Strength [] Patient feels connected with others/family/visitors/staff [] Distress [] Loneliness/isolation [] Abandonment Spirituality of Patient [] Person of Jeanie [] Attends Zoroastrianism of their Jeanie [] Believes in Prayer [] Reads Bible or Christianity materials [] There are Spiritual issues to be addressed Systems Programmer Interventions [x] Prayer [] Active listening [] Non-anxious presence [] Spiritual/emotional support [] Crisis/trauma care [] Spiritual counseling [] Bereavement support [] Provided bereavement packet [] Provided Bible/devotional materials [] Provided toy/stuffed animal, coloring book to patient or family member [] Provided Communion [] Anointing/[place] [] Salvation [x] Completed spiritual assessment [] Other: Impact on Illness or Injury [] Angry [] Fearful [] Anxious [] Often cries [] Exhaustion [] Unable to work [] Unable to attend orthodoxy [] Unable to walk/stand [] Unable to read [] Unable to drive [] Unable to eat/drink [] Unable to sleep [] Unable to be with family [] Patient intubated [] Other: Summary Time spent with patient
[2021-05-06] MEDS: magnesium oxide 400 mg tablet 200 MG PO ×2 (13:32→21:14)
--- NOTE | 2021-05-06 17:04 | PM.PN ---
Subjective Subjective: Interval history: No current overnight. Has remained hemodynamically stable and afebrile. Currently on BiPAP transition to 2 L satting 94%. Patient is awake. She answers and follows commands intermittently. As per family members has history of bipolar disorder when she follows commands on and off. She does wake up to speak to me stating she wants to go home as soon as possible. Denies feeling hungry. Denies to follow command. States she will not lift her hand to squeeze my hand when I had asked her to. Medications: Reviewed: Yes Vitals/I&O/Wt Last Vital Signs Temp 98.0 F 05/06/21 12:00 Pulse 62 05/06/21 16:08 Resp 17 05/06/21 16:02 BP 183/95 05/06/21 16:00 Pulse Ox 94 05/06/21 16:02 05/06/21 05/06/21 05/06/21 06:59 14:59 22:59 Intake Total 1065 / 2266.667 155 / 155 Output Total 650 / 2200 Balance 415 / 66.667 155 / 155 Weight last 48 hrs Weight 126.552 kg Weight 124.284 kg Physical Exam Narrative: EXAM NARRATIVE: General: No acute distress, extubated, confused but awake, moving all limbs HEENT: PERRLA, pupils bilaterally equal and reactive Chest: Normal vesicular breath sounds, occasional rhonchi present all over lung dasilva, equal good air entry bilaterally CVS: S1-S2 regular, no murmurs, bradycardia, no gallops, no rubs Abdomen: Soft, nontender, no organomegaly, bowel sounds present Neuro: No facial deformity, moving all limbs Urinary Catheter Management^: Root: Cath Placed During This Visit: yes Reason for Continuing Indwelling Catheter: Accurate Measurement of Urinary Output in Critically Ill Patients Urinary Catheter Date of Insertion: 05/01/21 Urinary Catheter Time of Insertion: 22:42 Data : 05/06/21 04:35 05/06/21 04:35 A&P Assessment and plan (1) Respiratory failure: Status: Acute (2) Acute exacerbation of CHF (congestive heart failure): Status: Acute Qualifiers: Heart failure type: unspecified Qualified Code(s): I50.9 - Heart failure, unspecified (3) Pneumonia: Status: Acute (4) COPD (chronic obstructive pulmonary disease): Status: Acute Qualifiers: COPD type: unspecified COPD Qualified Code(s): J44.9 - Chronic obstructive pulmonary disease, unspecified (5) Encephalopathy acute: Status: Acute (6) Hypernatremia: Status: Acute (7) Acute kidney injury superimposed on CKD: Status: Acute (8) Liver dysfunction: Status: Acute (9) Bradycardia: Status: Acute (10) Type 2 diabetes mellitus without complication, without long-term current use of insulin: Status: Acute (11) Breast cancer metastasized to bone: Status: Acute Qualifiers: Laterality: unspecified laterality Qualified Code(s): C50.919 - Malignant neoplasm of unspecified site of unspecified female breast; C79.51 - Secondary malignant neoplasm of bone Additional A&P Information Respiratory failure: Most likely secondary to acute metabolic encephalopathy secondary to multiple factors including worsening of chronic hypercapnia due to pain medications, hypernatremia, possible bradycardia. Improving. Monitor ABG. Continue with oxygen supplementation keeping saturation over 88%. BiPAP as needed and nightly. DuoNebs every 6 hour, budesonide twice daily. For hypernatremia: 150 today. Continue with D5W at 75 cc/h. Monitor BMP and sodium every 12 hourly. Pulmonary emboli ruled out with CTA. COVID-19 PCR negative. Remove isolation precautions. Sputum culture, blood culture preliminary appreciated. MRSA negative, procalcitonin elevated. Urine Legionella, bacterial antigen negative. Continue Zosyn for now. Will most likely to 5-day course. Monitor input and output as patient is having good urine output since today morning. Shows an EF 55 to 60% with grade 1 diastolic dysfunction, mildly dilated RV with normal RA pressures with mild to moderate aortic stenosis mean gradient of 20.5 mmHg across the aortic valve with mild pulmonary hypertension with RVSP of 45 mmHg. Strict input output charting, daily weights. Patient overall 1 L negative since admission. Start patient on oral Lasix 40 mg daily. Root catheterization. Hypertension: Goal blood pressure less than 140/90 mmHg. Blood pressure elevated. Most likely because of pain withdrawal. Continue with pain medications. Start patient on amlodipine 10 mg daily. Will uptitrate medications accordingly. Holding off on home dose of enalapril for now. GABRIELA on CKD: Baseline creatinine for last 1 year seems to be 1.1-1.3. Creatinine back to baseline today. CT abdomen pelvis negative for obstructive nephropathy. We'll continue to monitor renal functions. No metabolic encephalopathy presently. Liver dysfunction: Improving. Most likely secondary to congestive heart failure. CT abdomen liver ultrasound results appreciated. Ammonia levels negative. Hepatitis panel appreciated. Bradycardia: Unknown cause. Could be secondary to severe sepsis versus sedation. Better now. Continue to monitor with telemetry. Prolonged QTC: As seen in the EKG done last night. Stop Zofran. Medical reconciliation done for QTC prolonging drugs. Type 2 diabetes mellitus: Check HbA1c, lipid panel. Insulin sliding scale at low-dose protocol. Goal blood sugar around 200. Elevated troponin: Most likely demand ischemia from severe sepsis. Delta negative. Repeat troponin. EKG negative for any signs of ischemia. CODE STATUS: Full code NPO. Once more awake will get physical therapy/speech therapy. Famotidine for PUD prophylaxis Case discussed with harbor department manager. Appreciate help. Patient can be safely moved out of ICU. Transfer to CSU. Attestations Medical Necessity Statement*: Requires further hospitalization for management of hypercapnia, respiratory failure, acute metabolic encephalopathy secondary to hypernatremia Time Spent in Patient Care: Greater than 35 minutes (>than 50% of time spent in counselling and/or direct pt care on unit). Coding Level of Care Code Acute Embroiderer Hand for Chg Fwd Diagnoses Respiratory failure J96.90 Acute exacerbation of CHF (congestive heart failure) I50.9 Heart failure type: unspecified Pneumonia J18.9 COPD (chronic obstructive pulmonary disease) J44.9 COPD type: unspecified COPD Encephalopathy acute G93.40 Hypernatremia E87.0 Acute kidney injury superimposed on CKD N17.9; N18.9 Liver dysfunction K76.89 Bradycardia R00.1 Type 2 diabetes mellitus without complication, without long-term current use of insulin E11.9 Breast cancer metastasized to bone C50.919; C79.51 Laterality: unspecified laterality
[2021-05-06 18:30] LABS: Anion Gap 10.7 (5-19); Blood Urea Nitrogen 19 mg/dL (8-23); Calcium 8.4 mg/dL (8.5-10.5); Carbon Dioxide 32 mmol/L (22-29); Chloride 107 mmol/L (98-107); Glomerular Filtration Rate 62.3 mL/min (90-130); Glucose 144 mg/dL (65-115); Osmolality Calculated 307 mOsm/kg (285-295); Potassium 3.7 mmol/L (3.5-5.1); Sodium 146 mmol/L (136-145)
--- NOTE | 2021-05-06 18:33 | PC.NURSE ---
Transfer Note Patient transferred to [room 106] from [icu] via [bed]. Handoff received from [jose]. Patient oriented to environment and equipment. Covering service notified. Orders reviewed and will continue to monitor. Family and/or uniforms sales representative notified.
[2021-05-06 18:49] LABS: Glucose Point of Care 150 mg/dL (70-110)
[2021-05-06 21:04] LABS: Glucose Point of Care 136 mg/dL (70-110)
[2021-05-06] MEDS: FUROsemide 40 mg Tablet PO (21:13)
[2021-05-06] MEDS: potassium chloride ER 20 mEq Tablet PO (21:15)
[2021-05-07] VITALS (19 sets, daily range): BP systolic 129–171; BP diastolic 55–86; PULSE 63–72; RESP 16–22; TEMP 36.8–37; O2SAT 94–100; BMI 49.4
[2021-05-07] MEDS: ipratropium-albuterol 3 mL Neb INHALATION ×4 (02:09→22:50)
[2021-05-07] MEDS: piperacillin-tazobactam 3.375 GM in sodium chloride 0.9% (plus) 50 ML IV ×4 (03:13→23:15)
[2021-05-07] MEDS: famotidine 20 mg/2 mL INJ IVP ×3 (03:13→23:13)
[2021-05-07 05:17] LABS: Anion Gap 10.6 (5-19); Blood Urea Nitrogen 19 mg/dL (8-23); Calcium 8.9 mg/dL (8.5-10.5); Carbon Dioxide 31 mmol/L (22-29); Chloride 108 mmol/L (98-107); Glomerular Filtration Rate 55.1 mL/min (90-130); Glucose 116 mg/dL (65-115); Osmolality Calculated 305 mOsm/kg (285-295); Potassium 3.6 mmol/L (3.5-5.1); Sodium 146 mmol/L (136-145)
[2021-05-07 06:58] LABS: Glucose Point of Care 115 mg/dL (70-110)
[2021-05-07 06:58] LABS: Glucose Point of Care 81 mg/dL (70-110)
[2021-05-07] MEDS: enoxaparin 40 mg/0.4 mL Syringe SUBCUT ×2 (08:08→20:30)
[2021-05-07] MEDS: FUROsemide 40 mg Tablet PO (09:21)
[2021-05-07] MEDS: amlodipine 5 mg Tablet PO (09:21)
[2021-05-07] MEDS: potassium chloride ER 20 mEq Tablet PO ×2 (09:21→18:00)
--- NOTE | 2021-05-07 10:47 | PC.SOCIAL ---
IMM UPDATE Gave IMM update to pt's daughter, Anna. She verbalized understanding. Provided copy of pg 2, left at bedside. Initialed, dated, timed and placed in chart.
[2021-05-07 11:53] LABS: Glucose Point of Care 122 mg/dL (70-110)
[2021-05-07 13:19] LABS: Basophils % 0.1 %; Eosinophils # 0.5 10^3/uL (0.0-0.8); Eosinophils % 3.2 %; Hematocrit 40.3 % (37.0-47.0); Hemoglobin 11.9 g/dL (11.5-15.3); Lymphocytes # 1.1 10^3/uL (0.8-4.8); Lymphocytes % 7.9 %; Mean Corpuscular HGB Conc 29.5 g/dL (30.0-36.0); Mean Corpuscular Hemoglobin 28.6 pg (28.0-34.0); Mean Corpuscular Volume 96.9 fL (81-99); Mean Platelet Volume 12.2 fL (7.4-10.4); Monocytes # 0.6 10^3/uL (0.2-0.9); Monocytes % 4.6 %; Neutrophils # 11.49 10^3/uL (1.8-7.7); Nucleated Red Blood Cells % 0 %; Platelet Count 141 10^3/cmm (130-400); Red Blood Count 4.16 10^6/uL (4.1-5.3); Red Cell Distribution Width 16.3 % (12.1-15.1); White Blood Count 13.9 10^3/uL (4.0-10.0)
[2021-05-07] MEDS: magnesium oxide 400 mg tablet 200 MG PO ×2 (15:13→21:18)
[2021-05-07] MEDS: dextrose 5% 1,000 ML 75 ML IV (16:10)
[2021-05-07 16:54] LABS: Glucose Point of Care 149 mg/dL (70-110)
[2021-05-07 17:19] LABS: Blood Urea Nitrogen 17 mg/dL (8-23); Calcium 8.8 mg/dL (8.5-10.5); Carbon Dioxide 29 mmol/L (22-29); Chloride 105 mmol/L (98-107); Glomerular Filtration Rate 62.3 mL/min (90-130); Glucose 132 mg/dL (65-115); Osmolality Calculated 303 mOsm/kg (285-295); Sodium 145 mmol/L (136-145)
--- NOTE | 2021-05-07 18:13 | PM.PN ---
Subjective Subjective: Interval history: Last 24 hours patient was transferred to C[facility]. Patient was on BiPAP over the night. Today morning she was seen after she had CHEST: Clear. Worked with physical and Occupational Therapy. She is currently on 3 L, feeling tired. Patient's diet was advanced as per swallow evaluation. Has remained hemodynamically stable and afebrile. Patient did have 2 large bowel movements today. A lot more awake today as compared to yesterday. Medications: Reviewed: Yes Vitals/I&O/Wt Last Vital Signs Temp 98.4 F 05/07/21 15:39 Pulse 64 05/07/21 15:39 Resp 16 05/07/21 15:39 BP 134/55 05/07/21 15:39 Pulse Ox 100 05/07/21 15:39 05/07/21 05/07/21 05/07/21 06:59 14:59 22:59 Intake Total 1050 / 1050 50 / 1100 Output Total 1400 / 1400 1400 / 1400 Balance -1400 / -195 1050 / 1050 -1350 / -300 Weight last 48 hrs Weight 126.552 kg Physical Exam Narrative: EXAM NARRATIVE: General: No acute distress, extubated, confused but awake, moving all limbs HEENT: PERRLA, pupils bilaterally equal and reactive Chest: Normal vesicular breath sounds, occasional rhonchi present all over lung dasilva, equal good air entry bilaterally CVS: S1-S2 regular, no murmurs, bradycardia, no gallops, no rubs Abdomen: Soft, nontender, no organomegaly, bowel sounds present Neuro: No facial deformity, moving all limbs Urinary Catheter Management^: Root: Cath Placed During This Visit: yes Reason for Continuing Indwelling Catheter: Other Urinary Catheter Date of Insertion: 05/01/21 Urinary Catheter Time of Insertion: 22:42 Data : 05/07/21 12:31 05/07/21 16:05 Micro: Microbiology 05/01/21 21:15 Blood Culture - Final Blood NO GROWTH AFTER 5 DAYS 05/01/21 21:30 Blood Culture - Final Blood NO GROWTH AFTER 5 DAYS A&P Assessment and plan (1) Respiratory failure: Status: Acute (2) Acute exacerbation of CHF (congestive heart failure): Status: Acute Qualifiers: Heart failure type: unspecified Qualified Code(s): I50.9 - Heart failure, unspecified (3) Pneumonia: Status: Acute (4) COPD (chronic obstructive pulmonary disease): Status: Acute Qualifiers: COPD type: unspecified COPD Qualified Code(s): J44.9 - Chronic obstructive pulmonary disease, unspecified (5) Encephalopathy acute: Status: Acute (6) Hypernatremia: Status: Acute (7) Acute kidney injury superimposed on CKD: Status: Acute (8) Liver dysfunction: Status: Acute (9) Bradycardia: Status: Acute (10) Type 2 diabetes mellitus without complication, without long-term current use of insulin: Status: Acute (11) Breast cancer metastasized to bone: Status: Acute Qualifiers: Laterality: unspecified laterality Qualified Code(s): C50.919 - Malignant neoplasm of unspecified site of unspecified female breast; C79.51 - Secondary malignant neoplasm of bone Additional A&P Information Respiratory failure: Most likely secondary to acute metabolic encephalopathy secondary to multiple factors including worsening of chronic hypercapnia due to pain medications, hypernatremia, possible bradycardia. Improving. Continue with oxygen supplementation keeping saturation over 88%. BiPAP as needed and nightly. DuoNebs every 6 hour, budesonide twice daily. For hypernatremia: Improving. Down to 146 today. Continue with D5W at 75 cc/h. Monitor BMP and sodium every 12 hourly. Pulmonary emboli ruled out with CTA. COVID-19 PCR negative. Remove isolation precautions. Sputum culture, blood culture preliminary negative. MRSA negative, procalcitonin elevated. Urine Legionella, bacterial antigen negative. Continue Zosyn for now. Day 4/5 today. Monitor input and output as patient is having good urine output since today morning. Shows an EF 55 to 60% with grade 1 diastolic dysfunction, mildly dilated RV with normal RA pressures with mild to moderate aortic stenosis mean gradient of 20.5 mmHg across the aortic valve with mild pulmonary hypertension with RVSP of 45 mmHg. Strict input output charting, daily weights. Patient overall 1 L negative since admission. Start patient on oral Lasix 40 mg daily. Root catheterization. Hypertension: Goal blood pressure less than 140/90 mmHg. Blood pressure elevated. Most likely because of pain withdrawal. Continue with pain medications. Start patient on amlodipine 5 mg daily. Will uptitrate medications accordingly. Holding off on home dose of enalapril for now. GABRIELA on CKD: Baseline creatinine for last 1 year seems to be 1.1-1.3. Creatinine back to baseline today. CT abdomen pelvis negative for obstructive nephropathy. We'll continue to monitor renal functions. No metabolic encephalopathy presently. Liver dysfunction: Improving. Most likely secondary to congestive heart failure. CT abdomen liver ultrasound results appreciated. Ammonia levels negative. Hepatitis panel appreciated. Bradycardia: Unknown cause. Most likely secondary to sedation. Continue with telemetry. Prolonged QTC: As seen in the EKG done last night. Stop Zofran. Medical reconciliation done for QTC prolonging drugs. Type 2 diabetes mellitus: Check HbA1c, lipid panel. Insulin sliding scale at moderate dose protocol. Goal blood sugar around 200. Elevated troponin: Most likely demand ischemia from severe sepsis. Delta negative. Repeat troponin. EKG negative for any signs of ischemia. CODE STATUS: Full code Soft mechanical diet as per swallow evaluation. Lovenox for DVT prophylaxis. Famotidine for PUD prophylaxis Discharge planning: Because of severe physical deconditioning SNF was offered to the patient for safe discharge planning. Patient is agreeable. Case management working on safe placement. Attestations Medical Necessity Statement*: Patient needs further hospitalization for management of altered mental status secondary to hypernatremia, severe physical deconditioning because of chronic medical issues including breast cancer, prolonged hospitalization while safe discharge planning is sought Time Spent in Patient Care: Greater than 35 minutes (>than 50% of time spent in counselling and/or direct pt care on unit). Coding Level of Care Code Acute Hook And Eye Machine Operator for g Fwd Diagnoses Respiratory failure J96.90 Acute exacerbation of CHF (congestive heart failure) I50.9 Heart failure type: unspecified Pneumonia J18.9 COPD (chronic obstructive pulmonary disease) J44.9 COPD type: unspecified COPD Encephalopathy acute G93.40 Hypernatremia E87.0 Acute kidney injury superimposed on CKD N17.9; N18.9 Liver dysfunction K76.89 Bradycardia R00.1 Type 2 diabetes mellitus without complication, without long-term current use of insulin E11.9 Breast cancer metastasized to bone C50.919; C79.51 Laterality: unspecified laterality
--- NOTE | 2021-05-07 18:29 | PC.NURSE ---
Shift Note Frequent safety and comfort rounds continue. Orders and/or nursing care completed as indicated. Patient monitored for response to intervention and treatment(s). Education provided includes treatment plan. Patient and/or patient care representative needs reinforcement due to confusion. Will continue to monitor.
[2021-05-07 20:39] LABS: Glucose Point of Care 154 mg/dL (70-110)
[2021-05-08] VITALS (14 sets, daily range): BP systolic 129–171; BP diastolic 65–90; PULSE 60–78; RESP 16–26; TEMP 36.4–37; O2SAT 88–96
[2021-05-08] MEDS: acetaminophen 325 mg Tablet 650 MG PO (01:27)
[2021-05-08] MEDS: ipratropium-albuterol 3 mL Neb INHALATION ×3 (04:12→14:15)
[2021-05-08 04:39] LABS: Basophils % 0.2 %; Eosinophils # 0.4 10^3/uL (0.0-0.8); Eosinophils % 3.7 %; Hematocrit 36.9 % (37.0-47.0); Hemoglobin 11.2 g/dL (11.5-15.3); Lymphocytes # 1.1 10^3/uL (0.8-4.8); Lymphocytes % 9.4 %; Mean Corpuscular HGB Conc 30.4 g/dL (30.0-36.0); Mean Corpuscular Hemoglobin 29.3 pg (28.0-34.0); Mean Corpuscular Volume 96.6 fL (81-99); Mean Platelet Volume 11.9 fL (7.4-10.4); Monocytes # 0.5 10^3/uL (0.2-0.9); Monocytes % 4.3 %; Neutrophils % 81.8 %; Nucleated Red Blood Cells % 0 %; Platelet Count 126 10^3/cmm (130-400); Red Blood Count 3.82 10^6/uL (4.1-5.3); Red Cell Distribution Width 16.2 % (12.1-15.1); White Blood Count 11.7 10^3/uL (4.0-10.0)
[2021-05-08 04:59] LABS: Estmated Average Glucose 143; Hemoglobin A1C 6.6 % (4.0-6.0)
[2021-05-08 05:04] LABS: Alanine Aminotransferase 308 U/L (0-33); Albumin Level 3.1 g/dL (3.5-5.2); Alkaline Phosphatase 72 IU/L (35-105); Anion Gap 10.3 (5-19); Aspartate Amino Transferase 112 U/L (0-32); Blood Urea Nitrogen 16 mg/dL (8-23); Calcium 8.9 mg/dL (8.5-10.5); Carbon Dioxide 30 mmol/L (22-29); Chloride 106 mmol/L (98-107); Globulin 2.7 g/dL (1.3-4.6); Glomerular Filtration Rate 55.1 mL/min (90-130); Glucose 121 mg/dL (65-115); Magnesium 1.7 mg/dL (1.7-2.3); Osmolality Calculated 298 mOsm/kg (285-295); Potassium 3.3 mmol/L (3.5-5.1); Sodium 143 mmol/L (136-145); Total Bilirubin 1.5 mg/dL (0.15-1.2); Total Protein 5.8 g/dL (6.6-8.7)
[2021-05-08] MEDS: dextrose 5% 1,000 ML 75 ML IV (05:26)
--- NOTE | 2021-05-08 06:44 | PC.NURSE ---
Shift Note Frequent safety and comfort rounds continue. Orders and/or nursing care completed as indicated. Patient monitored for response to intervention and treatment(s). Education provided includes treatment plan. Patient and/or in store marketing representative needs reinforcement due to confusion. Will continue to monitor.
[2021-05-08 07:21] LABS: Glucose Point of Care 112 mg/dL (70-110)
[2021-05-08] MEDS: FUROsemide 40 mg Tablet PO (08:22)
[2021-05-08] MEDS: amlodipine 5 mg Tablet PO ×2 (08:22→11:57)
[2021-05-08] MEDS: potassium chloride ER 20 mEq Tablet PO (08:22)
[2021-05-08] MEDS: enoxaparin 40 mg/0.4 mL Syringe SUBCUT (08:24)
[2021-05-08] MEDS: piperacillin-tazobactam 3.375 GM in sodium chloride 0.9% (plus) 50 ML IV (08:25)
--- NOTE | 2021-05-08 10:33 | PC.CHAP ---
Pastoral Care Encounter/Spiritual Assessment Type of Contact [] Declined jukebox operator visit [] Patient/Family/Request visit [] Outpatient visit [xx] Follow-up visit [] Physician referral [] Code/Alert [] Routine visit [] Staff referral [] Actively dying [] Patient sleeping [] Family support [] [] Out of room [] Palliative care [] [xx] Receiving care in room [] Pre-surgical visit [] Trauma [xx] Long length of stay [] ICU visit [] Other: Relational/Emotional Strength [] Patient feels connected with others/family/visitors/staff [] Distress [] Loneliness/isolation [] Abandonment Spirituality of Patient [] Person of Jeanie [] Attends Bahai of their Jeanie [] Believes in Prayer [] Reads Bible or Presybeterian materials [] There are Spiritual issues to be addressed Signal Fitter Interventions [] Prayer [] Active listening [] Non-anxious presence [] Spiritual/emotional support [] Crisis/trauma care [] Spiritual counseling [] Bereavement support [] Provided bereavement packet [] Provided Bible/devotional materials [] Provided toy/stuffed animal, coloring book to patient or family member [] Provided Communion [] Anointing/[place] [] Salvation [] Completed spiritual assessment [] Other: Impact on Illness or Injury [] Angry [] Fearful [] Anxious [] Often cries [] Exhaustion [] Unable to work [] Unable to attend jew [] Unable to walk/stand [] Unable to read [] Unable to drive [] Unable to eat/drink [] Unable to sleep [] Unable to be with family [] Patient intubated [] Other: Summary Time spent with patient
[2021-05-08 11:30] LABS: Glucose Point of Care 123 mg/dL (70-110)
[2021-05-08] MEDS: famotidine 20 mg/2 mL INJ IVP (11:57)
[2021-05-08] MEDS: lisinopril 10 mg Tablet PO (11:57)
--- NOTE | 2021-05-08 12:42 | PM.DCS ---
Discharge Providers Date of Admission: 05/02/21 11:22 Date of Discharge: May 08, 2021 Attending Provider at Admission: Reji Thomas MD Attending Provider at Discharge: Reji Thomas MD Consults: Cable Rigger: Dr. Hilton Primary Care Provider: Ralf Castillo DO Diagnoses at Discharge Discharge Diagnosis (1) Respiratory failure: Status: Acute (2) Acute exacerbation of CHF (congestive heart failure): Status: Acute Qualifiers: Heart failure type: unspecified Qualified Code(s): I50.9 - Heart failure, unspecified (3) Pneumonia: Status: Acute (4) COPD (chronic obstructive pulmonary disease): Status: Acute Qualifiers: COPD type: unspecified COPD Qualified Code(s): J44.9 - Chronic obstructive pulmonary disease, unspecified (5) Encephalopathy acute: Status: Acute (6) Hypernatremia: Status: Acute (7) Acute kidney injury superimposed on CKD: Status: Acute (8) Liver dysfunction: Status: Acute (9) Bradycardia: Status: Acute (10) Type 2 diabetes mellitus without complication, without long-term current use of insulin: Status: Acute (11) Breast cancer metastasized to bone: Status: Acute Permanent problem details: 2014 with treatment and no activity at this time per PET scan Qualifiers: Laterality: unspecified laterality Qualified Code(s): C50.919 - Malignant neoplasm of unspecified site of unspecified female breast; C79.51 - Secondary malignant neoplasm of bone Reason for Visit Reason for Visit: RESP. DISTRESS Hospital Course Hospital Course Most of the history taken through chart review and through conversation from ER physician. Samia Sarmiento is a 70 year old female with history of morbid obesity, obstructive sleep apnea not compliant with Lasix or CPAP, diastolic congestive heart failure, chronic hypoventilation/hypercarbia, metastatic right breast cancer with extensive axial skeletal involvement (including T9, 10 and L1, S1, right ala, right proximal femoral metaphysis and left posterior iliac crest) history of radiotherapy, with recent PET CT 05/03/20 being negative for any disease activity, currently being maintained on exemestane 25 mg. Patient was brought to the ER on May 01 with complaint of altered mental status via EMS. Prior to that patient was in the ER on April 28 and was found to have mild CHF. Yesterday she was found to be hypoxic with oxygen saturation in high 50s at home when she was placed on CPAP by EMS and as patient was not able to tolerate CPAP well she was intubated in the ER. Patient has been holding in ER since last night and attempts were made to be transferred to patient ICU due to nonavailability of ICU bed at [facility]. While patient was awaiting acceptance at outpatient hospital ICU bed was made available hence hospitalist service was requested for admission and further work-up. On examination currently patient is on ventilator setting of rate 14, tidal volume 500, 50% FiO2 with PEEP of 8. Patient has remained afebrile since presentation, blood pressure has been ranging from 110 systolic to 152 systolic with lowest of 87 systolic once. Patient has had a urine output of 3.5 L and has normal saline running at 125 cc/h. No blood work has been done today morning while blood work since last night shows a white count of 14,000, hemoglobin of 11.7, platelet count of 165 with a left shift, morning ABG showing a pH of 7.49, PCO2 of 51.8, PO2 of 72.8, chemistry from last night showing a sodium of 150, potassium of 3.9, carbon dioxide of 34 BUN of 26, creatinine of 1.6, lactic acid of 4.1, total bilirubin of 2.9, AST/ALT of 2390/1283, alkaline phosphatase of 105, baseline troponin of 543 with delta of -16 and 6 hours, CRP of 119, proBNP of 28,000, procalcitonin 0.5 with a UA negative for nitrite negative for leukoesterase with 3+ blood with urine drug screen negative and alcohol negative, rapid Covid antigen negative PCR is pending with imaging as below. Patient went to the hospital for further management and evaluation for altered mental status, hypercapnic respiratory failure leading to mechanical ventilation. COVID-19 PCR came back negative. For altered mental status it is believed most likely secondary to hypernatremia, multiple pain medications in setting of acute kidney injury. On admission patient was started on broad-spectrum antibiotics which were later deescalated to Zosyn for possible pneumonia. She was found to be in acute liver dysfunction with AST and ALT in the thousands which is believed secondary to congestive hepatomegaly versus possible hypotension as an outpatient because of severe dehydration. CT abdomen pelvis and liver ultrasound were done and reported as below. Her liver functions improved gradually with diuresis at first and then IV fluid resuscitation for hypernatremia. On admission patient was found to have elevated troponins which I believe most likely secondary to demand ischemia. Her hospital stay was complicated by her developing bradycardia on sedation with heart rate going down to 30s. She was also found to have prolonged QTC for which her magnesium and calcium were repleted. Her heart rate improved and has remained stable once sedation was turned off and she was extubated. Patient responded well to the treatment and was eventually extubated to BiPAP on May 04. Patient's hypernatremia also improved with free water correction. As her hyponatremia improved patient's mentation also improved and she is currently on 2 L nasal cannula saturating more than 95% with need of BiPAP at night. Patient was found to be in severe physical deconditioning for which PT/OT/swallow evaluation was done. Diet was advanced accordingly and patient is to continue taking mechanical soft diet until she can tolerate more. Patient has been working well and improving in her strength with PT and OT. For further rehabitation patient is been discharged to SNF. She is to continue taking Augmentin and Levaquin for two more days to finish a course of antibiotics for pneumonia. She has to repeat BMP in next 1 week. She should have an outpatient work-up to rule out CAD with Lexiscan stress test. Physical Exam Narrative: EXAM NARRATIVE: General: No acute distress, AO x3, well hydrated, sluggish to respond but better HEENT: PERRLA, pupils bilaterally equal and reactive Chest: Normal vesicular breath sounds, occasional rhonchi present all over lung dasilva, equal good air entry bilaterally CVS: S1-S2 regular, no murmurs, bradycardia, no gallops, no rubs Abdomen: Soft, nontender, no organomegaly, bowel sounds present Neuro: No facial deformity, moving all limbs Urinary Catheter Management^: Root: Cath Placed During This Visit: yes Reason for Continuing Indwelling Catheter: Accurate Measurement of Urinary Output in Critically Ill Patients Urinary Catheter Date of Insertion: 05/01/21 Urinary Catheter Time of Insertion: 22:42 Discharge Data Data Completed and Pending: Completed Studies During Hospitalization Category Date Time Status CT angio chest w abd pel w con Urge nt Cat Scan 05/01/21 21:[address] head wo con* 7 [id number] Urgent Cat Scan 05/01/21 21:56 Completed XR chest 1V adam ble [id number] Stat Exams 05/01/21 21:29 [place] [id number] Routin e Ultrasound 05/03/21 08:26 Completed CV. echo complete * [id number] Urgent Ultrasound 05/02/21 11:36 [place] liver [id number] Ro utine Ultrasound 05/03/21 06:00 Completed Pending at discharge Category Date Time Status C DIFF [Clostridi oides Difficile PC R] Routine Lab 05/07/21 14:57 Received Enteric Bacterial Panel by PCR Rout ine Lab 05/07/21 14:57 Received Enteric Parasite Panel by PCR Routi ne Lab 05/07/21 14:57 Received Helicobacter Pylo ri AG Stool Urgent Lab 05/07/21 14:57 Received Rota Virus AG Sto ol Routine Lab 05/07/21 14:57 Received SARS Covid-2 Anti gen Routine Lab 05/08/21 12:02 Received Labs from last 24 hours 05/08/21 05/08/21 05/08/21 12:02 10:59 06:32 WBC RBC Hgb Hct MCV MCH MCHC RDW Plt Count MPV Neut % (Auto) Lymph % (Auto) Gilchrist % (Auto) Eos % (Auto) Baso % (Auto) Neut # (Auto) Lymph # (Auto) Gilchrist # (Auto) Eos # (Auto) Baso # (Auto) Nucleated RBC % (a uto) Nucleated RBCs # Specimen Type Sample Site O2 Sat Pulse Oxime try ABG pH ABG pCO2 ABG pO2 ABG HCO3 ABG O2 Saturation ABG Base Excess Shoaib Test A-a O2 Gradient Hematocrit Hgb O2 Saturation Carboxyhemoglobin Methemoglobin Total Hemoglobin Sodium Potassium Glucose Ionized Calcium Respiration Rate O2 Delivery Device O2 Liters/Min SIMV Vent Mode Mechanical Rate Spontaneous Rate FiO2 Tidal Volume PEEP Pressure Support Pressure Control CPAP Mode BiPAP Specimen Drawn By Raw Stock Dyeing Machine Tender ID Crit Value Read Ba ck Blood Gas Notified Time Chloride Carbon Dioxide Anion Gap BUN Creatinine GFR Calculation POC Glucose 123 H 112 H Estimat Average Gl ucose Hemoglobin A1c Calculated Osmolal ity Calcium Magnesium Total Bilirubin AST ALT Alkaline Phosphata se Total Protein Albumin Globulin Rotavirus Antigen Stool H. pylori Ag SARS-CoV-2 Ag (Rap id) Pending 05/08/21 05/08/21 05/08/21 04:13 04:13 04:13 WBC 11.7 H RBC 3.82 L Hgb 11.2 L Hct 36.9 L MCV 96.6 MCH 29.3 MCHC 30.4 RDW 16.2 H Plt Count 126 L MPV 11.9 H Neut % (Auto) 81.8 Lymph % (Auto) 9.4 Gilchrist % (Auto) 4.3 Eos % (Auto) 3.7 Baso % (Auto) 0.2 Neut # (Auto) 9.60 H Lymph # (Auto) 1.1 Gilchrist # (Auto) 0.5 Eos # (Auto) 0.4 Baso # (Auto) 0.0 Nucleated RBC % (a uto) 0 Nucleated RBCs # 0.0 Specimen Type Sample Site O2 Sat Pulse Oxime try ABG pH ABG pCO2 ABG pO2 ABG HCO3 ABG O2 Saturation ABG Base Excess Shoaib Test A-a O2 Gradient Hematocrit Hgb O2 Saturation Carboxyhemoglobin Methemoglobin Total Hemoglobin Sodium 143 Potassium 3.3 L Glucose 121 H Ionized Calcium Respiration Rate O2 Delivery Device O2 Liters/Min SIMV Vent Mode Mechanical Rate Spontaneous Rate FiO2 Tidal Volume PEEP Pressure Support Pressure Control CPAP Mode BiPAP Specimen Drawn By Raw Stock Dyeing Machine Tender ID Crit Value Read Ba ck Blood Gas Notified Time Chloride 106 Carbon Dioxide 30 H Anion Gap 10.3 BUN 16 Creatinine 1.0 H GFR Calculation 55.1 L POC Glucose Estimat Average Gl ucose 143 Hemoglobin A1c 6.6 H Calculated Osmolal ity 298 H Calcium 8.9 Magnesium 1.7 Total Bilirubin 1.5 H AST 112 H ALT 308 H Alkaline Phosphata se 72 Total Protein 5.8 L Albumin 3.1 L Globulin 2.7 Rotavirus Antigen Stool H. pylori Ag SARS-CoV-2 Ag (Rap id) 05/07/21 05/07/21 05/07/21 20:12 16:40 16:05 WBC RBC Hgb Hct MCV MCH MCHC RDW Plt Count MPV Neut % (Auto) Lymph % (Auto) Gilchrist % (Auto) Eos % (Auto) Baso % (Auto) Neut # (Auto) Lymph # (Auto) Gilchrist # (Auto) Eos # (Auto) Baso # (Auto) Nucleated RBC % (a uto) Nucleated RBCs # Specimen Type Sample Site O2 Sat Pulse Oxime try ABG pH ABG pCO2 ABG pO2 ABG HCO3 ABG O2 Saturation ABG Base Excess Shoaib Test A-a O2 Gradient Hematocrit Hgb O2 Saturation Carboxyhemoglobin Methemoglobin Total Hemoglobin Sodium 145 Potassium 4.0 Glucose 132 H Ionized Calcium Respiration Rate O2 Delivery Device O2 Liters/Min SIMV Vent Mode Mechanical Rate Spontaneous Rate FiO2 Tidal Volume PEEP Pressure Support Pressure Control CPAP Mode BiPAP Specimen Drawn By Raw Stock Dyeing Machine Tender ID Crit Value Read Ba ck Blood Gas Notified Time Chloride 105 Carbon Dioxide 29 Anion Gap 15.0 BUN 17 Creatinine 0.9 GFR Calculation 62.3 L POC Glucose 154 H 149 H Estimat Average Gl ucose Hemoglobin A1c Calculated Osmolal ity 303 H Calcium 8.8 Magnesium Total Bilirubin AST ALT Alkaline Phosphata se Total Protein Albumin Globulin Rotavirus Antigen Stool H. pylori Ag SARS-CoV-2 Ag (Rap id) 05/07/21 05/07/21 05/07/21 14:57 14:57 12:31 WBC 13.9 H RBC 4.16 Hgb 11.9 Hct 40.3 MCV 96.9 MCH 28.6 MCHC 29.5 L RDW 16.3 H Plt Count 141 MPV 12.2 H Neut % (Auto) 83.0 Lymph % (Auto) 7.9 Gilchrist % (Auto) 4.6 Eos % (Auto) 3.2 Baso % (Auto) 0.1 Neut # (Auto) 11.49 H Lymph # (Auto) 1.1 Gilchrist # (Auto) 0.6 Eos # (Auto) 0.5 Baso # (Auto) 0.0 Nucleated RBC % (a uto) 0 Nucleated RBCs # 0.0 Specimen Type Sample Site O2 Sat Pulse Oxime try ABG pH ABG pCO2 ABG pO2 ABG HCO3 ABG O2 Saturation ABG Base Excess Shoaib Test A-a O2 Gradient Hematocrit Hgb O2 Saturation Carboxyhemoglobin Methemoglobin Total Hemoglobin Sodium Potassium Glucose Ionized Calcium Respiration Rate O2 Delivery Device O2 Liters/Min SIMV Vent Mode Mechanical Rate Spontaneous Rate FiO2 Tidal Volume PEEP Pressure Support Pressure Control CPAP Mode BiPAP Specimen Drawn By Raw Stock Dyeing Machine Tender ID Crit Value Read Ba ck Blood Gas Notified Time Chloride Carbon Dioxide Anion Gap BUN Creatinine GFR Calculation POC Glucose Estimat Average Gl ucose Hemoglobin A1c Calculated Osmolal ity Calcium Magnesium Total Bilirubin AST ALT Alkaline Phosphata se Total Protein Albumin Globulin Rotavirus Antigen Pending Stool H. pylori Ag Pending SARS-CoV-2 Ag (Rap id) 05/02/21 00:25 WBC RBC Hgb Hct MCV MCH MCHC RDW Plt Count MPV Neut % (Auto) Lymph % (Auto) Gilchrist % (Auto) Eos % (Auto) Baso % (Auto) Neut # (Auto) Lymph # (Auto) Gilchrist # (Auto) Eos # (Auto) Baso # (Auto) Nucleated RBC % (a uto) Nucleated RBCs # Specimen Type Cancelled Sample Site Cancelled O2 Sat Pulse Oxime try Cancelled ABG pH Cancelled ABG pCO2 Cancelled ABG pO2 Cancelled ABG HCO3 Cancelled ABG O2 Saturation Cancelled ABG Base Excess Cancelled Shoaib Test Cancelled A-a O2 Gradient Cancelled Hematocrit Cancelled Hgb O2 Saturation Cancelled Carboxyhemoglobin Cancelled Methemoglobin Cancelled Total Hemoglobin Cancelled Sodium Cancelled Potassium Cancelled Glucose Cancelled Ionized Calcium Cancelled Respiration Rate Cancelled O2 Delivery Device Cancelled O2 Liters/Min Cancelled SIMV Cancelled Vent Mode Cancelled Mechanical Rate Cancelled Spontaneous Rate Cancelled FiO2 Cancelled Tidal Volume Cancelled PEEP Cancelled Pressure Support Cancelled Pressure Control Cancelled CPAP Cancelled Mode BiPAP Cancelled Specimen Drawn By Cancelled Raw Stock Dyeing Machine Tender ID Cancelled Crit Value Read Ba ck Cancelled Blood Gas Notified Time Cancelled Chloride Carbon Dioxide Anion Gap BUN Creatinine GFR Calculation POC Glucose Estimat Average Gl ucose Hemoglobin A1c Calculated Osmolal ity Calcium Magnesium Total Bilirubin AST ALT Alkaline Phosphata se Total Protein Albumin Globulin Rotavirus Antigen Stool H. pylori Ag SARS-CoV-2 Ag (Rap id) Addt'l Data from Hospital Stay: Laboratory Results WBC 11.7 10^3/uL (4.0 -10.0) H 05/08/21 04:13 RBC 3.82 10^6/uL (4.1 -5.3) L 05/08/21 04:13 Hgb 11.2 g/dL (11.5-1 5.3) L 05/08/21 04:13 Hct 36.9 % (37.0-47.0 ) L 05/08/21 04:13 MCV 96.6 fL (81-99) 05/08/21 04:13 MCH 29.3 pg (28.0-34. 0) 05/08/21 04:13 MCHC 30.4 g/dL (30.0-3 6.0) 05/08/21 04:13 RDW 16.2 % (12.1-15.1 ) H 05/08/21 04:13 Plt Count 126 10^3/cmm (130 -400) L 05/08/21 04:13 MPV 11.9 fL (7.4-10.4 ) H 05/08/21 04:13 Neut % (Auto) 81.8 % 05/08/21 04:13 Lymph % (Auto) 9.4 % 05/08/21 04:13 Gilchrist % (Auto) 4.3 % 05/08/21 04:13 Eos % (Auto) 3.7 % 05/08/21 04:13 Baso % (Auto) 0.2 % 05/08/21 04:13 Neut # (Auto) 9.60 10^3/uL (1.8 -7.7) H 05/08/21 04:13 Lymph # (Auto) 1.1 10^3/uL (0.8- 4.8) 05/08/21 04:13 Gilchrist # (Auto) 0.5 10^3/uL (0.2- 0.9) 05/08/21 04:13 Eos # (Auto) 0.4 10^3/uL (0.0- 0.8) 05/08/21 04:13 Baso # (Auto) 0.0 10^3/uL (0.0- 0.1) 05/08/21 04:13 Nucleated RBC % (a uto) 0 % 05/08/21 04:13 Nucleated RBCs # 0.0 /100WBC 05/08/21 04:13 PT 18.40 SECONDS (12 .1-14.9) H 05/03/21 04:02 INR 1.49 (0.8-1.2) H 05/03/21 04:02 APTT 73.5 SECONDS (23. 9-36.7) H 05/03/21 15:37 D-Dimer 11.00 ug/mIFEU (0 -0.59) H 05/03/21 09:20 Specimen Type Arterial 05/05/21 14:54 Sample Site Radial, right 05/05/21 14:54 O2 Sat Pulse Oxime try Cancelled 05/02/21 00:25 ABG pH 7.54 (7.35-7.45) H 05/05/21 14:54 ABG pCO2 45.1 mmHg (35-45) H 05/05/21 14:54 ABG pO2 81.5 mmHg (80.0-1 00.0) 05/05/21 14:54 ABG HCO3 38.7 mmol/L (22-2 6) H 05/05/21 14:54 ABG O2 Saturation 95.4 05/05/21 14:54 ABG Base Excess 14.4 mmol/L (-2.0 -2.0) H 05/05/21 14:54 Shoaib Test Pos 05/05/21 14:54 A-a O2 Gradient 8.1 mmHg (5-10) 05/05/21 14:54 Hematocrit 39.5 % (37-47) 05/05/21 14:54 Hgb O2 Saturation 93.1 % (95-100) L 05/05/21 14:54 Carboxyhemoglobin 1.7 %THgb (0.4-20 .1) 05/05/21 14:54 Methemoglobin 0.7 % (0.4-1.5) 05/05/21 14:54 Total Hemoglobin 12.9 g/dL (12-16) 05/05/21 14:54 Sodium 153.0 mmol/L (131 -143) H 05/05/21 14:54 Potassium 2.9 mmol/L (3.5-5 .0) L 05/05/21 14:54 Glucose 143.0 mg/dL (70-1 15) H 05/05/21 14:54 Ionized Calcium 1.2 mmol/L (1.1-1 .4) 05/05/21 14:54 Respiration Rate Cancelled 05/02/21 00:25 O2 Delivery Device Nc 05/05/21 14:54 O2 Liters/Min 2.0 % 05/05/21 14:54 SIMV Cancelled 05/02/21 00:25 Vent Mode Cancelled 05/02/21 00:25 Mechanical Rate 14.0 05/02/21 02:55 Spontaneous Rate Cancelled 05/02/21 00:25 FiO2 28.0 % 05/05/21 14:54 Tidal Volume 0.50 05/03/21 05:45 PEEP 8.0 cmH20 05/03/21 05:45 Pressure Support Cancelled 05/02/21 00:25 Pressure Control Cancelled 05/02/21 00:25 CPAP Cancelled 05/02/21 00:25 Mode BiPAP Cancelled 05/02/21 00:25 Specimen Drawn By Cancelled 05/02/21 00:25 Raw Stock Dyeing Machine Tender PATRICK Nickerson 05/05/21 14:54 Crit Value Read Ba ck Cancelled 05/02/21 00:25 Blood Gas Notified Time Cancelled 05/02/21 00:25 Sodium 143 mmol/L (136-1 45) 05/08/21 04:13 Potassium 3.3 mmol/L (3.5-5 .1) L 05/08/21 04:13 Chloride 106 mmol/L (98-10 7) 05/08/21 04:13 Carbon Dioxide 30 mmol/L (22-29) H 05/08/21 04:13 Anion Gap 10.3 (5-19) 05/08/21 04:13 BUN 16 mg/dL (8-23) 05/08/21 04:13 Creatinine 1.0 mg/dL (0.5-0. 9) H 05/08/21 04:13 GFR Calculation 55.1 mL/min (90-1 30) L 05/08/21 04:13 Glucose 121 mg/dL (65-115 ) H 05/08/21 04:13 POC Glucose 123 mg/dL (70-110 ) H 05/08/21 10:59 Estimat Average Gl ucose 143 05/08/21 04:13 Hemoglobin A1c 6.6 % (4.0-6.0) H 05/08/21 04:13 Calculated Osmolal ity 298 mOsm/kg (285- 295) H 05/08/21 04:13 Lactic Acid 1.7 mmol/L (0.5-2 .2) 05/02/21 20:56 Lactate 3.2 mmol/L (0.5-2 .2) H 05/01/21 23:44 Calcium 8.9 mg/dL (8.5-10 .5) 05/08/21 04:13 Phosphorus 2.3 mg/dL (2.5-4. 5) L 05/06/21 04:35 Magnesium 1.7 mg/dL (1.7-2. 3) 05/08/21 04:13 Iron 193 ug/dL (37-145 ) H 05/02/21 11:26 TIBC 209.09559 mcg/dl 05/02/21 11:26 % Saturation 91.0 % (20-50) H 05/02/21 11:26 Unsat Iron Binding < 17 ug/dL (112-3 47) L 05/02/21 11:26 Total Bilirubin 1.5 mg/dL (0.15-1 .2) H 05/08/21 04:13 Direct Bilirubin 0.70 mg/dL (0.00- 0.30) H 05/03/21 09:20 Indirect Bilirubin 0.50 05/03/21 09:20 GGT 58 U/L (5-36) H 05/02/21 20:56 AST 112 U/L (0-32) H 05/08/21 04:13 ALT 308 U/L (0-33) H 05/08/21 04:13 Alkaline Phosphata se 72 IU/L (35-105) 05/08/21 04:13 Ammonia 21 umol/L (11-51) 05/04/21 15:23 Lactate Dehydrogen ase 1675 U/L (135-214 ) H 05/02/21 20:56 Creatine Kinase 285 U/L (26-192) H 05/01/21 23:44 Troponin T Gen 5 n g/L 439 ng/L (0-10) H* 05/02/21 20:56 Troponin T Baselin e 543 ng/L (0-10) H* 05/01/21 21:30 Troponin T 120 Min [place] 548.5 ng/L (0-10) H 05/01/21 23:44 Delta Troponin T 5.5 ABS# (0-10) 05/01/21 23:44 Troponin T Hi Sens 6Hr 526.6 ng/L (0-10) H 05/02/21 03:26 Troponin T Hi Sens 6Hr Delta -16.4 ng/L (0-12) L 05/02/21 03:26 C-Reactive Protein 119.9 mg/L (0.0-4 .9) H 05/01/21 21:30 NT-Pro-B Natriuret Pep 42271 pg/mL (0-12 5) H 05/02/21 11:26 Total Protein 5.8 g/dL (6.6-8.7 ) L 05/08/21 04:13 Albumin 3.1 g/dL (3.5-5.2 ) L 05/08/21 04:13 Globulin 2.7 g/dL (1.3-4.6 ) 05/08/21 04:13 Lipase 41 U/L (13-60) 05/05/21 12:15 Procalcitonin 0.30 ng/mL (0-0.5 ) 05/06/21 04:35 TSH 1.05 uIU/mL (0.27 -4.20) 05/02/21 11:26 Urine Color Yellow (Yellow) 05/01/21 22:44 Urine Appearance Clear (CLEAR) 05/01/21 22:44 Urine pH 5 (5-7) 05/01/21 22:44 Ur Specific Gravit y 1.015 (1.005-1.0 30) 05/01/21 22:44 Urine Protein 3+ (Negative) H 05/01/21 22:44 Urine Glucose (UA) Norm (Normal) 05/01/21 22:44 Urine Ketones Negative (Negati ve) 05/01/21 22:44 Urine Blood 3+ (Negative) H 05/01/21 22:44 Urine Nitrate Negative (Negati ve) 05/01/21 22:44 Urine Bilirubin 1+ (Negative) H 05/01/21 22:44 Urine Urobilinogen 1 mg/dL (Negative ) H 05/01/21 22:44 Ur Leukocyte Quiana ase Negative (Negati ve) 05/01/21 22:44 Urine RBC 5-10 /hpf (0-2) H 05/01/21 22:44 Urine WBC 0-4 /hpf (0-5) H 05/01/21 22:44 Ur Squamous Epith Cells 0-4 /hpf (0-5) H 05/01/21 22:44 Amorphous Sediment 1+ /hpf 05/01/21 22:44 Urine Bacteria 2+ /hpf (NONE) H 05/01/21 22:44 Hyaline Casts 15-25 /lpf H 05/01/21 22:44 Ur Random Sodium 46 mmol/L 05/02/21 19:05 Ur Random Potassiu m 46 mmol/L 05/02/21 19:05 Ur Random Chloride 24 mmol/L 05/02/21 19:05 Salicylates < 0.3 mg/dL (3-10 ) L 05/01/21 21:30 Urine Opiates Scre en Positive ng/mL (N egative) H 05/01/21 22:44 Acetaminophen < 5.0 ug/mL (10-3 0) L 05/01/21 21:30 Ur Barbiturates Sc reen Negative ng/mL (N egative) 05/01/21 22:44 Ur Phencyclidine S crn Negative ng/mL (N egative) 05/01/21 22:44 Ur Amphetamines Sc reen Negative ng/mL (N egative) 05/01/21 22:44 U Benzodiazepines Scrn Negative ng/mL (N egative) 05/01/21 22:44 Urine Cocaine Scre en Negative ng/mL (N egative) 05/01/21 22:44 U Marijuana (THC) Screen Negative ng/mL (N egative) 05/01/21 22:44 Ethyl Alcohol < 10 mg/dL (0-10) 05/01/21 21:30 Nasal/Oral COVID-1 9 PCR Cancelled 05/02/21 11:38 Hepatitis A IgM Ab Non-reactive (No nreactive) 05/02/21 20:56 Hep Bs Antigen Non-reactive (No nreactive) 05/02/21 20:56 Hep Bs Antibody 3.5 (11.5-1000) L 05/02/21 20:56 Hep B Core Total A b Non-reactive (No nreactive) 05/02/21 20:56 Hepatitis C Antibo dy Non-reactive (No nreactive) 05/02/21 20:56 SARS-CoV-2 RNA (RT -PCR) Not detected (NO T DETECTED) 05/02/21 13:23 SARS-CoV-2 Ag (Rap id) Negative (Negati ve) 05/01/21 21:30 Impressions Chest X-Ray 05/01/21 21:29 IMPRESSION: Nonspecific imaging findings, which can be seen with pulmonary edema or pneumonia. Clinical correlation is recommended. Chest/Abdomen/Pelvis CT 05/01/21 21:56 IMPRESSION: 1. Fatty infiltration of the liver 2. Diverticulosis of the descending and sigmoid colon 3. Umbilical hernia containing fat 4. Normal appendix 5. Diffuse bony metastatic disease Radiation Dose CTDIVOL = (mGy): DLP = 2120.24~2120.24 (mGy-cm) Head CT 05/01/21 21:56 IMPRESSION: 1. Diffuse bony metastatic disease. 2. There are no acute intracranial findings. Radiation Dose CTDIVOL = (mGy): DLP = 1958.83 (mGy-cm) Liver Ultrasound 05/03/21 06:00 IMPRESSION: 1. Prior cholecystectomy. 2. Mild to moderate biliary tree dilation, see above discussion. 3. No focal hepatic mass visible by ultrasound at this time. 4. Small amount of peritoneal fluid in the right upper quadrant, details above. 5. Other findings discussed above. Venous Duplex 05/03/21 08:26 IMPRESSION: No evidence for deep venous thrombosis. Microbiology 05/07/21 14:57 Stool Routine Collection Occult Blood (FIT) - Final 05/07/21 14:57 Stool Stool Lactoferrin - Final 05/01/21 21:15 Blood Blood Culture - Final NO GROWTH AFTER 5 DAYS 05/01/21 21:30 Blood Blood Culture - Final NO GROWTH AFTER 5 DAYS 05/03/21 16:46 Nose MRSA Culture - Final 05/02/21 11:44 Sputum - Endotracheal Tube Aspirate Gram Stain - Final 05/02/21 11:44 Sputum - Endotracheal Tube Aspirate Sputum Culture - Final 05/01/21 22:44 Urine,Clean Catch Urine Culture - Final 05/01/21 22:44 Urine Catheterized Legionella Urinary Antigen - Final 05/01/21 22:44 Urine Kidney Bacterial Antigens - Final Echocardiogram: CONCLUSIONS LV systolic function is normal with EF of 55-60% Grade 1 diastolic dysfunction RA pressure is elevated Mild mitral regurgitation Mild to moderate aortic stenosis Mild to moderate tricuspid regurgitation Mild pulmonary hypertension RV is dilated Elevated RA pressure Compared to prior echocardiogram from 03/15/2019, patient now has grade 1 diastolic dysfunction and patient has mild to moderate aortic stenosis. Vitals: Last Vital Signs Temp 98.5 F 05/08/21 08:00 Pulse 72 05/08/21 12:00 Resp 19 H 05/08/21 12:00 BP 162/90 05/08/21 12:00 Pulse Ox 96 05/08/21 12:00 Discharge Plan Discharge Patient Disposition: Xfer [facility] Condition: Stable Prescriptions: New amlodipine 10 mg Tablet 10 mg PO DAILY 30 Days Qty: 30 RF: 0 Protonix 40 mg tablet,delayed release (DR/EC) 40 mg PO DAILY Qty: 14 RF: 0 Augmentin 500-125 mg tablet 1 tab PO BID 3 Days Qty: 6 RF: 0 levofloxacin 500 mg tablet 500 mg PO DAILY 3 Days Qty: 3 RF: 0 Continued exemestane 25 mg tablet 25 mg PO DAILY@18 RF: 0 magnesium 200 mg tablet 200 mg PO BID@ RF: 0 cholecalciferol (vitamin D3) 50 mcg (2,000 unit) capsule 150 mcg PO BID@ RF: 0 albuterol sulfate [Ventolin HFA] 90 mcg/actuation HFA aerosol inhaler 2 puff INHALATION Q4H PRN (Reason: shortness of breath or wheezing) Qty: 8.5 RF: 5 potassium chloride 20 mEq tablet extended release 20 meq PO BID Qty: 20 RF: 0 cyclobenzaprine 10 mg tablet 10 mg PO TID PRN (Reason: Muscle Spasm) RF: 0 lidocaine 5 % adhesive patch,medicated See Rx Instructions .ROUTE .COMPLEX RF: 0 Changed enalapril maleate 10 mg tablet 10 mg PO DAILY Qty: 180 RF: 1 Lasix 40 mg tablet 40 mg PO DAILY Qty: 0 RF: 0 Discontinued lorazepam [Ativan] 0.5 mg tablet 0.5 mg PO BID RF: 0 hydrocodone-acetaminophen 5-325 mg tablet 1 tab PO TID PRN (Reason: pain) 30 Days Qty: 90 RF: 0 oxycodone [OxyContin] 15 mg tablet,oral only,ext.rel.12 hr 15 mg PO Q12H 30 Days Qty: 60 RF: 0 Discharge Orders: Discharge Order (Routine); Ordered 05/08/21 Ordered By: Reji Thomas Referrals: Ralf Castillo DO [Primary Care Provider] - 4-7 days Discharge Diet: Soft Mechanical Discharge Activity: Resume usual activity and Increase activity as tolerated Patient Instructions: Opioid Safety Activity Restrictions/Additional Instructions: Patient is to take soft mechanical diet going forward. Advance very gradually as able to. She is to take Augmentin and levofloxacin for next 3 days. Patient is to take lisinopril and amlodipine as directed for blood pressures. Patient is to use BiPAP at night to avoid hypercapnia and obstructive sleep apnea. Please recheck BMP in next 1 week. Patient is to follow-up with her primary care provider within next 1 week. Discharge Attestations Time Spent in Discharge Care*: greater than 30 min Specific Discharge Activities: educating patient, discussing with pcp/other providers, discussing with director of casework department/social workers/dc planners and evaluating patient/reviewing data Status at Discharge: Cognitive status at discharge: cognitively intact, Behavioral status at discharge: cooperative, Functional status at discharge: other assisted ambulation Overall status at discharge: patient is progressing back to baseline Quality Metrics Clinical Quality Measures During this hospital stay, did patient experience: None Coding Level of Care Code Acute Chg FW DC note Diagnoses Respiratory failure J96.90 Acute exacerbation of CHF (congestive heart failure) I50.9 Heart failure type: unspecified Pneumonia J18.9 COPD (chronic obstructive pulmonary disease) J44.9 COPD type: unspecified COPD Encephalopathy acute G93.40 Hypernatremia E87.0 Acute kidney injury superimposed on CKD N17.9; N18.9 Liver dysfunction K76.89 Bradycardia R00.1 Type 2 diabetes mellitus without complication, without long-term current use of insulin E11.9 Breast cancer metastasized to bone C50.919; C79.51 Laterality: unspecified laterality
[2021-05-08 13:09] LABS: SARS Covid-2 Antigen Negative (Negative)
--- NOTE | 2021-05-08 15:33 | PC.NURSE ---
Patient cleaned of liquid BM. linens, gown and disposable underwear changed. La care done.
== END 2021-05-08 14:30 | disposition home or self-care (01) | DRG 871 ==
LOC: ER 05-02 10:19 → ICU 05-02 11:34 → CSU 05-06 17:40
PROVIDERS: Emergency Medicine; Internal Medicine Pulmonary Disease; Admitting Provider Student in an Organized Health Care Education/Training Program; Emergency Provider Family Medicine; PCP Family Medicine; Visit Provider Student in an Organized Health Care Education/Training Program
DX: A41.9 Sepsis, unspecified organism (principal); J96.22 Acute and chronic respiratory failure with hypercapnia; J18.9 Pneumonia, unspecified organism; G93.41 Metabolic encephalopathy; I13.0 Hypertensive heart and chronic kidney disease with heart failure and stage 1 through stage 4 chronic kidney disease, or unspecified chronic kidney disease; Z68.42 Body mass index [BMI] 45.0-49.9, adult; E87.0 Hyperosmolality and hypernatremia; N17.9 Acute kidney failure, unspecified; C79.51 Secondary malignant neoplasm of bone; E87.3 Alkalosis; R65.20 Severe sepsis without septic shock; I50.9 Heart failure, unspecified; E66.01 Morbid (severe) obesity due to excess calories; G47.33 Obstructive sleep apnea (adult) (pediatric); Z20.822 Contact with and (suspected) exposure to COVID-19; J44.9 Chronic obstructive pulmonary disease, unspecified; R00.1 Bradycardia, unspecified; C50.919 Malignant neoplasm of unspecified site of unspecified female breast; K21.9 Gastro-esophageal reflux disease without esophagitis; E78.5 Hyperlipidemia, unspecified; I45.10 Unspecified right bundle-branch block; I35.0 Nonrheumatic aortic (valve) stenosis; I73.9 Peripheral vascular disease, unspecified; N18.9 Chronic kidney disease, unspecified; Z81.1 Family history of alcohol abuse and dependence; Z82.49 Family history of ischemic heart disease and other diseases of the circulatory system; Z84.1 Family history of disorders of kidney and ureter; Z80.1 Family history of malignant neoplasm of trachea, bronchus and lung; Z87.891 Personal history of nicotine dependence; Z85.3 Personal history of malignant neoplasm of breast; Z90.49 Acquired absence of other specified parts of digestive tract; Z98.51 Tubal ligation status; Z81.8 Family history of other mental and behavioral disorders
CPT/HCPCS: 36415; 36416; 36600; 51702; 70450; 71045; 71275; 74177; 76705; 80048; 80051; 80053; 80306; 80307; 81001; 82140; 82247; 82248; 82274; 82330; 82436; 82550; 82803; 82805; 82962; 82977; 83036; 83540; 83550; 83605; 83615; 83630; 83690; 83735; 83880; 84100; 84133; 84145; 84300; 84443; 84484; 85025; 85049; 85378; 85610; 85730; 86140; 86403; 86705; 86706; 86709; 86803; 87040; 87070; 87086; 87205; 87338; 87340; 87425; 87426; 87449; 87493; 87506; 87635; 87641; 92526; 92610; 93005; 93306; 93970; 94002; 94003; 94640; 94660; 94664; 94799; 96365; 96366; 96367; 96372; 96375; 97110; 97161; 97166; 97530; 99291; A4570; J0461; J0692; J1100; J1170; J1644; J1650; J1815; J1940; J2250; J2270; J2370; J2543; J2704; J3010; J3370; J3475; J3480; J3490; J7030; J7040; Q9967

== ENCOUNTER 2021-05-15 12:45 | Outpatient (CLI) | payer OTHER, SELFPAY ==
[2021-05-15 12:56] LABS: Charge for UA Resulting for Rev
[2021-05-15 13:33] LABS: Basophils # 0.1 10^3/uL (0.0-0.1); Basophils % 0.7 %; Eosinophils # 0.5 10^3/uL (0.0-0.8); Eosinophils % 3.6 %; Hematocrit 45.7 % (37.0-47.0); Hemoglobin 13.6 g/dL (11.5-15.3); Mean Corpuscular HGB Conc 29.8 g/dL (30.0-36.0); Mean Corpuscular Hemoglobin 29.2 pg (28.0-34.0); Mean Corpuscular Volume 98.1 fl (81-99); Mean Platelet Volume 13.5 fL (7.4-10.4); Monocytes # 0.9 10^3/uL (0.2-0.9); Monocytes % 6.7 %; Neutrophils # 10.47 10^3/uL (1.8-7.7); Neutrophils % 74.6 %; Nucleated Red Blood Cells % 0 %; Platelet Count 170 10^3/cmm (130-400); Red Blood Count 4.66 10^6/uL (4.1-5.3); Red Cell Distribution Width 17.5 % (12.1-15.1)
[2021-05-15 14:15] LABS: Bilirubin Urine 1+ (Negative); Blood Urine Neg (Negative); Glucose Urine UA Norm (Normal); Ketones Urine Negative (Negative); Leukocyte Esterase Urine Negative (Negative); Nitrate Urine Negative (Negative); Protein Urine Neg (Negative); Specific Gravity, Urine 1.015 (1.005-1.030); Urine Appearance Clear (CLEAR); Urine Color Yellow (Yellow); Urobilinogen Urine Norm (Negative); pH Urine 5 (5-7)
[2021-05-15 15:23] LABS: Add Urine Microscopic? YES
[2021-05-15 15:24] LABS: Bacteria Urine TRACE /hpf; Calcium Oxalate Crystals Urine 0-4 /hpf; Hyaline Casts Urine 0-4 /lpf; Mucus Urine 1+ /hpf
[2021-05-15 15:26] LABS: Add Urine Culture? Yes
== END 2021-05-15 12:46 | disposition home or self-care (01) ==
PROVIDERS: PCP Family Medicine; Visit Provider Nurse Practitioner Family
DX: I10 Essential (primary) hypertension (principal)
CPT/HCPCS: 81001; 81003; 85025; 87086

== ENCOUNTER 2021-05-19 21:51 | Emergency (ER) | payer MEDICARE, MEDICAID, SELFPAY ==
[2021-05-19 22:02] VITALS: BP 121/64; PULSE 84; RESP 20; TEMP 36.6; O2SAT 94; BMI 63.8
--- NOTE | 2021-05-19 22:14 | XRR_ITS ---
PROCEDURE INFORMATION: Exam: XR Chest Exam date and time: 05/19/2021 10:14 PM Age: 70 years old Clinical indication: Shortness of breath; Additional info: SOB TECHNIQUE: Imaging protocol: XR of the chest. Views: 1 view. COMPARISON: CR XR chest 1V portable [id number] 05/01/2021 10:05 PM FINDINGS: Tubes, catheters and devices: The ETT and nasogastric tube have been removed. Lungs: Minimal residual right lower lobe atelectasis is noted. The lungs are otherwise clear. Pleural spaces: Unremarkable. No pleural effusion. No pneumothorax. Heart/Mediastinum: Unremarkable. No cardiomegaly. Bones/joints: Unremarkable. XR/XR chest 1V portable [id number] IMPRESSION: Mild residual right lower lobe atelectasis.
--- NOTE | 2021-05-19 22:14 | ECG_ITS ---
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 Measurements Intervals [place] Rate: 84 P: 34 MD: 194 QRS: -69 QRSD: 144 T: 86 QT: 380 QTc: 450 Interpretive Statements SINUS RHYTHM WITH SINUS ARRHYTHMIA RIGHT BUNDLE BRANCH BLOCK [120+ ms QRS DURATION, UPRIGHT V1, 40+ ms S IN I/aVL/V4/V5/V6] LEFT ANTERIOR FASCICULAR BLOCK [QRS AXIS <= -45, QR IN I, RS IN II] LEFT VENTRICULAR HYPERTROPHY AND ST-T CHANGE [VOLTAGE CRITERIA PLUS ST/T ABNORMALITY] Compared to ECG 05/03/2021 03:29:31 Sinus bradycardia no longer present ST (T wave) deviation still present Electronically Signed On 05-19-2021 23:05:42 CDT by Cam Jj M.D. [id number]
[2021-05-19 22:52] VITALS: BP 132/87; PULSE 89; RESP 18; TEMP 36.9; O2SAT 96
--- NOTE | 2021-05-19 23:51 | ED_ITS ---
Documented by User: Brittnee Landeros MD 05/20/21 05:14 HPI - Altered Mental Status General: Source: EMS Mode of arrival: EMS Limitations: altered mental status History of Present Illness: HPI narrative: 70-year-old female who sent here by local group home for increased confusion along with lab abnormalities. Patient was admitted here intubated and was recently discharged to the group home a week ago. Patient here is confused and only able to tell me her name. No recent falls. No cough or fever. No history is available from patient. Review of Systems General: Reports: ROS unobtainable due to mental status PFSH ED PFSH: Medical History Acute respiratory failure with hypoxia Anxiety attack Breast cancer metastasized to bone diag 2014 with treatment and no activity at this time per PET scan Chronic low back pain COPD (chronic obstructive pulmonary disease) Current every day smoker Depression Dyspnea Encounter for long-term opiate analgesic use Enrolled in chronic care management Essential hypertension GERD (gastroesophageal reflux disease) High risk medication use Hyperlipidemia Inflammatory arthritis Joint pain Leg weakness, bilateral Nicotine dependence, cigarettes, uncomplicated Opioid contract exists Pain in rib Pain in thoracic spine PVD (peripheral vascular disease) Sleep apnea Type 2 diabetes mellitus without complication, without long-term current use of insulin Xeroderma Surgical History Hx laparoscopic cholecystectomy 11/01/18 Hx of arthroscopic knee surgery Right Hx of cholecystectomy Hx of lumpectomy Right Hx of oral surgery pulled all teeth 03/2017 Hx of tubal ligation Family History Unknown Prostate disease Depression Heart disease Hypertension Chronic kidney disease (CKD) Grandfather Cancer LUNG CANCER Other CAD (coronary artery disease) Rheumatoid arthritis Denies family history of Diabetes Lupus Hyperlipidemia Family history of premature coronary artery disease Stroke Social History Smoking and tobacco status: former smoker Second hand smoke exposure: No Alcohol intake: never History of recent travel: No Physical Exam Const: COMMON NORMALS: alert; negative for patient oriented x3 EXAM LIMITATIONS: altered mental status ORIENTATION/CONSCIOUSNESS: Yes oriented to person; not oriented to place and not oriented to time HENMT: COMMON NORMALS: normocephalic and atraumatic HEAD & SCALP: normocephalic and atraumatic Eye: COMMON NORMALS: Equal, round and reactive pupils present and EOMs intact bilaterally PUPIL: Yes Equal, round and reactive pupils present Neck/C-Spine: COMMON NORMALS: full ROM and supple Chest: COMMONS NORMALS: normal inspection of the chest and normal palpation of entire chest wall Resp: COMMON NORMALS: normal respiratory effort, No retractions, No use of accessory muscles and clear to auscultation bilaterally AUSCULTATION: clear to auscultation bilaterally Cardio: COMMON NORMALS: regular rate, regular rhythm and No murmurs present (Cardio) RATE: regular rate RHYTHM: regular rhythm GI: COMMON NORMALS: Normal to inspection, nondistended, normoactive bowel sounds present, Soft to palpation, non-tender and no masses PALPATION: Yes Soft to palpation Extremity: COMMON NORMALS: normal to inspection and full ROM Neuro: COMMON NORMALS: moves all extremities and no focal motor deficits; negative for patient oriented x3 SENSORIUM/ORIENTATION: Yes alert, Yes oriented to person, No oriented to place and No oriented to time Psych: COMMON NORMALS: cooperative; negative for mental status grossly normal Skin: COMMON NORMALS: no rashes or lesions noted and no wounds GENERAL SKIN EXAM: no rashes or lesions noted Course Vital Signs: Vital signs: Vital Signs Temperature 99.0 F 05/20/21 01:07 Pulse Rate 88 05/20/21 06:46 Respiratory Rate 13 05/20/21 06:46 Blood Pressure 121/60 05/20/21 06:46 Pulse Oximetry 94 05/20/21 06:46 MDM - Altered Mental Status MDM Narrative: Medical decision making narrative: Patient presents here with elevated potassium at group home on elevated calcium. This likely due to dehydration patient given IV fluids here. Patient's is here and she is at her baseline mentally. Her blood pressure here has been stable. Spoke to group home and she is stable for discharge back to the group home. She is to return if worsening also inform group home to read and check her electrolytes in 2 days. Lab Data: Labs: Lab Results 05/19/21 05/19/21 05/20/21 Range/Units 00:00 22:54 00:00 WBC (4.0-10.0) 10^3/ uL RBC (4.1-5.3) 10^6/u L Hgb (11.5-15.3) g/dL Hct (37.0-47.0) % MCV (81-99) fl MCH (28.0-34.0) pg MCHC (30.0-36.0) g/dL RDW (12.1-15.1) % Plt Count (130-400) 10^3/c mm MPV (7.4-10.4) fL Neut % (Auto) % Lymph % (Auto) % Cedar % (Auto) % Eos % (Auto) % Baso % (Auto) % Neut # (Auto) (1.8-7.7) 10^3/u L Lymph # (Auto) (0.8-4.8) 10^3/u L Cedar # (Auto) (0.2-0.9) 10^3/u L Eos # (Auto) (0.0-0.8) 10^3/u L Baso # (Auto) (0.0-0.1) 10^3/u L Nucleated RBC % (a uto) % Nucleated RBCs # /100WBC Specimen Type Arterial Arterial Arterial Sample Site Radial, right Radial, left Radial, right ABG pH 7.42 7.42 7.42 (7.35-7.45) ABG pCO2 42.8 43.9 43.1 (35-45) mmHg ABG pO2 63.4 L 57.9 L 68.3 L (80.0-100.0) mmH g ABG HCO3 27.8 H 28.2 H 27.7 H (22-26) mmol/L ABG O2 Saturation 93.7 ABG Base Excess 2.9 H 3.1 H 2.7 H (-2.0-2.0) mmol/ L Shoaib Test Pos Pos Pos A-a O2 Gradient 4.4 L (5-10) mmHg Hematocrit 41.4 41.2 42.2 (37-47) % Hgb O2 Saturation 91.4 L (95-100) % Carboxyhemoglobin 1.7 (0.4-20.1) %THgb Methemoglobin 0.7 (0.4-1.5) % Total Hemoglobin 13.5 (12-16) g/dL Sodium 142.0 (131-143) mmol/L Potassium 4.9 (3.5-5.0) mmol/L Glucose 103.0 (70-115) mg/dL Ionized Calcium 1.7 H (1.1-1.4) mmol/L O2 Delivery Device Room air Ra Room air FiO2 21.0 % Quality Assurance Monitor Final ID Rieri Buttr Ririan Chloride (98-107) mmol/L Carbon Dioxide (22-29) mmol/L Anion Gap (5-19) BUN (8-23) mg/dL Creatinine (0.5-0.9) mg/dL GFR Calculation (90-130) mL/min Calculated Osmolal ity (285-295) mOsm/k g Calcium (8.5-10.5) mg/dL Total Bilirubin (0.15-1.2) mg/dL AST (0-32) U/L ALT (0-33) U/L Alkaline Phosphata se (35-105) IU/L Troponin T Baselin e (0-10) ng/L Troponin T 120 Min [place] (0-10) ng/L Delta Troponin T (0-10) ABS# NT-Pro-B Natriuret Pep (0-125) pg/mL Total Protein (6.6-8.7) g/dL Albumin (3.5-5.2) g/dL Globulin (1.3-4.6) g/dL Urine Color (Yellow) Urine Appearance (CLEAR) Urine pH (5-7) Ur Specific Gravit y (1.005-1.030) Urine Protein (Negative) Urine Glucose (UA) (Normal) Urine Ketones (Negative) Urine Blood (Negative) Urine Nitrate (Negative) Urine Bilirubin (Negative) Urine Urobilinogen (Negative) mg/dL Ur Leukocyte Quiana ase (Negative) Urine RBC (0-2) /hpf Urine WBC (0-5) /hpf Ur Squamous Epith Cells (0-5) /hpf Amorphous Sediment Urine Bacteria (NONE) /hpf Hyaline Casts /lpf Urine Mucus /hpf Urine Yeast /hpf 05/20/21 05/20/21 05/20/21 Range/Units 00:20 00:50 00:50 WBC 10.8 H (4.0-10.0) 10^3/ uL RBC 4.51 (4.1-5.3) 10^6/u L Hgb 13.3 (11.5-15.3) g/dL Hct 43.2 (37.0-47.0) % MCV 95.8 (81-99) fl MCH 29.5 (28.0-34.0) pg MCHC 30.8 (30.0-36.0) g/dL RDW 17.6 H (12.1-15.1) % Plt Count 172 (130-400) 10^3/c mm MPV 12.8 H (7.4-10.4) fL Neut % (Auto) 70.1 % Lymph % (Auto) 19.4 % Cedar % (Auto) 5.1 % Eos % (Auto) 4.8 % Baso % (Auto) 0.3 % Neut # (Auto) 7.53 (1.8-7.7) 10^3/u L Lymph # (Auto) 2.1 (0.8-4.8) 10^3/u L Cedar # (Auto) 0.6 (0.2-0.9) 10^3/u L Eos # (Auto) 0.5 (0.0-0.8) 10^3/u L Baso # (Auto) 0.0 (0.0-0.1) 10^3/u L Nucleated RBC % (a uto) 0 % Nucleated RBCs # 0.0 /100WBC Specimen Type Sample Site ABG pH (7.35-7.45) ABG pCO2 (35-45) mmHg ABG pO2 (80.0-100.0) mmH g ABG HCO3 (22-26) mmol/L ABG O2 Saturation ABG Base Excess (-2.0-2.0) mmol/ L Shoaib Test A-a O2 Gradient (5-10) mmHg Hematocrit (37-47) % Hgb O2 Saturation (95-100) % Carboxyhemoglobin (0.4-20.1) %THgb Methemoglobin (0.4-1.5) % Total Hemoglobin (12-16) g/dL Sodium 140 (131-143) mmol/L Potassium 5.2 H (3.5-5.0) mmol/L Glucose 107 (70-115) mg/dL Ionized Calcium (1.1-1.4) mmol/L O2 Delivery Device FiO2 % Quality Assurance Monitor Final ID Chloride 100 (98-107) mmol/L Carbon Dioxide 26 (22-29) mmol/L Anion Gap 19.2 H (5-19) BUN 46 H (8-23) mg/dL Creatinine 1.6 H (0.5-0.9) mg/dL GFR Calculation 32.1 L (90-130) mL/min Calculated Osmolal ity 302 H (285-295) mOsm/k g Calcium 13.5 H (8.5-10.5) mg/dL Total Bilirubin 1.0 (0.15-1.2) mg/dL AST 28 (0-32) U/L ALT 31 (0-33) U/L Alkaline Phosphata se 101 (35-105) IU/L Troponin T Baselin e 152 H* (0-10) ng/L Troponin T 120 Min [place] (0-10) ng/L Delta Troponin T (0-10) ABS# NT-Pro-B Natriuret Pep 263 H (0-125) pg/mL Total Protein 7.0 (6.6-8.7) g/dL Albumin 4.1 (3.5-5.2) g/dL Globulin 2.9 (1.3-4.6) g/dL Urine Color (Yellow) Urine Appearance (CLEAR) Urine pH (5-7) Ur Specific Gravit y (1.005-1.030) Urine Protein (Negative) Urine Glucose (UA) (Normal) Urine Ketones (Negative) Urine Blood (Negative) Urine Nitrate (Negative) Urine Bilirubin (Negative) Urine Urobilinogen (Negative) mg/dL Ur Leukocyte Quiana ase (Negative) Urine RBC (0-2) /hpf Urine WBC (0-5) /hpf Ur Squamous Epith Cells (0-5) /hpf Amorphous Sediment Urine Bacteria (NONE) /hpf Hyaline Casts /lpf Urine Mucus /hpf Urine Yeast /hpf 05/20/21 05/20/21 Range/Units 00:55 03:10 WBC (4.0-10.0) 10^3/ uL RBC (4.1-5.3) 10^6/u L Hgb (11.5-15.3) g/dL Hct (37.0-47.0) % MCV (81-99) fl MCH (28.0-34.0) pg MCHC (30.0-36.0) g/dL RDW (12.1-15.1) % Plt Count (130-400) 10^3/c mm MPV (7.4-10.4) fL Neut % (Auto) % Lymph % (Auto) % Cedar % (Auto) % Eos % (Auto) % Baso % (Auto) % Neut # (Auto) (1.8-7.7) 10^3/u L Lymph # (Auto) (0.8-4.8) 10^3/u L Cedar # (Auto) (0.2-0.9) 10^3/u L Eos # (Auto) (0.0-0.8) 10^3/u L Baso # (Auto) (0.0-0.1) 10^3/u L Nucleated RBC % (a uto) % Nucleated RBCs # /100WBC Specimen Type Sample Site ABG pH (7.35-7.45) ABG pCO2 (35-45) mmHg ABG pO2 (80.0-100.0) mmH g ABG HCO3 (22-26) mmol/L ABG O2 Saturation ABG Base Excess (-2.0-2.0) mmol/ L Shoaib Test A-a O2 Gradient (5-10) mmHg Hematocrit (37-47) % Hgb O2 Saturation (95-100) % Carboxyhemoglobin (0.4-20.1) %THgb Methemoglobin (0.4-1.5) % Total Hemoglobin (12-16) g/dL Sodium (131-143) mmol/L Potassium (3.5-5.0) mmol/L Glucose (70-115) mg/dL Ionized Calcium (1.1-1.4) mmol/L O2 Delivery Device FiO2 % Quality Assurance Monitor Final ID Chloride (98-107) mmol/L Carbon Dioxide (22-29) mmol/L Anion Gap (5-19) BUN (8-23) mg/dL Creatinine (0.5-0.9) mg/dL GFR Calculation (90-130) mL/min Calculated Osmolal ity (285-295) mOsm/k g Calcium (8.5-10.5) mg/dL Total Bilirubin (0.15-1.2) mg/dL AST (0-32) U/L ALT (0-33) U/L Alkaline Phosphata se (35-105) IU/L Troponin T Baselin e (0-10) ng/L Troponin T 120 Min venet[place] 159.4 H (0-10) ng/L Delta Troponin T 7.4 (0-10) ABS# NT-Pro-B Natriuret Pep (0-125) pg/mL Total Protein (6.6-8.7) g/dL Albumin (3.5-5.2) g/dL Globulin (1.3-4.6) g/dL Urine Color Yellow (Yellow) Urine Appearance Sl hazy (CLEAR) Urine pH 5 (5-7) Ur Specific Gravit y 1.020 (1.005-1.030) Urine Protein Neg (Negative) Urine Glucose (UA) Norm (Normal) Urine Ketones Negative (Negative) Urine Blood Neg (Negative) Urine Nitrate Negative (Negative) Urine Bilirubin Neg (Negative) Urine Urobilinogen Norm (Negative) mg/dL Ur Leukocyte Quiana ase Negative (Negative) Urine RBC 0-4 H (0-2) /hpf Urine WBC 5-10 H (0-5) /hpf Ur Squamous Epith Cells 0-4 H (0-5) /hpf Amorphous Sediment Not Reportable Urine Bacteria Trace (NONE) /hpf Hyaline Casts 0-4 H /lpf Urine Mucus Trace /hpf Urine Yeast 3+ H /hpf Discharge Plan Discharge Patient Disposition: Home Clinical Impression: Altered mental status, Dehydration Condition: Stable Prescriptions: No Action exemestane 25 mg tablet 25 mg PO DAILY@18 RF: 0 magnesium 200 mg tablet 200 mg PO BID@ RF: 0 cholecalciferol (vitamin D3) 50 mcg (2,000 unit) capsule 150 mcg PO BID@ RF: 0 albuterol sulfate [Ventolin HFA] 90 mcg/actuation HFA aerosol inhaler 2 puff INHALATION Q4H PRN (Reason: shortness of breath or wheezing) Qty: 8.5 RF: 5 potassium chloride 20 mEq tablet extended release 20 meq PO BID Qty: 20 RF: 0 cyclobenzaprine 10 mg tablet 10 mg PO TID PRN (Reason: Muscle Spasm) RF: 0 lidocaine 5 % adhesive patch,medicated See Rx Instructions .ROUTE .COMPLEX RF: 0 Protonix 40 mg tablet,delayed release (DR/EC) 40 mg PO DAILY Qty: 14 RF: 0 Lasix 40 mg tablet 40 mg PO DAILY Qty: 0 RF: 0 enalapril maleate 10 mg tablet 10 mg PO DAILY Qty: 180 RF: 1 Discharge Orders: Discharge ED (Routine); Ordered 05/20/21 Ordered By: Brittnee Landeros Referrals: Ralf Castillo DO [Primary Care Provider] - 1-3 days Discharge Diet: Advance as tolerated Discharge Activity: Resume usual activity Patient Instructions: Dehydration (ED) Activity Restrictions/Additional Instructions: recheck bmp in 2 days Sign Out Sign Out Data: Patient Sign Out occurred on 05/20/21 at 05:52. Patient's care was discussed, and care was transferred from to Jose A Neri DO. Coding Level of Care Code ED Collator Hand for Chg Fwd Exam Comprehensive Documented by User: Nandini Aquino MD 06/07/21 04:30 PFSH ED PFSH: Medical History Acute respiratory failure with hypoxia Anxiety attack Breast cancer metastasized to bone diag 2014 with treatment and no activity at this time per PET scan Chronic low back pain COPD (chronic obstructive pulmonary disease) Current every day smoker Depression Dyspnea Encounter for long-term opiate analgesic use Enrolled in chronic care management Essential hypertension GERD (gastroesophageal reflux disease) High risk medication use Hyperlipidemia Inflammatory arthritis Joint pain Leg weakness, bilateral Nicotine dependence, cigarettes, uncomplicated Opioid contract exists Pain in rib Pain in thoracic spine PVD (peripheral vascular disease) Sleep apnea Type 2 diabetes mellitus without complication, without long-term current use of insulin Xeroderma Surgical History Hx laparoscopic cholecystectomy 11/01/18 Hx of arthroscopic knee surgery Right Hx of cholecystectomy Hx of lumpectomy Right Hx of oral surgery pulled all teeth 03/2017 Hx of tubal ligation Family History Unknown Prostate disease Depression Heart disease Hypertension Chronic kidney disease (CKD) Grandfather Cancer LUNG CANCER Other CAD (coronary artery disease) Rheumatoid arthritis Denies family history of Diabetes Lupus Hyperlipidemia Family history of premature coronary artery disease Stroke Social History Smoking and tobacco status: former smoker Second hand smoke exposure: No Alcohol intake: never History of recent travel: No Course Vital Signs: Vital signs: Vital Signs Temperature 99.0 F 05/20/21 01:07 Pulse Rate 88 05/20/21 06:46 Respiratory Rate 13 05/20/21 06:46 Blood Pressure 121/60 05/20/21 06:46 Pulse Oximetry 94 05/20/21 06:46 MDM - Altered Mental Status 2 Lab Data: Labs: Lab Results 05/19/21 05/19/21 05/20/21 Range/Units 00:00 22:54 00:00 WBC (4.0-10.0) 10^3/ uL RBC (4.1-5.3) 10^6/u L Hgb (11.5-15.3) g/dL Hct (37.0-47.0) % MCV (81-99) fl MCH (28.0-34.0) pg MCHC (30.0-36.0) g/dL RDW (12.1-15.1) % Plt Count (130-400) 10^3/c mm MPV (7.4-10.4) fL Neut % (Auto) % Lymph % (Auto) % Cedar % (Auto) % Eos % (Auto) % Baso % (Auto) % Neut # (Auto) (1.8-7.7) 10^3/u L Lymph # (Auto) (0.8-4.8) 10^3/u L Cedar # (Auto) (0.2-0.9) 10^3/u L Eos # (Auto) (0.0-0.8) 10^3/u L Baso # (Auto) (0.0-0.1) 10^3/u L Nucleated RBC % (a uto) % Nucleated RBCs # /100WBC Specimen Type Arterial Arterial Arterial Sample Site Radial, right Radial, left Radial, right ABG pH 7.42 7.42 7.42 (7.35-7.45) ABG pCO2 42.8 43.9 43.1 (35-45) mmHg ABG pO2 63.4 L 57.9 L 68.3 L (80.0-100.0) mmH g ABG HCO3 27.8 H 28.2 H 27.7 H (22-26) mmol/L ABG O2 Saturation 93.7 ABG Base Excess 2.9 H 3.1 H 2.7 H (-2.0-2.0) mmol/ L Shoaib Test Pos Pos Pos A-a O2 Gradient 4.4 L (5-10) mmHg Hematocrit 41.4 41.2 42.2 (37-47) % Hgb O2 Saturation 91.4 L (95-100) % Carboxyhemoglobin 1.7 (0.4-20.1) %THgb Methemoglobin 0.7 (0.4-1.5) % Total Hemoglobin 13.5 (12-16) g/dL Sodium 142.0 (131-143) mmol/L Potassium 4.9 (3.5-5.0) mmol/L Glucose 103.0 (70-115) mg/dL Ionized Calcium 1.7 H (1.1-1.4) mmol/L O2 Delivery Device Room air Ra Room air FiO2 21.0 % Quality Assurance Monitor Final ID Rieri Buttr Rieri Chloride (98-107) mmol/L Carbon Dioxide (22-29) mmol/L Anion Gap (5-19) BUN (8-23) mg/dL Creatinine (0.5-0.9) mg/dL GFR Calculation (90-130) mL/min Calculated Osmolal ity (285-295) mOsm/k g Calcium (8.5-10.5) mg/dL Total Bilirubin (0.15-1.2) mg/dL AST (0-32) U/L ALT (0-33) U/L Alkaline Phosphata se (35-105) IU/L Troponin T Baselin e (0-10) ng/L Troponin T 120 Min [place] (0-10) ng/L Delta Troponin T (0-10) ABS# NT-Pro-B Natriuret Pep (0-125) pg/mL Total Protein (6.6-8.7) g/dL Albumin (3.5-5.2) g/dL Globulin (1.3-4.6) g/dL Urine Color (Yellow) Urine Appearance (CLEAR) Urine pH (5-7) Ur Specific Gravit y (1.005-1.030) Urine Protein (Negative) Urine Glucose (UA) (Normal) Urine Ketones (Negative) Urine Blood (Negative) Urine Nitrate (Negative) Urine Bilirubin (Negative) Urine Urobilinogen (Negative) mg/dL Ur Leukocyte Quiana ase (Negative) Urine RBC (0-2) /hpf Urine WBC (0-5) /hpf Ur Squamous Epith Cells (0-5) /hpf Amorphous Sediment Urine Bacteria (NONE) /hpf Hyaline Casts /lpf Urine Mucus /hpf Urine Yeast /hpf 05/20/21 05/20/21 05/20/21 Range/Units 00:20 00:50 00:50 WBC 10.8 H (4.0-10.0) 10^3/ uL RBC 4.51 (4.1-5.3) 10^6/u L Hgb 13.3 (11.5-15.3) g/dL Hct 43.2 (37.0-47.0) % MCV 95.8 (81-99) fl MCH 29.5 (28.0-34.0) pg MCHC 30.8 (30.0-36.0) g/dL RDW 17.6 H (12.1-15.1) % Plt Count 172 (130-400) 10^3/c mm MPV 12.8 H (7.4-10.4) fL Neut % (Auto) 70.1 % Lymph % (Auto) 19.4 % Cedar % (Auto) 5.1 % Eos % (Auto) 4.8 % Baso % (Auto) 0.3 % Neut # (Auto) 7.53 (1.8-7.7) 10^3/u L Lymph # (Auto) 2.1 (0.8-4.8) 10^3/u L Cedar # (Auto) 0.6 (0.2-0.9) 10^3/u L Eos # (Auto) 0.5 (0.0-0.8) 10^3/u L Baso # (Auto) 0.0 (0.0-0.1) 10^3/u L Nucleated RBC % (a uto) 0 % Nucleated RBCs # 0.0 /100WBC Specimen Type Sample Site ABG pH (7.35-7.45) ABG pCO2 (35-45) mmHg ABG pO2 (80.0-100.0) mmH g ABG HCO3 (22-26) mmol/L ABG O2 Saturation ABG Base Excess (-2.0-2.0) mmol/ L Shoaib Test A-a O2 Gradient (5-10) mmHg Hematocrit (37-47) % Hgb O2 Saturation (95-100) % Carboxyhemoglobin (0.4-20.1) %THgb Methemoglobin (0.4-1.5) % Total Hemoglobin (12-16) g/dL Sodium 140 (131-143) mmol/L Potassium 5.2 H (3.5-5.0) mmol/L Glucose 107 (70-115) mg/dL Ionized Calcium (1.1-1.4) mmol/L O2 Delivery Device FiO2 % Quality Assurance Monitor Final ID Chloride 100 (98-107) mmol/L Carbon Dioxide 26 (22-29) mmol/L Anion Gap 19.2 H (5-19) BUN 46 H (8-23) mg/dL Creatinine 1.6 H (0.5-0.9) mg/dL GFR Calculation 32.1 L (90-130) mL/min Calculated Osmolal ity 302 H (285-295) mOsm/k g Calcium 13.5 H (8.5-10.5) mg/dL Total Bilirubin 1.0 (0.15-1.2) mg/dL AST 28 (0-32) U/L ALT 31 (0-33) U/L Alkaline Phosphata se 101 (35-105) IU/L Troponin T Baselin e 152 H* (0-10) ng/L Troponin T 120 Min [place] (0-10) ng/L Delta Troponin T (0-10) ABS# NT-Pro-B Natriuret Pep 263 H (0-125) pg/mL Total Protein 7.0 (6.6-8.7) g/dL Albumin 4.1 (3.5-5.2) g/dL Globulin 2.9 (1.3-4.6) g/dL Urine Color (Yellow) Urine Appearance (CLEAR) Urine pH (5-7) Ur Specific Gravit y (1.005-1.030) Urine Protein (Negative) Urine Glucose (UA) (Normal) Urine Ketones (Negative) Urine Blood (Negative) Urine Nitrate (Negative) Urine Bilirubin (Negative) Urine Urobilinogen (Negative) mg/dL Ur Leukocyte Quiana ase (Negative) Urine RBC (0-2) /hpf Urine WBC (0-5) /hpf Ur Squamous Epith Cells (0-5) /hpf Amorphous Sediment Urine Bacteria (NONE) /hpf Hyaline Casts /lpf Urine Mucus /hpf Urine Yeast /hpf 05/20/21 05/20/21 Range/Units 00:55 03:10 WBC (4.0-10.0) 10^3/ uL RBC (4.1-5.3) 10^6/u L Hgb (11.5-15.3) g/dL Hct (37.0-47.0) % MCV (81-99) fl MCH (28.0-34.0) pg MCHC (30.0-36.0) g/dL RDW (12.1-15.1) % Plt Count (130-400) 10^3/c mm MPV (7.4-10.4) fL Neut % (Auto) % Lymph % (Auto) % Cedar % (Auto) % Eos % (Auto) % Baso % (Auto) % Neut # (Auto) (1.8-7.7) 10^3/u L Lymph # (Auto) (0.8-4.8) 10^3/u L Cedar # (Auto) (0.2-0.9) 10^3/u L Eos # (Auto) (0.0-0.8) 10^3/u L Baso # (Auto) (0.0-0.1) 10^3/u L Nucleated RBC % (a uto) % Nucleated RBCs # /100WBC Specimen Type Sample Site ABG pH (7.35-7.45) ABG pCO2 (35-45) mmHg ABG pO2 (80.0-100.0) mmH g ABG HCO3 (22-26) mmol/L ABG O2 Saturation ABG Base Excess (-2.0-2.0) mmol/ L Shoaib Test A-a O2 Gradient (5-10) mmHg Hematocrit (37-47) % Hgb O2 Saturation (95-100) % Carboxyhemoglobin (0.4-20.1) %THgb Methemoglobin (0.4-1.5) % Total Hemoglobin (12-16) g/dL Sodium (131-143) mmol/L Potassium (3.5-5.0) mmol/L Glucose (70-115) mg/dL Ionized Calcium (1.1-1.4) mmol/L O2 Delivery Device FiO2 % Quality Assurance Monitor Final ID Chloride (98-107) mmol/L Carbon Dioxide (22-29) mmol/L Anion Gap (5-19) BUN (8-23) mg/dL Creatinine (0.5-0.9) mg/dL GFR Calculation (90-130) mL/min Calculated Osmolal ity (285-295) mOsm/k g Calcium (8.5-10.5) mg/dL Total Bilirubin (0.15-1.2) mg/dL AST (0-32) U/L ALT (0-33) U/L Alkaline Phosphata se (35-105) IU/L Troponin T Baselin e (0-10) ng/L Troponin T 120 Min [place]etie 159.4 H (0-10) ng/L Delta Troponin T 7.4 (0-10) ABS# NT-Pro-B Natriuret Pep (0-125) pg/mL Total Protein (6.6-8.7) g/dL Albumin (3.5-5.2) g/dL Globulin (1.3-4.6) g/dL Urine Color Yellow (Yellow) Urine Appearance Sl hazy (CLEAR) Urine pH 5 (5-7) Ur Specific Gravit y 1.020 (1.005-1.030) Urine Protein Neg (Negative) Urine Glucose (UA) Norm (Normal) Urine Ketones Negative (Negative) Urine Blood Neg (Negative) Urine Nitrate Negative (Negative) Urine Bilirubin Neg (Negative) Urine Urobilinogen Norm (Negative) mg/dL Ur Leukocyte Quiana ase Negative (Negative) Urine RBC 0-4 H (0-2) /hpf Urine WBC 5-10 H (0-5) /hpf Ur Squamous Epith Cells 0-4 H (0-5) /hpf Amorphous Sediment Not Reportable Urine Bacteria Trace (NONE) /hpf Hyaline Casts 0-4 H /lpf Urine Mucus Trace /hpf Urine Yeast 3+ H /hpf Discharge Plan Discharge Patient Disposition: Home Clinical Impression: Altered mental status, Dehydration Condition: Stable Prescriptions: No Action exemestane 25 mg tablet 25 mg PO DAILY@18 RF: 0 magnesium 200 mg tablet 200 mg PO BID@ RF: 0 cholecalciferol (vitamin D3) 50 mcg (2,000 unit) capsule 150 mcg PO BID@ RF: 0 albuterol sulfate [Ventolin HFA] 90 mcg/actuation HFA aerosol inhaler 2 puff INHALATION Q4H PRN (Reason: shortness of breath or wheezing) Qty: 8.5 RF: 5 potassium chloride 20 mEq tablet extended release 20 meq PO BID Qty: 20 RF: 0 cyclobenzaprine 10 mg tablet 10 mg PO TID PRN (Reason: Muscle Spasm) RF: 0 lidocaine 5 % adhesive patch,medicated See Rx Instructions .ROUTE .COMPLEX RF: 0 Protonix 40 mg tablet,delayed release (DR/EC) 40 mg PO DAILY Qty: 14 RF: 0 Lasix 40 mg tablet 40 mg PO DAILY Qty: 0 RF: 0 enalapril maleate 10 mg tablet 10 mg PO DAILY Qty: 180 RF: 1 Discharge Orders: Discharge ED (Routine); Ordered 05/20/21 Ordered By: Brittnee Landeros Referrals: Ralf Castillo DO [Primary Care Provider] - 1-3 days Discharge Diet: Advance as tolerated Discharge Activity: Resume usual activity Patient Instructions: Dehydration (ED) Activity Restrictions/Additional Instructions: recheck bmp in 2 days Sign Out Sign Out Data: Patient Sign Out occurred on 05/20/21 at 05:52. Patient's care was discussed, and care was transferred from to Jose A Neri DO. Coding Level of Care Code ED Collator Hand for Chg Fwd Exam Comprehensive Documented by User: Jose A Neri DO 05/20/21 05:54 PFSH ED PFSH: Medical History Acute respiratory failure with hypoxia Anxiety attack Breast cancer metastasized to bone diag 2014 with treatment and no activity at this time per PET scan Chronic low back pain COPD (chronic obstructive pulmonary disease) Current every day smoker Depression Dyspnea Encounter for long-term opiate analgesic use Enrolled in chronic care management Essential hypertension GERD (gastroesophageal reflux disease) High risk medication use Hyperlipidemia Inflammatory arthritis Joint pain Leg weakness, bilateral Nicotine dependence, cigarettes, uncomplicated Opioid contract exists Pain in rib Pain in thoracic spine PVD (peripheral vascular disease) Sleep apnea Type 2 diabetes mellitus without complication, without long-term current use of insulin Xeroderma Surgical History Hx laparoscopic cholecystectomy 11/01/18 Hx of arthroscopic knee surgery Right Hx of cholecystectomy Hx of lumpectomy Right Hx of oral surgery pulled all teeth 03/2017 Hx of tubal ligation Family History Unknown Prostate disease Depression Heart disease Hypertension Chronic kidney disease (CKD) Grandfather Cancer LUNG CANCER Other CAD (coronary artery disease) Rheumatoid arthritis Denies family history of Diabetes Lupus Hyperlipidemia Family history of premature coronary artery disease Stroke Social History Smoking and tobacco status: former smoker Second hand smoke exposure: No Alcohol intake: never History of recent travel: No Course Vital Signs: Vital signs: Vital Signs Temperature 99.0 F 05/20/21 01:07 Pulse Rate 88 05/20/21 06:46 Respiratory Rate 13 05/20/21 06:46 Blood Pressure 121/60 05/20/21 06:46 Pulse Oximetry 94 05/20/21 06:46 MDM - Altered Mental Status MDM Narrative: Medical decision making narrative: Patient is signout Q, she had already been discharged. I did not participate in the care of this patient Dr. Landeros had already seen her evaluated treated and made arrangements for discharge. Lab Data: Labs: Lab Results 05/19/21 05/19/21 05/20/21 Range/Units 00:00 22:54 00:00 WBC (4.0-10.0) 10^3/ uL RBC (4.1-5.3) 10^6/u L Hgb (11.5-15.3) g/dL Hct (37.0-47.0) % MCV (81-99) fl MCH (28.0-34.0) pg MCHC (30.0-36.0) g/dL RDW (12.1-15.1) % Plt Count (130-400) 10^3/c mm MPV (7.4-10.4) fL Neut % (Auto) % Lymph % (Auto) % Cedar % (Auto) % Eos % (Auto) % Baso % (Auto) % Neut # (Auto) (1.8-7.7) 10^3/u L Lymph # (Auto) (0.8-4.8) 10^3/u L Cedar # (Auto) (0.2-0.9) 10^3/u L Eos # (Auto) (0.0-0.8) 10^3/u L Baso # (Auto) (0.0-0.1) 10^3/u L Nucleated RBC % (a uto) % Nucleated RBCs # /100WBC Specimen Type Arterial Arterial Arterial Sample Site Radial, right Radial, left Radial, right ABG pH 7.42 7.42 7.42 (7.35-7.45) ABG pCO2 42.8 43.9 43.1 (35-45) mmHg ABG pO2 63.4 L 57.9 L 68.3 L (80.0-100.0) mmH g ABG HCO3 27.8 H 28.2 H 27.7 H (22-26) mmol/L ABG O2 Saturation 93.7 ABG Base Excess 2.9 H 3.1 H 2.7 H (-2.0-2.0) mmol/ L Shoaib Test Pos Pos Pos A-a O2 Gradient 4.4 L (5-10) mmHg Hematocrit 41.4 41.2 42.2 (37-47) % Hgb O2 Saturation 91.4 L (95-100) % Carboxyhemoglobin 1.7 (0.4-20.1) %THgb Methemoglobin 0.7 (0.4-1.5) % Total Hemoglobin 13.5 (12-16) g/dL Sodium 142.0 (131-143) mmol/L Potassium 4.9 (3.5-5.0) mmol/L Glucose 103.0 (70-115) mg/dL Ionized Calcium 1.7 H (1.1-1.4) mmol/L O2 Delivery Device Room air Ra Room air FiO2 21.0 % Quality Assurance Monitor Final ID Rieri Buttr Rieri Chloride (98-107) mmol/L Carbon Dioxide (22-29) mmol/L Anion Gap (5-19) BUN (8-23) mg/dL Creatinine (0.5-0.9) mg/dL GFR Calculation (90-130) mL/min Calculated Osmolal ity (285-295) mOsm/k g Calcium (8.5-10.5) mg/dL Total Bilirubin (0.15-1.2) mg/dL AST (0-32) U/L ALT (0-33) U/L Alkaline Phosphata se (35-105) IU/L Troponin T Baselin e (0-10) ng/L Troponin T 120 Min [place] (0-10) ng/L Delta Troponin T (0-10) ABS# NT-Pro-B Natriuret Pep (0-125) pg/mL Total Protein (6.6-8.7) g/dL Albumin (3.5-5.2) g/dL Globulin (1.3-4.6) g/dL Urine Color (Yellow) Urine Appearance (CLEAR) Urine pH (5-7) Ur Specific Gravit y (1.005-1.030) Urine Protein (Negative) Urine Glucose (UA) (Normal) Urine Ketones (Negative) Urine Blood (Negative) Urine Nitrate (Negative) Urine Bilirubin (Negative) Urine Urobilinogen (Negative) mg/dL Ur Leukocyte Quiana ase (Negative) Urine RBC (0-2) /hpf Urine WBC (0-5) /hpf Ur Squamous Epith Cells (0-5) /hpf Amorphous Sediment Urine Bacteria (NONE) /hpf Hyaline Casts /lpf Urine Mucus /hpf Urine Yeast /hpf 05/20/21 05/20/21 05/20/21 Range/Units 00:20 00:50 00:50 WBC 10.8 H (4.0-10.0) 10^3/ uL RBC 4.51 (4.1-5.3) 10^6/u L Hgb 13.3 (11.5-15.3) g/dL Hct 43.2 (37.0-47.0) % MCV 95.8 (81-99) fl MCH 29.5 (28.0-34.0) pg MCHC 30.8 (30.0-36.0) g/dL RDW 17.6 H (12.1-15.1) % Plt Count 172 (130-400) 10^3/c mm MPV 12.8 H (7.4-10.4) fL Neut % (Auto) 70.1 % Lymph % (Auto) 19.4 % Cedar % (Auto) 5.1 % Eos % (Auto) 4.8 % Baso % (Auto) 0.3 % Neut # (Auto) 7.53 (1.8-7.7) 10^3/u L Lymph # (Auto) 2.1 (0.8-4.8) 10^3/u L Cedar # (Auto) 0.6 (0.2-0.9) 10^3/u L Eos # (Auto) 0.5 (0.0-0.8) 10^3/u L Baso # (Auto) 0.0 (0.0-0.1) 10^3/u L Nucleated RBC % (a uto) 0 % Nucleated RBCs # 0.0 /100WBC Specimen Type Sample Site ABG pH (7.35-7.45) ABG pCO2 (35-45) mmHg ABG pO2 (80.0-100.0) mmH g ABG HCO3 (22-26) mmol/L ABG O2 Saturation ABG Base Excess (-2.0-2.0) mmol/ L Shoaib Test A-a O2 Gradient (5-10) mmHg Hematocrit (37-47) % Hgb O2 Saturation (95-100) % Carboxyhemoglobin (0.4-20.1) %THgb Methemoglobin (0.4-1.5) % Total Hemoglobin (12-16) g/dL Sodium 140 (131-143) mmol/L Potassium 5.2 H (3.5-5.0) mmol/L Glucose 107 (70-115) mg/dL Ionized Calcium (1.1-1.4) mmol/L O2 Delivery Device FiO2 % Quality Assurance Monitor Final ID Chloride 100 (98-107) mmol/L Carbon Dioxide 26 (22-29) mmol/L Anion Gap 19.2 H (5-19) BUN 46 H (8-23) mg/dL Creatinine 1.6 H (0.5-0.9) mg/dL GFR Calculation 32.1 L (90-130) mL/min Calculated Osmolal ity 302 H (285-295) mOsm/k g Calcium 13.5 H (8.5-10.5) mg/dL Total Bilirubin 1.0 (0.15-1.2) mg/dL AST 28 (0-32) U/L ALT 31 (0-33) U/L Alkaline Phosphata se 101 (35-105) IU/L Troponin T Baselin e 152 H* (0-10) ng/L Troponin T 120 Min [place] (0-10) ng/L Delta Troponin T (0-10) ABS# NT-Pro-B Natriuret Pep 263 H (0-125) pg/mL Total Protein 7.0 (6.6-8.7) g/dL Albumin 4.1 (3.5-5.2) g/dL Globulin 2.9 (1.3-4.6) g/dL Urine Color (Yellow) Urine Appearance (CLEAR) Urine pH (5-7) Ur Specific Gravit y (1.005-1.030) Urine Protein (Negative) Urine Glucose (UA) (Normal) Urine Ketones (Negative) Urine Blood (Negative) Urine Nitrate (Negative) Urine Bilirubin (Negative) Urine Urobilinogen (Negative) mg/dL Ur Leukocyte Quiana ase (Negative) Urine RBC (0-2) /hpf Urine WBC (0-5) /hpf Ur Squamous Epith Cells (0-5) /hpf Amorphous Sediment Urine Bacteria (NONE) /hpf Hyaline Casts /lpf Urine Mucus /hpf Urine Yeast /hpf 05/20/21 05/20/21 Range/Units 00:55 03:10 WBC (4.0-10.0) 10^3/ uL RBC (4.1-5.3) 10^6/u L Hgb (11.5-15.3) g/dL Hct (37.0-47.0) % MCV (81-99) fl MCH (28.0-34.0) pg MCHC (30.0-36.0) g/dL RDW (12.1-15.1) % Plt Count (130-400) 10^3/c mm MPV (7.4-10.4) fL Neut % (Auto) % Lymph % (Auto) % Cedar % (Auto) % Eos % (Auto) % Baso % (Auto) % Neut # (Auto) (1.8-7.7) 10^3/u L Lymph # (Auto) (0.8-4.8) 10^3/u L Cedar # (Auto) (0.2-0.9) 10^3/u L Eos # (Auto) (0.0-0.8) 10^3/u L Baso # (Auto) (0.0-0.1) 10^3/u L Nucleated RBC % (a uto) % Nucleated RBCs # /100WBC Specimen Type Sample Site ABG pH (7.35-7.45) ABG pCO2 (35-45) mmHg ABG pO2 (80.0-100.0) mmH g ABG HCO3 (22-26) mmol/L ABG O2 Saturation ABG Base Excess (-2.0-2.0) mmol/ L Shoaib Test A-a O2 Gradient (5-10) mmHg Hematocrit (37-47) % Hgb O2 Saturation (95-100) % Carboxyhemoglobin (0.4-20.1) %THgb Methemoglobin (0.4-1.5) % Total Hemoglobin (12-16) g/dL Sodium (131-143) mmol/L Potassium (3.5-5.0) mmol/L Glucose (70-115) mg/dL Ionized Calcium (1.1-1.4) mmol/L O2 Delivery Device FiO2 % Quality Assurance Monitor Final ID Chloride (98-107) mmol/L Carbon Dioxide (22-29) mmol/L Anion Gap (5-19) BUN (8-23) mg/dL Creatinine (0.5-0.9) mg/dL GFR Calculation (90-130) mL/min Calculated Osmolal ity (285-295) mOsm/k g Calcium (8.5-10.5) mg/dL Total Bilirubin (0.15-1.2) mg/dL AST (0-32) U/L ALT (0-33) U/L Alkaline Phosphata se (35-105) IU/L Troponin T Baselin e (0-10) ng/L Troponin T 120 Min ven[place] 159.4 H (0-10) ng/L Delta Troponin T 7.4 (0-10) ABS# NT-Pro-B Natriuret Pep (0-125) pg/mL Total Protein (6.6-8.7) g/dL Albumin (3.5-5.2) g/dL Globulin (1.3-4.6) g/dL Urine Color Yellow (Yellow) Urine Appearance Sl hazy (CLEAR) Urine pH 5 (5-7) Ur Specific Gravit y 1.020 (1.005-1.030) Urine Protein Neg (Negative) Urine Glucose (UA) Norm (Normal) Urine Ketones Negative (Negative) Urine Blood Neg (Negative) Urine Nitrate Negative (Negative) Urine Bilirubin Neg (Negative) Urine Urobilinogen Norm (Negative) mg/dL Ur Leukocyte Quiana ase Negative (Negative) Urine RBC 0-4 H (0-2) /hpf Urine WBC 5-10 H (0-5) /hpf Ur Squamous Epith Cells 0-4 H (0-5) /hpf Amorphous Sediment Not Reportable Urine Bacteria Trace (NONE) /hpf Hyaline Casts 0-4 H /lpf Urine Mucus Trace /hpf Urine Yeast 3+ H /hpf Discharge Plan Discharge Patient Disposition: Home Clinical Impression: Altered mental status, Dehydration Condition: Stable Prescriptions: No Action exemestane 25 mg tablet 25 mg PO DAILY@18 RF: 0 magnesium 200 mg tablet 200 mg PO BID@ RF: 0 cholecalciferol (vitamin D3) 50 mcg (2,000 unit) capsule 150 mcg PO BID@ RF: 0 albuterol sulfate [Ventolin HFA] 90 mcg/actuation HFA aerosol inhaler 2 puff INHALATION Q4H PRN (Reason: shortness of breath or wheezing) Qty: 8.5 RF: 5 potassium chloride 20 mEq tablet extended release 20 meq PO BID Qty: 20 RF: 0 cyclobenzaprine 10 mg tablet 10 mg PO TID PRN (Reason: Muscle Spasm) RF: 0 lidocaine 5 % adhesive patch,medicated See Rx Instructions .ROUTE .COMPLEX RF: 0 Protonix 40 mg tablet,delayed release (DR/EC) 40 mg PO DAILY Qty: 14 RF: 0 Lasix 40 mg tablet 40 mg PO DAILY Qty: 0 RF: 0 enalapril maleate 10 mg tablet 10 mg PO DAILY Qty: 180 RF: 1 Discharge Orders: Discharge ED (Routine); Ordered 05/20/21 Ordered By: Brittnee Landeros Referrals: Ralf Castillo DO [Primary Care Provider] - 1-3 days Discharge Diet: Advance as tolerated Discharge Activity: Resume usual activity Patient Instructions: Dehydration (ED) Activity Restrictions/Additional Instructions: recheck bmp in 2 days Sign Out Sign Out Data: Patient Sign Out occurred on 05/20/21 at 05:52. Patient's care was discussed, and care was transferred from to Jose A Neri DO. Coding Level of Care Code ED Collator Hand for Ajg Fwd Exam Comprehensive
[2021-05-20 00:04] LABS: ABG PCO2 43.9 mmHg (35-45); ABG PH Result 7.42 (7.35-7.45); Arterial Blood Gas Hematocrit 41.2 % (37-47); Base Excess ABG 3.1 mmol/L (-2.0-2.0); Blood Gas Allen Test Pos; Blood Gas Sample Site Radial, left; Blood Gas Sample Type Arterial; HCO3 ABG 28.2 mmol/L (22-26); PO2 ABG 57.9 mmHg (80.0-100.0)
[2021-05-20 00:12] LABS: ABG PCO2 42.8 mmHg (35-45); ABG PH Result 7.42 (7.35-7.45); Alveolar-Arterial Oxygen Gradi 4.4 mmHg (5-10); Arterial Blood Gas Hematocrit 41.4 % (37-47); Base Excess ABG 2.9 mmol/L (-2.0-2.0); Blood Gas Allen Test Pos; Blood Gas Sample Site Radial, right; Blood Gas Sample Type Arterial; Carboxyhemoglobin 1.7 %THgb (0.4-20.1); HCO3 ABG 27.8 mmol/L (22-26); HGB O2 Sat 91.4 % (95-100); Ionized Calcium Level - ABG 1.7 mmol/L (1.1-1.4); Methemoglobin 0.7 % (0.4-1.5); Oxygen Saturation ABG 93.7; PO2 ABG 63.4 mmHg (80.0-100.0); Potassium Level - ABG 4.9 mmol/L (3.5-5.0); Total Hemoglobin 13.5 g/dL (12-16)
[2021-05-20 00:13] LABS: Oxygen Device ROOM AIR
[2021-05-20 00:15] LABS: Oxygen Device RA
[2021-05-20 00:19] LABS: ABG PCO2 43.1 mmHg (35-45); ABG PH Result 7.42 (7.35-7.45); Arterial Blood Gas Hematocrit 42.2 % (37-47); Base Excess ABG 2.7 mmol/L (-2.0-2.0); Blood Gas Allen Test Pos; Blood Gas Sample Site Radial, right; Blood Gas Sample Type Arterial; HCO3 ABG 27.7 mmol/L (22-26); Oxygen Device ROOM AIR; PO2 ABG 68.3 mmHg (80.0-100.0)
[2021-05-20 00:36] LABS: Basophils % 0.3 %; Eosinophils # 0.5 10^3/uL (0.0-0.8); Eosinophils % 4.8 %; Hematocrit 43.2 % (37.0-47.0); Hemoglobin 13.3 g/dL (11.5-15.3); Lymphocytes # 2.1 10^3/uL (0.8-4.8); Lymphocytes % 19.4 %; Mean Corpuscular HGB Conc 30.8 g/dL (30.0-36.0); Mean Corpuscular Hemoglobin 29.5 pg (28.0-34.0); Mean Corpuscular Volume 95.8 fl (81-99); Mean Platelet Volume 12.8 fL (7.4-10.4); Monocytes # 0.6 10^3/uL (0.2-0.9); Monocytes % 5.1 %; Neutrophils # 7.53 10^3/uL (1.8-7.7); Neutrophils % 70.1 %; Nucleated Red Blood Cells % 0 %; Platelet Count 172 10^3/cmm (130-400); Red Blood Count 4.51 10^6/uL (4.1-5.3); Red Cell Distribution Width 17.6 % (12.1-15.1); White Blood Count 10.8 10^3/uL (4.0-10.0)
[2021-05-20 01:07] VITALS: BP 97/50; PULSE 75; RESP 18; TEMP 37.2; O2SAT 95
[2021-05-20 01:15] LABS: Bilirubin Urine Neg (Negative); Blood Urine Neg (Negative); Glucose Urine UA Norm (Normal); Ketones Urine Negative (Negative); Leukocyte Esterase Urine Negative (Negative); Nitrate Urine Negative (Negative); Protein Urine Neg (Negative); Urine Color Yellow (Yellow); Urobilinogen Urine Norm (Negative); pH Urine 5 (5-7)
[2021-05-20] MEDS: sodium chloride 0.9% 1,000 ML 999 ML IV (01:20)
[2021-05-20 01:21] LABS: Add Urine Microscopic? YES; Urine Appearance SL Hazy (CLEAR)
[2021-05-20 01:22] LABS: Add Urine Culture? Yes; Bacteria Urine TRACE /hpf; Hyaline Casts Urine 0-4 /lpf; Mucus Urine TRACE /hpf; RBC Urine 0-4 /hpf (0-2); Squamous Epithelial Cell Urine 0-4 /hpf (0-5)
[2021-05-20 01:29] LABS: Troponin(5th) Baseline 152 ng/L (0-10)
[2021-05-20 01:31] LABS: Alanine Aminotransferase 31 U/L (0-33); Albumin Level 4.1 g/dL (3.5-5.2); Alkaline Phosphatase 101 IU/L (35-105); Anion Gap 19.2 (5-19); Aspartate Amino Transferase 28 U/L (0-32); Blood Urea Nitrogen 46 mg/dL (8-23); Calcium 13.5 mg/dL (8.5-10.5); Carbon Dioxide 26 mmol/L (22-29); Chloride 100 mmol/L (98-107); Globulin 2.9 g/dL (1.3-4.6); Glomerular Filtration Rate 32.1 mL/min (90-130); Glucose 107 mg/dL (65-115); NT Pro B Type Natriuretic Pept 263 pg/mL (0-125); Osmolality Calculated 302 mOsm/kg (285-295); Potassium 5.2 mmol/L (3.5-5.1); Sodium 140 mmol/L (136-145)
[2021-05-20] MEDS: sodium chloride 0.9% 500 ML 999 ML IV (02:11)
[2021-05-20 02:12] VITALS: BP 127/80; PULSE 71; RESP 22; O2SAT 93
--- NOTE | 2021-05-20 03:29 | CTR_ITS ---
PROCEDURE INFORMATION: Exam: CT Head Without Contrast Exam date and time: 05/20/2021 3:29 AM Age: 70 years old Clinical indication: Altered mental status/memory loss; Patient HX: AMS. Lethargy. Best positioning and exam due to body habitus. TECHNIQUE: Imaging protocol: Computed tomography of the head without contrast. Radiation optimization: All CT scans at this facility use at least one of these dose optimization techniques: automated exposure control; mA and/or kV adjustment per patient size (includes targeted exams where dose is matched to clinical indication); or iterative reconstruction. COMPARISON: CT head wo con* [id number] 05/02/2021 1:24 AM RADIATION DOSE METRICS: Total DLP (mGy-cm): 1019.38 FINDINGS: Brain: No acute intracranial hemorrhage or mass effect. There is decreased attenuation in the periventricular white matter, likely from microvascular disease. No definite acute infarct by CT. MRI could be more sensitive/specific for detection, as clinically directed. Cerebral ventricles: Ventricle size is normal for age. Paranasal sinuses: Moderate mucosal thickening/opacity in the right maxillary sinus. Mild mucosal thickening in the left maxillary sinus. Mastoid air cells: No significant acute finding. Vasculature: Vascular calcifications in the internal carotid and vertebral basilar systems. Bones/joints: No definite acute skull fracture. Several nonspecific lucent area is again seen in the skull, similar to the prior exam. The CT appearance is nonspecific, but these findings could represent evidence for metastatic disease or multiple myeloma. Please correlate clinically. CT/CT head wo con* [id number] IMPRESSION: 1. No acute intracranial hemorrhage or mass effect. 2. Changes of microvascular disease. 3. No definite acute infarct by CT, see above. 4. Other findings discussed above. 5. Some limitations due to artifact from patient motion. Radiation Dose CTDIVOL = (mGy): DLP = 1019.38 (mGy-cm)
[2021-05-20 03:43] LABS: Troponin 5 2HR Delta 7.4 ABS# (0-10)
[2021-05-20 03:47] LABS: Troponin 5 2HR 159.4 ng/L (0-10)
[2021-05-20 04:40] VITALS: BP 136/78; PULSE 72; RESP 16; O2SAT 95
[2021-05-20 05:32] VITALS: BP 82/58; PULSE 64; RESP 22; O2SAT 94
[2021-05-20 06:46] VITALS: BP 121/60; PULSE 88; RESP 13; O2SAT 94
== END 2021-05-20 11:12 | disposition home or self-care (01) ==
PROVIDERS: Emergency Medicine; Emergency Provider Family Medicine; PCP Family Medicine
DX: E86.0 Dehydration (principal); R41.82 Altered mental status, unspecified; J44.9 Chronic obstructive pulmonary disease, unspecified; I10 Essential (primary) hypertension; E78.5 Hyperlipidemia, unspecified; E11.9 Type 2 diabetes mellitus without complications; Z87.891 Personal history of nicotine dependence
CPT/HCPCS: 36600; 51701; 70450; 71045; 80051; 80053; 81001; 82330; 82803; 82805; 83880; 84484; 85025; 87086; 93005; 96360; 99284; J7030; J7040

== ENCOUNTER 2021-05-21 18:18 | Outpatient (CLI) | payer MEDICARE, MEDICAID, SELFPAY ==
[2021-05-21 19:04] LABS: Basophils % 0.3 %; Eosinophils # 0.4 10^3/uL (0.0-0.8); Eosinophils % 3.7 %; Hematocrit 40.9 % (37.0-47.0); Hemoglobin 12.7 g/dL (11.5-15.3); Lymphocytes # 1.9 10^3/uL (0.8-4.8); Lymphocytes % 17.6 %; Mean Corpuscular HGB Conc 31.1 g/dL (30.0-36.0); Mean Corpuscular Hemoglobin 29.3 pg (28.0-34.0); Mean Corpuscular Volume 94.5 fl (81-99); Mean Platelet Volume 12.9 fL (7.4-10.4); Monocytes # 0.5 10^3/uL (0.2-0.9); Monocytes % 4.6 %; Neutrophils % 73.4 %; Nucleated Red Blood Cells % 0 %; Platelet Count 168 10^3/cmm (130-400); Red Blood Count 4.33 10^6/uL (4.1-5.3); Red Cell Distribution Width 16.6 % (12.1-15.1); White Blood Count 10.8 10^3/uL (4.0-10.0)
[2021-05-21 19:30] LABS: Blood Urea Nitrogen 39 mg/dL (8-23); Calcium 12.8 mg/dL (8.5-10.5); Carbon Dioxide 28 mmol/L (22-29); Chloride 98 mmol/L (98-107); Glomerular Filtration Rate 34.5 mL/min (90-130); Glucose 97 mg/dL (65-115); Osmolality Calculated 291 mOsm/kg (285-295); Sodium 136 mmol/L (136-145)
[2021-05-21 19:35] LABS: Anion Gap 14.8 (5-19); Potassium 4.8 mmol/L (3.5-5.1)
== END 2021-05-21 18:19 | disposition home or self-care (01) ==
PROVIDERS: PCP Family Medicine; Visit Provider Nurse Practitioner Family
DX: I10 Essential (primary) hypertension (principal)
CPT/HCPCS: 80048; 85025

== ENCOUNTER 2021-09-21 04:38 | Inpatient (IN) | payer MEDICARE, MEDICAID, SELFPAY ==
[2021-09-21] VITALS (11 sets, daily range): BP systolic 118–143; BP diastolic 55–90; PULSE 79–97; RESP 16–30; TEMP 36.6–37.6; O2SAT 88–97; BMI 47.6; BMI 52.7
--- NOTE | 2021-09-21 04:52 | XRR_ITS ---
PROCEDURE INFORMATION: Exam: XR Chest Exam date and time: 09/21/2021 4:52 AM Age: 70 years old Clinical indication: Dyspnea; Additional info: SOB TECHNIQUE: Imaging protocol: XR of the chest. Views: 1 view. COMPARISON: CR XR chest 1V portable [id number] 05/19/2021 10:18 PM FINDINGS: Lungs: There are increased interstitial opacities present bilaterally. Additionally, there are patchy and strandy opacities present in the right lower hemithorax and left lung base that may represent superimposed atelectasis although bilateral consolidation and pneumonia cannot be excluded. Pleural spaces: Unremarkable. No pleural effusion. No pneumothorax. Heart/Mediastinum: Unremarkable. No cardiomegaly. Bones/joints: Unremarkable. XR/XR chest 1V portable [id number] IMPRESSION: 1. There are increased interstitial opacities present bilaterally compatible with a bilateral interstitial pneumonia. 2. There are patchy and strandy opacities present in the lung bases bilaterally, right more prominent than left possibly representing superimposed atelectasis although bilateral consolidated infiltrates cannot be entirely excluded.
--- NOTE | 2021-09-21 04:53 | ECG_ITS ---
[facility] Test Date: 2021-09-21 Pat Name: Samia Sarmiento Department: Room: 276 Gender: Female Professional Services Specialist: : 1950 Requested By: Lavelle Overton Order Number: [id number] Mary MD: Stephie Mooney M.D. Measurements Intervals [place] Rate: 79 P: 54 ID: [id number] QRS: -48 QRSD: 112 T: -11 QT: 372 QTc: 427 Interpretive Statements SINUS RHYTHM WITH FIRST DEGREE AV BLOCK POSSIBLE LEFT ATRIAL ENLARGEMENT LEFT ANTERIOR FASCICULAR BLOCK INCOMPLETE RIGHT BUNDLE BRANCH BLOCK POSSIBLE LEFT VENTRICULAR HYPERTROPHY Compared to ECG 05/19/2021 22:33:48 First degree AV block now present Incomplete right bundle-branch block now present Right bundle-branch block no longer present Electronically Signed On 09-21-2021 15:32:21 COMMUTATOR REPAIRER by Stephie Mooney M.D. [email or web address] [email or web address] [email or web address] Medicalmercy [email or web address] [id number] f
[2021-09-21 04:57] LABS: ABG PH Result 7.32 (7.35-7.45); Arterial Blood Gas Hematocrit 35.3 % (37-47); Base Excess ABG 11.6 mmol/L (-2.0-2.0); Blood Gas Sample Site Brachial, left; Blood Gas Sample Type Arterial; Carboxyhemoglobin 1.7 %THgb (0.4-20.1); HCO3 ABG 40.6 mmol/L (22-26); HGB O2 Sat 94.4 % (95-100); Methemoglobin 0.9 % (0.4-1.5); Oxygen Device OXY MASK; PO2 ABG 85.7 mmHg (80.0-100.0); Total Hemoglobin 11.5 g/dL (12-16)
[2021-09-21 04:58] LABS: ABG PCO2 78.6 mmHg (35-45)
[2021-09-21] MEDS: ipratropium-albuterol 3 mL Neb INHALATION (05:09)
[2021-09-21 05:18] LABS: Basophils % 0.3 %; Eosinophils # 0.2 10^3/uL (0.0-0.8); Eosinophils % 1.9 %; Hematocrit 41.1 % (37.0-47.0); Hemoglobin 11.4 g/dL (11.5-15.3); Lymphocytes # 1.3 10^3/uL (0.8-4.8); Lymphocytes % 12.6 %; Mean Corpuscular HGB Conc 27.7 g/dL (30.0-36.0); Mean Corpuscular Hemoglobin 26.3 pg (28.0-34.0); Mean Corpuscular Volume 94.9 fl (81-99); Mean Platelet Volume 10.6 fL (7.4-10.4); Monocytes # 0.5 10^3/uL (0.2-0.9); Monocytes % 4.8 %; Neutrophils # 8.43 10^3/uL (1.8-7.7); Neutrophils % 80.2 %; Nucleated Red Blood Cells % 0 %; Platelet Count 164 10^3/cmm (130-400); Red Blood Count 4.33 10^6/uL (4.1-5.3); Red Cell Distribution Width 17.2 % (12.1-15.1); White Blood Count 10.5 10^3/uL (4.0-10.0)
[2021-09-21 05:28] LABS: Lactic Sepsis W/Reflex 0.7 mmol/L (0.5-2.2)
[2021-09-21 05:29] LABS: Troponin(5th) Baseline 71 ng/L (0-10)
[2021-09-21 05:34] LABS: D Dimer 2.62 ug/mIFEU (0-0.59)
[2021-09-21 05:39] LABS: NT Pro B Type Natriuretic Pept 5297 pg/mL (0-125); Procalcitonin 0.53 ng/mL (0-0.5)
[2021-09-21 05:50] LABS: Alanine Aminotransferase 7 U/L (0-33); Albumin Level 3.9 g/dL (3.5-5.2); Alkaline Phosphatase 102 IU/L (35-105); Anion Gap 14.9 (5-19); Aspartate Amino Transferase 14 U/L (0-32); Blood Urea Nitrogen 18 mg/dL (8-23); Carbon Dioxide 33 mmol/L (22-29); Chloride 100 mmol/L (98-107); Globulin 3.6 g/dL (1.3-4.6); Glomerular Filtration Rate 49.4 mL/min (90-130); Glucose 141 mg/dL (65-115); Osmolality Calculated 300 mOsm/kg (285-295); Potassium 4.9 mmol/L (3.5-5.1); Sodium 143 mmol/L (136-145); Total Bilirubin 0.5 mg/dL (0.15-1.2); Total Protein 7.5 g/dL (6.6-8.7)
[2021-09-21] MEDS: cefTRIAXone 1,000 MG in sodium chloride 0.9% (plus) 50 ML 100 MG IV (06:00)
--- NOTE | 2021-09-21 06:10 | CTR_ITS ---
PROCEDURE INFORMATION: Exam: CTA Chest With Contrast Exam date and time: 09/21/2021 6:10 AM Age: 70 years old Clinical indication: Shortness of breath; Additional info: SOB - w/ cp - PT unable to full extend arms, PT unable to hold breath. Scan x 2 - best images possible TECHNIQUE: Imaging protocol: Computed tomographic angiography of the chest with contrast. 3D rendering (Not supervised by radiologist): MIP reconstructed images were created by the technologist. Radiation optimization: All CT scans at this facility use at least one of these dose optimization techniques: automated exposure control; mA and/or kV adjustment per patient size (includes targeted exams where dose is matched to clinical indication); or iterative reconstruction. Contrast material: VISI 320; Contrast volume: 95 ml; Contrast route: INTRAVENOUS (IV); COMPARISON: CT angio chest w abd pel w con 05/02/2021 1:34 AM RADIATION DOSE METRICS: Total DLP (mGy-cm): 554.68 FINDINGS: Pulmonary arteries: No pulmonary artery embolism identified. The pulmonary vasculature is congested. Aorta: No aortic aneurysm. No aortic dissection. Thyroid: Stable right thyroid calcifications. Lungs: Bilateral posterior pulmonary partial passive atelectasis. Lower lobe anterior basilar segment consolidative density. 2.4 cm left upper lobe pulmonary bleb. Pleural spaces: No pneumothorax. Moderate right pleural effusion, mildly increased. Minimal left pleural effusion., stable Impression. Heart: Mitral annular calcification is present. Moderate aortic valvular calcification is present. LAD, LCx and RCA calcified coronary atherosclerosis. Lymph nodes: No enlarged lymph nodes. Gallbladder and bile ducts: The gallbladder is surgically absent, with metallic clips in the gallbladder fossa. No extrahepatic biliary ductal dilatation or calculus. Bones/joints: Moderate chronic T8 and T9 vertebral body compression deformities, stable. Osseous metastatic disease redemonstrated. Thoracic spine vertebral body marginal osteophytes are noted at multiple levels. Soft tissues: Right breast surgical clips. Other findings: The patient's body habitus diminishes the image detail. CT/CT angio chest PE protcl [id number] IMPRESSION: 1. No pulmonary artery embolism identified. 2. Pulmonary vascular congestion. 3. Moderate right pleural effusion, mildly increased. 4. Osseous metastatic disease redemonstrated. 5. Lower lobe anterior basilar segment consolidative density. Pneumonitis is difficult to exclude. Clinical correlation is recommended. 6. Coronary atherosclerosis. 7. Prior cholecystectomy.
[2021-09-21] MEDS: azithromycin 500 MG in sodium chloride 0.9% 250 ML 250 MG IV (06:17)
--- NOTE | 2021-09-21 06:53 | ECG_ITS ---
[facility] Test Date: 2021-09-21 Pat Name: Samia Sarmiento Department: Room: Gender: Female Portfolio Lead: : 1950 Requested By: Lavelle Overton Order Number: [id number] Mary MD: Stephie Mooney M.D. Measurements Intervals [place] Rate: 80 P: 61 OR: 220 QRS: -53 QRSD: 111 T: -13 QT: 365 QTc: 423 Interpretive Statements SINUS RHYTHM WITH FIRST DEGREE AV BLOCK POSSIBLE LEFT ATRIAL ENLARGEMENT [-0.1mV P-WAVE IN V1/V2] INCOMPLETE RIGHT BUNDLE BRANCH BLOCK ANTERIOR MYOCARDIAL INFARCTION , OF INDETERMINATE AGE LEFT ANTERIOR FASCICULAR BLOCK Compared to ECG 05/19/2021 22:33:48 First degree AV block now present Incomplete right bundle-branch block now present Myocardial infarct finding now present Right bundle-branch block no longer present Left ventricular hypertrophy no longer present Electronically Signed On 09-21-2021 16:53:40 HYDRAULIC DESIGN ENGINEER by Stephie Mooney M.D. [id number]
[2021-09-21 06:59] LABS: Adenovirus Not Detected (NOT DETECT); Chlamydia Pneumoniae Not Detected (NOT DETECT); Coronavirus 229E,HKU1,NL63,OC4 Not Detected (NOT DETECT); Human Metapneumovirus Not Detected (NOT DETECT); Human Rhinovirus/Enterovirus Not Detected (NOT DETECT); Influenza A Not Detected (NOT DETECT); Influenza A H1 Not Detected (NOT DETECT); Influenza A H1-2009 Not Detected (NOT DETECT); Influenza A H3 Not Detected (NOT DETECT); Influenza B Not Detected (NOT DETECT); Mycoplasma Pneumoniae Not Detected (NOT DETECT); Parainfluenza Virus Type 1 Not Detected (NOT DETECT); Parainfluenza Virus Type 2 Not Detected (NOT DETECT); Parainfluenza Virus Type 3 Not Detected (NOT DETECT); Parainfluenza Virus Type 4 Not Detected (NOT DETECT); Respiratory Syncytial Virus A Not Detected (NOT DETECT); Respiratory Syncytial Virus B Not Detected (NOT DETECT); SARS-COV-2 Not Detected (NOT DETECT)
[2021-09-21 07:35] LABS: Troponin 5 2HR 69.71 ng/L (0-10)
[2021-09-21 07:36] LABS: Troponin 5 2HR Delta -1.29 ABS# (0-10)
--- NOTE | 2021-09-21 08:10 | USCV_ITS ---
Samia Sarmiento Age: 70 Gender: F : 1950 Exam Date: 09/21/2021 11:02 Ordering Phys: Devin Otto MD Technologist: KIMBERLY [place] [facility] [place]: pulmonary edema BP: 134 / 76 HR: 87 Rhythm: Sinus Technical Quality: Adequate MEASUREMENTS (Male / Female) Normal Values 2D ECHO LV Diastolic Diameter PLAX 4.2 cm 4.2 - 5.9 / 3.9 - 5.3 cm LV Systolic Diameter PLAX 3.6 cm IVS Diastolic Thickness 1.6 cm 0.6 - 1.0 / 0.6 - 0.9 cm IVS Systolic Thickness 1.8 cm LVPW Diastolic Thickness 1.7 cm 0.6 - 1.0 / 0.6 - 0.9 cm LVPW Systolic Thickness 1.6 cm LVOT Diameter 1.9 cm LV Ejection Fraction 2D Teich 8.9 % LV Ejection Fraction MOD 2C 60.0 % LV Ejection Fraction 2C AL 61.1 % LA Diameter 5.4 cm LA Width 4.8 cm LA Height 6.1 cm RA Width 4.7 cm RA Height 5.6 cm Aorta at Sinotubular Diameter 3.0 cm M-MODE Aortic Annulus Diameter 3.2 cm LA Ao Ratio MM 1.6 MV E Point Septal Separation 0.6 cm DOPPLER AV Peak Velocity 336.0 cm/s LVOT Peak Velocity 99.0 cm/s AV Area Cont Eq vti 0.9 cm squared AV Area Cont Eq pk 0.8 cm squared FINDINGS Left Ventricle Normal left ventricular size and systolic function, EF 63 %. No regional wall motion abnormalities. Right Ventricle Normal right ventricular size and systolic function. Right Atrium Mildly increased right atrial size. Left Atrium Mildly increased left atrial size. Mitral Valve Thickened mitral valve. Moderate mitral annular calcification. Aortic Valve Thickened aortic valve. Tricuspid Valve Could not be visualized well Pulmonic Valve Pulmonic valve not well visualized. Pericardium Normal pericardium without effusion. Aorta Normal ascending aorta dimension. CONCLUSIONS Normal left ventricular size and systolic function, EF 63 %. No regional wall motion abnormalities. Mild biatrial enlargement Thickened mitral valve. Moderate mitral annular calcification. Thickened aortic valve. There is no pericardial effusion. There are no intracardiac masses. Compared to the study from 05/02/2021, no significant change in the 2D findings Dr Jimmy Herrera MD FACC (Electronically Signed) Final Date: 22 September 2021 00:46 S
[2021-09-21] MEDS: enoxaparin 40 mg/0.4 mL Syringe SUBCUT (10:13)
[2021-09-21] MEDS: doxycycline 100 mg Tablet PO (10:14)
[2021-09-21] MEDS: pantoprazole DR 40 mg Tablet PO (10:14)
[2021-09-21] MEDS: aspirin 325 mg EC Tablet 81 MG PO (10:14)
[2021-09-21] MEDS: FUROsemide 10 mg/mL SDV 4mL 40 MG IVP ×2 (10:14→21:56)
[2021-09-21] MEDS: atorvastatin 40 mg Tablet PO (10:15)
--- NOTE | 2021-09-21 10:53 | ECG_ITS ---
[facility] Test Date: 2021-09-21 Pat Name: Samia Sarmiento Department: Room: 276 Gender: Female Highway Construction Inspector: : 1950 Requested By: Lavelle Overton Order Number: [id number] Mary MD: Stephie Mooney M.D. Measurements Intervals [place] Rate: 83 P: 48 PA: 222 QRS: -49 QRSD: 118 T: -22 QT: 355 QTc: 419 Interpretive Statements SINUS RHYTHM WITH FIRST DEGREE AV BLOCK INCOMPLETE RIGHT BUNDLE BRANCH BLOCK MODERATE VOLTAGE CRITERIA FOR LVH, CONSIDER NORMAL VARIANT INFERIOR MYOCARDIAL INFARCTION , OF INDETERMINATE AGE Compared to ECG 09/21/2021 06:59:27 No significant changes Electronically Signed On 09-21-2021 16:52:37 OB SCRUB TECH by Stephie Mooney M.D. [id number]
--- NOTE | 2021-09-21 12:53 | P.HP_ITS ---
Providers/Chief Complaint Admitting Physician: Lazaro Alvarez Primary Care Provider: Ralf Castillo DO Chief Complaint: SOB History of Present Illness Samia Sarmiento is a 70 year old female with past medical history of metastatic breast cancer, chronic pain syndrome, hypertension, anxiety who is presenting with shortness of breath and cough. The symptoms started to 3 days ago and progressively got worse. Currently described as moderate in intensity. Denies chest pain. Reports productive cough but unable to describe the phlegm. No hemoptysis. Denies fever or chills. No nausea or vomiting. No diarrhea. Denies similar in the past. Review of Systems General: Reports: 10 or more systems reviewed and unremarkable except in HPI and below Medications/Allergies Home Medications Medication Instructions Recorded Confirmed Last Taken Type exemestane 25 mg tablet 25 mg PO DAILY@18 10/17/19 09/21/21 09/20/21 History magnesium 200 mg tablet 200 mg PO BID@10/17/19 09/21/21 09/20/21 History cholecalciferol (vitamin D3) 50 150 mcg PO BID@05/19/20 09/21/21 09/20/21 History mcg (2,000 unit) capsule albuterol sulfate 90 mcg/actuation 2 puff INHALATION Q4H PRN #8.5 g 12/23/20 09/21/21 Unknown Rx aerosol inhaler lidocaine See Rx Instructions .ROUTE .COMPLEX 01/12/21 09/21/21 Unknown History enalapril maleate 10 mg PO DAILY #180 tab 05/08/21 09/21/21 09/20/21 Rx pantoprazole [Protonix] 40 mg PO DAILY #14 tab 05/08/21 09/21/21 09/20/21 Rx amlodipine 10 mg tablet 10 mg PO DAILY #30 tab 09/07/21 09/21/21 09/20/21 Rx hydrocodone 5 mg-acetaminophen 325 1 tab PO .one or two every six PRN 09/07/21 09/21/21 Unknown Rx mg tablet 4 Days #40 tab lorazepam 0.5 mg PO DAILY PRN 09/21/21 09/21/21 Unknown History Allergies Allergy/AdvReac Type Severity Reaction Status Date / Time tetanus and diphtheria Allergy Severe arm Verified 09/07/21 09:51 toxoids swelling citalopram [From Celexa] Allergy anaphylaxis Verified 09/07/21 09:51 Corticosteroids Allergy difficulty Verified 09/07/21 09:51 (Glucocorticoids) breathing/ rash ibuprofen [From Advil] Allergy rapid pulse Verified 09/07/21 09:51 letrozole Allergy high BP/ Verified 09/07/21 09:51 caused tremendous pain in her joints nortriptyline Allergy tacycardia Verified 09/07/21 09:51 and HTN Opioids - Morphine Analogues Allergy hypes her Verified 09/07/21 09:51 up oxcarbazepine Allergy anaphylaxis Verified 09/07/21 09:51 [From Trileptal] Tetanus Vaccines and Toxoid Allergy localized Verified 09/07/21 09:51 reaction PFSH Acute PFSH: Medical History Acute exacerbation of CHF (congestive heart failure) Acute kidney injury superimposed on CKD Acute respiratory failure with hypoxia Anxiety attack Bradycardia Breast cancer metastasized to bone diag 2014 with treatment and no activity at this time per PET scan Chronic hypercapnic respiratory failure Chronic low back pain COPD (chronic obstructive pulmonary disease) Current every day smoker Depression Dyspnea Encounter for long-term opiate analgesic use Enrolled in chronic care management Essential hypertension GERD (gastroesophageal reflux disease) Heart failure with preserved ejection fraction High risk medication use Hyperlipidemia Inflammatory arthritis Joint pain Leg weakness, bilateral Liver dysfunction Metastatic breast cancer Morbid obesity Morbid obesity with BMI of 45.0-49.9, adult Nicotine dependence, cigarettes, uncomplicated Obesity hypoventilation syndrome Obstructive sleep apnea Opioid contract exists Pain in rib Pain in thoracic spine PVD (peripheral vascular disease) Sleep apnea Type 2 diabetes mellitus without complication, without long-term current use of insulin Xeroderma Surgical History Hx laparoscopic cholecystectomy 11/01/18 Hx of arthroscopic knee surgery Right Hx of cholecystectomy Hx of lumpectomy Right Hx of oral surgery pulled all teeth 03/2017 Hx of tubal ligation Family History Unknown Prostate disease Depression Heart disease Hypertension Chronic kidney disease (CKD) Grandfather Cancer LUNG CANCER Other CAD (coronary artery disease) Rheumatoid arthritis Denies family history of Diabetes Lupus Hyperlipidemia Family history of premature coronary artery disease Stroke Social History Smoking and tobacco status: former smoker Second hand smoke exposure: No Alcohol intake: never History of recent travel: No Vitals/I&O/Wt Last Vital Signs Temp 97.9 F 09/21/21 11:13 Pulse 86 09/21/21 11:13 Resp 16 09/21/21 11:13 BP 118/55 09/21/21 11:13 Pulse Ox 89 L 09/21/21 11:13 09/20/21 09/21/21 09/21/21 22:59 06:59 14:59 Intake Total 50 / 50 250 / 250 Balance 50 / 50 250 / 250 Weight last 48 hrs Weight 130.635 kg Weight 118.194 kg Physical Exam Narrative: EXAM NARRATIVE: Awake, oriented but confused. No acute distress currently. Skin is warm and dry. Moist mucous memories Neck supple. No JVD Lungs mild bibasilar crackles. No respiratory distress Heart S1, S2, regular Abdomen soft, normal, nontender, bowel sounds are present Extremities chronic venous stasis changes and bilateral edema. No cyanosis or calf tenderness bilaterally Neuro examination is nonfocal Eyes PERRL, extraocular muscles are intact Normal speech. No focal deficits. Data : 09/21/21 04:48 09/21/21 04:48 Other Labs: Laboratory Results WBC 10.5 10^3/uL (4.0-10.0) H 09/21/21 04:48 RBC 4.33 10^6/uL (4.1-5.3) 09/21/21 04:48 Hgb 11.4 g/dL (11.5-15.3) L 09/21/21 04:48 Hct 41.1 % (37.0-47.0) 09/21/21 04:48 MCV 94.9 fl (81-99) 09/21/21 04:48 MCH 26.3 pg (28.0-34.0) L 09/21/21 04:48 MCHC 27.7 g/dL (30.0-36.0) L 09/21/21 04:48 RDW 17.2 % (12.1-15.1) H 09/21/21 04:48 Plt Count 164 10^3/cmm (130-400) 09/21/21 04:48 MPV 10.6 fL (7.4-10.4) H 09/21/21 04:48 Neut % (Auto) 80.2 % 09/21/21 04:48 Lymph % (Auto) 12.6 % 09/21/21 04:48 [place] % (Auto) 4.8 % 09/21/21 04:48 Eos % (Auto) 1.9 % 09/21/21 04:48 Baso % (Auto) 0.3 % 09/21/21 04:48 Neut # (Auto) 8.43 10^3/uL (1.8-7.7) H 09/21/21 04:48 Lymph # (Auto) 1.3 10^3/uL (0.8-4.8) 09/21/21 04:48 [place] # (Auto) 0.5 10^3/uL (0.2-0.9) 09/21/21 04:48 Eos # (Auto) 0.2 10^3/uL (0.0-0.8) 09/21/21 04:48 Baso # (Auto) 0.0 10^3/uL (0.0-0.1) 09/21/21 04:48 Nucleated RBC % (auto) 0 % 09/21/21 04:48 Nucleated RBCs # 0.0 /100WBC 09/21/21 04:48 D-Dimer 2.62 ug/mIFEU (0-0.59) H 09/21/21 05:05 Specimen Type Arterial 09/21/21 04:52 Sample Site Brachial, left 09/21/21 04:52 ABG pH 7.32 (7.35-7.45) L 09/21/21 04:52 ABG pCO2 78.6 mmHg (35-45) H* 09/21/21 04:52 ABG pO2 85.7 mmHg (80.0-100.0) 09/21/21 04:52 ABG HCO3 40.6 mmol/L (22-26) H 09/21/21 04:52 ABG Base Excess 11.6 mmol/L (-2.0-2.0) H 09/21/21 04:52 Shoaib Test N/a 09/21/21 04:52 Hematocrit 35.3 % (37-47) L 09/21/21 04:52 Hgb O2 Saturation 94.4 % (95-100) L 09/21/21 04:52 Carboxyhemoglobin 1.7 %THgb (0.4-20.1) 09/21/21 04:52 Methemoglobin 0.9 % (0.4-1.5) 09/21/21 04:52 Total Hemoglobin 11.5 g/dL (12-16) L 09/21/21 04:52 O2 Delivery Device Oxy mask 09/21/21 04:52 O2 Liters/Min 10.0 % 09/21/21 04:52 Human Services Supervisor ID [email or web address] 09/21/21 04:52 Sodium 143 mmol/L (136-145) 09/21/21 04:48 Potassium 4.9 mmol/L (3.5-5.1) 09/21/21 04:48 Chloride 100 mmol/L (98-107) 09/21/21 04:48 Carbon Dioxide 33 mmol/L (22-29) H 09/21/21 04:48 Anion Gap 14.9 (5-19) 09/21/21 04:48 BUN 18 mg/dL (8-23) 09/21/21 04:48 Creatinine 1.1 mg/dL (0.5-0.9) H 09/21/21 04:48 GFR Calculation 49.4 mL/min (90-130) L 09/21/21 04:48 Glucose 141 mg/dL (65-115) H 09/21/21 04:48 Calculated Osmolality 300 mOsm/kg (285-295) H 09/21/21 04:48 Lactic Acid 0.7 mmol/L (0.5-2.2) 09/21/21 04:48 Calcium 9.0 mg/dL (8.5-10.5) 09/21/21 04:48 Total Bilirubin 0.5 mg/dL (0.15-1.2) 09/21/21 04:48 AST 14 U/L (0-32) 09/21/21 04:48 ALT 7 U/L (0-33) 09/21/21 04:48 Alkaline Phosphatase 102 IU/L (35-105) 09/21/21 04:48 Troponin T Baseline 71 ng/L (0-10) H 09/21/21 04:48 Troponin T 120 Minute 69.71 ng/L (0-10) H 09/21/21 07:05 Delta Troponin T -1.29 ABS# (0-10) L 09/21/21 07:05 C-Reactive Protein 20.0 mg/L (0.0-4.9) H 09/21/21 04:48 NT-Pro-B Natriuret Pep 5297 pg/mL (0-125) H 09/21/21 04:48 Total Protein 7.5 g/dL (6.6-8.7) 09/21/21 04:48 Albumin 3.9 g/dL (3.5-5.2) 09/21/21 04:48 Globulin 3.6 g/dL (1.3-4.6) 09/21/21 04:48 Procalcitonin 0.53 ng/mL (0-0.5) H 09/21/21 04:48 Coronavirus 229E (PCR) Not detected (NOT DETECT) 09/21/21 05:05 SARS-CoV-2 (PCR) Not detected (NOT DETECT) 09/21/21 05:05 Impressions Chest X-Ray 09/21/21 04:52 IMPRESSION: 1. There are increased interstitial opacities present bilaterally compatible with a bilateral interstitial pneumonia. 2. There are patchy and strandy opacities present in the lung bases bilaterally, right more prominent than left possibly representing superimposed atelectasis although bilateral consolidated infiltrates cannot be entirely excluded. Chest CTA 09/21/21 06:10 IMPRESSION: 1. No pulmonary artery embolism identified. 2. Pulmonary vascular congestion. 3. Moderate right pleural effusion, mildly increased. 4. Osseous metastatic disease redemonstrated. 5. Lower lobe anterior basilar segment consolidative density. Pneumonitis is difficult to exclude. Clinical correlation is recommended. 6. Coronary atherosclerosis. 7. Prior cholecystectomy. Micro: Microbiology 09/21/21 05:05 Blood Culture - Preliminary Blood SPECIMEN COLLECTED 09/21/21 05:05 Blood Culture - Preliminary Blood SPECIMEN COLLECTED A&P Assessment and plan (1) Acute respiratory failure with hypoxia and hypercapnia: Status: Acute (2) Pneumonia: Status: Acute (3) CHF (congestive heart failure): Status: Acute (4) Troponin I above reference range: Status: Acute Additional A&P Information Acute hypoxic and hypercapnic respiratory failure probably secondary to pneu monia and congestive heart failure acute exacerbation. We will continue supplemental oxygen and respiratory treatments. We will closely monitor her. Community-acquired pneumonia. We will continue Rocephin and doxycycline. Suspected congestive heart failure acute exacerbation. Possible noncompliance. We will start her on furosemide. We will continue home cardiac medications. Acute metabolic encephalopathy secondary to #1. Supportive management. Expect improvement after we stabilize her hypoxia and hypercapnia. If persists we will consider MRI of the brain since she has history of metastatic cancer. History of breast cancer with bone metastatic lesions. She will need to follow-up with her primary oncologist after discharge. This was discussed with the patient. She verbalized understanding. We will remind her at discharge. DVT prophylaxis. Lovenox. Abnormal troponin. I suspect this is secondary to demand ischemia and strain to myocardium. No chest pain. We will continue her home medications. CODE STATUS. She wants to be full code. The plan of care was discussed with the patient. She verbalized understanding. Attestations Medical Necessity Statement*: Considering patient's presenting findings and diagnosis and plan of care I expect that the patient will spend more than 2 midnights in the hospital. Coding Level of Care Code Acute Electrical Contractor for Mallory Bateman Diagnoses Acute respiratory failure with hypoxia and hypercapnia J96.01; J96.02 Pneumonia J18.9 CHF (congestive heart failure) I50.9 Troponin I above reference range R77.8
[2021-09-21] MEDS: ziprasidone 20 mg/mL SDV IM ×2 (13:08→15:08)
--- NOTE | 2021-09-21 13:13 | PC.NURSE ---
Dr. Otto notified at this time of patient screaming, yelling names, attempting to bite, scratch caregivers. Patient ripped IV out and blood was covered on the bedding. Lasix given earlier and patient incontinent of bladder. New orders received for medication to be given and insertion of Indwelling catheter.
--- NOTE | 2021-09-21 15:53 | W.ED.SOB ---
HPI - SOB/Dyspnea General: Chief Complaint: Shortness of Breath/Dyspnea Stated Complaint: SOB Time Seen by Provider: 09/21/21 04:46 History of Present Illness: MD elicited complaint: shortness of breath and cough Pertinent past history: congestive heart failure Onset (ago): day(s) Timing: constant and progressively worsening Severity: severe Exacerbating factors: lying flat and exertion Relieving factors: oxygen Known history of: congestive heart failure Associated symptoms: Reports chest congestion, cough, diaphoresis, lightheadedness and nausea; Deny chest pain, fever(s), hemoptysis or vomiting Treatment prior to arrival: oxygen, bronchodilator and other (solu medrol 125mg) Review of Systems Const: Reports: diaphoresis; Denies: fever(s) Card: Reports: lightheadedness; Denies: chest pain Resp: Reports: chest congestion; Denies: hemoptysis GI: Reports: nausea; Denies: vomiting PFSH ED PFSH: Medical History Acute exacerbation of CHF (congestive heart failure) Acute kidney injury superimposed on CKD Acute respiratory failure with hypoxia Anxiety attack Bradycardia Breast cancer metastasized to bone diag 2014 with treatment and no activity at this time per PET scan Chronic hypercapnic respiratory failure Chronic low back pain COPD (chronic obstructive pulmonary disease) Current every day smoker Depression Dyspnea Encounter for long-term opiate analgesic use Enrolled in chronic care management Essential hypertension GERD (gastroesophageal reflux disease) Heart failure with preserved ejection fraction High risk medication use Hyperlipidemia Inflammatory arthritis Joint pain Leg weakness, bilateral Liver dysfunction Metastatic breast cancer Morbid obesity Morbid obesity with BMI of 45.0-49.9, adult Nicotine dependence, cigarettes, uncomplicated Obesity hypoventilation syndrome Obstructive sleep apnea Opioid contract exists Pain in rib Pain in thoracic spine PVD (peripheral vascular disease) Sleep apnea Type 2 diabetes mellitus without complication, without long-term current use of insulin Xeroderma Surgical History Hx laparoscopic cholecystectomy 11/01/18 Hx of arthroscopic knee surgery Right Hx of cholecystectomy Hx of lumpectomy Right Hx of oral surgery pulled all teeth 03/2017 Hx of tubal ligation Family History Unknown Prostate disease Depression Heart disease Hypertension Chronic kidney disease (CKD) Grandfather Cancer LUNG CANCER Other CAD (coronary artery disease) Rheumatoid arthritis Denies family history of Diabetes Lupus Hyperlipidemia Family history of premature coronary artery disease Stroke Social History Smoking and tobacco status: former smoker Second hand smoke exposure: No Alcohol intake: never History of recent travel: No Physical Exam Const: GENERAL APPEARANCE: cooperative, in distress (mild), ill appearing and frail appearing NUTRITIONAL APPEARANCE: obese HENMT: COMMON NORMALS: normocephalic and atraumatic HEAD & SCALP: normocephalic and atraumatic Eye: COMMON NORMALS: EOMs intact bilaterally Chest: COMMONS NORMALS: normal inspection of the chest Resp: EFFORT & INSPECTION: Yes respiratory distress, Yes pursed lip breathing and Yes uses accessory muscles AUSCULTATION: rales, rhonchi and diminished lung sounds Cardio: COMMON NORMALS: regular rate and regular rhythm RATE: regular rate RHYTHM: regular rhythm GI: COMMON NORMALS: Normal to inspection, nondistended, normoactive bowel sounds present Extremity: NARRATIVE EXTREMITY EXAM: chronic venous stasis GENERAL: Yes edema Course Consultations: Consultation #1: shana Vital Signs: Vital signs: Vital Signs Temperature 98.1 F 09/21/21 15:23 Pulse Rate 91 09/21/21 15:23 Respiratory Rate 18 09/21/21 15:23 Blood Pressure 143/90 09/21/21 15:23 Pulse Oximetry 90 09/21/21 15:23 MDM - SOB/Dyspnea MDM Narrative: Medical decision making narrative: 70 year old female that was significantly hypoxic at home. O2 saturations on room air were in the 70s on EMS arrival. They dropped to the 50s upon her getting up to get on the stretcher. Status is improved after multiple nebulizer treatments, IV steroids, and a significant amount of oxygen. She's on 8 liters by simple mask in the ER. Initial blood gas showed respiratory acidosis with a PCO2 of 76. She appears to be partially compensated chronically. Chest X ray reveals bilateral infiltrates with a consolidation on the right. COVID-19 PCR is pending. She has a history of heart failure as well. Her D dimer is significantly elevated, so CTA has been ordered. She'll be admitted for hypoxic hypercapnic respiratory failure and pneumonia. Lab Data: Labs: Lab Results 09/21/21 09/21/21 09/21/21 04:48 04:48 04:48 WBC 10.5 10^3/uL H 10 ^3/uL (4.0-10.0) RBC 4.33 10^6/uL 10^6 /uL (4.1-5.3) Hgb 11.4 g/dL L g/dL (11.5-15.3) Hct 41.1 % % (37.0-47.0) MCV 94.9 fl fl (81-99) MCH 26.3 pg L pg (28.0-34.0) MCHC 27.7 g/dL L g/dL (30.0-36.0) RDW 17.2 % H % (12.1-15.1) Plt Count 164 10^3/cmm 10^3 /cmm (130-400) MPV 10.6 fL H fL (7.4-10.4) Neut % (Auto) 80.2 % % Lymph % (Auto) 12.6 % % [place]ern % (Auto) 4.8 % % Eos % (Auto) 1.9 % % Baso % (Auto) 0.3 % % Neut # (Auto) 8.43 10^3/uL H 10 ^3/uL (1.8-7.7) Lymph # (Auto) 1.3 10^3/uL 10^3/ uL (0.8-4.8) Kern # (Auto) 0.5 10^3/uL 10^3/ uL (0.2-0.9) Eos # (Auto) 0.2 10^3/uL 10^3/ uL (0.0-0.8) Baso # (Auto) 0.0 10^3/uL 10^3/ uL (0.0-0.1) Nucleated RBC % (a uto) 0 % % Nucleated RBCs # 0.0 /100WBC /100W BC D-Dimer Specimen Type Sample Site ABG pH ABG pCO2 ABG pO2 ABG HCO3 ABG Base Excess Shoaib Test Hematocrit Hgb O2 Saturation Carboxyhemoglobin Methemoglobin Total Hemoglobin O2 Delivery Device O2 Liters/Min Printing Screen Assembler ID Sodium 143 mmol/L mmol/L (136-145) Potassium 4.9 mmol/L mmol/L (3.5-5.1) Chloride 100 mmol/L mmol/L (98-107) Carbon Dioxide 33 mmol/L H mmol/ L (22-29) Anion Gap 14.9 (5-19) BUN 18 mg/dL mg/dL (8-23) Creatinine 1.1 mg/dL H mg/dL (0.5-0.9) GFR Calculation 49.4 mL/min L mL/ min (90-130) Glucose 141 mg/dL H mg/dL (65-115) Calculated Osmolal ity 300 mOsm/kg H mOs m/kg (285-295) Lactic Acid 0.7 mmol/L mmol/L (0.5-2.2) Calcium 9.0 mg/dL mg/dL (8.5-10.5) Total Bilirubin 0.5 mg/dL mg/dL (0.15-1.2) AST 14 U/L U/L (0-32) ALT 7 U/L U/L (0-33) Alkaline Phosphata se 102 IU/L IU/L (35-105) Troponin T Baselin e C-Reactive Protein 20.0 mg/L H mg/L (0.0-4.9) NT-Pro-B Natriuret Pep 5297 pg/mL H pg/m L (0-125) Total Protein 7.5 g/dL g/dL (6.6-8.7) Albumin 3.9 g/dL g/dL (3.5-5.2) Globulin 3.6 g/dL g/dL (1.3-4.6) Procalcitonin 0.53 ng/mL H ng/m L (0-0.5) Coronavirus 229E ( PCR) SARS-CoV-2 (PCR) 09/21/21 09/21/21 09/21/21 04:48 04:52 05:05 WBC RBC Hgb Hct MCV MCH MCHC RDW Plt Count MPV Neut % (Auto) Lymph % (Auto) [place] % (Auto) Eos % (Auto) Baso % (Auto) Neut # (Auto) Lymph # (Auto) [place] # (Auto) Eos # (Auto) Baso # (Auto) Nucleated RBC % (a uto) Nucleated RBCs # D-Dimer Specimen Type Arterial Sample Site Brachial, left ABG pH 7.32 L (7.35-7.45) ABG pCO2 78.6 mmHg H* mmHg (35-45) ABG pO2 85.7 mmHg mmHg (80.0-100.0) ABG HCO3 40.6 mmol/L H mmo l/L (22-26) ABG Base Excess 11.6 mmol/L H mmo l/L (-2.0-2.0) Shoaib Test N/a Hematocrit 35.3 % L % (37-47) Hgb O2 Saturation 94.4 % L % (95-100) Carboxyhemoglobin 1.7 %THgb %THgb (0.4-20.1) Methemoglobin 0.9 % % (0.4-1.5) Total Hemoglobin 11.5 g/dL L g/dL (12-16) O2 Delivery Device Oxy mask O2 Liters/Min 10.0 % % Printing Screen Assembler ID [id number] Sodium Potassium Chloride Carbon Dioxide Anion Gap BUN Creatinine GFR Calculation Glucose Calculated Osmolal ity Lactic Acid Calcium Total Bilirubin AST ALT Alkaline Phosphata se Troponin T Baselin e 71 ng/L H ng/L (0-10) C-Reactive Protein NT-Pro-B Natriuret Pep Total Protein Albumin Globulin Procalcitonin Coronavirus 229E ( PCR) Not detected (NOT DETECT) SARS-CoV-2 (PCR) Not detected (NOT DETECT) 09/21/21 05:05 WBC RBC Hgb Hct MCV MCH MCHC RDW Plt Count MPV Neut % (Auto) Lymph % (Auto) [place] % (Auto) Eos % (Auto) Baso % (Auto) Neut # (Auto) Lymph # (Auto) [place] # (Auto) Eos # (Auto) Baso # (Auto) Nucleated RBC % (a uto) Nucleated RBCs # D-Dimer 2.62 ug/mIFEU H u g/mIFEU (0-0.59) Specimen Type Sample Site ABG pH ABG pCO2 ABG pO2 ABG HCO3 ABG Base Excess Shoaib Test Hematocrit Hgb O2 Saturation Carboxyhemoglobin Methemoglobin Total Hemoglobin O2 Delivery Device O2 Liters/Min Printing Screen Assembler ID Sodium Potassium Chloride Carbon Dioxide Anion Gap BUN Creatinine GFR Calculation Glucose Calculated Osmolal ity Lactic Acid Calcium Total Bilirubin AST ALT Alkaline Phosphata se Troponin T Baselin e C-Reactive Protein NT-Pro-B Natriuret Pep Total Protein Albumin Globulin Procalcitonin Coronavirus 229E ( PCR) SARS-CoV-2 (PCR) Discharge Plan Discharge Patient Disposition: Admitted As Inpatient Admit Provider: Lazaro Alvarez Clinical Impression: Acute respiratory failure with hypoxia and hypercapnia, Pneumonia Condition: Serious Coding Level of Care Code ED Chemical Process Equipment Operator for Chg Fwd Exam Comprehensive
--- NOTE | 2021-09-21 16:15 | PC.RESP ---
RT attempted to place oxymask on pt, pt became upset and almost hit this RT, pt will not keep oxymask or nasal cannula on
[2021-09-21] MEDS: nystatin powder 15 gm Btl 1 APPLIC TOPICAL (16:43)
[2021-09-22] VITALS (12 sets, daily range): BP systolic 115–139; BP diastolic 67–76; PULSE 62–91; RESP 17–20; TEMP 36.9–37.6; O2SAT 90–95
[2021-09-22 07:01] LABS: Basophils % 0.1 %; Hematocrit 37.3 % (37.0-47.0); Hemoglobin 10.8 g/dL (11.5-15.3); Lymphocytes # 0.7 10^3/uL (0.8-4.8); Lymphocytes % 8.4 %; Mean Corpuscular Hemoglobin 26.5 pg (28.0-34.0); Mean Corpuscular Volume 91.6 fl (81-99); Mean Platelet Volume 11.4 fL (7.4-10.4); Monocytes # 0.5 10^3/uL (0.2-0.9); Monocytes % 6.5 %; Neutrophils # 6.56 10^3/uL (1.8-7.7); Neutrophils % 84.7 %; Nucleated Red Blood Cells % 0 %; Platelet Count 188 10^3/cmm (130-400); Red Blood Count 4.07 10^6/uL (4.1-5.3); Red Cell Distribution Width 17.4 % (12.1-15.1); White Blood Count 7.7 10^3/uL (4.0-10.0)
[2021-09-22 07:27] LABS: Chol HDL Ratio 2.37 mg/dL (0.0-4.40); Cholesterol 140 mg/dL (0-200); HDL Cholesterol 59 mg/dL (60-100); LDL Cholesterol Calculated 67 mg/dL (50-129); LDL HDL Ratio 1.14 RATIO (0.00-3.22); NT Pro B Type Natriuretic Pept 11335 pg/mL (0-125); Triglycerides 68 mg/dL (0-150)
[2021-09-22 07:34] LABS: Blood Urea Nitrogen 21 mg/dL (8-23); Calcium 9.3 mg/dL (8.5-10.5); Carbon Dioxide 35 mmol/L (22-29); Chloride 99 mmol/L (98-107); Glomerular Filtration Rate 44.7 mL/min (90-130); Glucose 112 mg/dL (65-115); Magnesium 1.8 mg/dL (1.7-2.3); Osmolality Calculated 304 mOsm/kg (285-295); Phosphorus 3.2 mg/dL (2.5-4.5); Sodium 145 mmol/L (136-145)
[2021-09-22 07:41] LABS: Estmated Average Glucose 146; Hemoglobin A1C 6.7 % (4.0-6.0)
[2021-09-22] MEDS: enoxaparin 40 mg/0.4 mL Syringe SUBCUT (08:25)
[2021-09-22] MEDS: FUROsemide 10 mg/mL SDV 4mL 40 MG IVP ×2 (08:25→20:53)
[2021-09-22] MEDS: atorvastatin 40 mg Tablet PO (08:25)
[2021-09-22] MEDS: pantoprazole DR 40 mg Tablet PO (08:25)
[2021-09-22] MEDS: doxycycline 100 mg Tablet PO ×2 (08:25→17:58)
[2021-09-22] MEDS: cefTRIAXone 1,000 MG in sodium chloride 0.9% (plus) 50 ML 100 MG IV (08:25)
[2021-09-22] MEDS: lidocaine 5% Patch 1 PATCH TRANSDERMA (08:30)
[2021-09-22] MEDS: nystatin powder 15 gm Btl 1 APPLIC TOPICAL ×2 (08:31→17:59)
[2021-09-22] MEDS: HYDROcodone-acetaminophen 5-325 mg Tablet 1 TAB PO ×2 (08:39→17:58)
[2021-09-22] MEDS: ipratropium-albuterol 3 mL Neb INHALATION ×3 (10:02→20:16)
[2021-09-22] MEDS: carvedilol 3.125 mg Tablet PO ×2 (10:26→17:58)
[2021-09-22] MEDS: aspirin 81 mg EC Tablet PO (10:27)
--- NOTE | 2021-09-22 14:34 | P.PN_ITS ---
Subjective Subjective: Interval history: The patient is off BiPAP. Reports feeling better with nasal cannula. Denies confusion and lethargy. No chest pain, shortness of breath, cough, palpitations. No fever or chills. No nausea or vomiting. Medications: Reviewed: Yes Medication Review Details: Generic Name Dose Route Start Last Admin Trade Name Freq PRN Reason Stop Dose Admin Hydrocodone Bitart /Acetaminophen 1 tab 09/21/21 08:00 09/22/21 08:39 Hydrocodone-Acet aminophen 5-325 Mg Tablet PO 1 tab .one or two every six PRN Administration pain Albuterol/Ipratrop ium 3 ml 09/21/21 08:01 09/22/21 14:25 Ipratropium-Albu terol 3 Ml Neb INHALATION 3 ml Q4H PRN Administration SHORTNESS OF PILAR TH Aspirin 81 mg 09/22/21 09:00 09/22/21 10:27 Aspirin 81 Mg Ec Tablet PO 81 mg DAILY OFELIA Administration Atorvastatin Calci um 40 mg 09/21/21 09:00 09/22/21 08:25 Atorvastatin 40 Mg Tablet PO 40 mg DAILY OFELIA Administration Carvedilol 3.125 mg 09/22/21 09:00 09/22/21 10:26 Carvedilol 3.125 Mg Tablet PO 3.125 mg BID OFELIA Administration Doxycycline Monohy drate 100 mg 09/21/21 09:00 09/22/21 08:25 Doxycycline 100 Mg Tablet PO 100 mg BID OFELIA Administration Protocol Enalapril Maleate 10 mg 09/21/21 09:00 09/22/21 08:25 Enalapril 10 Mg Tablet PO 10 mg DAILY OFELIA Administration Enoxaparin Sodium 40 mg 09/21/21 08:15 09/22/21 08:25 Enoxaparin 40 Mg /0.4 Ml Syringe SUBCUT 40 mg Q24H OFELIA Administration Furosemide 40 mg 09/21/21 08:30 09/22/21 08:25 Furosemide 10 Mg /Ml Sdv 4ml IVP 40 mg Q12H OFELIA Administration Ceftriaxone Sodium 1,000 mg/ 50 mls @ 100 mls/ hr 09/22/21 08:00 09/22/21 08:55 Sodium Chloride IV Infused Q24H OFELIA Infusion Protocol Lidocaine 1 patch 09/21/21 09:00 09/22/21 08:30 Lidocaine 5% Pat ch TRANSDERMA 1 patch [id number] OFELIA Administration Nystatin 1 applic 09/21/21 18:00 09/22/21 08:31 Nystatin Powder 15 Gm Btl TOPICAL 1 applic BID OFELIA Administration Pantoprazole Sodiu m 40 mg 09/21/21 09:00 09/22/21 08:[address] 40 Mg Tablet PO 40 mg DAILY OFELIA Administration Vitals/I&O/Wt Last Vital Signs Temp 98.4 F 09/22/21 11:05 Pulse 76 09/22/21 14:29 Resp 20 H 09/22/21 14:25 BP 120/69 09/22/21 11:05 Pulse Ox 93 09/22/21 14:25 09/21/21 09/22/21 09/22/21 22:59 06:59 14:59 Intake Total 120 / 370 890 / 890 Output Total 2650 / 4750 1750 / 6500 1000 / 1000 Balance -2530 / -4380 -1750 / -6130 -110 / -110 Weight last 48 hrs Weight 124.466 kg Weight 130.635 kg Weight 118.194 kg Physical Exam Narrative: EXAM NARRATIVE: Awake, alert, oriented. No acute distress currently. Skin is warm and dry. Moist mucous memories Neck supple. No JVD Lungs mild bibasilar crackles. No respiratory distress Heart S1, S2, regular Abdomen soft, normal, nontender, bowel sounds are present Extremities chronic venous stasis changes and bilateral edema. No cyanosis or calf tenderness bilaterally Neuro examination is nonfocal Eyes PERRL, extraocular muscles are intact Normal speech. No focal deficits. Urinary Catheter Management^: Root: Cath Placed During This Visit: no Reason for Continuing Indwelling Catheter: Other Data : 09/22/21 06:12 09/22/21 06:12 Micro: Microbiology 09/21/21 05:05 Blood Culture - Preliminary Blood NEGATIVE TO DATE 09/21/21 05:05 Blood Culture - Preliminary Blood NEGATIVE TO DATE A&P Assessment and plan (1) Acute respiratory failure with hypoxia and hypercapnia: Status: Acute (2) Pneumonia: Status: Acute (3) CHF (congestive heart failure): Status: Acute (4) Troponin I above reference range: Status: Acute Additional A&P Information Acute hypoxic and hypercapnic respiratory failure probably secondary to pneumonia and congestive heart failure acute exacerbation. Improving. We will continue supplemental oxygen and respiratory treatments. We will closely monitor her. Community-acquired pneumonia. We will continue Rocephin and doxycycline. Suspected congestive heart failure acute exacerbation. Possible noncompliance. Continue furosemide. We will continue home cardiac medications. Acute metabolic encephalopathy secondary to #1. Resolved. History of breast cancer with bone metastatic lesions. She will need to follow- up with her primary oncologist after discharge. This was discussed with the patient. She verbalized understanding. We will remind her at discharge. DVT prophylaxis. Lovenox. Abnormal troponin. I suspect this is secondary to demand ischemia and strain to myocardium. No chest pain. We will continue her home medications. CODE STATUS. She wants to be full code. The plan of care was discussed with the patient. She verbalized understanding. Attestations Medical Necessity Statement*: Possible discharge home in a day or 2 if her oxygenation improves. Coding Level of Care Code Acute Journeyman Painter for Mallory Bateman Diagnoses Acute respiratory failure with hypoxia and hypercapnia J96.01; J96.02 Pneumonia J18.9 CHF (congestive heart failure) I50.9 Troponin I above reference range R77.8
[2021-09-23] VITALS (8 sets, daily range): BP systolic 94–129; BP diastolic 55–74; PULSE 55–70; RESP 17–20; TEMP 36.6–37.1; O2SAT 90–93
[2021-09-23] MEDS: HYDROcodone-acetaminophen 5-325 mg Tablet 1 TAB PO ×4 (04:07→22:19)
[2021-09-23 06:05] LABS: Basophils # 0.1 10^3/uL (0.0-0.1); Basophils % 0.5 %; Eosinophils # 0.1 10^3/uL (0.0-0.8); Hematocrit 38.4 % (37.0-47.0); Hemoglobin 11.3 g/dL (11.5-15.3); Lymphocytes # 1.2 10^3/uL (0.8-4.8); Lymphocytes % 12.1 %; Mean Corpuscular HGB Conc 29.4 g/dL (30.0-36.0); Mean Corpuscular Hemoglobin 26.7 pg (28.0-34.0); Mean Corpuscular Volume 90.6 fl (81-99); Mean Platelet Volume 10.7 fL (7.4-10.4); Monocytes # 0.6 10^3/uL (0.2-0.9); Monocytes % 5.7 %; Neutrophils % 80.3 %; Nucleated Red Blood Cells % 0 %; Platelet Count 153 10^3/cmm (130-400); Red Blood Count 4.24 10^6/uL (4.1-5.3); Red Cell Distribution Width 17.3 % (12.1-15.1); White Blood Count 9.6 10^3/uL (4.0-10.0)
[2021-09-23 06:27] LABS: Magnesium 1.6 mg/dL (1.7-2.3)
[2021-09-23 06:37] LABS: NT Pro B Type Natriuretic Pept 7178 pg/mL (0-125); Procalcitonin 0.36 ng/mL (0-0.5)
[2021-09-23 06:47] LABS: Albumin Level 3.7 g/dL (3.5-5.2); Anion Gap 14.5 (5-19); Blood Urea Nitrogen 29 mg/dL (8-23); Calcium 9.1 mg/dL (8.5-10.5); Carbon Dioxide 37 mmol/L (22-29); Chloride 95 mmol/L (98-107); Glomerular Filtration Rate 44.7 mL/min (90-130); Glucose 91 mg/dL (65-115); Phosphorus 3.6 mg/dL (2.5-4.5); Potassium 4.5 mmol/L (3.5-5.1); Sodium 142 mmol/L (136-145)
[2021-09-23] MEDS: enoxaparin 40 mg/0.4 mL Syringe SUBCUT (09:29)
[2021-09-23] MEDS: cefTRIAXone 1,000 MG in sodium chloride 0.9% (plus) 50 ML 100 MG IV (09:30)
[2021-09-23] MEDS: doxycycline 100 mg Tablet PO ×2 (09:31→18:24)
[2021-09-23] MEDS: carvedilol 3.125 mg Tablet PO ×2 (09:31→18:24)
[2021-09-23] MEDS: magnesium oxide 400 mg tablet PO ×2 (09:31→18:24)
[2021-09-23] MEDS: atorvastatin 40 mg Tablet PO (09:31)
[2021-09-23] MEDS: pantoprazole DR 40 mg Tablet PO (09:31)
[2021-09-23] MEDS: FUROsemide 10 mg/mL SDV 4mL 40 MG IVP ×2 (09:31→21:23)
[2021-09-23] MEDS: aspirin 81 mg EC Tablet PO (09:31)
[2021-09-23] MEDS: lidocaine 5% Patch 1 PATCH TRANSDERMA (09:32)
[2021-09-23] MEDS: nystatin powder 15 gm Btl 1 APPLIC TOPICAL ×2 (09:33→18:24)
--- NOTE | 2021-09-23 13:35 | PM.PN ---
Subjective Subjective: Interval history: Doing well. Denies any active complaints. Denies chest pain or shortness of breath. No fever or chills. No nausea or vomiting. No diarrhea. Medications: Reviewed: Yes Medication Review Details: Generic Name Dose Route Start Last Admin Trade Name Freq PRN Reason Stop Dose Admin Hydrocodone Bitart /Acetaminophen 1 tab 09/21/21 08:00 09/23/21 09:45 Hydrocodone-Acet aminophen 5-325 Mg Tablet PO 1 tab .one or two every six PRN Administration pain Albuterol/Ipratrop ium 3 ml 09/21/21 08:01 09/22/21 20:16 Ipratropium-Albu terol 3 Ml Neb INHALATION 3 ml Q4H PRN Administration SHORTNESS OF PILAR TH Aspirin 81 mg 09/22/21 09:00 09/23/21 09:31 Aspirin 81 Mg Ec Tablet PO 81 mg DAILY OFELIA Administration Atorvastatin Calci um 40 mg 09/21/21 09:00 09/23/21 09:31 Atorvastatin 40 Mg Tablet PO 40 mg DAILY OFELIA Administration Carvedilol 3.125 mg 09/22/21 09:00 09/23/21 09:31 Carvedilol 3.125 Mg Tablet PO 3.125 mg BID OFELIA Administration Doxycycline Monohy drate 100 mg 09/21/21 09:00 09/23/21 09:31 Doxycycline 100 Mg Tablet PO 100 mg BID OFELIA Administration Protocol Enalapril Maleate 10 mg 09/21/21 09:00 09/23/21 09:31 Enalapril 10 Mg Tablet PO 10 mg DAILY OFELIA Administration Enoxaparin Sodium 40 mg 09/21/21 08:15 09/23/21 09:29 Enoxaparin 40 Mg /0.4 Ml Syringe SUBCUT 40 mg Q24H OFELIA Administration Furosemide 40 mg 09/21/21 08:30 09/23/21 09:31 Furosemide 10 Mg /Ml Sdv 4ml IVP 40 mg Q12H OFELIA Administration Ceftriaxone Sodium 1,000 mg/ 50 mls @ 100 mls/ hr 09/22/21 08:00 09/23/21 10:00 Sodium Chloride IV Infused Q24H OFELIA Infusion Protocol Lidocaine 1 patch 09/21/21 09:00 09/23/21 09:32 Lidocaine 5% Pat ch TRANSDERMA 1 patch [id number] OFELIA Administration Magnesium Oxide 400 mg 09/23/21 09:00 09/23/21 09:31 Magnesium Oxide 400 Mg Tablet PO 400 mg BID OFELIA Administration Nystatin 1 applic 09/21/21 18:00 09/23/21 09:33 Nystatin Powder 15 Gm Btl TOPICAL 1 applic BID OFELIA Administration Pantoprazole Sodiu m 40 mg 09/21/21 09:00 09/23/21 09:[address] 40 Mg Tablet PO 40 mg DAILY OFELIA Administration Vitals/I&O/Wt Last Vital Signs Temp 98.3 F 09/23/21 12:00 Pulse 61 09/23/21 12:00 Resp 18 09/23/21 12:00 BP 115/62 09/23/21 12:00 Pulse Ox 92 09/23/21 12:00 09/22/21 09/23/21 09/23/21 22:59 06:59 14:59 Intake Total 900 / 1790 240 / 2030 450 / 450 Output Total 800 / 1800 2600 / 4400 1050 / 1050 Balance 100 / -10 -2360 / -2370 -600 / -600 Weight last 48 hrs Weight 124.103 kg Weight 124.466 kg Physical Exam Narrative: EXAM NARRATIVE: Awake, alert, oriented. No acute distress currently. Skin is warm and dry. Moist mucous memories Neck supple. No JVD Lungs are clear. No respiratory distress Heart S1, S2, regular Abdomen soft, normal, nontender, bowel sounds are present Extremities chronic venous stasis changes and bilateral edema. No cyanosis or calf tenderness bilaterally Neuro examination is nonfocal Eyes PERRL, extraocular muscles are intact Normal speech. No focal deficits. Urinary Catheter Management^: Root: Cath Placed During This Visit: no Reason for Continuing Indwelling Catheter: Acute Urinary Retention or Obstruction Data : 09/23/21 05:51 09/23/21 05:51 A&P Assessment and plan (1) Acute respiratory failure with hypoxia and hypercapnia: Status: Acute (2) Pneumonia: Status: Acute (3) CHF (congestive heart failure): Status: Acute (4) Troponin I above reference range: Status: Acute Additional A&P Information Acute hypoxic and hypercapnic respiratory failure probably secondary to pneumonia and congestive heart failure acute exacerbation. Improving. We will continue supplemental oxygen and respiratory treatments. We will closely monitor her. Community-acquired pneumonia. We will start de-escalating her antibiotics. Suspected congestive heart failure acute exacerbation. Possible noncompliance. Continue furosemide. We will continue home cardiac medications. Acute metabolic encephalopathy secondary to #1. Resolved. History of breast cancer with bone metastatic lesions. She will need to follow-up with her primary oncologist after discharge. This was discussed with the patient. She verbalized understanding. We will remind her at discharge. DVT prophylaxis. Lovenox. Abnormal troponin. I suspect this is secondary to demand ischemia and strain to myocardium. No chest pain. We will continue her home medications. CODE STATUS. She wants to be full code. The plan of care was discussed with the patient. She verbalized understanding. Disposition. Pending placement to long term facility. Attestations Medical Necessity Statement*: Possible discharge to long term facility tomorrow. Coding Level of Care Code Acute [employer] Glassware Replacer for Mallory Bateman Diagnoses Acute respiratory failure with hypoxia and hypercapnia J96.01; J96.02 Pneumonia J18.9 CHF (congestive heart failure) I50.9 Troponin I above reference range R77.8
[2021-09-24] VITALS (9 sets, daily range): BP systolic 95–130; BP diastolic 48–74; PULSE 54–73; RESP 16–19; TEMP 36.8–37.2; O2SAT 91–95
[2021-09-24 06:26] LABS: Albumin Level 3.6 g/dL (3.5-5.2); Anion Gap 15.4 (5-19); Blood Urea Nitrogen 28 mg/dL (8-23); Calcium 8.8 mg/dL (8.5-10.5); Carbon Dioxide 36 mmol/L (22-29); Chloride 95 mmol/L (98-107); Glomerular Filtration Rate 40.7 mL/min (90-130); Glucose 106 mg/dL (65-115); Phosphorus 3.8 mg/dL (2.5-4.5); Potassium 4.4 mmol/L (3.5-5.1); Sodium 142 mmol/L (136-145)
[2021-09-24 06:32] LABS: Magnesium 1.7 mg/dL (1.7-2.3)
[2021-09-24] MEDS: cefdinir 300 MG CAPSULE PO ×2 (08:35→17:12)
[2021-09-24] MEDS: magnesium oxide 400 mg tablet PO ×2 (08:35→17:13)
[2021-09-24] MEDS: doxycycline 100 mg Tablet PO (08:35)
[2021-09-24] MEDS: atorvastatin 40 mg Tablet PO (08:36)
[2021-09-24] MEDS: enoxaparin 40 mg/0.4 mL Syringe SUBCUT (08:36)
[2021-09-24] MEDS: aspirin 81 mg EC Tablet PO (08:36)
[2021-09-24] MEDS: carvedilol 3.125 mg Tablet PO ×2 (08:36→17:13)
[2021-09-24] MEDS: pantoprazole DR 40 mg Tablet PO (08:36)
[2021-09-24] MEDS: FUROsemide 10 mg/mL SDV 4mL 40 MG IVP ×2 (08:37→22:59)
[2021-09-24] MEDS: nystatin powder 15 gm Btl 1 APPLIC TOPICAL ×2 (08:45→17:13)
[2021-09-24 09:21] LABS: Alveolar-Arterial Oxygen Gradi 5.7 mmHg (5-10); Base Excess ABG 15.4 mmol/L (-2.0-2.0); Blood Gas Allen Test Pos; Blood Gas Operator Identificat ED; Blood Gas Sample Site Radial, left; Blood Gas Sample Type Arterial; Carboxyhemoglobin 1.7 %THgb (0.4-20.1); HGB O2 Sat 79.7 % (95-100); Ionized Calcium Level - ABG 1.3 mmol/L (1.1-1.4); Methemoglobin 0.5 % (0.4-1.5); Oxygen Device ROOM AIR; Oxygen Saturation ABG 81.5; PO2 ABG 40.6 mmHg (80.0-100.0); Potassium Level - ABG 4.8 mmol/L (3.5-5.0); Total Hemoglobin 12.1 g/dL (12-16)
[2021-09-24] MEDS: lidocaine 5% Patch 1 PATCH TRANSDERMA (09:54)
--- NOTE | 2021-09-24 10:21 | PC.SOCIAL ---
IMM update IMM updated with patient. Copy Pg 2 provided. Initialled, dated, timed, and placed in chart.
--- NOTE | 2021-09-24 11:53 | PM.PN ---
Subjective Subjective: Interval history: Doing well. Denies any active complaints. No chest pain, shortness of breath, cough, palpitations. Reports improved swelling. No pain. Medications: Reviewed: Yes Medication Review Details: Generic Name Dose Route Start Last Admin Trade Name Freq PRN Reason Stop Dose Admin Hydrocodone Bitart /Acetaminophen 1 tab 09/21/21 08:00 09/23/21 22:19 Hydrocodone-Acet aminophen 5-325 Mg Tablet PO 1 tab .one or two every six PRN Administration pain Albuterol/Ipratrop ium 3 ml 09/21/21 08:01 09/22/21 20:16 Ipratropium-Albu terol 3 Ml Neb INHALATION 3 ml Q4H PRN Administration SHORTNESS OF PILAR TH Aspirin 81 mg 09/22/21 09:00 09/24/21 08:36 Aspirin 81 Mg Ec Tablet PO 81 mg DAILY OFELIA Administration Atorvastatin Calci um 40 mg 09/21/21 09:00 09/24/21 08:36 Atorvastatin 40 Mg Tablet PO 40 mg DAILY OFELIA Administration Carvedilol 3.125 mg 09/22/21 09:00 09/24/21 08:36 Carvedilol 3.125 Mg Tablet PO 3.125 mg BID OFELIA Administration Cefdinir 300 mg 09/24/21 09:00 09/24/21 08:35 Cefdinir 300 Mg Capsule PO 300 mg BID OFELIA Administration Protocol Doxycycline Monohy drate 100 mg 09/21/21 09:00 09/24/21 08:35 Doxycycline 100 Mg Tablet PO 100 mg BID OFELIA Administration Protocol Enalapril Maleate 10 mg 09/21/21 09:00 09/24/21 08:36 Enalapril 10 Mg Tablet PO 10 mg DAILY OFELIA Administration Enoxaparin Sodium 40 mg 09/21/21 08:15 09/24/21 08:36 Enoxaparin 40 Mg /0.4 Ml Syringe SUBCUT 40 mg Q24H OFELIA Administration Furosemide 40 mg 09/21/21 08:30 09/24/21 08:37 Furosemide 10 Mg /Ml Sdv 4ml IVP 40 mg Q12H OFELIA Administration Lidocaine 1 patch 09/21/21 09:00 09/24/21 09:54 Lidocaine 5% Pat ch TRANSDERMA 1 patch O12O12 OFELIA Administration Magnesium Oxide 400 mg 09/23/21 09:00 09/24/21 08:35 Magnesium Oxide 400 Mg Tablet PO 400 mg BID OFELIA Administration Nystatin 1 applic 09/21/21 18:00 09/24/21 08:45 Nystatin Powder 15 Gm Btl TOPICAL 1 applic BID OFELIA Administration Pantoprazole Sodiu m 40 mg 09/21/21 09:00 09/24/21 08:[address] 40 Mg Tablet PO 40 mg DAILY OFELIA Administration Vitals/I&O/Wt Last Vital Signs Temp 98.9 F 09/24/21 11:50 Pulse 63 09/24/21 11:50 Resp 17 09/24/21 11:50 BP 125/72 09/24/21 11:50 Pulse Ox 94 09/24/21 11:50 09/23/21 09/24/21 09/24/21 22:59 06:59 14:59 Intake Total 1200 / 1650 200 / 1850 Output Total 1850 / 2900 1600 / 1600 Balance -650 / -1250 200 / -1050 -1600 / -1600 Weight last 48 hrs Weight 123.831 kg Weight 124.103 kg Physical Exam Narrative: EXAM NARRATIVE: Awake, alert, oriented. No acute distress currently. Skin is warm and dry. Moist mucous memories Neck supple. No JVD Lungs are clear. No respiratory distress Heart S1, S2, regular Abdomen soft, normal, nontender, bowel sounds are present Extremities chronic venous stasis changes and improved bilateral edema. No cyanosis or calf tenderness bilaterally Neuro examination is nonfocal Eyes PERRL, extraocular muscles are intact Normal speech. No focal deficits. Urinary Catheter Management^: Root: Cath Placed During This Visit: no Reason for Continuing Indwelling Catheter: Acute Urinary Retention or Obstruction Data : 09/23/21 05:51 09/24/21 05:37 A&P Assessment and plan (1) Acute respiratory failure with hypoxia and hypercapnia: Status: Acute (2) Pneumonia: Status: Acute (3) CHF (congestive heart failure): Status: Acute (4) Troponin I above reference range: Status: Acute Additional A&P Information Acute hypoxic and hypercapnic respiratory failure probably secondary to pneumonia and congestive heart failure acute exacerbation. Improving. We will continue supplemental oxygen and respiratory treatments. We will closely monitor her. Currently improving and probably will be ready for discharge very soon. Pending placement arrangements to retirement facility. Community-acquired pneumonia. De-escalating antibiotics. We will stop doxycycline today. We will continue cefdinir for now. Suspected congestive heart failure acute exacerbation. Possible noncompliance. Continue furosemide. We will continue home cardiac medications. Acute metabolic encephalopathy secondary to #1. Resolved. History of breast cancer with bone metastatic lesions. She will need to follow-up with her primary oncologist after discharge. This was discussed with the patient. She verbalized understanding. We will remind her at discharge. DVT prophylaxis. Lovenox. Abnormal troponin. I suspect this is secondary to demand ischemia and strain to myocardium. No chest pain. We will continue her home medications. CODE STATUS. She wants to be full code. The plan of care was discussed with the patient. She verbalized understanding. Discussed with multidisciplinary team. Disposition. Pending placement to retirement facility. Attestations Medical Necessity Statement*: Pending placement Coding Level of Care Code Acute Project Manager Interior Design for g Fwd Diagnoses Acute respiratory failure with hypoxia and hypercapnia J96.01; J96.02 Pneumonia J18.9 CHF (congestive heart failure) I50.9 Troponin I above reference range R77.8
[2021-09-24] MEDS: HYDROcodone-acetaminophen 5-325 mg Tablet 1 TAB PO (16:04)
[2021-09-24] MEDS: acetaminophen 325 mg Tablet 650 MG PO (20:17)
--- NOTE | 2021-09-24 20:49 | PC.NURSE ---
i reported low o2 58 to nurse
[2021-09-25] VITALS (11 sets, daily range): BP systolic 94–130; BP diastolic 62–77; PULSE 52–68; RESP 16–22; TEMP 36.7–37; O2SAT 91–96; BMI 47.5
--- NOTE | 2021-09-25 00:49 | PC.NURSE ---
i reported low o2 52 to nurse
[2021-09-25] MEDS: HYDROcodone-acetaminophen 5-325 mg Tablet 1 TAB PO ×3 (06:02→22:39)
[2021-09-25 07:23] LABS: Albumin Level 3.7 g/dL (3.5-5.2); Anion Gap 18.2 (5-19); Blood Urea Nitrogen 31 mg/dL (8-23); Calcium 8.9 mg/dL (8.5-10.5); Carbon Dioxide 33 mmol/L (22-29); Chloride 94 mmol/L (98-107); Glomerular Filtration Rate 34.5 mL/min (90-130); Glucose 127 mg/dL (65-115); NT Pro B Type Natriuretic Pept 1692 pg/mL (0-125); Phosphorus 3.8 mg/dL (2.5-4.5); Potassium 4.2 mmol/L (3.5-5.1); Sodium 141 mmol/L (136-145)
[2021-09-25] MEDS: lidocaine 5% Patch 1 PATCH TRANSDERMA (09:01)
[2021-09-25] MEDS: cefdinir 300 MG CAPSULE PO ×2 (09:01→17:29)
[2021-09-25] MEDS: atorvastatin 40 mg Tablet PO (09:01)
[2021-09-25] MEDS: nystatin powder 15 gm Btl 1 APPLIC TOPICAL ×2 (09:01→17:57)
[2021-09-25] MEDS: pantoprazole DR 40 mg Tablet PO (09:02)
[2021-09-25] MEDS: enoxaparin 40 mg/0.4 mL Syringe SUBCUT (09:02)
[2021-09-25] MEDS: magnesium oxide 400 mg tablet PO ×2 (09:02→17:30)
[2021-09-25] MEDS: carvedilol 3.125 mg Tablet PO ×2 (10:21→17:29)
[2021-09-25] MEDS: aspirin 81 mg EC Tablet PO (10:23)
--- NOTE | 2021-09-25 12:19 | PM.PN ---
Subjective Subjective: Interval history: Seen this morning. Patient seen sitting up in recliner feeling well. She states she would like to get up and walk around and she does not want to sit anymore. She is waiting for physical therapy to get to the room. She states her oxygen saturations has been in the high 90s throughout the day. I have discussed with her the possibility of weaning off oxygen. She offers no other complaints. She has been accepted at [facility] and will be going there on Tuesday. Vitals/I&O/Wt Last Vital Signs Temp 98.1 F 09/25/21 12:00 Pulse 52 L 09/25/21 12:00 Resp 20 H 09/25/21 12:00 BP 111/71 09/25/21 12:00 Pulse Ox 96 09/25/21 12:00 09/24/21 09/25/21 09/25/21 22:59 06:59 14:59 Intake Total 480 / 480 480 / 960 600 / 600 Output Total 550 / 2150 1400 / 3550 Balance -70 / -1670 -920 / -2590 600 / 600 Weight last 48 hrs Weight 117.934 kg Weight 123.831 kg Physical Exam Narrative: EXAM NARRATIVE: General: Alert oriented x3, patient seen _sitting up in recliner on 4 L nasal cannula saturating 94%. HEENT: Normocephalic, atraumatic, EOMI, breathing very comfortably. Cardio: Regular rate rhythm, normal S1-S2, no murmurs rubs gallops, Respiratory: Good bilateral air entry, mild rhonchi appreciated at bases. GI: Abdomen soft, nontender, nondistended, bowel sounds + Behavior: Appropriate and cooperative Extremities: Chronic venous stasis changes present. 1+ bilateral edema. No cyanosis or calf tenderness present. Urinary Catheter Management^: Root: Cath Placed During This Visit: no Reason for Continuing Indwelling Catheter: Acute Urinary Retention or Obstruction Data : 09/23/21 05:51 09/25/21 06:27 A&P Assessment and plan (1) CHF (congestive heart failure): Status: Acute (2) Pneumonia: Status: Acute (3) Acute respiratory failure with hypoxia and hypercapnia: Status: Acute (4) Aortic stenosis, moderate: Status: Acute (5) GERD (gastroesophageal reflux disease): Status: Acute Additional A&P Information #Community-acquired pneumonia #Acute respiratory failure at admission secondary to pneumonia and acute on chronic congestive heart failure #Acute metabolic encephalopathy secondary to above?resolved #History of breast cancer with bone metastatic lesions ?Doxycycline stopped for pneumonia at this point. Continue cefdinir to complete course. On 4 L nasal cannula. Will add home oxygen evaluation. ?Continue work with physical therapy ?Continue Lasix 40 IV twice daily for diuresis and continue home cardiac medications. Continue enalapril, carvedilol, aspirin, atorvastatin. Echo was done which showed EF 60% mild biatrial enlargement. ?We will check x-ray in a.m. Continue Lasix 40 IV twice daily for now. Will consider switching to oral by tomorrow. Urine output 2 L in last 24 hours. We will continue to diurese. Patient has been accepted at [facility] and will [facility] She will need oncology follow-up at discharge. Full code DVT prophylaxis: Lovenox Attestations Medical Necessity Statement*: > 72 hours, placement Tuesday Coding Level of Care Code Acute Scaffold Erector for g Fwd Diagnoses CHF (congestive heart failure) I50.9 Pneumonia J18.9 Acute respiratory failure with hypoxia and hypercapnia J96.01; J96.02 Aortic stenosis, moderate I35.0 GERD (gastroesophageal reflux disease) K21.9
--- NOTE | 2021-09-25 13:47 | PC.CHAP ---
Pastoral Care Encounter/Spiritual Assessment Type of Contact [] Declined financial systems manager visit [] Patient/Family/Request visit [] Outpatient visit [xx] Follow-up visit [] Physician referral [] Code/Alert [xx] Routine visit [] Staff referral [] Actively dying [] Patient sleeping [] Family support [] [] Out of room [] Palliative care [] [] Receiving care in room [] Pre-surgical visit [] Trauma [] Long length of stay [] ICU visit [] Other: Relational/Emotional Strength [xx] Patient feels connected with others/family/visitors/staff [] Distress [] Loneliness/isolation [] Abandonment Spirituality of Patient [xx] Person of Jeanie [xx] Attends Restorationist of their Jeanie [xx] Believes in Prayer [xx] Reads Bible or Protestant materials [x] There are Spiritual issues to be addressed [place]oc[employer]in [employer]er Interventions [xx] Prayer [xx] Active listening [xx] Non-anxious presence [] Spiritual/emotional support [] Crisis/trauma care [] Spiritual counseling [] Bereavement support [] Provided bereavement packet [xx] Provided Bible/devotional materials [] Provided toy/stuffed animal, coloring book to patient or family member [] Provided Communion [] Anointing/[place] [] Salvation [xx] Completed spiritual assessment [] Other: Impact on Illness or Injury [] Angry [] Fearful [] Anxious [] Often cries [] Exhaustion [] Unable to work [] Unable to attend christianity [] Unable to walk/stand [] Unable to read [] Unable to drive [] Unable to eat/drink [] Unable to sleep [] Unable to be with family [] Patient intubated [] Other: Summary Patient was glad to see financial systems manager as she had many questions about the Bible, her hunger for God's Word and how to study the Bible. Also many questions about different versions, how to get a study Bible and CD version of the Bible. I answered her questions as best as possible until lunch arrived and OT also. Time spent with patient 25 minutes
[2021-09-25] MEDS: FUROsemide 10 mg/mL SDV 4mL 40 MG IVP ×2 (14:32→23:02)
[2021-09-25] MEDS: acetaminophen 325 mg Tablet 650 MG PO ×2 (14:58→21:05)
[2021-09-25] MEDS: ipratropium-albuterol 3 mL Neb INHALATION (20:50)
[2021-09-26] VITALS (10 sets, daily range): BP systolic 97–127; BP diastolic 56–73; PULSE 48–61; RESP 16–22; TEMP 36.4–37.3; O2SAT 91–98; BMI 47.5
[2021-09-26 06:09] LABS: Basophils % 0.5 %; Eosinophils # 0.4 10^3/uL (0.0-0.8); Eosinophils % 5.1 %; Hematocrit 39.2 % (37.0-47.0); Hemoglobin 11.5 g/dL (11.5-15.3); Lymphocytes # 1.4 10^3/uL (0.8-4.8); Lymphocytes % 16.9 %; Mean Corpuscular HGB Conc 29.3 g/dL (30.0-36.0); Mean Corpuscular Hemoglobin 26.4 pg (28.0-34.0); Mean Corpuscular Volume 89.9 fl (81-99); Mean Platelet Volume 11.5 fL (7.4-10.4); Monocytes # 0.6 10^3/uL (0.2-0.9); Monocytes % 6.9 %; Neutrophils # 5.68 10^3/uL (1.8-7.7); Neutrophils % 70.4 %; Nucleated Red Blood Cells % 0 %; Platelet Count 159 10^3/cmm (130-400); Red Blood Count 4.36 10^6/uL (4.1-5.3); Red Cell Distribution Width 16.6 % (12.1-15.1); White Blood Count 8.1 10^3/uL (4.0-10.0)
[2021-09-26] MEDS: HYDROcodone-acetaminophen 5-325 mg Tablet 1 TAB PO ×4 (06:09→21:39)
[2021-09-26 06:28] LABS: Anion Gap 15.9 (5-19); Blood Urea Nitrogen 32 mg/dL (8-23); Calcium 9.2 mg/dL (8.5-10.5); Carbon Dioxide 36 mmol/L (22-29); Chloride 91 mmol/L (98-107); Glomerular Filtration Rate 37.4 mL/min (90-130); Glucose 106 mg/dL (65-115); Magnesium 1.9 mg/dL (1.7-2.3); Osmolality Calculated 295 mOsm/kg (285-295); Potassium 3.9 mmol/L (3.5-5.1); Sodium 139 mmol/L (136-145)
[2021-09-26] MEDS: enoxaparin 40 mg/0.4 mL Syringe SUBCUT (09:35)
[2021-09-26] MEDS: lidocaine 5% Patch 1 PATCH TRANSDERMA ×2 (09:35→20:04)
[2021-09-26] MEDS: aspirin 81 mg EC Tablet PO (09:36)
[2021-09-26] MEDS: pantoprazole DR 40 mg Tablet PO (09:36)
[2021-09-26] MEDS: carvedilol 3.125 mg Tablet PO ×2 (09:36→17:48)
[2021-09-26] MEDS: magnesium oxide 400 mg tablet PO ×2 (09:36→17:48)
[2021-09-26] MEDS: atorvastatin 40 mg Tablet PO (09:36)
[2021-09-26] MEDS: cefdinir 300 MG CAPSULE PO ×2 (09:36→17:48)
[2021-09-26] MEDS: nystatin powder 15 gm Btl 1 APPLIC TOPICAL ×2 (09:37→17:49)
[2021-09-26] MEDS: ipratropium-albuterol 3 mL Neb INHALATION (10:41)
--- NOTE | 2021-09-26 10:51 | PC.NURSE ---
Dr. Powers gave verbal order not to give the 11:00 lasix dose. Doctor will be reviewing medications.
--- NOTE | 2021-09-26 11:17 | PM.PN ---
Subjective Subjective: Interval history: Seen this morning. Patient is requesting to have her Root catheter removed. Urine output overnight 2 L. She is also stating that she feels dry and wants a break from the Lasix. Oxygen is down to 2 L at this point. She feels a lot better. Vitals/I&O/Wt Last Vital Signs Temp 98.4 F 09/26/21 07:55 Pulse 61 09/26/21 10:41 Resp 18 09/26/21 10:41 BP 127/73 09/26/21 07:55 Pulse Ox 92 09/26/21 10:41 09/25/21 09/26/21 09/26/21 22:59 06:59 14:59 Intake Total 240 / 1320 690 / 2010 120 / 120 Output Total 500 / 500 3500 / 4000 Balance -260 / 820 -2810 / -1989 120 / 120 Weight last 48 hrs Weight 117.934 kg Weight 117.934 kg Physical Exam Narrative: EXAM NARRATIVE: General: Alert oriented x3, patient seen _sitting up in recliner on 2 L nasal cannula saturating 96%. HEENT: Normocephalic, atraumatic, EOMI, breathing very comfortably. Cardio: Regular rate rhythm, normal S1-S2, no murmurs rubs gallops, Respiratory: Good bilateral air entry, lungs clear to auscultation today no wheezes no rhonchi no crackles appreciated. GI: Abdomen soft, nontender, nondistended, bowel sounds + Behavior: Appropriate and cooperative Extremities: Chronic venous stasis changes present. No edema present in lower extremities today. No cyanosis or calf tenderness present. Urinary Catheter Management^: Root: Cath Placed During This Visit: no Reason for Continuing Indwelling Catheter: Acute Urinary Retention or Obstruction Data : 09/26/21 05:43 09/26/21 05:43 Micro: Microbiology 09/21/21 05:05 Blood Culture - Final Blood NO GROWTH AFTER 5 DAYS 09/21/21 05:05 Blood Culture - Final Blood NO GROWTH AFTER 5 DAYS A&P Assessment and plan (1) CHF (congestive heart failure): Status: Acute (2) Pneumonia: Status: Acute (3) Acute respiratory failure with hypoxia and hypercapnia: Status: Acute (4) Aortic stenosis, moderate: Status: Acute (5) GERD (gastroesophageal reflux disease): Status: Acute Additional A&P Information #Community-acquired pneumonia #Acute respiratory failure at admission secondary to pneumonia and acute on chronic congestive heart failure #Acute metabolic encephalopathy secondary to above?resolved #History of breast cancer with bone metastatic lesions ?Doxycycline stopped for pneumonia at this point. Continue cefdinir to complete course. On 2 L nasal cannula. Home O2 eval will be done today. ?Continue work with physical therapy ?Continue enalapril, carvedilol, aspirin, atorvastatin. Echo was done which showed EF 60% mild biatrial enlargement. ?We will stop IV Lasix at this point and switch to oral 40 daily but will start that tomorrow morning. Patient has been accepted at [facility] and will be going Tuesday to the [facility]. She will need oncology follow-up at discharge. Full code DVT prophylaxis: Lovenox Attestations Medical Necessity Statement*: Will be discharged Tuesday to [facility]. Coding Level of Care Code Acute Tabulating Supervisor for [facility] Niyah Diagnoses CHF (congestive heart failure) I50.9 Pneumonia J18.9 Acute respiratory failure with hypoxia and hypercapnia J96.01; J96.02 Aortic stenosis, moderate I35.0 GERD (gastroesophageal reflux disease) K21.9
--- NOTE | 2021-09-26 12:30 | PC.SOCIAL ---
IMM Update Discussed Medicare rights with patient, verbalized understanding. Provided patient with a copy and initialed, timed, dated copy in patient's chart.
[2021-09-27] VITALS (8 sets, daily range): BP systolic 92–125; BP diastolic 55–70; PULSE 50–71; RESP 14–18; TEMP 36.5–36.7; O2SAT 92–95
[2021-09-27 06:57] LABS: Anion Gap 17.2 (5-19); Blood Urea Nitrogen 32 mg/dL (8-23); Calcium 9.1 mg/dL (8.5-10.5); Carbon Dioxide 34 mmol/L (22-29); Chloride 94 mmol/L (98-107); Glomerular Filtration Rate 37.4 mL/min (90-130); Glucose 107 mg/dL (65-115); Osmolality Calculated 299 mOsm/kg (285-295); Potassium 4.2 mmol/L (3.5-5.1); Sodium 141 mmol/L (136-145)
[2021-09-27] MEDS: pantoprazole DR 40 mg Tablet PO (08:15)
[2021-09-27] MEDS: cefdinir 300 MG CAPSULE PO ×2 (08:15→17:29)
[2021-09-27] MEDS: magnesium oxide 400 mg tablet PO ×2 (08:15→17:29)
[2021-09-27] MEDS: atorvastatin 40 mg Tablet PO (08:15)
[2021-09-27] MEDS: carvedilol 3.125 mg Tablet PO ×2 (08:15→17:29)
[2021-09-27] MEDS: aspirin 81 mg EC Tablet PO (08:15)
[2021-09-27] MEDS: enoxaparin 40 mg/0.4 mL Syringe SUBCUT (08:15)
[2021-09-27] MEDS: lidocaine 5% Patch 1 PATCH TRANSDERMA (08:18)
[2021-09-27] MEDS: nystatin powder 15 gm Btl 1 APPLIC TOPICAL ×2 (08:21→17:30)
[2021-09-27] MEDS: HYDROcodone-acetaminophen 5-325 mg Tablet 1 TAB PO ×3 (08:24→21:22)
[2021-09-27] MEDS: ipratropium-albuterol 3 mL Neb INHALATION (09:30)
[2021-09-27 15:00] LABS: Adenovirus Not Detected (NOT DETECT); Chlamydia Pneumoniae Not Detected (NOT DETECT); Coronavirus 229E,HKU1,NL63,OC4 Not Detected (NOT DETECT); Human Metapneumovirus Not Detected (NOT DETECT); Human Rhinovirus/Enterovirus Not Detected (NOT DETECT); Influenza A Not Detected (NOT DETECT); Influenza A H1 Not Detected (NOT DETECT); Influenza A H1-2009 Not Detected (NOT DETECT); Influenza A H3 Not Detected (NOT DETECT); Influenza B Not Detected (NOT DETECT); Mycoplasma Pneumoniae Not Detected (NOT DETECT); Parainfluenza Virus Type 1 Not Detected (NOT DETECT); Parainfluenza Virus Type 2 Not Detected (NOT DETECT); Parainfluenza Virus Type 3 Not Detected (NOT DETECT); Parainfluenza Virus Type 4 Not Detected (NOT DETECT); Respiratory Syncytial Virus A Not Detected (NOT DETECT); Respiratory Syncytial Virus B Not Detected (NOT DETECT); SARS-COV-2 Not Detected (NOT DETECT)
--- NOTE | 2021-09-27 15:45 | PM.PN ---
Subjective Subjective: Interval history: Seen this AM. She is laying in bed and would like to get into the chair as she is uncomfortable. I will request her nurse to help her. She states she got up to urinate all night. Root is out. She is comfortable from breathing aspect. Offers no other complaints. Vitals/I&O/Wt Last Vital Signs Temp 98.1 F 09/27/21 08:00 Pulse 58 L 09/27/21 09:30 Resp 17 09/27/21 09:30 BP 125/70 09/27/21 08:00 Pulse Ox 92 09/27/21 09:30 09/27/21 09/27/21 09/27/21 06:59 14:59 22:59 Intake Total 470 / 470 Output Total 800 / 1850 Balance -800 / -1130 470 / 470 Weight last 48 hrs Weight 118.841 kg Weight 117.934 kg Physical Exam Narrative: EXAM NARRATIVE: General: Alert oriented x3, patient seen laying in bed on 2 L nasal cannula saturating 94%. HEENT: Normocephalic, atraumatic, EOMI, breathing very comfortably. Cardio: Regular rate rhythm, normal S1-S2, no murmurs rubs gallops, Respiratory: Good bilateral air entry, lungs clear to auscultation today no wheezes no rhonchi no crackles appreciated. GI: Abdomen soft, nontender, nondistended, bowel sounds + Behavior: Appropriate and cooperative Extremities: Chronic venous stasis changes present. No edema present in lower extremities today. No cyanosis or calf tenderness present. Exam unchanged from yesterday. No crackles appreciated. Pt appears quite euvolemic. Urinary Catheter Management^: Root: Cath Placed During This Visit: yes, but has since been removed by the nurse Reason for Continuing Indwelling Catheter: Other Date Urinary Catheter Removed: 09/26/21 Time Urinary Catheter Discontinued: 12:00 Data : 09/26/21 05:43 09/27/21 05:47 A&P Assessment and plan (1) CHF (congestive heart failure): Status: Acute (2) Pneumonia: Status: Acute (3) Acute respiratory failure with hypoxia and hypercapnia: Status: Acute (4) Aortic stenosis, moderate: Status: Acute (5) GERD (gastroesophageal reflux disease): Status: Acute Additional A&P Information #Community-acquired pneumonia #Acute respiratory failure at admission secondary to pneumonia and acute on chronic congestive heart failure #Acute metabolic encephalopathy secondary to above?resolved #History of breast cancer with bone metastatic lesions #GABRIELA on CKD. ?Doxycycline stopped for pneumonia at this point. Continue cefdinir to complete course. On 2 L nasal cannula. Home O2 eval ordered and pending. ?Continue work with physical therapy ?Continue enalapril, carvedilol, aspirin, atorvastatin. Echo was done which showed EF 60% mild biatrial enlargement. ?Pt got a lasix holiday yesterday. Have restarted lasix 40 oral daily for her. GABRIELA resolved. Her Cr is back to baseline 1.4. Patient has been accepted at [facility] and will be going Tuesday to the care home. She will need oncology follow-up at discharge. Full code DVT prophylaxis: Lovenox Attestations Medical Necessity Statement*: DC in AM to care home. Coding Level of Care Code Acute [employer] for [facility] Fwd Diagnoses CHF (congestive heart failure) I50.9 Pneumonia J18.9 Acute respiratory failure with hypoxia and hypercapnia J96.01; J96.02 Aortic stenosis, moderate I35.0 GERD (gastroesophageal reflux disease) K21.9
[2021-09-28] MEDS: acetaminophen 325 mg Tablet 650 MG PO (02:01)
[2021-09-28] MEDS: HYDROcodone-acetaminophen 5-325 mg Tablet 1 TAB PO ×2 (03:10→09:07)
[2021-09-28 03:50] VITALS: BP 117/70; PULSE 54; RESP 17; TEMP 36.6; O2SAT 94
[2021-09-28 06:24] LABS: Basophils # 0.1 10^3/uL (0.0-0.1); Basophils % 0.6 %; Eosinophils # 0.4 10^3/uL (0.0-0.8); Eosinophils % 5.1 %; Hematocrit 38.8 % (37.0-47.0); Hemoglobin 11.4 g/dL (11.5-15.3); Lymphocytes # 1.6 10^3/uL (0.8-4.8); Lymphocytes % 19.3 %; Mean Corpuscular HGB Conc 29.4 g/dL (30.0-36.0); Mean Corpuscular Hemoglobin 26.2 pg (28.0-34.0); Mean Corpuscular Volume 89.2 fl (81-99); Mean Platelet Volume 11.7 fL (7.4-10.4); Monocytes # 0.7 10^3/uL (0.2-0.9); Monocytes % 7.7 %; Neutrophils # 5.65 10^3/uL (1.8-7.7); Neutrophils % 67.1 %; Nucleated Red Blood Cells % 0 %; Platelet Count 157 10^3/cmm (130-400); Red Blood Count 4.35 10^6/uL (4.1-5.3); Red Cell Distribution Width 16.4 % (12.1-15.1); White Blood Count 8.4 10^3/uL (4.0-10.0)
[2021-09-28 06:44] LABS: Anion Gap 14.5 (5-19); Blood Urea Nitrogen 34 mg/dL (8-23); Calcium 9.2 mg/dL (8.5-10.5); Carbon Dioxide 33 mmol/L (22-29); Chloride 96 mmol/L (98-107); Glomerular Filtration Rate 34.5 mL/min (90-130); Glucose 107 mg/dL (65-115); Magnesium 2.1 mg/dL (1.7-2.3); Osmolality Calculated 296 mOsm/kg (285-295); Potassium 4.5 mmol/L (3.5-5.1); Sodium 139 mmol/L (136-145)
[2021-09-28 07:26] VITALS: BP 116/68; PULSE 55; RESP 18; TEMP 36.9; O2SAT 90
[2021-09-28 07:34] VITALS: PULSE 58; RESP 20; O2SAT 95
[2021-09-28] MEDS: ipratropium-albuterol 3 mL Neb INHALATION (07:34)
[2021-09-28 07:38] VITALS: PULSE 55
[2021-09-28] MEDS: lidocaine 5% Patch 1 PATCH TRANSDERMA (08:23)
[2021-09-28] MEDS: pantoprazole DR 40 mg Tablet PO (08:23)
[2021-09-28] MEDS: aspirin 81 mg EC Tablet PO (08:24)
[2021-09-28] MEDS: carvedilol 3.125 mg Tablet PO (08:24)
[2021-09-28] MEDS: atorvastatin 40 mg Tablet PO (08:24)
[2021-09-28] MEDS: cefdinir 300 MG CAPSULE PO (08:24)
[2021-09-28] MEDS: magnesium oxide 400 mg tablet PO (08:24)
[2021-09-28] MEDS: FUROsemide 40 mg Tablet PO (08:24)
[2021-09-28] MEDS: enoxaparin 40 mg/0.4 mL Syringe SUBCUT (08:28)
[2021-09-28] MEDS: nystatin powder 15 gm Btl 1 APPLIC TOPICAL (08:44)
--- NOTE | 2021-09-28 11:18 | PC.OT ---
OT TREATMENT ATTEMPTED. PATIENT IS DRESSED AND READY FOR DISCHARGE. HOWEVER, NO DISCHARGE ORDERS IN AT THIS TIME. HER IS HERE AND READY TO TRANSPORT TO SNF AT THIS TIME. PATIENT REPORTS THAT SHE IS VERY ANXIOUS AND READY FOR DISCHARGE.
--- NOTE | 2021-09-28 11:38 | PM.DCS ---
Discharge Providers Date of Admission: 09/21/21 06:11 Date of Discharge: September 28, 2021 Attending Provider at Admission: Lazaro Alvarez Attending Provider at Discharge: Cathy Powers MD Primary Care Provider: Ralf Castillo DO Diagnoses at Discharge Discharge Diagnosis (1) CHF (congestive heart failure): Status: Acute (2) Pneumonia: Status: Acute (3) Acute respiratory failure with hypoxia and hypercapnia: Status: Resolved (4) Aortic stenosis, moderate: (5) GERD (gastroesophageal reflux disease): Status: Acute Reason for Visit Reason for Visit: SOB Hospital Course Hospital Course HPI as per Dr. Otto Samia Sarmiento is a 70 year old female with past medical history of metastatic breast cancer, chronic pain syndrome, hypertension, anxiety who is presenting with shortness of breath and cough. The symptoms started to 3 days ago and progressively got worse. Currently described as moderate in intensity. Denies chest pain. Reports productive cough but unable to describe the phlegm. No hemoptysis. Denies fever or chills. No nausea or vomiting. No diarrhea. Denies similar in the past. Course Patient admitted for CAP and CHF exacerbation. She was given IV antibiotics intially and then transitioned to oral cefdninir. She was also diuresed with IV lasix and beasley was placed. Oral lasix was started on discharge. GABRIELA was present which resolved and Cr got back to baseline by day of discharge. She was sent to [facility]. She was asked to follow up with Dr. Buck at discharge for her breast cancer. Physical Exam Narrative: EXAM NARRATIVE: General: Alert oriented x3, patient seen laying in bed on 2 L nasal cannula saturating 94%. She is requesting to get out of bed. HEENT: Normocephalic, atraumatic, EOMI, breathing very comfortably. Cardio: Regular rate rhythm, normal S1-S2, no murmurs rubs gallops, Respiratory: Good bilateral air entry, lungs clear to auscultation today no wheezes no rhonchi no crackles appreciated. GI: Abdomen soft, nontender, nondistended, bowel sounds + Behavior: Appropriate and cooperative Extremities: Chronic venous stasis changes present. No edema present in lower extremities today. No cyanosis or calf tenderness present. Urinary Catheter Management^: Beasley: Cath Placed During This Visit: yes, but has since been removed by the nurse Reason for Continuing Indwelling Catheter: Other Date Urinary Catheter Removed: 09/26/21 Time Urinary Catheter Discontinued: 12:00 Discharge Data Data Completed and Pending: Completed Studies During Hospitalization Category Date Time Status CT angio chest PE protcl 30053 Urge nt Cat Scan 09/21/21 06:10 Completed XR chest 1V adam ble 59500 Urgent Exams 09/21/21 04:52 Completed CV. echo limited 41098 Routine Ultrasound 09/21/21 08:10 Completed Labs from last 24 hours 09/28/21 09/28/21 09/27/21 05:37 05:37 12:10 WBC 8.4 RBC 4.35 Hgb 11.4 L Hct 38.8 MCV 89.2 MCH 26.2 L MCHC 29.4 L RDW 16.4 H Plt Count 157 MPV 11.7 H Neut % (Auto) 67.1 Lymph % (Auto) 19.3 [place] % (Auto) 7.7 Eos % (Auto) 5.1 Baso % (Auto) 0.6 Neut # (Auto) 5.65 Lymph # (Auto) 1.6 [place] # (Auto) 0.7 Eos # (Auto) 0.4 Baso # (Auto) 0.1 Nucleated RBC % (a uto) 0 Nucleated RBCs # 0.0 Sodium 139 Potassium 4.5 Chloride 96 L Carbon Dioxide 33 H Anion Gap 14.5 BUN 34 H Creatinine 1.5 H GFR Calculation 34.5 L Glucose 107 Calculated Osmolal ity 296 H Calcium 9.2 Magnesium 2.1 Coronavirus 229E ( PCR) Not detected SARS-CoV-2 (PCR) Not detected Vitals: Last Vital Signs Temp 98.5 F 09/28/21 07:26 Pulse 55 L 09/28/21 07:38 Resp 20 H 09/28/21 07:34 BP 116/68 09/28/21 07:26 Pulse Ox 95 09/28/21 07:34 Discharge Plan Discharge Patient Disposition: SNF w Plan Readm Condition: Stable Prescriptions: New aspirin 81 mg Tablet,Delayed Release (Dr/Ec) 81 mg PO DAILY 30 Days Qty: 30 RF: 0 atorvastatin 40 mg Tablet 40 mg PO DAILY 30 Days Qty: 30 RF: 0 carvedilol 3.125 mg Tablet 3.125 mg PO BID 30 Days Qty: 60 RF: 0 furosemide 40 mg Tablet 40 mg PO DAILY@0800 30 Days Qty: 30 RF: 0 Continued exemestane 25 mg tablet 25 mg PO DAILY@18 RF: 0 magnesium 200 mg tablet 200 mg PO BID@ RF: 0 cholecalciferol (vitamin D3) 50 mcg (2,000 unit) capsule 150 mcg PO BID@ RF: 0 albuterol sulfate [Ventolin HFA] 90 mcg/actuation HFA aerosol inhaler 2 puff INHALATION Q4H PRN (Reason: shortness of breath or wheezing) Qty: 8.5 RF: 5 hydrocodone-acetaminophen 5-325 mg tablet 1 tab PO .one or two every six PRN (Reason: pain) 4 Days Qty: 40 RF: 0 lorazepam 0.5 mg Tablet 0.5 mg PO DAILY PRN (Reason: Anxiety) RF: 0 lidocaine 5 % adhesive patch,medicated See Rx Instructions .ROUTE .COMPLEX RF: 0 pantoprazole [Protonix] 40 mg tablet,delayed release (DR/EC) 40 mg PO DAILY Qty: 14 RF: 0 enalapril maleate 10 mg tablet 10 mg PO DAILY Qty: 180 RF: 1 Discontinued amlodipine 10 mg tablet 10 mg PO DAILY Qty: 30 RF: 3 Discharge Orders: Discharge Order (Routine); Ordered 09/28/21 Ordered By: Cathy Powers Other Ambulatory Orders: Basic Metabolic Panel (Routine) Timeframe: 1 Week Facility: [facility] - Location: Lab - Main Lab Ordered By: Cathy Powers Referrals: [facility] [place] [Other] Ralf Castillo DO [Primary Care Provider] - 1 week ([facility] will call you to set up an appointment to see Dr. Castillo.) Rachel Dye FNP [Nurse Practitioner] - 10/06/21 9:30 am (Moderate aortic stenosis HF with preserved EF) Quang Buck MD [Staff Physician] - 09/30/21 9:00 am (0900 for labs [address] Buck) Discharge Diet: Cardiac and Low Salt Discharge Activity: Increase activity as tolerated and Oxygen as instructed Patient Instructions: Opioid Safety Discharge Attestations Time Spent in Discharge Care*: less than 30 min Status at Discharge: Cognitive status at discharge: cognitively intact, Behavioral status at discharge: cooperative, Quality Metrics Clinical Quality Measures During this hospital stay, did patient experience: None Coding Level of Care Code Acute Chg FW DC note Diagnoses CHF (congestive heart failure) I50.9 Pneumonia J18.9 Acute respiratory failure with hypoxia and hypercapnia J96.01; J96.02 Aortic stenosis, moderate I35.0 GERD (gastroesophageal reflux disease) K21.9
[2021-09-28 12:00] VITALS: BP 128/67; PULSE 56; RESP 18; TEMP 36.7; O2SAT 95
--- NOTE | 2021-09-28 12:22 | PC.SOCIAL ---
IMM Updated Updated pt on IMM. No questions voiced. Provided pt a copy. Initialed, dated, & timed copy in chart.
--- NOTE | 2021-09-28 13:25 | PC.NURSE ---
Report to Lakeisha ARMAS at [facility]
--- NOTE | 2021-09-28 14:30 | PC.NURSE ---
Assisted patient into wheel chair and pushed her to private car. Patient is A&Ox3. Respirations even and non-labored on 2 liters of nasal cannula. Patient's will transport patient to the senior care and then return [facility] oxygen tank to the [facility].
[2021-09-28 14:34] VITALS: BP 128/67; PULSE 58; RESP 18; TEMP 36.7; O2SAT 95
== END 2021-09-28 14:15 | disposition skilled nursing facility (03) | DRG 193 ==
LOC: ER 04:57 → MEDSURG 07:10
PROVIDERS: Internal Medicine; Admitting Provider Hospitalist; Emergency Provider Emergency Medicine; PCP Family Medicine; Visit Provider Internal Medicine
DX: J18.9 Pneumonia, unspecified organism (principal); J96.01 Acute respiratory failure with hypoxia; G93.41 Metabolic encephalopathy; J96.02 Acute respiratory failure with hypercapnia; I50.33 Acute on chronic diastolic (congestive) heart failure; N17.9 Acute kidney failure, unspecified; E66.2 Morbid (severe) obesity with alveolar hypoventilation; Z68.42 Body mass index [BMI] 45.0-49.9, adult; C79.51 Secondary malignant neoplasm of bone; E87.2 Acidosis; I11.0 Hypertensive heart disease with heart failure; I35.0 Nonrheumatic aortic (valve) stenosis; C50.919 Malignant neoplasm of unspecified site of unspecified female breast; K21.9 Gastro-esophageal reflux disease without esophagitis; G89.4 Chronic pain syndrome; F41.9 Anxiety disorder, unspecified; F32.A Depression, unspecified; E78.5 Hyperlipidemia, unspecified; E11.51 Type 2 diabetes mellitus with diabetic peripheral angiopathy without gangrene; Z79.891 Long term (current) use of opiate analgesic; Z79.811 Long term (current) use of aromatase inhibitors; Z87.891 Personal history of nicotine dependence
CPT/HCPCS: 36415; 36600; 51702; 71045; 71275; 80048; 80051; 80053; 80061; 80069; 82330; 82805; 83036; 83605; 83735; 83880; 84100; 84145; 84443; 84484; 85025; 85378; 86140; 87040; 87635; 93005; 93308; 94640; 94660; 94664; 94762; 96365; 96367; 96372; 97110; 97116; 97161; 97165; 97530; 97535; 99285; J0456; J0696; J1650; J1940; J3486; J7050; Q9967

== ENCOUNTER 2022-05-05 14:10 | Emergency (ER) | payer MEDICARE, MEDICAID, SELFPAY ==
[2022-05-05 15:02] VITALS: BP 184/96; PULSE 81; RESP 16; TEMP 37.4; O2SAT 91; BMI 41.3
[2022-05-05 17:50] VITALS: BP 172/115; PULSE 74; O2SAT 92
[2022-05-05 18:06] LABS: Basophils # 0.1 10^3/uL (0.0-0.1); Basophils % 0.6 %; Eosinophils # 0.2 10^3/uL (0.0-0.8); Eosinophils % 1.9 %; Hematocrit 42.9 % (37.0-47.0); Hemoglobin 12.9 g/dL (11.5-15.3); Lymphocytes # 1.5 10^3/uL (0.8-4.8); Lymphocytes % 12.5 %; Mean Corpuscular HGB Conc 30.1 g/dL (30.0-36.0); Mean Corpuscular Hemoglobin 27.3 pg (28.0-34.0); Mean Corpuscular Volume 90.7 fl (81-99); Mean Platelet Volume 10.6 fL (7.4-10.4); Monocytes # 0.6 10^3/uL (0.2-0.9); Monocytes % 4.9 %; Neutrophils # 9.72 10^3/uL (1.8-7.7); Neutrophils % 78.6 %; Nucleated Red Blood Cells % 0 %; Platelet Count 173 10^3/cmm (130-400); Red Blood Count 4.73 10^6/uL (4.1-5.3); Red Cell Distribution Width 15.9 % (12.1-15.1); White Blood Count 12.3 10^3/uL (4.0-10.0)
--- NOTE | 2022-05-05 18:12 | W.ED.EXTPRO ---
HPI - Extremity Problem General: Chief complaint: Extremity Problem,Nontraumatic Stated complaint: Possible UTI, left arm pain Time Seen by Provider: 05/05/22 17:28 History of Present Illness: Ms. Sarmiento is a 71-year-old lady with complex past medical history including obesity, CKD, CHF, metastatic breast cancer, chronic pain, diabetes who presents to the emergency department due to arm pain. She reports arm pain which was sudden onset after a blood draw approximately 6 weeks ago. She reached with her left hand to open a car door and immediately had pain in her elbow. She has been seen however has not had x-rays of the region and pain has consisted. Limits range of motion. At times moderate to severe in intensity. Patient has chronic pain but has not been able to get back in with pain management and is therefore out of her baseline hydrocodone?APAP 10 mg-325. She also reports generalized symptoms but these are largely baseline. No other specific changes in health, exacerbating, or alleviating factors identified. Upon clarification of clinical history patient underwent treatment for breast cancer in 2013. She she does report a history of bone spots on her pelvis that are being evaluated by primary care provider. Onset (ago): week(s) Pain Consistency: intermittent Location: left and upper extremity Quality: aching Exacerbating factors: range of motion and palpation Review of Systems General: Reports: 10 or more systems reviewed and unremarkable except in HPI and below PFSH ED PFSH: Medical History Acute exacerbation of CHF (congestive heart failure) Acute kidney injury superimposed on CKD Acute respiratory failure with hypoxia Anxiety attack Aortic stenosis, moderate Bradycardia Breast cancer metastasized to bone diag 2014 with treatment and no activity at this time per PET scan Chronic hypercapnic respiratory failure Chronic low back pain COPD (chronic obstructive pulmonary disease) Current every day smoker Depression Dyspnea Encounter for long-term opiate analgesic use Enrolled in chronic care management Essential hypertension GERD (gastroesophageal reflux disease) Heart failure with preserved ejection fraction High risk medication use Hyperlipidemia Inflammatory arthritis Joint pain Leg weakness, bilateral Liver dysfunction Metastatic breast cancer Morbid obesity Morbid obesity with BMI of 45.0-49.9, adult Nicotine dependence, cigarettes, uncomplicated Obesity hypoventilation syndrome Obstructive sleep apnea Opioid contract exists Pain in rib Pain in thoracic spine PVD (peripheral vascular disease) Sleep apnea Type 2 diabetes mellitus without complication, without long-term current use of insulin Xeroderma Surgical History Hx laparoscopic cholecystectomy 11/01/18 Hx of arthroscopic knee surgery Right Hx of cholecystectomy Hx of lumpectomy Right Hx of oral surgery pulled all teeth 03/2017 Hx of tubal ligation Family History Unknown Prostate disease Depression Heart disease Hypertension Chronic kidney disease (CKD) Grandfather Cancer LUNG CANCER Other CAD (coronary artery disease) Rheumatoid arthritis Denies family history of Diabetes Lupus Hyperlipidemia Family history of premature coronary artery disease Stroke Social History Smoking and tobacco status: former smoker Second hand smoke exposure: No Alcohol intake: never History of recent travel: No Physical Exam Const: COMMON NORMALS: alert GENERAL APPEARANCE: cooperative and well developed NUTRITIONAL APPEARANCE: obese HENMT: COMMON NORMALS: normocephalic and atraumatic HEAD & SCALP: normocephalic and atraumatic Eye: COMMON NORMALS: conjunctivae normal CONJUNCTIVA: Yes conjunctivae normal SCLERA: sclerae normal Neck/C-Spine: COMMON NORMALS: supple GENERAL: Yes trachea midline Resp: EFFORT & INSPECTION: Yes able to speak in complete sentences AUSCULTATION: diminished lung sounds Cardio: COMMON NORMALS: regular rate and regular rhythm RATE: regular rate RHYTHM: regular rhythm GI: COMMON NORMALS: Soft to palpation PALPATION: Yes Soft to palpation and No Tenderness to palpation present (GI) Extremity: NARRATIVE EXTREMITY EXAM: Scattered areas of point tenderness without particular distribution about the entirety of the left upper extremity. There is pain with range of motion though no obvious bony deformity. There is edema noted to the posterior aspect of the hand and most of the lower forearm. Soft without evidence of contusion. GENERAL: Yes normal exam except as noted and Yes edema Neuro: COMMON NORMALS: moves all extremities SENSORIUM/ORIENTATION: Yes alert and No Orientation impaired Psych: COMMON NORMALS: mental status grossly normal and Normal thought process present THOUGHT PROCESS: Normal thought process present Course ED course: - Patient was seen and evaluated by me at bedside - Patient placed on cardiac monitors, IV access obtained - Initial evaluation notable for exam as above. - Labs and xrays personally interpreted by me - Analgesia given - Labs notable for mild leukocytosis of unclear etiology, no acute electrolyte derangement requiring intervention. No evidence of UTI. - Imaging notable for subacute appearing supracondylar fracture with displacement, appears to be pathologic. - Discussed case with orthopedics at our facility who recommended follow-up with elbow specialist given likely pathologic nature. - Discussed with Dr. Figueroa with the [facility] orthopedic system in [place], appreciate assistance. Patient will be contacted by his office regarding follow-up though she may require referral to orthopedic oncologist for further evaluation. - Patient placed in posterior long-arm splint for comfort and sling. She apparently previously tried to get a shoulder immobilizer however none was available that would fit her through our DME supplier. - Upon serial reexamination after treatment the patient was improved with analgesia - Based on patient history, evaluation, and testing as interpreted the most likely cause of the patient's condition is likely pathologic supracondylar fracture with injury occurrence likely approximately 6 weeks ago - The results of ED evaluation were discussed with the patient including prescriptions and/or symptomatic cares (if applicable) including appropriate and responsible use, followup plan, and return precautions. The patient verbalized understanding and felt safe for discharge. - Patient discharged in satisfactory condition. Note: Click bubbles or prepopulated dasilva in note writing are used for assistance with data collection and billing and are inherently more limited than narrative and other text portions of this note. Please use narrative for additional clinical history and defer to narrative/free test for any case of contradictory information. If information appears in only free text or click bubble it should be considered present or absent as reported. Please contact note commercial lines underwriter for clarifications of clinical information or contradictory information. MDM is a brief summary, contradictory or erroneous seeming information should be clarified and full note should be reviewed. Vital Signs: Vital signs: Vital Signs Temperature 98.3 F 05/05/22 23:05 Pulse Rate 75 05/05/22 23:05 Respiratory Rate 17 05/05/22 23:05 Blood Pressure 168/104 05/05/22 23:05 Pulse Oximetry 92 05/05/22 23:05 Oxygen Delivery Me thod 05/05/22 23:01 MDM - Extremity (Nontraumatic) Medical Decision Making 71-year-old lady with remote history of breast cancer presenting with 6 weeks history of arm injury that started with opening a car door. Patient apparently has not had x-rays though did attempt to follow-up with a primary care provider. ED evaluation notable for subacute appearing displaced supracondylar fracture which is likely pathologic in nature. Discussed with orthopedics and patient will follow-up with [facility] orthopedics in [facility]. Patient placed in splint for comfort and sling. Satisfactory for outpatient management. Medical Records I reviewed the patient's medical records. Lab Data I reviewed the patient's lab results. : 05/05/22 17:45 05/05/22 17:45 Radiology Impressions Chest X-Ray 05/05/22 18:24 IMPRESSION: No focal acute pulmonary disease. Elbow X-Ray 05/05/22 18:24 IMPRESSION: Displaced supracondylar fracture of the left distal humerus with subacute appearance. Hand X-Ray 05/05/22 18:24 IMPRESSION: Negative for acute osseous abnormality. Shoulder X-Ray 05/05/22 18:24 IMPRESSION: No acute osseous abnormalities identified. Venous Duplex 05/05/22 18:25 IMPRESSION: No evidence of left upper extremity deep vein thrombosis or superficial thrombophlebitis. Laboratory Results WBC 12.3 10^3/uL (4.0-10.0) H 05/05/22 17:45 RBC 4.73 10^6/uL (4.1-5.3) 05/05/22 17:45 Hgb 12.9 g/dL (11.5-15.3) 05/05/22 17:45 Hct 42.9 % (37.0-47.0) 05/05/22 17:45 MCV 90.7 fl (81-99) 05/05/22 17:45 MCH 27.3 pg (28.0-34.0) L 05/05/22 17:45 MCHC 30.1 g/dL (30.0-36.0) 05/05/22 17:45 RDW 15.9 % (12.1-15.1) H 05/05/22 17:45 Plt Count 173 10^3/cmm (130-400) 05/05/22 17:45 MPV 10.6 fL (7.4-10.4) H 05/05/22 17:45 Neut % (Auto) 78.6 % 05/05/22 17:45 Lymph % (Auto) 12.5 % 05/05/22 17:45 [place] % (Auto) 4.9 % 05/05/22 17:45 Eos % (Auto) 1.9 % 05/05/22 17:45 Baso % (Auto) 0.6 % 05/05/22 17:45 Neut # (Auto) 9.72 10^3/uL (1.8-7.7) H 05/05/22 17:45 Lymph # (Auto) 1.5 10^3/uL (0.8-4.8) 05/05/22 17:45 [place] # (Auto) 0.6 10^3/uL (0.2-0.9) 05/05/22 17:45 Eos # (Auto) 0.2 10^3/uL (0.0-0.8) 05/05/22 17:45 Baso # (Auto) 0.1 10^3/uL (0.0-0.1) 05/05/22 17:45 Nucleated RBC % (auto) 0 % 05/05/22 17:45 Nucleated RBCs # 0.0 /100WBC 05/05/22 17:45 Sodium 139 mmol/L (136-145) 05/05/22 17:45 Potassium 4.2 mmol/L (3.5-5.1) 05/05/22 17:45 Chloride 95 mmol/L (98-107) L 05/05/22 17:45 Carbon Dioxide 34 mmol/L (22-29) H 05/05/22 17:45 Anion Gap 14.2 (5-19) 05/05/22 17:45 BUN 8 mg/dL (8-23) 05/05/22 17:45 Creatinine 1.1 mg/dL (0.5-0.9) H 05/05/22 17:45 GFR Calculation 49.2 mL/min (90-130) L 05/05/22 17:45 Glucose 162 mg/dL (65-115) H 05/05/22 17:45 Calculated Osmolality 290 mOsm/kg (285-295) 05/05/22 17:45 Calcium 10.3 mg/dL (8.5-10.5) 05/05/22 17:45 Total Bilirubin 1.0 mg/dL (0.15-1.2) 05/05/22 17:45 AST 21 U/L (0-32) 05/05/22 17:45 ALT 10 U/L (0-33) 05/05/22 17:45 Alkaline Phosphatase 189 IU/L (35-105) H 05/05/22 17:45 Total Protein 7.3 g/dL (6.6-8.7) 05/05/22 17:45 Albumin 3.9 g/dL (3.5-5.2) 05/05/22 17:45 Globulin 3.4 g/dL (1.3-4.6) 05/05/22 17:45 Lipase 23 U/L (13-60) 05/05/22 17:45 Urine Color Yellow (Yellow) 05/05/22 17:00 Urine Appearance Clear (CLEAR) 05/05/22 17:00 Urine pH 9 (5-7) H 05/05/22 17:00 Ur Specific [place] 1.010 (1.005-1.030) 05/05/22 17:00 Urine Protein 1+ (Negative) H 05/05/22 17:00 Urine Glucose (UA) 2+ (Normal) H 05/05/22 17:00 Urine Ketones Negative (Negative) 05/05/22 17:00 Urine Blood Neg (Negative) 05/05/22 17:00 Urine Nitrate Negative (Negative) 05/05/22 17:00 Urine Bilirubin Neg (Negative) 05/05/22 17:00 Prot Sulfosalicylic Acd Negative (Negative) 05/05/22 17:00 Urine Urobilinogen Norm mg/dL (Negative) 05/05/22 17:00 Ur Leukocyte Esterase Negative (Negative) 05/05/22 17:00 Urine RBC None /hpf (0-2) 05/05/22 17:00 Urine WBC Rare /hpf (0-5) 05/05/22 17:00 Ur Squamous Epith Cells None /hpf (0-5) 05/05/22 17:00 Amorphous Sediment Not Reportable 05/05/22 17:00 Urine Bacteria Trace /hpf (NONE) 05/05/22 17:00 Discharge Plan Discharge Patient Disposition: Home Clinical Impression: Supracondylar fracture of left humerus, Pathologic fracture Condition: Stable Prescriptions: New hydrocodone-acetaminophen 10-325 mg tablet 1 tab PO Q4H PRN (Reason: pain) Qty: 30 0RF No Action exemestane 25 mg tablet 25 mg PO DAILY@18 magnesium 200 mg tablet 200 mg PO BID@14,22 cholecalciferol (vitamin D3) 50 mcg (2,000 unit) capsule 150 mcg PO BID@ albuterol sulfate [Ventolin HFA] 90 mcg/actuation HFA aerosol inhaler 2 puff INHALATION Q4H PRN (Reason: shortness of breath or wheezing) Qty: 8.5 5RF hydrocodone-acetaminophen 5-325 mg tablet 1 tab PO Q4H PRN (Reason: pain) 5 Days Qty: 30 0RF lorazepam 0.5 mg tablet 0.5 mg PO BID Qty: 60 0RF lidocaine 5 % adhesive patch,medicated See Rx Instructions .ROUTE .COMPLEX Qty: 30 0RF Rx Instructions: 1 patch topically ON FOR 12 HOURS AND OFF FOR 12 HOURS enalapril maleate 10 mg tablet 10 mg PO DAILY Qty: 180 1RF pantoprazole [Protonix] 40 mg tablet,delayed release (DR/EC) 40 mg PO DAILY Qty: 14 0RF Discharge Orders: Discharge ED (Routine); Ordered 05/05/22 Ordered By: Alexx Sanon Referrals: Ralf Castillo DO [Primary Care Provider] - Discharge Diet: Usual diet Discharge Activity: Limit activity as instructed Patient Instructions: Elbow Fracture (ED), Splint Care (ED), Opioid Safety Activity Restrictions/Additional Instructions: Thank you for visiting the emergency department. You were seen and evaluated for continued arm pain. You were found to have a supracondylar fracture which is likely pathologic in nature. Given your history of breast cancer bony metastases is most likely however it may be secondary to primary bone tumor. Given the complexity of injury you likely need follow-up with orthopedic oncology however I spoke with Dr Figueroa within the [facility] orthopedics and I will send him your chart for follow-up. 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 Do not combine with other sedating medications. Please follow-up with your primary care provider. Your primary care provider should refer you to pain management. Additionally your primary care provider needs to coordinate additional evaluation for possibility of metastatic cancer. Please return to the emergency department for new color changes in your hand, sensory changes, changes in ability to move your fingers, or anything else that you are concerned about a feel needs emergency department evaluation. Coding Level of Care Code ED [employer] for Ajg Fwd Exam Comprehensive
[2022-05-05 18:18] LABS: Add Urine Microscopic? YES; Bilirubin Urine Neg (Negative); Blood Urine Neg (Negative); Glucose Urine UA 2+ (Normal); Ketones Urine Negative (Negative); Leukocyte Esterase Urine Negative (Negative); Nitrate Urine Negative (Negative); Protein Urine 1+ (Negative); Sulfosalicylic Acid Urine Negative (Negative); Urine Appearance Clear (CLEAR); Urine Color Yellow (Yellow); Urobilinogen Urine Norm (Negative); pH Urine 9 (5-7)
[2022-05-05 18:20] LABS: Bacteria Urine TRACE /hpf; WBC Urine RARE /hpf (0-5)
--- NOTE | 2022-05-05 18:24 | XRR_ITS ---
PROCEDURE INFORMATION: Exam: XR Left Hand Exam date and time: 05/05/2022 6:31 PM Age: 71 years old Clinical indication: Condition or disease; Other: Previous injury; Additional info: Hand swelling, atraumtic TECHNIQUE: Imaging protocol: Radiologic exam of the Left hand. Views: 3 or more views. COMPARISON: No relevant prior studies available. FINDINGS: Bones/joints: Unremarkable. Negative for fracture. Marginal osteophytes around the interphalangeal joint spaces. Negative for erosion. Unremarkable joint space alignment. Soft tissues: Diffuse soft tissue swelling. No soft tissue gas. XR/XR hand LT min 3V* [id number] IMPRESSION: Negative for acute osseous abnormality.
--- NOTE | 2022-05-05 18:24 | XRR_ITS ---
PROCEDURE INFORMATION: Exam: XR Left Elbow Exam date and time: 05/05/2022 6:31 PM Age: 71 years old Clinical indication: Other: Previous injury; Additional info: Elbow pain with rom TECHNIQUE: Imaging protocol: Radiologic exam of the Left elbow. Views: 1 or 2 views. COMPARISON: No relevant prior studies available. FINDINGS: Bones/joints: Displaced distal humerus supracondylar fracture. Patchy bone callus surrounds the fracture lucency. Posterior displacement of the proximal shaft relative to the condyles which remain aligned with the radius and the ulna. Soft tissues: Periarticular soft tissue swelling. XR/XR elbow LT 2V [id number] IMPRESSION: Displaced supracondylar fracture of the left distal humerus with subacute appearance.
--- NOTE | 2022-05-05 18:24 | XRR_ITS ---
PROCEDURE INFORMATION: Exam: XR Left Shoulder Exam date and time: 05/05/2022 6:31 PM Age: 71 years old Clinical indication: Condition or disease; Other: Previous injury; Additional info: Shoulder pain, limited rom TECHNIQUE: Imaging protocol: Radiologic exam of the Left shoulder. Views: 2 or more views. COMPARISON: CR (CHEST, ) 09/21/2021 5:04 AM FINDINGS: Bones/joints: No acute fractures are identified. Negative for joint space malalignment. Degenerative joint changes of the glenohumeral articulation progressive from comparison. Calcifications in the subacromial space. Soft tissues: Normal. XR/XR shoulder LT min 2V* [id number] IMPRESSION: No acute osseous abnormalities identified.
--- NOTE | 2022-05-05 18:24 | XRR_ITS ---
PROCEDURE INFORMATION: Exam: XR Chest Exam date and time: 05/05/2022 6:31 PM Age: 71 years old Clinical indication: Condition or disease; Other: Previous injury; Additional info: SOB TECHNIQUE: Imaging protocol: Radiologic exam of the chest. Views: 1 view. COMPARISON: CR (CHEST, ) 09/21/2021 5:04 AM FINDINGS: Lungs: Reticular changes of pulmonary interstitium. Negative for pulmonary consolidation. Pleural spaces: Unremarkable. No pleural effusion. No pneumothorax. Heart/Mediastinum: Mild cardiomegaly. Bones/joints: Unremarkable. XR/XR chest 1V portable [id number] IMPRESSION: No focal acute pulmonary disease.
--- NOTE | 2022-05-05 18:25 | USR_ITS ---
PROCEDURE INFORMATION: Exam: US Duplex Left Upper Extremity Veins, Limited Exam date and time: 05/05/2022 7:45 PM Age: 71 years old Clinical indication: Pain; Arm, upper and arm, lower and fingers and hand; Prior surgery; Surgery date: 1-6 months; Surgery type: S/P radiation therapy and chemotherapy x 4 months, RT breast CA, had portacatheter left antecubital, was removed 6 weeks ago, left arm began to swell. Left hand 3+ pitting edema. Left forearm 2+ pitting edema; Additional info: Arm swelling, HX cancer, eval dvt TECHNIQUE: Imaging protocol: Real-time Duplex ultrasound of the Left Upper Extremity with 2-D castle scale, color Doppler flow and spectral waveform analysis with image documentation. Limited exam focused on the left upper extremity veins. COMPARISON: CR (UP EXM, ) 05/05/2022 6:31 PM FINDINGS: Left deep veins: Unremarkable. Axillary and brachial veins are patent throughout without thrombus. Normal Doppler waveforms. Normal compressibility and/or augmentation response. Visualized internal jugular and subclavian veins are patent. Patent radial and ulnar veins. Left superficial veins: Unremarkable. Visualized cephalic and basilic veins are patent without thrombus. Soft tissues: Subcutaneous soft tissue edema changes distally. US/[place] [id number] IMPRESSION: No evidence of left upper extremity deep vein thrombosis or superficial thrombophlebitis.
[2022-05-05 18:30] LABS: Alanine Aminotransferase 10 U/L (0-33); Albumin Level 3.9 g/dL (3.5-5.2); Alkaline Phosphatase 189 IU/L (35-105); Anion Gap 14.2 (5-19); Aspartate Amino Transferase 21 U/L (0-32); Blood Urea Nitrogen 8 mg/dL (8-23); Calcium 10.3 mg/dL (8.5-10.5); Carbon Dioxide 34 mmol/L (22-29); Chloride 95 mmol/L (98-107); Globulin 3.4 g/dL (1.3-4.6); Glomerular Filtration Rate 49.2 mL/min (90-130); Glucose 162 mg/dL (65-115); Lipase 23 U/L (13-60); Osmolality Calculated 290 mOsm/kg (285-295); Potassium 4.2 mmol/L (3.5-5.1); Sodium 139 mmol/L (136-145); Total Protein 7.3 g/dL (6.6-8.7)
[2022-05-05] MEDS: HYDROcodone-acetaminophen 5-325 mg Tablet 1 TAB PO (18:57)
[2022-05-05 18:59] VITALS: BP 181/113; PULSE 74; RESP 17; O2SAT 94
[2022-05-05] MEDS: HYDROcodone-acetaminophen 10-325 mg Tablet 1 TAB PO (20:49)
[2022-05-05 20:54] VITALS: BP 169/112; PULSE 71; RESP 17; TEMP 36.9; O2SAT 92
[2022-05-05 23:01] VITALS: BP 168/104; PULSE 75; RESP 17; TEMP 36.8; O2SAT 92
--- NOTE | 2022-05-05 23:03 | PC.NURSE ---
Left arm/elbow splint placed per orders at 90^, patient reports improved pain with mobilization, reviewed discharge instructions with follow up information, prescription provided. Patient and expressed a verbal and written understanding.
[2022-05-05 23:05] VITALS: BP 157/79; BP 168/104; PULSE 75; RESP 17; TEMP 36.8; O2SAT 92; O2SAT 93
== END 2022-05-05 23:09 | disposition home or self-care (01) ==
PROVIDERS: Emergency Medicine; Emergency Provider Emergency Medicine; PCP Family Medicine
DX: M84.422A Pathological fracture, left humerus, initial encounter for fracture (principal); I11.0 Hypertensive heart disease with heart failure; I50.9 Heart failure, unspecified; M79.662 Pain in left lower leg; Z85.3 Personal history of malignant neoplasm of breast; Z85.830 Personal history of malignant neoplasm of bone; J44.9 Chronic obstructive pulmonary disease, unspecified; E78.5 Hyperlipidemia, unspecified; E11.9 Type 2 diabetes mellitus without complications; Z87.891 Personal history of nicotine dependence
CPT/HCPCS: 71045; 73030; 73070; 73130; 80053; 81001; 83690; 85025; 93971; 99285

== ENCOUNTER 2022-05-10 17:50 | Emergency (ER) | payer MEDICARE, MEDICAID, SELFPAY ==
[2022-05-10 18:03] VITALS: PULSE 92; RESP 19; TEMP 36.6; O2SAT 92; BMI 42.6
--- NOTE | 2022-05-10 21:58 | W.ED.EXTPRO ---
HPI - Extremity Problem General: Chief complaint: Extremity Problem,Nontraumatic Stated complaint: ELBOW PAIN Time Seen by Provider: 05/10/22 21:48 History of Present Illness: 71-year-old female comes in today with complaints of left arm pain. Patient reports that she has a fracture to her distal humerus. This was noted on 03 May and was diagnosed as a pathologic fracture. Patient does have a history of breast cancer that has metastasized to the bone. Patient comes in tonight due to being without further pain medication. Patient appears nontoxic. Patient appears disheveled. Patient appears in mild to moderate pain. Review of Systems General: Reports: 10 or more systems reviewed and unremarkable except in HPI and below Resp: Denies: dyspnea GI: Denies: abdominal pain Musc: Reports: extremity pain PFSH ED PFSH: Medical History Acute exacerbation of CHF (congestive heart failure) Acute kidney injury superimposed on CKD Acute respiratory failure with hypoxia Anxiety attack Aortic stenosis, moderate Bradycardia Breast cancer metastasized to bone diag 2014 with treatment and no activity at this time per PET scan Chronic hypercapnic respiratory failure Chronic low back pain COPD (chronic obstructive pulmonary disease) Current every day smoker Depression Dyspnea Encounter for long-term opiate analgesic use Enrolled in chronic care management Essential hypertension GERD (gastroesophageal reflux disease) Heart failure with preserved ejection fraction High risk medication use Hyperlipidemia Inflammatory arthritis Joint pain Leg weakness, bilateral Liver dysfunction Metastatic breast cancer Morbid obesity Morbid obesity with BMI of 45.0-49.9, adult Nicotine dependence, cigarettes, uncomplicated Obesity hypoventilation syndrome Obstructive sleep apnea Opioid contract exists Pain in rib Pain in thoracic spine PVD (peripheral vascular disease) Sleep apnea Type 2 diabetes mellitus without complication, without long-term current use of insulin Xeroderma Surgical History Hx laparoscopic cholecystectomy 11/01/18 Hx of arthroscopic knee surgery Right Hx of cholecystectomy Hx of lumpectomy Right Hx of oral surgery pulled all teeth 03/2017 Hx of tubal ligation Family History Unknown Prostate disease Depression Heart disease Hypertension Chronic kidney disease (CKD) Grandfather Cancer LUNG CANCER Other CAD (coronary artery disease) Rheumatoid arthritis Denies family history of Diabetes Lupus Hyperlipidemia Family history of premature coronary artery disease Stroke Social History Smoking and tobacco status: former smoker Second hand smoke exposure: No Alcohol intake: never History of recent travel: No Physical Exam Const: COMMON NORMALS: alert HENMT: COMMON NORMALS: normocephalic HEAD & SCALP: normocephalic Neck/C-Spine: COMMON NORMALS: full ROM Resp: COMMON NORMALS: normal respiratory effort Cardio: COMMON NORMALS: regular rate RATE: regular rate GI: COMMON NORMALS: Soft to palpation PALPATION: Yes Soft to palpation Extremity: LEFT UPPER EXTREMITY: Yes elbow joint (Unstable elbow joint) Neuro: SENSORIUM/ORIENTATION: Yes alert Skin: COMMON NORMALS: turgor normal GENERAL SKIN EXAM: turgor normal Course Vital Signs: Vital signs: Vital Signs Temperature 98 F 05/10/22 18:03 Pulse Rate 92 05/10/22 18:03 Respiratory Rate 19 H 05/10/22 18:03 Pulse Oximetry 92 05/10/22 18:03 Oxygen Delivery Me thod 05/10/22 18:03 MDM - Extremity (Nontraumatic) Medical Decision Making 71-year-old female comes in today for complaints of pain to the left arm. Patient is also reporting some difficulties with caring for herself at home. On exam patient has distal pulses in the left arm with some significant swelling noted. Patient has unstable elbow joint. Review of the record noted that patient had a pathologic fracture of the distal humerus, negative DVT screening. Patient also has metastatic breast cancer. Differential diagnosis includes but not limited to end-stage cancer, fracture of the humerus, mobility issues. Fracture was stabilized with a sling with patient having much improvement in discomfort. We wrote a prescription for patient's hydrocodone to assist with pain control. Discussed with patient that she needs to return tomorrow to discuss with the hospital social sciences research scientist staff for further options to assist with patient's care. Discharge Plan Discharge Patient Disposition: Home Clinical Impression: Pathologic fracture Qualifiers: Pathology associated with fracture: neoplastic disease Site of pathological fracture: humerus Encounter type: subsequent encounter Laterality: left Fracture healing: with delayed healing Qualified Code(s): M84.522G - Pathological fracture in neoplastic disease, left humerus, subsequent encounter for fracture with delayed healing Condition: Stable Prescriptions: Continued hydrocodone-acetaminophen 5-325 mg tablet 1 tab PO Q4H PRN (Reason: pain) 5 Days Qty: 30 0RF No Action exemestane 25 mg tablet 25 mg PO DAILY@18 magnesium 200 mg tablet 200 mg PO BID@ cholecalciferol (vitamin D3) 50 mcg (2,000 unit) capsule 150 mcg PO BID@ albuterol sulfate [Ventolin HFA] 90 mcg/actuation HFA aerosol inhaler 2 puff INHALATION Q4H PRN (Reason: shortness of breath or wheezing) Qty: 8.5 5RF lorazepam 0.5 mg tablet 0.5 mg PO BID Qty: 60 0RF lidocaine 5 % adhesive patch,medicated See Rx Instructions .ROUTE .COMPLEX Qty: 30 0RF Rx Instructions: 1 patch topically ON FOR 12 HOURS AND OFF FOR 12 HOURS enalapril maleate 10 mg tablet 10 mg PO DAILY Qty: 180 1RF pantoprazole [Protonix] 40 mg tablet,delayed release (DR/EC) 40 mg PO DAILY Qty: 14 0RF hydrocodone-acetaminophen 10-325 mg tablet 1 tab PO Q4H PRN (Reason: pain) Qty: 30 0RF Discharge Orders: Discharge ED (Routine); Ordered 05/10/22 Ordered By: Johnny Juarez Referrals: Ralf Castillo DO [Primary Care Provider] - Patient Instructions: Arm Fracture in Adults (ED) Activity Restrictions/Additional Instructions: Keep splint clean and dry. Use sling for comfort and protection of fracture. Follow-up with primary care physician for further instruction and evaluation. Return in the morning and talk to social sciences research scientist if you are having difficulty caring for yourself at home for other options available to help with your care. Return to ER for worsening symptoms like fever greater than 100.4, uncontrolled pain, or new concerns. Coding Level of Care Code ED Software Development Project Manager for Mallory Bateman
[2022-05-10] MEDS: HYDROcodone-acetaminophen 10-325 mg Tablet 1 TAB PO (22:16)
--- NOTE | 2022-05-13 13:08 | DCPLANNER ---
client business manager had message to speak with patient about remote computer terminal operator placement possible longterm placement. client business manager spoke with patient, she stated that she wanted to be placed in a longterm due to the fact that she can no longer take care of herself at home. client business manager spoke with patient about her insurance, that with her medicare she has not been in the hospital, but that she had medicaid and that she could go to the longterm using her medicaid insurance, but that she would lose her check each month. Patient said that would be fine, she would like for cyanide case hardener to send her information to the [facility]. client business manager sent patients information to [facility]. Patients family also asked cyanide case hardener to send patients information to Dr. Rodarte in [facility]. client business manager sent patients information to the office of Dr. Rodarte.
== END 2022-05-10 22:51 | disposition home or self-care (01) ==
PROVIDERS: Emergency Provider Nurse Practitioner Family; PCP Family Medicine
DX: M84.522A Pathological fracture in neoplastic disease, left humerus, initial encounter for fracture (principal); Z87.891 Personal history of nicotine dependence; Z85.3 Personal history of malignant neoplasm of breast; Z85.830 Personal history of malignant neoplasm of bone; J44.9 Chronic obstructive pulmonary disease, unspecified; I11.0 Hypertensive heart disease with heart failure; I50.9 Heart failure, unspecified; E78.5 Hyperlipidemia, unspecified; E11.9 Type 2 diabetes mellitus without complications
CPT/HCPCS: 99283

== ENCOUNTER 2022-06-03 13:01 | Inpatient (IN) | payer MEDICARE, MEDICAID, SELFPAY ==
[2022-06-03] VITALS (8 sets, daily range): BP systolic 137–189; BP diastolic 83–97; PULSE 60–70; RESP 18–23; TEMP 37–37.1; O2SAT 98–100; BMI 42.6
--- NOTE | 2022-06-03 13:24 | W.ED.GENADLT ---
HPI - General Adult General: Chief complaint: Abdominal Pain Stated complaint: abdomen pain/ cp x 2 weeks Time Seen by Provider: 06/03/22 13:24 History of Present Illness: Ms. Sarmiento is a 71-year-old lady with complex past medical history including hypertension, hyperlipidemia, CHF, diabetes, obesity, COPD with intermittent home oxygen use, CKD, history of pathologic supracondylar fracture presenting to the emergency department due to shortness of breath with chest pain and abdominal pain. Shortness breath worse this morning and patient only occasionally wears her oxygen at home. No cough or infectious symptoms. Additionally notices the discomfort in her chest. Overall intensity symptoms is worsening. Intensity is moderate. Exacerbated by movement. No other specific changes in health, exacerbating, or alleviating factors identified. Onset (ago): week(s) Severity: moderate Exacerbating factors: movement Review of Systems General: Reports: 10 or more systems reviewed and unremarkable except in HPI and below PFSH ED PFSH: Medical History (Updated 06/09/22 @ 00:01 by ) Anxiety Aortic stenosis, moderate CHF (congestive heart failure) EF 63% on echocardiogram 08/2021 Chronic hypercapnic respiratory failure Chronic low back pain CKD (chronic kidney disease) stage 3, GFR 30-59 ml/min COPD (chronic obstructive pulmonary disease) Depression Diverticulosis Essential hypertension GERD (gastroesophageal reflux disease) High risk medication use Hyperlipidemia Inflammatory arthritis Metastatic breast cancer Mets to bone, diag 2014 treatment, no activity at this time per PET scan 04/2021 Morbid obesity with BMI of 40.0-44.9, adult Nicotine dependence, cigarettes, uncomplicated Obesity hypoventilation syndrome Obstructive sleep apnea PVD (peripheral vascular disease) Smoker reports she no longer smokes 06/03/2022 Supracondylar fracture of humerus 05/05/2022 x-ray, Displaced supracondylar fracture of the left distal humerus with subacute appearance. Thrombocytopenia Type 2 diabetes mellitus without complication, without long-term current use of insulin Xeroderma Surgical History Hx laparoscopic cholecystectomy 11/01/18 Hx of arthroscopic knee surgery Right Hx of cholecystectomy Hx of lumpectomy Right Hx of oral surgery pulled all teeth 03/2017 Hx of tubal ligation Family History Unknown Prostate disease Depression Heart disease Hypertension Chronic kidney disease (CKD) Grandfather Cancer LUNG CANCER Other CAD (coronary artery disease) Rheumatoid arthritis Denies family history of Diabetes Lupus Hyperlipidemia Family history of premature coronary artery disease Stroke Social History (Updated 06/03/22 @ 19:05 by Oly Diana MD) Smoking and tobacco status: never smoked Second hand smoke exposure: No Alcohol intake: never Caregiver/support person: Yes Lives independently: No Marital status: Current occupational status: retired and disabled Current gender identity: Female Physical Exam Const: COMMON NORMALS: alert GENERAL APPEARANCE: cooperative, well developed and ill appearing (Chronically) NUTRITIONAL APPEARANCE: obese HENMT: COMMON NORMALS: normocephalic and atraumatic HEAD & SCALP: normocephalic and atraumatic Eye: COMMON NORMALS: conjunctivae normal CONJUNCTIVA: Yes conjunctivae normal SCLERA: sclerae normal Neck/C-Spine: COMMON NORMALS: supple GENERAL: Yes trachea midline Resp: EFFORT & INSPECTION: Yes able to speak in complete sentences and Yes tachypneic AUSCULTATION: diminished lung sounds Cardio: COMMON NORMALS: regular rate and regular rhythm RATE: regular rate RHYTHM: regular rhythm GI: COMMON NORMALS: Soft to palpation PALPATION: Yes Soft to palpation, Yes Tenderness to palpation present (GI), No Guarding due to palpation present (GI) and No Rigid due to palpation Extremity: NARRATIVE EXTREMITY EXAM: Left upper extremity with edema from approximately proximal forearm down through the hand most pronounced in the wrist hand region. CMS is intact with normal cap refill, likely represents an adequate elevation with known pathologic fracture. Patient does not present in any sort of splint or sling. GENERAL: Yes normal exam except as noted and No edema Neuro: COMMON NORMALS: moves all extremities SENSORIUM/ORIENTATION: Yes alert and No Orientation impaired Psych: COMMON NORMALS: mental status grossly normal and Normal thought process present THOUGHT PROCESS: Normal thought process present Skin: NARRATIVE SKIN EXAM: Skin changes consistent with chronic vascular disease bilateral lower extremities Course ED course: - Patient was seen and evaluated by me at bedside - Patient placed on cardiac monitors, IV access obtained - Initial evaluation notable for exam as above. - Labs and xrays personally interpreted by me. EKG shows sinus rhythm with right bundle branch block, patient PVCs, no STEMI. -RT treatment given. Analgesia given. - Labs notable for no leukocytosis, normocytic anemia. Metabolic panel with near baseline CKD and other electrolyte abnormalities. Negative delta troponin. Negative COVID. - Imaging notable for negative head CT for acute pathology. CT chest abdomen pelvis with likely pneumonia also innumerable osseous lesions which were discussed with the patient. -Antibiotic ordered - Upon serial reexamination after treatment the patient was nauseated and improved - Based on patient history, evaluation, and testing as interpreted the most likely cause of the patient's condition is pneumonia with acute on chronic respiratory failure - The results of ED evaluation were discussed with the patient including plan for admission due to requirement for level of care not available if discharged to prevent significant worsening/deterioration. - Admitting service was contacted and Dr Diana with the hospitalist service agreed to admit the patient - Patient was admitted without further deterioration or significant events. Note: Click bubbles or prepopulated dasilva in note writing are used for assistance with data collection and billing and are inherently more limited than narrative and other text portions of this note. Please use narrative for additional clinical history and defer to narrative/free test for any case of contradictory information. If information appears in only free text or click bubble it should be considered present or absent as reported. Please contact note automatic typewriter inspector for clarifications of clinical information or contradictory information. MDM is a brief summary, contradictory or erroneous seeming information should be clarified and full note should be reviewed. Vital Signs: Vital signs: Vital Signs Temperature 98.2 F 06/08/22 16:08 Pulse Rate 59 L 06/08/22 16:08 Respiratory Rate 18 06/08/22 16:08 Blood Pressure 144/77 06/08/22 16:08 Pulse Oximetry 98 06/08/22 16:08 Oxygen Delivery Me thod 06/08/22 11:31 Oxygen Flow Rate 2 06/08/22 09:41 MDM - General Adult Medical Decision Making 71-year-old lady with complex past medical history presenting with worsening shortness of breath. Patient now required continuous oxygen requirement and found to have pneumonia. Admitted for further management. Medical Records I reviewed the patient's medical records. Lab Data I reviewed the patient's lab results. : 06/06/22 05:30 06/07/22 13:05 Radiology Impressions Chest/Abdomen/Pelvis CT 06/03/22 13:56 IMPRESSION: Limited diagnostic exam due to body habitus with beam hardening artifact. 1. Innumerable diffuse osseous lytic metastatic lesions throughout the visualized axial and appendicular appears progressed compared to September 21, 2021 and 8 7,021 2. Small RIGHT pleural effusion with RIGHT lower lobe pneumonia. A few infiltrates in the LEFT lower lobe posteriorly. 3. No acute intra-abdominal findings in the abdomen or pelvis. Head CT 06/03/22 13:56 IMPRESSION: No acute intracranial abnormality. Elbow X-Ray 06/03/22 15:47 IMPRESSION: Healing pathologic supracondylar fracture of the left humerus. Laboratory Results WBC 7.0 10^3/uL (4.0-10.0) 06/03/22 14:20 RBC 3.86 10^6/uL (4.1-5.3) L 06/03/22 14:20 Hgb 10.6 g/dL (11.5-15.3) L 06/03/22 14:20 Hct 37.4 % (37.0-47.0) 06/03/22 14:20 MCV 96.9 fl (81-99) 06/03/22 14:20 MCH 27.5 pg (28.0-34.0) L 06/03/22 14:20 MCHC 28.3 g/dL (30.0-36.0) L 06/03/22 14:20 RDW 17.0 % (12.1-15.1) H 06/03/22 14:20 Plt Count 107 10^3/cmm (130-400) L 06/03/22 14:20 MPV 10.8 fL (7.4-10.4) H 06/03/22 14:20 Neut % (Auto) 78.9 % 06/03/22 14:20 Lymph % (Auto) 14.7 % 06/03/22 14:20 Wetzel % (Auto) 3.4 % 06/03/22 14:20 Eos % (Auto) 1.6 % 06/03/22 14:20 Baso % (Auto) 0.3 % 06/03/22 14:20 Neut # (Auto) 5.49 10^3/uL (1.8-7.7) 06/03/22 14:20 Lymph # (Auto) 1.0 10^3/uL (0.8-4.8) 06/03/22 14:20 Wetzel # (Auto) 0.2 10^3/uL (0.2-0.9) 06/03/22 14:20 Eos # (Auto) 0.1 10^3/uL (0.0-0.8) 06/03/22 14:20 Baso # (Auto) 0.0 10^3/uL (0.0-0.1) 06/03/22 14:20 Nucleated RBC % (auto) 0 % 06/03/22 14:20 Nucleated RBCs # 0.0 /100WBC 06/03/22 14:20 Sodium 137 mmol/L (136-145) 06/03/22 14:20 Potassium 4.6 mmol/L (3.5-5.1) 06/03/22 14:20 Chloride 92 mmol/L (98-107) L 06/03/22 14:20 Carbon Dioxide 39 mmol/L (22-29) H 06/03/22 14:20 Anion Gap 10.6 (5-19) 06/03/22 14:20 BUN 19 mg/dL (8-23) 06/03/22 14:20 Creatinine 1.6 mg/dL (0.5-0.9) H 06/03/22 14:20 GFR Calculation 32.0 mL/min (90-130) L 06/03/22 14:20 Glucose 138 mg/dL (65-115) H 06/03/22 14:20 Calculated Osmolality 288 mOsm/kg (285-295) 06/03/22 14:20 Lactate 0.8 mmol/L (0.5-2.2) 06/03/22 14:20 Calcium 9.8 mg/dL (8.5-10.5) 06/03/22 14:20 Total Bilirubin 0.8 mg/dL (0.15-1.2) 06/03/22 14:20 AST 16 U/L (0-32) 06/03/22 14:20 ALT 8 U/L (0-33) 06/03/22 14:20 Alkaline Phosphatase 275 U/L (35-105) H 06/03/22 14:20 Troponin T Baseline 59 ng/L (0-10) H 06/03/22 14:20 Troponin T 120 Minute 60.35 ng/L (0-10) H 06/03/22 16:05 Delta Troponin T 1.35 ABS# (0-10) 06/03/22 16:05 NT-Pro-B Natriuret Pep 7419 pg/mL (0-125) H 06/03/22 14:20 Total Protein 6.7 g/dL (6.6-8.7) 06/03/22 14:20 Albumin 3.6 g/dL (3.5-5.2) 06/03/22 14:20 Globulin 3.1 g/dL (1.3-4.6) 06/03/22 14:20 Lipase 30 U/L (13-60) 06/03/22 14:20 Urine Color Yellow (Yellow) 06/03/22 14:55 Urine Appearance Clear (CLEAR) 06/03/22 14:55 Urine pH 6 (5-7) 06/03/22 14:55 Ur Specific [place] 1.010 (1.005-1.030) 06/03/22 14:55 Urine Protein Neg (Negative) 06/03/22 14:55 Urine Glucose (UA) Norm (Normal) 06/03/22 14:55 Urine Ketones Negative (Negative) 06/03/22 14:55 Urine Blood Neg (Negative) 06/03/22 14:55 Urine Nitrate Negative (Negative) 06/03/22 14:55 Urine Bilirubin Neg (Negative) 06/03/22 14:55 Urine Urobilinogen Norm mg/dL (Negative) 06/03/22 14:55 Ur Leukocyte Esterase Negative (Negative) 06/03/22 14:55 SARS-CoV-2 Ag (Rapid) Negative (Negative) 06/03/22 13:56 Discharge Plan Discharge Patient Disposition: Admitted As Inpatient Admit Provider: Oly Diana Clinical Impression: Hypoxemia, GABRIELA (acute kidney injury), Acute exacerbation of CHF (congestive heart failure) Pneumonia Qualifiers: Pneumonia type: due to unspecified organism Laterality: right Lung location: lower lobe of lung Qualified Code(s): J18.9 - Pneumonia, unspecified organism Condition: Stable Discharge Diet: Diabetic Discharge Activity: Resume usual activity and Increase activity as tolerated Coding Level of Care Code ED Rubber Compounder Supervisor for [facility] Fwd Exam Comprehensive
[2022-06-03] MEDS: ipratropium-albuterol 3 mL Neb INHALATION (13:54)
--- NOTE | 2022-06-03 13:55 | ECG_ITS ---
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 Measurements Intervals [place] Rate: 58 P: 56 [place]: 196 QRS: -38 QRSD: 151 T: -15 QT: 436 QTc: 430 Interpretive Statements SINUS BRADYCARDIA WITH OCCASIONAL VENTRICULAR PREMATURE COMPLEXES LEFT AXIS DEVIATION [QRS AXIS < -30] RIGHT BUNDLE BRANCH BLOCK [120+ ms QRS DURATION, UPRIGHT V1, 40+ ms S IN I/aVL/V4/V5/V6] VOLTAGE CRITERIA FOR LVH [MEETS CRITERIA IN ONE OF: R(aVL), S(V1), R(V5), R(V5/V6)+S(V1)] POSSIBLE ANTERIOR MYOCARDIAL INFARCTION , OF INDETERMINATE AGE [30 ms Q WAVE IN V3/V4, OR R < 0.2 mV IN V4] Compared to ECG 09/21/2021 10:23:59 Ventricular premature complex(es) now present Left-axis deviation now present Right bundle-branch block now present First degree AV block no longer present Incomplete right bundle-branch block no longer present Myocardial infarct finding still present Electronically Signed On 06-04-2022 14:31:41 CDT by Cam Jj M.D. [id number]
--- NOTE | 2022-06-03 13:56 | CT_ITS ---
WS: [id number] CT CHEST, ABDOMEN, AND PELVIS TECHNIQUE: Noncontrast CT of the chest, abdomen, and pelvis with coronal and sagittal reformatted victorino ges. CLINICAL INFORMATION: ams, chest pain and abdominal pain, increased sob, dec PO COMPARISON: None. DLP: 1306.[address] scans at [facility] use at least one of these dose optimization techniques: automated e xposure control; mA and/or kV adjustment per patient size (includes targeted exams where dose is matc hed to clinical indication); or iterative reconstruction. CT CHEST: Small RIGHT pleural effusion with compressive atelectasis in the RIGHT lower lobe with a few patchy i nfiltrates compatible with pneumonia. Patchy infiltrates in the LEFT lower lobe. Chronic emphysematou s changes. Cardiomegaly. Normal caliber thoracic aorta. Aortic calcification. Coronary calcification. Mild thoracic kyphosis with innumerable lytic metastatic lesions throughout the thoracic spine. Lytic metastatic lesions throughout the visualized axial and appendicular skeleton. CT ABDOMEN AND PELVIS: Noncontrast liver appears normal. Normal noncontrast spleen. Normal noncontrast pancreas. Normal franca yulisa abdominal aorta. Aortic calcification. Normal GE junction. Prior cholecystectomy. No hydronephros is in either kidney. No evidence of high-grade small or large bowel obstruction. Fat-containing umbil ical hernia. Small amount of free fluid in the pelvis. No high-grade small or large bowel obstruction . Diverticulosis. Innumerable lytic lesions throughout the visualized pelvic bony structures extendin g into the proximal femurs. CT/[place] [id number] IMPRESSION: Limited diagnostic exam due to body habitus with beam hardening art ifact. 1. Innumerable diffuse osseous lytic metastatic lesions throughout the visuali zed axial and appendicular appears progressed compared to September 21, 2021 and 021 2. Small RIGHT pleural effusion with RIGHT lower lobe pneumonia. A few infiltr ates in the LEFT lower lobe posteriorly. 3. No acute intra-abdominal findings in the abdomen or pelvis.
--- NOTE | 2022-06-03 13:56 | CTR_ITS ---
PROCEDURE INFORMATION: Exam: CT Head Without Contrast Exam date and time: 06/03/2022 3:02 PM Age: 71 years old Clinical indication: Pain; Headache; Additional info: AMS TECHNIQUE: Imaging protocol: Computed tomography of the head without contrast. Radiation optimization: All CT scans at this facility use at least one of these dose optimization techniques: automated exposure control; mA and/or kV adjustment per patient size (includes targeted exams where dose is matched to clinical indication); or iterative reconstruction. COMPARISON: CT head wo con* [id number] 05/20/2021 3:46 AM RADIATION DOSE METRICS: Total DLP (mGy-cm): 1248.78 FINDINGS: Brain: No hemorrhage, mass effect or midline shift. No acute, major vascular distribution infarction identified. There is foci of decreased attenuation in the periventricular and subcortical white matter, likely representing chronic small vessel ischemic changes. Mild cerebral volume loss is present. No intra-axial or extra-axial fluid collection seen. Cerebral ventricles: No ventriculomegaly. Paranasal sinuses: Unchanged near complete opacification of the right maxillary sinus with evidence of surrounding hyperostosis, consistent with chronic sinusitis. Mild pansinus mucosal thickening is present. Mastoid air cells: Visualized mastoid air cells are well aerated. Bones/joints: Unremarkable. No acute fracture. Soft tissues: Unremarkable. CT/CT head wo con* [id number] IMPRESSION: No acute intracranial abnormality.
--- NOTE | 2022-06-03 14:00 | PC.NURSE ---
Left arm elevated to decreased swelling.
[2022-06-03] MEDS: HYDROcodone-acetaminophen 5-325 mg Tablet 1 TAB PO (14:28)
[2022-06-03 14:37] LABS: Basophils % 0.3 %; Eosinophils # 0.1 10^3/uL (0.0-0.8); Eosinophils % 1.6 %; Hematocrit 37.4 % (37.0-47.0); Hemoglobin 10.6 g/dL (11.5-15.3); Lymphocytes % 14.7 %; Mean Corpuscular HGB Conc 28.3 g/dL (30.0-36.0); Mean Corpuscular Hemoglobin 27.5 pg (28.0-34.0); Mean Corpuscular Volume 96.9 fl (81-99); Mean Platelet Volume 10.8 fL (7.4-10.4); Monocytes # 0.2 10^3/uL (0.2-0.9); Monocytes % 3.4 %; Neutrophils # 5.49 10^3/uL (1.8-7.7); Neutrophils % 78.9 %; Nucleated Red Blood Cells % 0 %; Platelet Count 107 10^3/cmm (130-400); Red Blood Count 3.86 10^6/uL (4.1-5.3)
[2022-06-03 14:54] LABS: SARS Covid-2 Antigen Negative (Negative)
[2022-06-03 14:56] LABS: Lactate (Lactic Acid level) 0.8 mmol/L (0.5-2.2)
[2022-06-03 14:58] LABS: Troponin(5th) Baseline 59 ng/L (0-10)
[2022-06-03 15:05] LABS: Alanine Aminotransferase 8 U/L (0-33); Albumin Level 3.6 g/dL (3.5-5.2); Alkaline Phosphatase 275 U/L (35-105); Anion Gap 10.6 (5-19); Aspartate Amino Transferase 16 U/L (0-32); Blood Urea Nitrogen 19 mg/dL (8-23); Calcium 9.8 mg/dL (8.5-10.5); Carbon Dioxide 39 mmol/L (22-29); Chloride 92 mmol/L (98-107); Globulin 3.1 g/dL (1.3-4.6); Glucose 138 mg/dL (65-115); Lipase 30 U/L (13-60); NT Pro B Type Natriuretic Pept 7419 pg/mL (0-125); Osmolality Calculated 288 mOsm/kg (285-295); Potassium 4.6 mmol/L (3.5-5.1); Sodium 137 mmol/L (136-145); Total Bilirubin 0.8 mg/dL (0.15-1.2); Total Protein 6.7 g/dL (6.6-8.7)
--- NOTE | 2022-06-03 15:10 | PC.NURSE ---
This RN and patients significant other assisted pt to bedside commode.
[2022-06-03 15:31] LABS: Add Urine Microscopic? NO; Charge for UA Resulting for Rev
[2022-06-03 15:32] LABS: Bilirubin Urine Neg (Negative); Blood Urine Neg (Negative); Glucose Urine UA Norm (Normal); Ketones Urine Negative (Negative); Leukocyte Esterase Urine Negative (Negative); Nitrate Urine Negative (Negative); Protein Urine Neg (Negative); Urine Appearance Clear (CLEAR); Urine Color Yellow (Yellow); Urobilinogen Urine Norm (Negative); pH Urine 6 (5-7)
--- NOTE | 2022-06-03 15:47 | USCV_ITS ---
Samia Sarmiento Age: 71 Gender: F : 1950 Exam Date: 06/03/2022 16:18 Ordering Phys: Alexx Sanon MD Technologist: Constantin Harkins [place] [facility] [place]: [place] arm fracture and swelling PROCEDURES: Venous duplex imaging was performed in only the left upper extremity. The following venous structures were evaluated: internal jugular vein, subclavian vein, axillary vein, and brachial veins. In addition, the basilic vein, cephalic vein, radial vein, and ulnar vein. FINDINGS: No evidence of deep vein thrombosis or superficial thrombophlebitis in the left upper extremity. CONCLUSIONS No evidence of deep venous thrombosis or superficial thrombophlebitis in the left upper extremity. Wei Douglass MD (Electronically Signed) Final Date: 03 June 2022 16:49 S
--- NOTE | 2022-06-03 15:47 | XRR_ITS ---
PROCEDURE INFORMATION: Exam: XR Left Elbow Exam date and time: 06/03/2022 3:53 PM Age: 71 years old Clinical indication: Pain; Elbow; Left; Patient HX: History of pathologic supracondylar fracture; Additional info: Fracture, worsening swelling. TECHNIQUE: Imaging protocol: Radiologic exam of the Left elbow. Views: 1 or 2 views. COMPARISON: CR XR elbow LT 2V [id number] 05/05/2022 6:31 PM FINDINGS: Bones/joints: In the supracondylar region of the left humerus, there is extensive lytic and productive changes, consistent with history of pathologic fracture and healing changes. No dislocation. Prominence of the surrounding soft tissues is present. Soft tissues: See Bones/joints finding. XR/XR elbow LT 2V [id number] IMPRESSION: Healing pathologic supracondylar fracture of the left humerus.
[2022-06-03] MEDS: levoFLOXacin 750 mg Tablet PO (16:10)
--- NOTE | 2022-06-03 16:28 | ECG_ITS ---
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 Measurements Intervals Reserve Rate: 60 P: 47 WV: 198 QRS: -40 QRSD: 147 T: -11 QT: 434 QTc: 436 Interpretive Statements SINUS RHYTHM WITH OCCASIONAL VENTRICULAR PREMATURE COMPLEXES LEFT AXIS DEVIATION [QRS AXIS < -30] RIGHT BUNDLE BRANCH BLOCK [120+ ms QRS DURATION, UPRIGHT V1, 40+ ms S IN I/aVL/V4/V5/V6] POSSIBLE LEFT VENTRICULAR HYPERTROPHY [VOLTAGE CRITERIA PLUS LAE OR QRS WIDENING] Compared to ECG 06/03/2022 13:55:03 Sinus bradycardia no longer present Myocardial infarct finding no longer present Electronically Signed On 06-04-2022 14:41:46 CDT by Cam Jj M.D. [id number]
[2022-06-03 16:43] LABS: Troponin 5 2HR 60.35 ng/L (0-10)
[2022-06-03 16:50] LABS: Troponin 5 2HR Delta 1.35 ABS# (0-10)
--- NOTE | 2022-06-03 17:35 | PC.NURSE ---
Report called to PAWEL Davis
--- NOTE | 2022-06-03 19:01 | PM.HP ---
Providers/Chief Complaint Admitting Physician: Oly Diana MD Primary Care Provider: Ronald Nuno MD Chief Complaint: abdomen pain/ cp x 2 weeks History of Present Illness Samia Sarmiento is a 71 year old female who presented to the emergency room with chief complaint of swelling in her belly, abdominal discomfort and increasing swelling in her left upper extremity. Also with some shortness of breath worse than baseline. She has multiple comorbid medical conditions as outlined below. She has a history of breast cancer with bony metastases. Last time she saw oncology, a year per her recall but apparently longer going by last oncology note available from 07/2020, she had PET scan demonstrating normalization of activity in areas of widespread osseous metastatic disease, consistent with treated malignancy. She has been continued on Aromasin since then and has been under the impression that her cancer has been controlled. Sometime in March or April of this year, she had somewhat sudden onset with minimal external factors contributing of arm pain in the left upper extremity around the elbow. She was found to have evidence of likely pathologic fracture at the site of lytic lesions. Given the nature of the fracture, she was referred to orthopedics at outside facility but told that there was not much that could be done. She is in the process of getting a second evaluation by Dr. Rodarte in [place] that is supposed to occur on the of this month. She has continued to have significant pain with several ER and clinic visits regarding pain in her arm and inability to attend her activities of daily living well beyond usual challenges because of the fractures. She indicates she sustained a proximal humerus fracture after the supracondylar fracture at the elbow previously identified in imaging here. She reports that she has been compliant with her usual medications including her blood pressure medicines. Home medication records and list reported by patient indicate that she is taking carvedilol and enalapril. She has a diagnosis of heart failure with preserved ejection fraction on review of available records. Last EF was 63% in August 2021. She had previously been on diuretic therapy in the form of oral Lasix but it looks like she has not had this since February. She has seen several different providers over the course of the last few months both in the emergency room here as well as an outpatient setting so I am thinking that it may have simply been overlooked at 1 point in time. She describes progressively worsening edema and abdominal girth. She has had shortness of breath. Denies productive cough. No hemoptysis. No fevers but has had general malaise. She denies chronic oxygen use but is known to have chronic hypercapnia along with sleep apnea. In the emergency room saturations were low necessitating 3 to 4 L of oxygen by nasal cannula. Extensive work-up revealed small right pleural effusion with right lower lobe pneumonia described along with a few infiltrates in the left posterior lobe. Abdomen was unremarkable including no mention of ascites or colonic dilatation. Lytic lesions were described as innumerable involving the visualized axial and appendicular skeleton. Also noted was apparent progression of lytic lesions from imaging studies from August 2021. Ultrasound of the left upper extremity did not reveal any evidence of DVT despite significant degree of edema appreciated. Patient was started on antibiotics in the emergency room and request was made for admission for CHF and pneumonia. Review of Systems Const: Reports: fatigue and malaise; Denies: fever(s), chills or change in weight Eyes: Reports: other (Chronic low vision) ENMT: Denies: throat pain or nasal congestion Card: Reports: edema, dyspnea on exertion, orthopnea and acrocyanosis (Sometimes); Denies: chest pain, palpitations or syncope Resp: Reports: dyspnea and non-productive cough; Denies: productive cough, pain on inspiration or hemoptysis GI: Reports: abdominal pain (From degree of swelling), nausea, early satiety and bloating; Denies: vomiting, diarrhea, constipation, hematochezia or melena : Reports: urinary incontinence; Denies: hematuria Musc: Reports: back pain, extremity pain (Left upper), extremity swelling (Left upper) and muscle weakness Skin/Breast: Reports: rash (Redness in the groin), pruritus (Dry skin related) and other (Discoloration from legs due to dried on nystatin cream per patient) Neuro: Reports: headache(s), weakness in extremities and difficulty walking; Denies: numbness in extremities Psych: Reports: anxiety Law/Lymph: Denies: easy bleeding Medications/Allergies Home Medications Medication Instructions Recorded Confirmed Last Taken Type cholecalciferol (vitamin D3) 50 150 mcg PO BID@05/19/20 06/03/22 06/03/22 History mcg (2,000 unit) capsule albuterol sulfate 90 mcg/actuation 2 puff inhalation Q4H PRN 05/14/22 06/03/22 Unknown Rx aerosol inhaler (Ventolin HFA) shortness of breath or wheezing #8.5 grams enalapril maleate 10 mg tablet 10 mg PO DAILY High blood pressure 05/14/22 06/03/22 06/03/22 Rx & kidney #30 tabs hydrocodone 10 mg-acetaminophen 1 tab PO QID PRN pain 30 days #120 05/14/22 06/03/22 06/03/22 Rx 325 mg tablet tabs lorazepam 0.5 mg tablet 0.5 mg PO BID PRN Anxiety 30 days 05/14/22 06/03/22 Unknown Rx #60 tabs magnesium 200 mg tablet 200 mg PO BID@,22 #60 tabs 05/14/22 06/03/22 06/03/22 Rx lidocaine 5 % topical patch See Rx Instructions .Route 05/16/22 06/03/22 Unknown Rx .COMPLEX #90 patches carvedilol 12.5 mg tablet 12.5 mg PO BID 06/03/22 06/03/22 06/03/22 History exemestane 25 mg tablet 25 mg PO QPM 06/03/22 06/03/22 06/02/22 History pantoprazole 40 mg tablet,delayed 40 mg PO DAILY PRN Acid Reflux 06/03/22 06/03/22 Unknown History release Allergies Allergy/AdvReac Type Severity Reaction Status Date / Time tetanus and diphtheria Allergy Severe arm Verified 06/03/22 15:27 toxoids swelling citalopram [From Celexa] Allergy anaphylaxis Verified 06/03/22 15:27 Corticosteroids Allergy difficulty Verified 06/03/22 15:27 (Glucocorticoids) breathing/ rash ibuprofen [From Advil] Allergy rapid pulse Verified 06/03/22 15:27 letrozole Allergy high BP/ Verified 06/03/22 15:27 caused tremendous pain in her joints nortriptyline Allergy tacycardia Verified 06/03/22 15:27 and HTN Opioids - Morphine Analogues Allergy hypes her Verified 06/03/22 15:27 up oxcarbazepine Allergy anaphylaxis Verified 06/03/22 15:27 [From Trileptal] Tetanus Vaccines and Toxoid Allergy localized Verified 06/03/22 15:27 reaction PFSH Acute PFSH: Medical History (Updated 06/03/22 @ 22:13 by Oly Diana MD) Anxiety Aortic stenosis, moderate CHF (congestive heart failure) EF 63% on echocardiogram 08/2021 Chronic hypercapnic respiratory failure Chronic low back pain CKD (chronic kidney disease) stage 3, GFR 30-59 ml/min COPD (chronic obstructive pulmonary disease) Depression Diverticulosis Essential hypertension GERD (gastroesophageal reflux disease) High risk medication use Hyperlipidemia Inflammatory arthritis Metastatic breast cancer Mets to bone, diag 2014 treatment, no activity at this time per PET scan 04/2021 Morbid obesity with BMI of 40.0-44.9, adult Nicotine dependence, cigarettes, uncomplicated Obesity hypoventilation syndrome Obstructive sleep apnea PVD (peripheral vascular disease) Smoker reports she no longer smokes 06/03/2022 Supracondylar fracture of humerus 05/05/2022 x-ray, Displaced supracondylar fracture of the left distal humerus with subacute appearance. Type 2 diabetes mellitus without complication, without long-term current use of insulin Xeroderma Surgical History Hx laparoscopic cholecystectomy 11/01/18 Hx of arthroscopic knee surgery Right Hx of cholecystectomy Hx of lumpectomy Right Hx of oral surgery pulled all teeth 03/2017 Hx of tubal ligation Family History Unknown Prostate disease Depression Heart disease Hypertension Chronic kidney disease (CKD) Grandfather Cancer LUNG CANCER Other CAD (coronary artery disease) Rheumatoid arthritis Denies family history of Diabetes Lupus Hyperlipidemia Family history of premature coronary artery disease Stroke Social History (Updated 06/03/22 @ 19:05 by Oly Diana MD) Smoking and tobacco status: never smoked Second hand smoke exposure: No Alcohol intake: never Caregiver/support person: Yes Lives independently: No Marital status: Current occupational status: retired and disabled Current gender identity: Female Vitals/I&O/Wt Last Vital Signs Temp 98.8 F 06/03/22 13:25 Pulse 63 06/03/22 17:39 Resp 18 06/03/22 17:39 BP 146/83 06/03/22 17:39 Pulse Ox 100 06/03/22 17:39 O2 Del Method 06/03/22 17:39 O2 Flow Rate 3.5 06/03/22 17:39 Weight last 48 hrs Weight 105.687 kg Physical Exam Narrative: Constitutional: Awake alert, able to provide history, chronic ill appearance with acute discomfort HEENT: Left pupil is irregular, bulbous nose, moist membranes Neck: Large but supple Respiratory: Bibasilar crackles, no rhonchi, scattered wheeze, pursed lip breathing noted, oxygen in place Cardiovascular: Distant heart sounds but regular, unable to position appropriately for JVD evaluation Abdomen: Soft, obese, mild tenderness, positive bowel sounds : Significant erythema in the groin region Extremities: Significant edema bilaterally, no calf tenderness, left upper extremity with grossly swollen dorsum and digits extending up the forearm and to a lesser degree beyond this. Range of motion is limited. Pain evident with movement. Skin: Scaling skin noted to both feet, chronic stasis changes but overlying all this is some discoloration that patient says is from dried lotion that has been applied to her skin. Some of it does flake off other looks like chronic changes from radiation though she never received any to this area. No areas of purulent drainage or acute appearing erythema Neuro: Speech clear, face symmetric, extraocular movements are grossly intact the patient is visually impaired right more so than left, good handgrip right, we can civil engineering draftsperson left, able to utilize right hand to shift but requires at least one if not 2 person assist for safe transfer, no abnormal movements Psych: Anxious Data : 06/03/22 14:20 06/03/22 14:20 Other Labs: Radiology Impressions Chest/Abdomen/Pelvis CT 06/03/22 13:56 IMPRESSION: Limited diagnostic exam due to body habitus with beam hardening artifact. 1. Innumerable diffuse osseous lytic metastatic lesions throughout the visualized axial and appendicular appears progressed compared to September 21, 2021 and 8 7,021 2. Small RIGHT pleural effusion with RIGHT lower lobe pneumonia. A few infiltrates in the LEFT lower lobe posteriorly. 3. No acute intra-abdominal findings in the abdomen or pelvis. Head CT 06/03/22 13:56 IMPRESSION: No acute intracranial abnormality. Elbow X-Ray 06/03/22 15:47 IMPRESSION: Healing pathologic supracondylar fracture of the left humerus. Laboratory Results WBC 7.0 10^3/uL (4.0-10.0) 06/03/22 14:20 RBC 3.86 10^6/uL (4.1-5.3) L 06/03/22 14:20 Hgb 10.6 g/dL (11.5-15.3) L 06/03/22 14:20 Hct 37.4 % (37.0-47.0) 06/03/22 14:20 MCV 96.9 fl (81-99) 06/03/22 14:20 MCH 27.5 pg (28.0-34.0) L 06/03/22 14:20 MCHC 28.3 g/dL (30.0-36.0) L 06/03/22 14:20 RDW 17.0 % (12.1-15.1) H 06/03/22 14:20 Plt Count 107 10^3/cmm (130-400) L 06/03/22 14:20 MPV 10.8 fL (7.4-10.4) H 06/03/22 14:20 Neut % (Auto) 78.9 % 06/03/22 14:20 Lymph % (Auto) 14.7 % 06/03/22 14:20 [place] % (Auto) 3.4 % 06/03/22 14:20 Eos % (Auto) 1.6 % 06/03/22 14:20 Baso % (Auto) 0.3 % 06/03/22 14:20 Neut # (Auto) 5.49 10^3/uL (1.8-7.7) 06/03/22 14:20 Lymph # (Auto) 1.0 10^3/uL (0.8-4.8) 06/03/22 14:20 [place] # (Auto) 0.2 10^3/uL (0.2-0.9) 06/03/22 14:20 Eos # (Auto) 0.1 10^3/uL (0.0-0.8) 06/03/22 14:20 Baso # (Auto) 0.0 10^3/uL (0.0-0.1) 06/03/22 14:20 Nucleated RBC % (auto) 0 % 06/03/22 14:20 Nucleated RBCs # 0.0 /100WBC 06/03/22 14:20 Sodium 137 mmol/L (136-145) 06/03/22 14:20 Potassium 4.6 mmol/L (3.5-5.1) 06/03/22 14:20 Chloride 92 mmol/L (98-107) L 06/03/22 14:20 Carbon Dioxide 39 mmol/L (22-29) H 06/03/22 14:20 Anion Gap 10.6 (5-19) 06/03/22 14:20 BUN 19 mg/dL (8-23) 06/03/22 14:20 Creatinine 1.6 mg/dL (0.5-0.9) H 06/03/22 14:20 GFR Calculation 32.0 mL/min (90-130) L 06/03/22 14:20 Glucose 138 mg/dL (65-115) H 06/03/22 14:20 Calculated Osmolality 288 mOsm/kg (285-295) 06/03/22 14:20 Lactate 0.8 mmol/L (0.5-2.2) 06/03/22 14:20 Calcium 9.8 mg/dL (8.5-10.5) 06/03/22 14:20 Total Bilirubin 0.8 mg/dL (0.15-1.2) 06/03/22 14:20 AST 16 U/L (0-32) 06/03/22 14:20 ALT 8 U/L (0-33) 06/03/22 14:20 Alkaline Phosphatase 275 U/L (35-105) H 06/03/22 14:20 Troponin T Baseline 59 ng/L (0-10) H 06/03/22 14:20 Troponin T 120 Minute 60.35 ng/L (0-10) H 06/03/22 16:05 Delta Troponin T 1.35 ABS# (0-10) 06/03/22 16:05 NT-Pro-B Natriuret Pep 7419 pg/mL (0-125) H 06/03/22 14:20 Total Protein 6.7 g/dL (6.6-8.7) 06/03/22 14:20 Albumin 3.6 g/dL (3.5-5.2) 06/03/22 14:20 Globulin 3.1 g/dL (1.3-4.6) 06/03/22 14:20 Lipase 30 U/L (13-60) 06/03/22 14:20 Urine Color Yellow (Yellow) 06/03/22 14:55 Urine Appearance Clear (CLEAR) 06/03/22 14:55 Urine pH 6 (5-7) 06/03/22 14:55 Ur Specific [place] 1.010 (1.005-1.030) 06/03/22 14:55 Urine Protein Neg (Negative) 06/03/22 14:55 Urine Glucose (UA) Norm (Normal) 06/03/22 14:55 Urine Ketones Negative (Negative) 06/03/22 14:55 Urine Blood Neg (Negative) 06/03/22 14:55 Urine Nitrate Negative (Negative) 06/03/22 14:55 Urine Bilirubin Neg (Negative) 06/03/22 14:55 Urine Urobilinogen Norm mg/dL (Negative) 06/03/22 14:55 Ur Leukocyte Esterase Negative (Negative) 06/03/22 14:55 SARS-CoV-2 Ag (Rapid) Negative (Negative) 06/03/22 13:56 Micro: Microbiology 06/03/22 14:20 Blood Culture - Preliminary Blood SPECIMEN COLLECTED 06/03/22 16:05 Blood Culture - Preliminary Blood SPECIMEN COLLECTED A&P Assessment and plan (1) Pneumonia: Present on admission, per CT imaging , organism unknown Normal white count No report of any vomiting or known aspiration She has known COPD, obstructive sleep apnea and I suspect obesity hypoventilation without management Could be related to known CHF or malignancy Currently requiring oxygen therapy beyond what she ever might need at home Status: Acute Qualifiers: Pneumonia type: due to unspecified organism Laterality: right Lung location: lower lobe of lung Qualified Code(s): J18.9 - Pneumonia, unspecified organism (2) Acute exacerbation of CHF (congestive heart failure): Based on gross edema, known CHF with preserved EF, being off of diuretic therapy and findings on imaging Status: Acute (3) COPD (chronic obstructive pulmonary disease): Mild exacerbation secondary to 1 and 2 above Reports no longer smoking Status: Chronic Qualifiers: COPD type: COPD with acute exacerbation Qualified Code(s): J44.1 - Chronic obstructive pulmonary disease with (acute) exacerbation (4) Edema of left upper arm: US in ED no evidence of DVT Known pathologic fracture with healing Due to be evaluated outpatient by Dr Rodarte to see if anything can be done Othopedics here recommend [place]; [place] providers [place] or [facility] for Orthopedic Oncology Indicates no one has been able to get a sling or brace that fits her appropriately; declined re attempt today stating that the sling causes 2nd fracture Imaging today shows elbow fracture is healing Continues to have pain and is on hydrocodone which she has been getting filled about every 5-7 days lately (consistent with length of time her prescriptions last) Status: Acute (5) CKD (chronic kidney disease) stage 3, GFR 30-59 ml/min: Current creatinine higher than most recent comparative prior value but near usual levels on review, slight increase within normal variation Status: Chronic Qualifiers: Chronic kidney disease stage 3 subtype: stage 3b (GFR 30-44) Qualified Code(s): N18.32 - Chronic kidney disease, stage 3b (6) Metastatic breast cancer: Previously with PET scan normalization of activity in areas of known lytic lesions, consistent with treated malignancy Imaging today indicates that lytic lesions have increased since prior comparison films On Aromasin chronically Has not seen oncology since 07/2020 that I can find Status: Chronic (7) Essential hypertension: Chronically on carvedilol and enalapril Remains elevated Status: Chronic (8) Thrombocytopenia: Present on admission, appears to be a new abnormality, no reported bleeding Status: Acute (9) Lack of intravenous access: Unable to do IVs in right upper extremity Left upper extremity with edema and pain from prior fractures limiting current access Unable to lie flat for upper line considerations currently Groin and lower extremity sites not optimal secondary to skin findings Status: Acute (10) Morbid obesity with BMI of 40.0-44.9, adult: Status: Chronic Plan Tinea corporis Difficulty with ADLs currently Chronic stasis changes History of elevated hemoglobin A1c, not on treatment Anxiety on chronic benzodiazepines as needed Former smoker by history Inpatient admission Oxygen therapy Check room air ABG Oral Levaquin for now Blood cultures are pending COVID testing was negative by PCR Check procalcitonin Initiate diuresis -has previously been on Lasix with reported good result; may consider change to Bumex depending on result Strict I's and O's and daily weights Root catheter for close monitoring of urine output Adjust diuretic therapy as indicated Breathing treatments Holding off on steroids currently secondary to elevated hemoglobin A1c but may consider depending on clinical course Elevate left upper extremity Continue monitoring left upper extremity for possibility of peripheral IV access Monitor renal function and electrolytes Peripheral smear review, check coagulation studies, monitor for any bleeding Subcu heparin for DVT prophylaxis currently Continue home carvedilol and hold home enalapril presently Monitor blood pressure response to treatment May have to consider transient BiPAP or CPAP although review of records shows that she has refused it on prior stays Low-dose sliding scale insulin Continue home Aromasin Pain control with hydrocodone that she is taking on an outpatient basis Continue home Ativan as needed for anxiety Chronically on a PPI Depending on what platelets do may have to make some adjustments to usual medications and those ordered presently Continue attempts to try to get IV access as able PT and OT evaluation Case management for disposition planning At discharge would benefit from outpatient follow-up to oncology as well as limiting a total number of prescribing providers Supportive care otherwise Findings, concerns and plans were discussed with patient and she was given an opportunity to ask questions Full code Attestations Medical Necessity Statement*: Anticipate stay greater than 2 midnights in this patient with known metastatic breast cancer but appears to have recurred and worsened associated with multiple lytic lesions and recent pathologic fracture of the left upper extremity. While that is showing some signs of healing, patient has had progressive edema in both of the upper extremity as well as generally. Clinically appears total body volume overloaded, consistent with acute on chronic CHF with preserved ejection fraction. Also with radiological finding of pneumonia on CT imaging. At risk of worsening heart failure and pulmonary symptoms without appropriate intervention and monitoring. Also at high risk of further injury and/or additional fracture even with attempts at usual supportive care given multiple lytic lesions noted and risk of fall from comorbidities. Plans are otherwise as indicated. Coding Level of Care Code Acute Nursing Program Chair for Ajg Fwd Diagnoses Pneumonia J18.9 Pneumonia type: due to unspecified organism Laterality: right Lung location: lower lobe of lung Acute exacerbation of CHF (congestive heart failure) I50.9 COPD (chronic obstructive pulmonary disease) J44.1 COPD type: COPD with acute exacerbation Edema of left upper arm R60.0 CKD (chronic kidney disease) stage 3, GFR 30-59 ml/min N18.32 Chronic kidney disease stage 3 subtype: stage 3b (GFR 30-44) Metastatic breast cancer C50.919 Essential hypertension I10 Thrombocytopenia D69.6 Lack of intravenous access Z78.9 Morbid obesity with BMI of 40.0-44.9, adult E66.01; Z68.41
--- NOTE | 2022-06-03 19:31 | ECG_ITS ---
[facility] Test Date: 2022-06-03 Pat Name: Samia Sarmiento Department: Room: 256 Gender: Female Civil Cadd Technician: : 1950 Requested By: Alexx Sanon Order Number: [id number] Mary MD: Cam Jj M.D. Measurements Intervals [place] Rate: 66 P: 62 MA: 199 QRS: -42 QRSD: 144 T: 30 QT: 414 QTc: 435 Interpretive Statements SINUS RHYTHM POSSIBLE LEFT ATRIAL ENLARGEMENT [-0.1mV P-WAVE IN V1/V2] LEFT AXIS DEVIATION [QRS AXIS < -30] RIGHT BUNDLE BRANCH BLOCK [120+ ms QRS DURATION, UPRIGHT V1, 40+ ms S IN I/aVL/V4/V5/V6] POSSIBLE LEFT VENTRICULAR HYPERTROPHY [VOLTAGE CRITERIA PLUS LAE OR QRS WIDENING] POSSIBLE SEPTAL MYOCARDIAL INFARCTION , OF INDETERMINATE AGE [30 ms Q WAVE IN V1/V2] Compared to ECG 06/03/2022 16:28:58 Myocardial infarct finding now present Ventricular premature complex(es) no longer present Electronically Signed On 06-04-2022 14:40:14 CDT by Cam Jj M.D. [id number]
[2022-06-03 20:58] LABS: Glucose Point of Care 124 mg/dL (70-110)
[2022-06-03 21:40] LABS: Troponin 5 6HR 58.94 ng/L (0-10)
[2022-06-03 21:41] LABS: Troponin 5 6HR Delta -0.06 ng/L (0-12)
[2022-06-03] MEDS: heparin 5,000 unit/mL INJ 1 mL 5000 UNIT SUBCUT (22:42)
[2022-06-04] VITALS: BP 150/78; PULSE 72; RESP 19; TEMP 37.1; O2SAT 96
[2022-06-04] MEDS: HYDROcodone-acetaminophen 10-325 mg Tablet 1 TAB PO ×4 (03:01→20:48)
[2022-06-04 03:10] LABS: ABG PH Result 7.42 (7.35-7.45); Base Excess ABG 14.8 mmol/L (-2.0-2.0); Blood Gas Allen Test Pos; Blood Gas Operator Identificat JB; Blood Gas Sample Site Radial, right; Blood Gas Sample Type Arterial; HCO3 ABG 41.8 mmol/L (22-26); Oxygen Device NC; PO2 ABG 82.6 mmHg (80.0-100.0)
[2022-06-04 03:11] LABS: ABG PCO2 65.1 mmHg (35-45)
[2022-06-04 03:36] LABS: Add Urine Microscopic? YES; Bilirubin Urine Neg (Negative); Blood Urine 3+ (Negative); Glucose Urine UA Norm (Normal); Ketones Urine Negative (Negative); Leukocyte Esterase Urine Negative (Negative); Nitrate Urine Negative (Negative); Protein Urine Trace (Negative); Specific Gravity, Urine 1.005 (1.005-1.030); Sulfosalicylic Acid Urine Negative (Negative); Urine Appearance Clear (CLEAR); Urine Color Yellow (Yellow); Urobilinogen Urine Norm (Negative); pH Urine 8 (5-7)
[2022-06-04 03:38] LABS: Add Urine Culture? No; Bacteria Urine TRACE /hpf; Squamous Epithelial Cell Urine 0-4 /hpf (0-5); WBC Urine 0-4 /hpf (0-5)
[2022-06-04 04:00] VITALS: BP 176/81; PULSE 68; RESP 19; TEMP 36.8; O2SAT 95
[2022-06-04] MEDS: levoFLOXacin 750 mg Tablet PO (05:12)
[2022-06-04] MEDS: heparin 5,000 unit/mL INJ 1 mL 5000 UNIT SUBCUT ×3 (05:13→20:39)
[2022-06-04 06:01] LABS: Basophils % 0.4 %; Eosinophils # 0.2 10^3/uL (0.0-0.8); Eosinophils % 1.8 %; Hematocrit 38.2 % (37.0-47.0); Lymphocytes # 1.3 10^3/uL (0.8-4.8); Lymphocytes % 15.2 %; Mean Corpuscular HGB Conc 28.8 g/dL (30.0-36.0); Mean Corpuscular Hemoglobin 27.5 pg (28.0-34.0); Mean Corpuscular Volume 95.5 fl (81-99); Mean Platelet Volume 11.4 fL (7.4-10.4); Monocytes # 0.4 10^3/uL (0.2-0.9); Monocytes % 5.2 %; Neutrophils % 76.2 %; Nucleated Red Blood Cells % 0 %; Platelet Count 111 10^3/cmm (130-400); Red Cell Distribution Width 16.9 % (12.1-15.1); White Blood Count 8.3 10^3/uL (4.0-10.0)
[2022-06-04 06:10] LABS: Glucose Point of Care 101 mg/dL (70-110)
[2022-06-04 06:20] LABS: INR 1.14 (0.8-1.2)
[2022-06-04 06:21] LABS: Partial Thromboplastin Time 28.4 SECONDS (23.9-36.7)
[2022-06-04 06:23] LABS: Anion Gap 15.7 (5-19); Blood Urea Nitrogen 15 mg/dL (8-23); Calcium 10.1 mg/dL (8.5-10.5); Carbon Dioxide 35 mmol/L (22-29); Chloride 92 mmol/L (98-107); Glomerular Filtration Rate 37.3 mL/min (90-130); Glucose 103 mg/dL (65-115); Magnesium 1.9 mg/dL (1.7-2.3); Osmolality Calculated 287 mOsm/kg (285-295); Phosphorus 2.8 mg/dL (2.5-4.5); Potassium 4.7 mmol/L (3.5-5.1); Sodium 138 mmol/L (136-145)
[2022-06-04 06:30] LABS: Procalcitonin 0.14 ng/mL (0-0.5)
[2022-06-04 06:37] LABS: LAB Peripheral Smear Sent for Review
[2022-06-04 08:00] VITALS: BP 189/79; PULSE 67; PULSE 71; RESP 16; TEMP 36.8; O2SAT 96; O2SAT 97
[2022-06-04] MEDS: carvedilol 12.5 mg Tablet PO ×2 (08:10→20:38)
[2022-06-04] MEDS: pantoprazole DR 40 mg Tablet PO (08:10)
[2022-06-04] MEDS: cholecalciferol (vitamin D3) 1,000 unit Tablet 2000 UNIT PO (08:10)
[2022-06-04] MEDS: potassium chloride ER 20 mEq Tablet PO ×2 (08:11→20:39)
[2022-06-04] MEDS: magnesium oxide 400 mg tablet PO ×2 (08:11→18:23)
[2022-06-04] MEDS: FUROsemide 40 mg Tablet 80 MG PO ×2 (08:11→16:01)
[2022-06-04] MEDS: LORazepam 0.5 mg Tablet PO ×2 (11:41→22:50)
[2022-06-04] MEDS: nystatin powder 15 gm Btl 1 APPLIC TOPICAL ×2 (11:42→18:23)
--- NOTE | 2022-06-04 11:42 | PC.CHAP ---
Pastoral Care Encounter/Spiritual Assessment Type of Contact [] Declined mathematics technician visit [] Patient/Family/Request visit [] Outpatient visit [] Follow-up visit [] Physician referral [] Code/Alert [x] Routine visit [] Staff referral [] Actively dying [] Patient sleeping [] Family support [] [] Out of room [] Palliative care [] [] Receiving care in room [] Pre-surgical visit [] Trauma [] Long length of stay [] ICU visit [] Other: Relational/Emotional Strength [x] Patient feels connected with others/family/visitors/staff [] Distress [] Loneliness/isolation [] Abandonment Spirituality of Patient [x] Person of Jeanie [x] Attends [employer] of their Jeanie [x] Believes in Prayer [] Reads Bible or Latter Day materials [] There are Spiritual issues to be addressed [employer] Interventions [x] Prayer [x] Active listening [x] Non-anxious presence []x Spiritual/emotional support [] Crisis/trauma care [] Spiritual counseling [] Bereavement support [] Provided bereavement packet [] Provided Bible/devotional materials [] Provided toy/stuffed animal, coloring book to patient or family member [] Provided Communion [] Anointing/[place] [] Salvation [x] Completed spiritual assessment [] Other: Impact on Illness or Injury [] Angry [] Fearful [] Anxious [] Often cries [] Exhaustion [] Unable to work [] Unable to attend catholic [] Unable to walk/stand [] Unable to read [] Unable to drive [] Unable to eat/drink [] Unable to sleep [] Unable to be with family [] Patient intubated [] Other: Summary Time spent with patient 10 min
[2022-06-04 12:00] VITALS: BP 146/65; PULSE 71; RESP 18; TEMP 36.7; O2SAT 95
[2022-06-04 12:08] LABS: Glucose Point of Care 127 mg/dL (70-110)
--- NOTE | 2022-06-04 15:27 | PM.PN ---
Subjective Subjective: Mrs. Sarmiento is less swollen today. Abdomen is not as full and left upper extremity much improved. Breathing feels a little bit better. She says that she has not had anything to eat in 3 days although does have a tray of food in front of her. No nausea or vomiting. She mentioned that she does not believe staff are aware of her vision loss, difficulty using her arm from the fracture and overall difficulty performing ADLs. I reassured her that I had discussed with staff and even asked for a sign to be put up in the room with this information along with the fact that she cannot have sticks in her right upper extremity. Showed her the area on the wall where the sign existed. She was able to see that the wall was different color in that region. She expressed appreciation. She has been seen by either PT or OT already. She thinks it was OT. She did attempt to participate in therapy but admitted that it was challenging for her. We discussed need to participate in therapy as well as her ADLs as she is able to help assess rehabilitation potential and appropriate discharge planning. She expressed understanding. Vitals/I&O/Wt Last Vital Signs Temp 98.0 F 06/04/22 12:00 Pulse 71 06/04/22 12:00 Resp 18 06/04/22 12:00 BP 146/65 06/04/22 12:00 Pulse Ox 95 06/04/22 12:00 O2 Del Method 06/04/22 12:00 O2 Flow Rate 3 06/04/22 08:00 06/04/22 06/04/22 06/04/22 06:59 14:59 22:59 Intake Total 240 / 240 480 / 480 Output Total 750 / 1600 2600 / 2600 Balance -510 / -1360 -2120 / -2120 Weight last 48 hrs Weight 146.329 kg Weight 105.687 kg Physical Exam Narrative: Constitutional: Awake, alert, more talkative today HEENT: Moist membranes Respiratory: Bibasilar crackles, oxygen in place Cardiovascular: Regular, distant Abdomen: Soft, obese, nontender, positive bowel sounds : Groin not evaluated today beyond confirming that nystatin powder is in place Extremities: Decreased lower extremity edema today most notable around the knees, left upper extremity is remarkably better though still significantly swollen, patient is elevating Skin: Has ichthyosis of the feet but lower extremities are otherwise clear of similar findings seen yesterday consistent with that being from layers of old cream that she has been putting on her legs Neuro: Speech clear, face symmetric, moves all extremities but requires assistance with position changes and utilization of her upper arms, handgrip is stronger on the right than the left Psych: Admits that she likes to talk a lot and even complain a lot, speech pressured at times but directable, anxious about not being cared for appropriately, requires reassurance that we will attend to her needs Urinary Catheter Management: Root: Cath Placed During This Visit: yes Reason for Continuing Indwelling Catheter: Accurate Measurement of Urinary Output in Critically Ill Patients Urinary Catheter Date of Insertion: 06/03/22 Urinary Catheter Time of Insertion: 21:45 Data : 06/04/22 05:49 06/04/22 05:49 Other Labs: 06/04/22 02:58 ABG pH 7.42 ABG pCO2 65.1 H* ABG pO2 82.6 ABG HCO3 41.8 H ABG Base Excess 14.8 H Short CBC 06/04/22 Range/Units 05:49 WBC 8.3 (4.0-10.0) 10^3/uL Hgb 11.0 L (11.5-15.3) g/dL Hct 38.2 (37.0-47.0) % Plt Count 111 L (130-400) 10^3/cmm BMP 06/04/22 05:49 Sodium 138 Potassium 4.7 Chloride 92 L Carbon Dioxide 35 H BUN 15 Creatinine 1.4 H Glucose 103 Calcium 10.1 Urine 06/03/22 Range/Units 21:50 Urine Color Yellow (Yellow) Urine Appearance Clear (CLEAR) Urine pH 8 H (5-7) Ur Specific Mcdougal 1.005 (1.005-1.030) Urine Protein Trace (Negative) Urine Glucose (UA) Norm (Normal) Laboratory Tests 06/04/22 05:49 INR 1.14 APTT 28.4 Periphearl smear pathology interpretation Final impression: ? Normal WBC count with normal differential count. ? Rare reactive lymphocytes identified.? No atypia seen. ? Normocytic hypochromic anemia. ? Thrombocytopenia. ? No blasts or blast equivalent cells identified. Micro: Microbiology 06/03/22 14:20 Blood Culture - Preliminary Blood SPECIMEN COLLECTED 06/03/22 16:05 Blood Culture - Preliminary Blood SPECIMEN COLLECTED A&P Assessment and plan (1) Pneumonia: Diagnosis at admission per ED impression and CT imaging interpretation though current impression is that radiological abnormalities are secondary to fluid overload based on normal white count, lack of fever or significant sputum production or even coughing since admission particularly in the setting of edema and improvement with diuresis. Cannot rule out early pulmonary metastatic disease presently though with current response to treatment seems less likely and will need to be followed outpatient. Status: Acute Qualifiers: Laterality: right Lung location: lower lobe of lung Pneumonia type: due to unspecified organism Qualified Code(s): J18.9 - Pneumonia, unspecified organism (2) Acute exacerbation of CHF (congestive heart failure): Acute on chronic, based on gross edema, known CHF with preserved EF, being off of diuretic therapy for a while and findings on imaging Improved Already negative more than 2 L with diuresis Status: Acute (3) COPD (chronic obstructive pulmonary disease): Mild exacerbation Has chronic hypercapnia from COPD and obesity hypoventilation with what looks to be baseline CO2 of 65 Currently requiring 3 L of oxygen by nasal cannula Reports no longer smoking Status: Chronic Qualifiers: COPD type: COPD with acute exacerbation Qualified Code(s): J44.1 - Chronic obstructive pulmonary disease with (acute) exacerbation (4) Edema of left upper arm: US in ED no evidence of DVT Known pathologic fracture with healing Due to be evaluated outpatient by Dr Rodarte on June 09 to see if anything can be done [place]opedics here [place] [facility]; at this point in time with evidence of healing I am not sure if there is any intervention that would be undertaken but may be worthwhile to overall treatment plan to consider biopsy in light of evidence of increasing lytic lesions throughout Indicates no one has been able to get a sling or brace that fits her appropriately; declined offer to have one fitted while here stating that the sling caused 2nd fracture Imaging this hospital stay shows elbow fracture is healing On hydrocodone for pain related to the left upper extremity fracture which she has been getting filled about every 5-7 days in the outpatient setting lately (consistent with length of time her prescriptions last) Status: Acute (5) CKD (chronic kidney disease) stage 3, GFR 30-59 ml/min: Slight increase from baseline at presentation Improved with diuresis thus far Status: Chronic Qualifiers: Chronic kidney disease stage 3 subtype: stage 3b (GFR 30-44) Qualified Code(s): N18.32 - Chronic kidney disease, stage 3b (6) Metastatic breast cancer: Previously with PET scan normalization of activity in areas of known lytic lesions, consistent with treated malignancy Imaging now indicates that lytic lesions have increased since prior comparison films and with recent pathologic fracture strongly suspect recurrent active malignancy On Aromasin Has not seen oncology since 07/2020 that I can find Status: Chronic (7) Essential hypertension: Chronically on carvedilol and enalapril Remains poorly controlled this morning but it does not look like she has had any of her benzodiazepines and she is demonstrating anxiety Status: Chronic (8) Thrombocytopenia: Present on admission, appears to be a new abnormality, no reported bleeding Unclear if any recent new medications that might contribute beyond pain medication prescriptions of late Stable at present with subcu heparin on board Status: Acute (9) Lack of intravenous access: Unable to do IVs in right upper extremity secondary to prior mastectomy Left upper extremity with edema and pain from prior fractures limiting current access, although if we can get her to keep it elevated might have some success in the next day or so if needed Unable to lie flat for upper line considerations currently and not necessarily requiring central placement right now Groin and lower extremity sites not optimal secondary to skin findings Status: Acute (10) Morbid obesity with BMI of 40.0-44.9, adult: Status: Chronic Plan Tinea corporis Difficulty with ADLs currently beyond usual per history Chronic stasis changes History of elevated hemoglobin A1c, not on treatment Anxiety on chronic benzodiazepines as needed Former smoker by history Given degree of diuresis thus far, will change Lasix to 40 twice daily Strict I's and O's and daily weights Root catheter for close monitoring of urine output Adjust diuretic therapy as indicated Recheck renal function and electrolytes in the morning On scheduled potassium Wean oxygen as able though I think she is probably going to require 3 L or so [id number]; sounds like she does not routinely use at home from what I can gather Continue oral Levaquin for COPD exacerbation Blood cultures are no growth to date COVID testing was negative by PCR Breathing treatments Holding off on steroids secondary to risk of significant hyperglycemia and improvement with current treatment though is an option Keep left upper extremity elevated elevate left upper extremity Continue monitoring left upper extremity for possibility of peripheral IV access Continue subcu heparin for DVT prophylaxis currently Monitor for any evidence of bleeding or drop in platelets Continue home Aromasin Continue home carvedilol Home enalapril held while giving diuresis though can consider resumption if renal function remains stable or at discharge Will ensure she has a dose of her benzodiazepines and monitor blood pressure response Low-dose sliding scale insulin Pain control with hydrocodone that she is taking on an outpatient basis Continue home Ativan as needed for anxiety Chronically on a PPI PT and OT evaluation ongoing to help assess rehabilitation potential Case management for disposition planning, she is requesting placement for skilled rehabilitation. Alternative would be some home health particularly with medication management. Not being familiar with patient beyond this hospital stay difficult to know what her baseline is but I do wonder if there is underlying long-term cognitive or psychiatric issue contributing to her understanding of medical conditions both acute and chronic. She had many questions about all of her medical conditions and also expressed a fear of medical care and not having adequate assistance. Body habitus, vision loss, respiratory issues and now limitation of left upper extremity from pathologic fractures, along with chronic anxiety and pain understandably make attention to usual ADLs more challenging. I am not clear how much help if any she is getting at home. She describes support but also lack there of. I gave her an opportunity to ask her questions and express her concerns and fears and provided answers and reassurance as able. At discharge would benefit from outpatient follow-up to oncology as well as limiting the total number of prescribing providers Pending disposition she should keep follow-up already arranged with Dr. Rodarte, orthopedics, to evaluate her left upper extremity in the outpatient setting Supportive care otherwise as outlined Full code Attestations Medical Necessity Statement*: Requires ongoing inpatient stay for continued diuresis and other care as described. Comorbidities and what sounds like limited social support as described above make it challenging to adequately and safely manage in the outpatient setting for Mrs. Sarmiento. With treatment administered she has already had more than 2 L negative fluid output and clinical improvement. She is at significant risk of fall, and likely more pathological fractures, with any significant fluctuations in electrolytes and vital signs that might accompany aggressive diuretic and other therapy or if having to get up rapidly to urinate secondary to treatment. Root catheter is in place for safety and output monitoring. Other care as noted. Time Spent in Patient Care: Greater than 35 minutes (45 minutes) (>than 50% of time spent in counselling and/or direct pt care on unit). 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
[2022-06-04 15:51] VITALS: BP 139/77; PULSE 63; RESP 18; TEMP 36.8; O2SAT 96
[2022-06-04 17:04] LABS: Glucose Point of Care 123 mg/dL (70-110)
[2022-06-04] MEDS: sennosides-docusate Tablet 1 TAB PO (18:23)
[2022-06-04 20:00] VITALS: BP 108/62; PULSE 61; PULSE 64; RESP 16; RESP 18; TEMP 36.8; O2SAT 97; O2SAT 99
[2022-06-04 21:36] LABS: Glucose Point of Care 166 mg/dL (70-110)
[2022-06-04] MEDS: insulin lispro 100 unit/1 mL SUBCUT (21:38)
[2022-06-05] VITALS (8 sets, daily range): BP systolic 127–147; BP diastolic 73–85; PULSE 60–68; RESP 13–20; TEMP 36.5–37.4; O2SAT 89–98
[2022-06-05] MEDS: HYDROcodone-acetaminophen 10-325 mg Tablet 1 TAB PO ×5 (00:48→20:33)
[2022-06-05] MEDS: heparin 5,000 unit/mL INJ 1 mL 5000 UNIT SUBCUT ×3 (05:17→19:33)
[2022-06-05] MEDS: levoFLOXacin 750 mg Tablet PO (05:17)
[2022-06-05 05:20] LABS: Basophils % 0.3 %; Eosinophils # 0.1 10^3/uL (0.0-0.8); Eosinophils % 1.7 %; Hemoglobin 9.8 g/dL (11.5-15.3); Lymphocytes # 1.2 10^3/uL (0.8-4.8); Lymphocytes % 17.2 %; Mean Corpuscular Hemoglobin 27.4 pg (28.0-34.0); Mean Corpuscular Volume 97.8 fl (81-99); Monocytes # 0.4 10^3/uL (0.2-0.9); Monocytes % 5.3 %; Neutrophils % 74.8 %; Nucleated Red Blood Cells % 0 %; Platelet Count 111 10^3/cmm (130-400); Red Blood Count 3.58 10^6/uL (4.1-5.3); Red Cell Distribution Width 17.1 % (12.1-15.1)
[2022-06-05 05:37] LABS: Anion Gap 11.6 (5-19); Blood Urea Nitrogen 22 mg/dL (8-23); Calcium 9.3 mg/dL (8.5-10.5); Chloride 91 mmol/L (98-107); Glomerular Filtration Rate 27.9 mL/min (90-130); Glucose 109 mg/dL (65-115); Osmolality Calculated 296 mOsm/kg (285-295); Phosphorus 3.7 mg/dL (2.5-4.5); Potassium 4.6 mmol/L (3.5-5.1); Sodium 141 mmol/L (136-145)
[2022-06-05 06:22] LABS: Carbon Dioxide 43 mmol/L (22-29)
[2022-06-05 06:36] LABS: Glucose Point of Care 115 mg/dL (70-110)
[2022-06-05] MEDS: magnesium oxide 400 mg tablet PO ×2 (08:08→17:11)
[2022-06-05] MEDS: FUROsemide 40 mg Tablet PO (08:08)
[2022-06-05] MEDS: potassium chloride ER 20 mEq Tablet PO (08:09)
[2022-06-05] MEDS: sennosides-docusate Tablet 1 TAB PO ×2 (08:09→17:11)
[2022-06-05] MEDS: pantoprazole DR 40 mg Tablet PO (08:09)
[2022-06-05] MEDS: carvedilol 12.5 mg Tablet PO ×2 (08:09→19:33)
[2022-06-05] MEDS: nystatin powder 15 gm Btl 1 APPLIC TOPICAL ×2 (08:09→17:11)
[2022-06-05] MEDS: cholecalciferol (vitamin D3) 1,000 unit Tablet 2000 UNIT PO (08:09)
[2022-06-05] MEDS: lidocaine 5% Patch 1 PATCH TRANSDERMA (08:10)
[2022-06-05 11:10] LABS: Glucose Point of Care 129 mg/dL (70-110)
[2022-06-05 12:40] LABS: Folate Level 4.5 ng/mL (4.8-37.3)
[2022-06-05 12:41] LABS: Iron 57 ug/dL (37-145); NT Pro B Type Natriuretic Pept 15479 pg/mL (0-125); Percent Saturation 21.9 % (20-50); Thyroid Stimulating Hormone 1.12 uIU/mL (0.27-4.20); Total Iron Binding Capacity 260 mcg/dl; Unsaturated Iron Binding 203 ug/dL (112-347); Vitamin B12 827 pg/mL (232-1245)
[2022-06-05] MEDS: ipratropium-albuterol 3 mL Neb INHALATION ×2 (13:25→20:03)
--- NOTE | 2022-06-05 16:37 | P.PN_ITS ---
Subjective Subjective: Hospital course, labs appreciated. Examination laying comfortably in bed. As per patient he sat up in the chair for most part of the day. Requesting to sit up again. Complaining of pain in her back. As per nurse patient has been having episodes of being confused, agitation. As per nurse patient has been asking for pain medications even before the set schedule. Vitals/I&O/Wt Last Vital Signs Temp 99.4 F 06/05/22 16:22 Pulse 61 06/05/22 16:22 Resp 18 06/05/22 16:22 BP 145/85 06/05/22 16:22 Pulse Ox 93 06/05/22 16:22 O2 Del Method 06/05/22 13:25 O2 Flow Rate 3 06/05/22 13:25 06/05/22 06/05/22 06/05/22 06:59 14:59 22:59 Intake Total 100 / 820 180 / 180 Output Total 1050 / 7800 Balance -950 / -6980 180 / 180 Weight last 48 hrs Weight 136.219 kg Weight 146.329 kg Physical Exam Narrative: Constitutional: Awake, alert, more talkative today HEENT: Moist membranes Respiratory: Bibasilar crackles, oxygen in place Cardiovascular: Regular, distant Abdomen: Soft, obese, nontender, positive bowel sounds : Groin not evaluated today beyond confirming that nystatin powder is in place Extremities: Decreased lower extremity edema today most notable around the knees, left upper extremity is remarkably better though still significantly swollen, patient is elevating Skin: Has ichthyosis of the feet but lower extremities are otherwise clear of similar findings seen yesterday consistent with that being from layers of old cream that she has been putting on her legs Neuro: Speech clear, face symmetric, moves all extremities but requires assistance with position changes and utilization of her upper arms, handgrip is stronger on the right than the left Psych: Admits that she likes to talk a lot and even complain a lot, speech pressured at times but directable, anxious about not being cared for appropriately, requires reassurance that we will attend to her needs Urinary Catheter Management: Root: Cath Placed During This Visit: yes Reason for Continuing Indwelling Catheter: Other Urinary Catheter Date of Insertion: 06/03/22 Urinary Catheter Time of Insertion: 21:45 Data : 06/05/22 04:33 06/05/22 04:33 Micro: Microbiology 06/03/22 16:05 Blood Culture - Preliminary Blood NEGATIVE TO DATE 06/03/22 14:20 Blood Culture - Preliminary Blood NEGATIVE TO DATE A&P Assessment and plan (1) Pneumonia: Diagnosis at admission per ED impression and CT imaging interpretation. Though less likely clinically. Currently on Levaquin. Changed to every 48 hours as per creatinine clearance. Check MRSA swab, urine Legionella. Add Augmentin as per creatinine clearance. We will plan to finish a 5-day course overall. Status: Acute Qualifiers: Laterality: right Lung location: lower lobe of lung Pneumonia type: due to unspecified organism Qualified Code(s): J18.9 - Pneumonia, unspecified organism (2) Acute exacerbation of CHF (congestive heart failure): Acute on chronic with preserved ejection fraction. Overall 8 L negative. Seems compensated for now. Decrease Lasix to 40 mg oral daily. Strict input output charting. Status: Acute (3) COPD (chronic obstructive pulmonary disease): Mild exacerbation Has chronic hypercapnia from COPD and obesity hypoventilation with what looks to be baseline CO2 of 65 Currently requiring 3 L of oxygen by nasal cannula Reports no longer smoking Start on DuoNebs every 6 hour, budesonide twice daily. No need parenteral steroids for now. Status: Chronic Qualifiers: COPD type: COPD with acute exacerbation Qualified Code(s): J44.1 - Chronic obstructive pulmonary disease with (acute) exacerbation (4) Edema of left upper arm: US in ED no evidence of DVT Known pathologic fracture with healing Due to be evaluated outpatient by Dr Rodarte on June 09 to see if anything can be done [place]opedics here recommend [place] [facility] or [facility]; at this point in time with evidence of healing I am not sure if there is any intervention that would be undertaken but may be worthwhile to overall treatment plan to consider biopsy in light of evidence of increasing lytic lesions throughout Indicates no one has been able to get a sling or brace that fits her appropriately; declined offer to have one fitted while here stating that the sling caused 2nd fracture Imaging this hospital stay shows elbow fracture is healing On hydrocodone for pain related to the left upper extremity fracture which she has been getting filled about every 5-7 days in the outpatient setting lately (consistent with length of time her prescriptions last) Status: Acute (5) CKD (chronic kidney disease) stage 3, GFR 30-59 ml/min: GABRIELA on CKD currently. Creatinine 1.8 today. Baseline creatinine seems to be around 1.4-1.6. Decreasing Lasix frequency. Continue to monitor BMP daily. Medical reconciliation done for nephrotoxic drugs. Holding off enalapril for now. Status: Chronic Qualifiers: Chronic kidney disease stage 3 subtype: stage 3b (GFR 30-44) Qualified Code(s): N18.32 - Chronic kidney disease, stage 3b (6) Essential hypertension: Goal blood pressure less than 140/90 mmHg. Chronically on carvedilol and enalapril. Holding off on for now given GABRIELA and CKD. Pressures at goal. Status: Chronic (7) Thrombocytopenia: Present on admission, appears to be a new abnormality, no reported bleeding Unclear if any recent new medications that might contribute beyond pain medication prescriptions of late Stable at present with subcu heparin on board Status: Acute (8) Lack of intravenous access: Unable to do IVs in right upper extremity secondary to prior mastectomy Left upper extremity with edema and pain from prior fractures limiting current access, although if we can get her to keep it elevated might have some success in the next day or so if needed Unable to lie flat for upper line considerations currently and not necessarily requiring central placement right now Groin and lower extremity sites not optimal secondary to skin findings Status: Acute (9) Morbid obesity with BMI of 40.0-44.9, adult: Status: Chronic (10) Metastatic breast cancer: Previously with PET scan normalization of activity in areas of known lytic lesions, consistent with treated malignancy Imaging now indicates that lytic lesions have increased since prior comparison films and with recent pathologic fracture strongly suspect recurrent active malignancy On Aromasin Has not seen oncology since 07/2020 that I can find Status: Chronic (11) Encounter for long-term opiate analgesic use: It seems patient is on [place] 10 mg 4 times daily as an outpatient. Currently getting every 4 hour as needed. We will switch to every 6 hours as needed along with adding tramadol 50 mg every every 6 hourly. Patient getting slightly confused being on increased frequency in setting of GABRIELA on CKD. Discussed in detail with patient. Explained the reasoning. Patient not happy but is agreeable. Physical therapy. Status: Chronic (12) Type 2 diabetes mellitus without complication, without long-term current use of insulin: Status: Chronic Plan Tinea corporis Difficulty with ADLs currently beyond usual per history Chronic stasis changes History of elevated hemoglobin A1c, not on treatment Anxiety on chronic benzodiazepines as needed Former smoker by history Continue other chronic home medications. PT/OT evaluation. Discharge planning: SNF placement versus home with home health. Depending on PT evaluation. We will continue to follow. Case management on board. Protonix for PUD prophylaxis Heparin 5000 every 8 hourly for DVT prophylaxis Full code Attestations Medical Necessity Statement*: Requires further hospitalization for management of acute on chronic diastolic heart failure, COPD exacerbation in a patient with metastatic breast cancer, pathological fractures, GABRIELA on CKD while safe discharge planning is sought. Time Spent in Patient Care: Greater than 35 minutes Coding Level of Care Code Acute [employer] for g Fwd Diagnoses Pneumonia J18.9 Laterality: right Lung location: lower lobe of lung Pneumonia type: due to unspecified organism Acute exacerbation of CHF (congestive heart failure) I50.9 COPD (chronic obstructive pulmonary disease) J44.1 COPD type: COPD with acute exacerbation Edema of left upper arm R60.0 CKD (chronic kidney disease) stage 3, GFR 30-59 ml/min N18.32 Chronic kidney disease stage 3 subtype: stage 3b (GFR 30-44) Essential hypertension I10 Thrombocytopenia D69.6 Lack of intravenous access Z78.9 Morbid obesity with BMI of 40.0-44.9, adult E66.01; Z68.41 Metastatic breast cancer C50.919 Encounter for long-term opiate analgesic use Z79.891 Type 2 diabetes mellitus without complication, without long-term current use of insulin E11.9
[2022-06-05 17:07] LABS: Glucose Point of Care 118 mg/dL (70-110)
[2022-06-05] MEDS: ferrous gluconate 324 mg Tablet PO (17:11)
[2022-06-05] MEDS: amoxicillin-clav 500-125 mg Tablet 1 TAB PO (17:12)
--- NOTE | 2022-06-05 19:23 | PC.NURSE ---
Verified potassium order as it states to give with Lasix and Lasix was changed from twice daily to once daily. Dr. Riley ordered to change potassium to once daily with Lasix.
[2022-06-05] MEDS: LORazepam 0.5 mg Tablet PO (19:33)
--- NOTE | 2022-06-05 19:44 | PC.NURSE ---
Patient asking for pain medication. Patient educated that it is not time for Hydrocodone yet. Patient offered Tramadol. Patient states Does it say if I'm allergic to that? Nurse stated It is not listed as an allergy, do you have an allergy to it? Patient states well I was on it for several years and my doctor took me off of it. Patient refusing Tramadol and stating she will wait for when she can have her Hydrocodone.
[2022-06-05] MEDS: budesonide 0.5 mg/2 mL Neb INHALATION (20:03)
[2022-06-05] MEDS: insulin lispro 100 unit/1 mL SUBCUT (20:33)
[2022-06-05 20:47] LABS: Glucose Point of Care 147 mg/dL (70-110)
--- NOTE | 2022-06-05 21:33 | PC.NURSE ---
Patient non-compliant with fluid restriction. Patient educated on fluid restriction and verbalized understanding.
[2022-06-06] VITALS (9 sets, daily range): BP systolic 92–173; BP diastolic 57–119; PULSE 53–74; RESP 16–18; TEMP 36.4–37.2; O2SAT 91–98
[2022-06-06] MEDS: heparin 5,000 unit/mL INJ 1 mL 5000 UNIT SUBCUT ×3 (05:00→20:09)
[2022-06-06 05:41] LABS: Basophils % 0.3 %; Eosinophils # 0.1 10^3/uL (0.0-0.8); Eosinophils % 1.9 %; Hematocrit 33.7 % (37.0-47.0); Hemoglobin 9.7 g/dL (11.5-15.3); Lymphocytes # 1.5 10^3/uL (0.8-4.8); Lymphocytes % 22.6 %; Mean Corpuscular HGB Conc 28.8 g/dL (30.0-36.0); Mean Corpuscular Hemoglobin 27.3 pg (28.0-34.0); Mean Corpuscular Volume 94.9 fl (81-99); Mean Platelet Volume 11.1 fL (7.4-10.4); Monocytes # 0.5 10^3/uL (0.2-0.9); Monocytes % 6.8 %; Neutrophils # 4.61 10^3/uL (1.8-7.7); Nucleated Red Blood Cells % 0 %; Platelet Count 95 10^3/cmm (130-400); Red Blood Count 3.55 10^6/uL (4.1-5.3); Red Cell Distribution Width 17.1 % (12.1-15.1); White Blood Count 6.8 10^3/uL (4.0-10.0)
[2022-06-06 05:47] LABS: Alanine Aminotransferase 8 U/L (0-33); Albumin Level 3.5 g/dL (3.5-5.2); Alkaline Phosphatase 229 U/L (35-105); Blood Urea Nitrogen 28 mg/dL (8-23); Calcium 9.2 mg/dL (8.5-10.5); Carbon Dioxide 37 mmol/L (22-29); Chloride 90 mmol/L (98-107); Chol HDL Ratio 2.68 mg/dL (0.0-4.40); Cholesterol 118 mg/dL (0-200); Globulin 2.5 g/dL (1.3-4.6); Glomerular Filtration Rate 22.1 mL/min (90-130); Glucose 144 mg/dL (65-115); HDL Cholesterol 44 mg/dL (60-100); LDL Cholesterol Calculated 51 mg/dL (50-129); Osmolality Calculated 290 mOsm/kg (285-295); Sodium 136 mmol/L (136-145); Total Bilirubin 0.5 mg/dL (0.15-1.2); Triglycerides 115 mg/dL (0-150); VLDL Cholestrol Calculation 23 mg/dL (0-30)
[2022-06-06 05:54] LABS: Anion Gap 14.1 (5-19); Potassium 5.1 mmol/L (3.5-5.1)
[2022-06-06 05:55] LABS: Aspartate Amino Transferase 26 U/L (0-32)
[2022-06-06 06:38] LABS: Glucose Point of Care 129 mg/dL (70-110)
[2022-06-06] MEDS: cholecalciferol (vitamin D3) 1,000 unit Tablet 2000 UNIT PO (08:13)
[2022-06-06] MEDS: HYDROcodone-acetaminophen 10-325 mg Tablet 1 TAB PO ×2 (08:13→15:14)
[2022-06-06] MEDS: amoxicillin-clav 500-125 mg Tablet 1 TAB PO ×2 (08:13→18:06)
[2022-06-06] MEDS: potassium chloride ER 20 mEq Tablet PO (08:14)
[2022-06-06] MEDS: magnesium oxide 400 mg tablet PO ×2 (08:14→18:06)
[2022-06-06] MEDS: pantoprazole DR 40 mg Tablet PO (08:14)
[2022-06-06] MEDS: carvedilol 12.5 mg Tablet PO ×2 (08:14→20:00)
[2022-06-06] MEDS: FUROsemide 40 mg Tablet PO (08:14)
[2022-06-06] MEDS: LORazepam 0.5 mg Tablet PO ×2 (08:14→20:00)
[2022-06-06] MEDS: ferrous gluconate 324 mg Tablet PO ×2 (08:14→18:06)
[2022-06-06] MEDS: sennosides-docusate Tablet 1 TAB PO ×2 (08:14→18:06)
[2022-06-06] MEDS: budesonide 0.5 mg/2 mL Neb INHALATION (08:56)
[2022-06-06] MEDS: ipratropium-albuterol 3 mL Neb INHALATION (08:56)
[2022-06-06 11:09] LABS: Glucose Point of Care 154 mg/dL (70-110)
[2022-06-06] MEDS: sodium chloride 0.9% 1,000 ML 75 ML IV (11:26)
[2022-06-06] MEDS: insulin lispro 100 unit/1 mL SUBCUT ×2 (11:28→20:09)
[2022-06-06] MEDS: nystatin powder 15 gm Btl 1 APPLIC TOPICAL ×2 (13:21→18:06)
--- NOTE | 2022-06-06 13:24 | P.PN_ITS ---
Subjective Subjective: No acute vents overnight. Patient states her pain is controlled. States she is feeling little anxious. Urine output within last 24 hours more than 2 L. Renal function slightly getting worse so placed on IV today. Starting on IV fluids. Vitals/I&O/Wt Last Vital Signs Temp 98.1 F 06/06/22 11:49 Pulse 59 L 06/06/22 11:49 Resp 16 06/06/22 11:49 BP 94/57 06/06/22 11:49 Pulse Ox 95 06/06/22 11:49 O2 Del Method 06/06/22 11:49 O2 Flow Rate 2 06/06/22 08:55 06/05/22 06/06/22 06/06/22 22:59 06:59 14:59 Intake Total 240 / 240 Output Total 1000 / 1000 1450 / 2450 Balance -1000 / -820 -1450 / -2270 240 / 240 Weight last 48 hrs Weight 136.588 kg Weight 136.219 kg Physical Exam 2 Narrative: Constitutional: Awake, alert, more talkative today HEENT: Moist membranes Respiratory: Bibasilar crackles, oxygen in place Cardiovascular: Regular, distant Abdomen: Soft, obese, nontender, positive bowel sounds : Groin not evaluated today beyond confirming that nystatin powder is in place Extremities: Decreased lower extremity edema today most notable around the knees , left upper extremity is remarkably better though still significantly swollen, patient is elevating Skin: Has ichthyosis of the feet but lower extremities are otherwise clear of similar findings seen yesterday consistent with that being from layers of old cream that she has been putting on her legs Neuro: Speech clear, face symmetric, moves all extremities but requires assistance with position changes and utilization of her upper arms, handgrip is stronger on the right than the left Psych: Admits that she likes to talk a lot and even complain a lot, speech pressured at times but directable, anxious about not being cared for appropriately, requires reassurance that we will attend to her needs Urinary Catheter Management: Root: Cath Placed During This Visit: yes Reason for Continuing Indwelling Catheter: Acute Urinary Retention or Obstruction Urinary Catheter Date of Insertion: 06/03/22 Urinary Catheter Time of Insertion: 21:45 Data : 06/06/22 05:30 06/06/22 04:55 Micro: Microbiology 06/05/22 12:00 Legionella Urinary Antigen - Final Urine Catheterized A&P Assessment and plan (1) Pneumonia: Diagnosis at admission per ED impression and CT imaging interpretation. Though less likely clinically. Currently on Levaquin. Changed to every 48 hours as per creatinine clearance. Check MRSA swab, urine Legionella. Add Augmentin as per creatinine clearance. We will plan to finish a 5-day course overall. Status: Acute Qualifiers: Laterality: right Lung location: lower lobe of lung Pneumonia type: due to unspecified organism Qualified Code(s): J18.9 - Pneumonia, unspecified organism (2) Acute exacerbation of CHF (congestive heart failure): Acute on chronic with preserved ejection fraction. Overall 8 L negative. Seems compensated for now. Decrease Lasix to 40 mg oral daily. Strict input output charting. Status: Acute (3) COPD (chronic obstructive pulmonary disease): Mild exacerbation Has chronic hypercapnia from COPD and obesity hypoventilation with what looks to be baseline CO2 of 65 Currently requiring 3 L of oxygen by nasal cannula Reports no longer smoking Start on DuoNebs every 6 hour, budesonide twice daily. No need parenteral steroids for now. Status: Chronic Qualifiers: COPD type: COPD with acute exacerbation Qualified Code(s): J44.1 - Chronic obstructive pulmonary disease with (acute) exacerbation (4) Edema of left upper arm: US in ED no evidence of DVT Known pathologic fracture with healing Due to be evaluated outpatient by Dr Rodarte on June 09 to see if anything can be done [facility]oped[facility] here [place] [facility] [place] [facility]; at this point in time with evidence of healing I am not sure if there is any intervention that would be undertaken but may be worthwhile to overall treatment plan to consider biopsy in light of evidence of increasing lytic lesions throughout Indicates no one has been able to get a sling or brace that fits her appropriately; declined offer to have one fitted while here stating that the sling caused 2nd fracture Imaging this hospital stay shows elbow fracture is healing On hydrocodone for pain related to the left upper extremity fracture which she has been getting filled about every 5-7 days in the outpatient setting lately (consistent with length of time her prescriptions last) Status: Acute (5) CKD (chronic kidney disease) stage 3, GFR 30-59 ml/min: GABRIELA on CKD currently. Creatinine 1.8 today. Baseline creatinine seems to be around 1.4-1.6. Decreasing Lasix frequency. Continue to monitor BMP daily. Medical reconciliation done for nephrotoxic drugs. Holding off enalapril for now. Status: Chronic Qualifiers: Chronic kidney disease stage 3 subtype: stage 3b (GFR 30-44) Qualified Code(s): N18.32 - Chronic kidney disease, stage 3b (6) Essential hypertension: Goal blood pressure less than 140/90 mmHg. Chronically on carvedilol and enalapril. Holding off on for now given GABRIELA and CKD. Pressures at goal. Status: Chronic (7) Thrombocytopenia: Present on admission, appears to be a new abnormality, no reported bleeding Unclear if any recent new medications that might contribute beyond pain medication prescriptions of late Stable at present with subcu heparin on board Status: Acute (8) Lack of intravenous access: Unable to do IVs in right upper extremity secondary to prior mastectomy Left upper extremity with edema and pain from prior fractures limiting current access, although if we can get her to keep it elevated might have some success in the next day or so if needed Unable to lie flat for upper line considerations currently and not necessarily requiring central placement right now Groin and lower extremity sites not optimal secondary to skin findings Status: Acute (9) Morbid obesity with BMI of 40.0-44.9, adult: Status: Chronic (10) Metastatic breast cancer: Previously with PET scan normalization of activity in areas of known lytic lesions, consistent with treated malignancy Imaging now indicates that lytic lesions have increased since prior comparison films and with recent pathologic fracture strongly suspect recurrent active malignancy On Aromasin Has not seen oncology since 07/2020 that I can find Status: Chronic (11) Encounter for long-term opiate analgesic use: It seems patient is on [place] 10 mg 4 times daily as an outpatient. Currently getting every 4 hour as needed. We will switch to every 6 hours as needed along with adding tramadol 50 mg every every 6 hourly. Patient getting slightly confused being on increased frequency in setting of GABRIELA on CKD. Discussed in detail with patient. Explained the reasoning. Patient not happy but is agreeable. Physical therapy. Status: Chronic (12) Type 2 diabetes mellitus without complication, without long-term current use of insulin: Status: Chronic Plan Tinea corporis Difficulty with ADLs currently beyond usual per history Chronic stasis changes History of elevated hemoglobin A1c, not on treatment Anxiety on chronic benzodiazepines as needed Former smoker by history Continue other chronic home medications. PT/OT evaluation. Discharge planning: SNF placement versus home with home health. Depending on PT evaluation. We will continue to follow. Case management on board. Protonix for PUD prophylaxis Heparin 5000 every 8 hourly for DVT prophylaxis Full code Plan for the day: Medical reconciliation done. Also Giurgius. Patient has worsening renal functions today. Most likely secondary to ov erdiuresis. Patient is overall 10 L negative since admission. Hold off on further diuresis. Stop levofloxacin. Start on gentle IV hydration after IV insertion at 75 cc/h. Encourage oral intake. Start on trazodone 75 mg nightly. Out of bed to chair when possible. Continue with current pain medications. Repeat BMP daily for now. Attestations Medical Necessity Statement*: Requires further hospitalization for management of acute kidney injury, hypoxia secondary to congestive heart failure in a patient with metastatic breast cancer, pathological fracture of the arm while safe discharge planning is sought Time Spent in Patient Care: Greater than 35 minutes Coding Level of Care Code Acute [employer]ist for g Fwd Diagnoses Pneumonia J18.9 Laterality: right Lung location: lower lobe of lung Pneumonia type: due to unspecified organism Acute exacerbation of CHF (congestive heart failure) I50.9 COPD (chronic obstructive pulmonary disease) J44.1 COPD type: COPD with acute exacerbation Edema of left upper arm R60.0 CKD (chronic kidney disease) stage 3, GFR 30-59 ml/min N18.32 Chronic kidney disease stage 3 subtype: stage 3b (GFR 30-44) Essential hypertension I10 Thrombocytopenia D69.6 Lack of intravenous access Z78.9 Morbid obesity with BMI of 40.0-44.9, adult E66.01; Z68.41 Metastatic breast cancer C50.919 Encounter for long-term opiate analgesic use Z79.891 Type 2 diabetes mellitus without complication, without long-term current use of insulin E11.9
[2022-06-06 17:00] LABS: Glucose Point of Care 137 mg/dL (70-110)
[2022-06-06] MEDS: trazodone 150 mg Tablet 75 MG PO (20:01)
[2022-06-06 20:47] LABS: Glucose Point of Care 187 mg/dL (70-110)
[2022-06-07] VITALS (9 sets, daily range): BP systolic 108–164; BP diastolic 56–96; PULSE 51–66; RESP 17–18; TEMP 36.6–37.1; O2SAT 94–97
[2022-06-07] MEDS: sodium chloride 0.9% 1,000 ML 75 ML IV ×2 (00:16→22:16)
[2022-06-07] MEDS: heparin 5,000 unit/mL INJ 1 mL 5000 UNIT SUBCUT ×3 (04:16→20:45)
[2022-06-07] MEDS: HYDROcodone-acetaminophen 10-325 mg Tablet 1 TAB PO ×2 (06:19→18:37)
[2022-06-07 06:39] LABS: Glucose Point of Care 105 mg/dL (70-110)
[2022-06-07] MEDS: sennosides-docusate Tablet 1 TAB PO ×2 (10:09→17:48)
[2022-06-07] MEDS: amoxicillin-clav 500-125 mg Tablet 1 TAB PO ×2 (10:09→17:48)
[2022-06-07] MEDS: ferrous gluconate 324 mg Tablet PO ×2 (10:09→17:48)
[2022-06-07] MEDS: magnesium oxide 400 mg tablet PO ×2 (10:09→17:48)
[2022-06-07] MEDS: cholecalciferol (vitamin D3) 1,000 unit Tablet 2000 UNIT PO (10:09)
[2022-06-07] MEDS: carvedilol 12.5 mg Tablet PO ×2 (10:09→20:45)
[2022-06-07] MEDS: nystatin powder 15 gm Btl 1 APPLIC TOPICAL ×2 (10:10→17:48)
[2022-06-07] MEDS: lidocaine 5% Patch 1 PATCH TRANSDERMA ×2 (10:11→21:46)
[2022-06-07] MEDS: pantoprazole DR 40 mg Tablet PO (10:11)
[2022-06-07] MEDS: TRAMadol 50 mg Tablet PO (11:01)
[2022-06-07 11:14] LABS: Glucose Point of Care 233 mg/dL (70-110)
[2022-06-07] MEDS: insulin lispro 100 unit/1 mL SUBCUT ×2 (13:23→21:46)
--- NOTE | 2022-06-07 13:23 | PM.PN ---
Subjective Subjective: No acute events overnight. Patient lost her IV. Blood work could not be done today as patient refused blood work. On examination patient lying comfortably in bed. States she is tired after working with physical therapy. She is agreeable for blood work now. States was scared of the needle. Denies any new complaints. Vitals/I&O/Wt Last Vital Signs Temp 98.0 F 06/07/22 12:00 Pulse 66 06/07/22 12:00 Resp 18 06/07/22 12:00 BP 164/89 06/07/22 12:00 Pulse Ox 95 06/07/22 12:00 O2 Del Method 06/07/22 12:00 O2 Flow Rate 2 06/07/22 09:41 06/06/22 06/07/22 06/07/22 22:59 06:59 14:59 Intake Total 240 / 720 962.5 / 1682.5 480 / 480 Output Total 1200 / 1200 200 / 1400 Balance -960 / -480 762.5 / 282.5 480 / 480 Weight last 48 hrs Weight 134.725 kg Weight 136.588 kg Physical Exam Narrative: Constitutional: Awake, alert, more talkative today HEENT: Moist membranes Respiratory: Bibasilar crackles, oxygen in place Cardiovascular: Regular, distant Abdomen: Soft, obese, nontender, positive bowel sounds : Groin not evaluated today beyond confirming that nystatin powder is in place Extremities: Decreased lower extremity edema today most notable around the knees, left upper extremity is remarkably better though still significantly swollen, patient is elevating Skin: Has ichthyosis of the feet but lower extremities are otherwise clear of similar findings seen yesterday consistent with that being from layers of old cream that she has been putting on her legs Neuro: Speech clear, face symmetric, moves all extremities but requires assistance with position changes and utilization of her upper arms, handgrip is stronger on the right than the left Psych: Admits that she likes to talk a lot and even complain a lot, speech pressured at times but directable, anxious about not being cared for appropriately, requires reassurance that we will attend to her needs Urinary Catheter Management: Root: Cath Placed During This Visit: yes Reason for Continuing Indwelling Catheter: Accurate Measurement of Urinary Output in Critically Ill Patients Urinary Catheter Date of Insertion: 06/03/22 Urinary Catheter Time of Insertion: 21:45 Data : 06/06/22 05:30 06/06/22 04:55 Micro: Microbiology 06/05/22 12:00 MRSA Culture - Final Nose A&P Assessment and plan (1) Pneumonia: Diagnosis at admission per ED impression and CT imaging interpretation. Though less likely clinically. Currently on Levaquin. Changed to every 48 hours as per creatinine clearance. MRSA, urine Legionella negative. Finished the course with Levaquin. Continue Augmentin to finish a 5-day course. Last antibiotic day on 06/10. Status: Acute Qualifiers: Laterality: right Lung location: lower lobe of lung Pneumonia type: due to unspecified organism Qualified Code(s): J18.9 - Pneumonia, unspecified organism (2) Acute exacerbation of CHF (congestive heart failure): Acute on chronic with preserved ejection fraction. Overall 8 L negative. Seems compensated for now. Decrease Lasix to 40 mg oral daily. Strict input output charting. Status: Acute (3) COPD (chronic obstructive pulmonary disease): Mild exacerbation Has chronic hypercapnia from COPD and obesity hypoventilation with what looks to be baseline CO2 of 65 Currently requiring 3 L of oxygen by nasal cannula Reports no longer smoking Start on DuoNebs every 6 hour, budesonide twice daily. No need parenteral steroids for now. Status: Chronic Qualifiers: COPD type: COPD with acute exacerbation Qualified Code(s): J44.1 - Chronic obstructive pulmonary disease with (acute) exacerbation (4) Edema of left upper arm: US in ED no evidence of DVT Known pathologic fracture with healing Due to be evaluated outpatient by Dr Rodarte on June 09 to see if anything can be done [place]opedics here [place] [facility]; at this point in time with evidence of healing I am not sure if there is any intervention that would be undertaken but may be worthwhile to overall treatment plan to consider biopsy in light of evidence of increasing lytic lesions throughout Indicates no one has been able to get a sling or brace that fits her appropriately; declined offer to have one fitted while here stating that the sling caused 2nd fracture Imaging this hospital stay shows elbow fracture is healing On hydrocodone for pain related to the left upper extremity fracture which she has been getting filled about every 5-7 days in the outpatient setting lately (consistent with length of time her prescriptions last) Status: Acute (5) CKD (chronic kidney disease) stage 3, GFR 30-59 ml/min: GABRIELA on CKD currently. Creatinine 1.8 today. Baseline creatinine seems to be around 1.4-1.6. Decreasing Lasix frequency. Continue to monitor BMP daily. Medical reconciliation done for nephrotoxic drugs. Holding off enalapril for now. Status: Chronic Qualifiers: Chronic kidney disease stage 3 subtype: stage 3b (GFR 30-44) Qualified Code(s): N18.32 - Chronic kidney disease, stage 3b (6) Essential hypertension: Goal blood pressure less than 140/90 mmHg. Chronically on carvedilol and enalapril. Holding off on for now given GABRIELA and CKD. Pressures at goal. Status: Chronic (7) Thrombocytopenia: Present on admission, appears to be a new abnormality, no reported bleeding Unclear if any recent new medications that might contribute beyond pain medication prescriptions of late Stable at present with subcu heparin on board Status: Acute (8) Lack of intravenous access: Unable to do IVs in right upper extremity secondary to prior mastectomy Left upper extremity with edema and pain from prior fractures limiting current access, although if we can get her to keep it elevated might have some success in the next day or so if needed Unable to lie flat for upper line considerations currently and not necessarily requiring central placement right now Groin and lower extremity sites not optimal secondary to skin findings Status: Acute (9) Morbid obesity with BMI of 40.0-44.9, adult: Status: Chronic (10) Metastatic breast cancer: Previously with PET scan normalization of activity in areas of known lytic lesions, consistent with treated malignancy Imaging now indicates that lytic lesions have increased since prior comparison films and with recent pathologic fracture strongly suspect recurrent active malignancy On Aromasin Has not seen oncology since 07/2020 that I can find Status: Chronic (11) Encounter for long-term opiate analgesic use: It seems patient is on [place] 10 mg 4 times daily as an outpatient. Currently getting every 4 hour as needed. We will switch to every 6 hours as needed along with adding tramadol 50 mg every every 6 hourly. Patient getting slightly confused being on increased frequency in setting of GABRIELA on CKD. Discussed in detail with patient. Explained the reasoning. Patient not happy but is agreeable. Physical therapy. Status: Chronic (12) Type 2 diabetes mellitus without complication, without long-term current use of insulin: Status: Chronic Plan Tinea corporis Difficulty with ADLs currently beyond usual per history Chronic stasis changes History of elevated hemoglobin A1c, not on treatment Anxiety on chronic benzodiazepines as needed Former smoker by history Continue other chronic home medications. PT/OT evaluation. Discharge planning: SNF placement versus home with home health. Depending on PT evaluation. We will continue to follow. Case management on board. Protonix for PUD prophylaxis Heparin 5000 every 8 hourly for DVT prophylaxis Full code Plan for the day: Continue with IV fluids. Hold off on any further diuresis for now. Patient still around 11 L negative. Continue with Augmentin to finish a 5-day course. Continue with trazodone nightly. Monitor blood work. Continue with current pain medications of tramadol 50 mg every 6 hourly as needed, hydrocodone 10 mg every 6 hourly as needed. Discharge planning: Patient has been accepted at SNF today. Plan to discharge in next 24 hours. Attestations Medical Necessity Statement*: Requires further hospitalization for management of hypoxia secondary to diastolic congestive heart failure, acute kidney injury secondary to overdiuresis while safe discharge planning to SNF is sought. Time Spent in Patient Care: Greater than 35 minutes Coding Level of Care Code Acute [employer] for Chg Fwd Diagnoses Pneumonia J18.9 Laterality: right Lung location: lower lobe of lung Pneumonia type: due to unspecified organism Acute exacerbation of CHF (congestive heart failure) I50.9 COPD (chronic obstructive pulmonary disease) J44.1 COPD type: COPD with acute exacerbation Edema of left upper arm R60.0 CKD (chronic kidney disease) stage 3, GFR 30-59 ml/min N18.32 Chronic kidney disease stage 3 subtype: stage 3b (GFR 30-44) Essential hypertension I10 Thrombocytopenia D69.6 Lack of intravenous access Z78.9 Morbid obesity with BMI of 40.0-44.9, adult E66.01; Z68.41 Metastatic breast cancer C50.919 Encounter for long-term opiate analgesic use Z79.891 Type 2 diabetes mellitus without complication, without long-term current use of insulin E11.9
[2022-06-07 13:47] LABS: Alanine Aminotransferase 9 U/L (0-33); Albumin Level 3.6 g/dL (3.5-5.2); Alkaline Phosphatase 230 U/L (35-105); Anion Gap 13.5 (5-19); Aspartate Amino Transferase 21 U/L (0-32); Blood Urea Nitrogen 27 mg/dL (8-23); Calcium 9.5 mg/dL (8.5-10.5); Carbon Dioxide 37 mmol/L (22-29); Chloride 92 mmol/L (98-107); Globulin 3.5 g/dL (1.3-4.6); Glomerular Filtration Rate 29.8 mL/min (90-130); Glucose 162 mg/dL (65-115); Osmolality Calculated 295 mOsm/kg (285-295); Potassium 4.5 mmol/L (3.5-5.1); Sodium 138 mmol/L (136-145); Total Bilirubin 0.5 mg/dL (0.15-1.2); Total Protein 7.1 g/dL (6.6-8.7)
[2022-06-07 17:03] LABS: Glucose Point of Care 143 mg/dL (70-110)
--- NOTE | 2022-06-07 18:50 | PC.NURSE ---
patient dropped narc in floor, this junior copywriter was able to find and wasted in pyxis with second nurse Patricia, and new narc pulled. Hydrocodone 10-325.
[2022-06-07] MEDS: trazodone 150 mg Tablet 75 MG PO (20:44)
[2022-06-07 21:32] LABS: Glucose Point of Care 178 mg/dL (70-110)
[2022-06-08] VITALS (8 sets, daily range): BP systolic 99–173; BP diastolic 61–127; PULSE 54–62; RESP 14–18; TEMP 36.5–37.1; O2SAT 94–98
[2022-06-08] MEDS: HYDROcodone-acetaminophen 10-325 mg Tablet 1 TAB PO ×3 (00:38→16:00)
[2022-06-08] MEDS: heparin 5,000 unit/mL INJ 1 mL 5000 UNIT SUBCUT (04:36)
[2022-06-08 06:26] LABS: Glucose Point of Care 125 mg/dL (70-110)
[2022-06-08] MEDS: sennosides-docusate Tablet 1 TAB PO ×2 (08:54→17:34)
[2022-06-08] MEDS: carvedilol 12.5 mg Tablet PO (08:54)
[2022-06-08] MEDS: ferrous gluconate 324 mg Tablet PO ×2 (08:54→17:34)
[2022-06-08] MEDS: cholecalciferol (vitamin D3) 1,000 unit Tablet 2000 UNIT PO (08:54)
[2022-06-08] MEDS: pantoprazole DR 40 mg Tablet PO (08:54)
[2022-06-08] MEDS: magnesium oxide 400 mg tablet PO ×2 (08:54→17:34)
[2022-06-08] MEDS: nystatin powder 15 gm Btl 1 APPLIC TOPICAL (08:58)
[2022-06-08] MEDS: amoxicillin-clav 500-125 mg Tablet 1 TAB PO ×2 (11:08→17:33)
[2022-06-08] MEDS: sodium chloride 0.9% 1,000 ML 75 ML IV (11:27)
--- NOTE | 2022-06-08 11:32 | PC.NURSE ---
I reported the high bp to the nurse and the doctor was present. 173/124 178/124 legs
[2022-06-08 11:37] LABS: Glucose Point of Care 180 mg/dL (70-110)
--- NOTE | 2022-06-08 15:02 | PC.SOCIAL ---
IMM Updated Updated pt on IMM. No questions voiced. Provided pt a copy. Initialed, dated, & timed copy in chart.
--- NOTE | 2022-06-08 15:53 | P.DS_ITS ---
Discharge Providers Date of Admission: 06/03/22 16:44 Date of Discharge: June 08, 2022 Attending Provider at Admission: Oly Diana MD Attending Provider at Discharge: Reji Thomas MD Primary Care Provider: Ronald Nuno MD Diagnoses at Discharge Discharge Diagnosis (1) Pneumonia: Status: Acute Qualifiers: Laterality: right Lung location: lower lobe of lung Pneumonia type: due to unspecified organism Qualified Code(s): J18.9 - Pneumonia, unspecified organism (2) Acute exacerbation of CHF (congestive heart failure): Status: Acute (3) COPD (chronic obstructive pulmonary disease): Status: Chronic Qualifiers: COPD type: COPD with acute exacerbation Qualified Code(s): J44.1 - Chronic obstructive pulmonary disease with (acute) exacerbation (4) Edema of left upper arm: Status: Acute (5) CKD (chronic kidney disease) stage 3, GFR 30-59 ml/min: Status: Chronic Qualifiers: Chronic kidney disease stage 3 subtype: stage 3b (GFR 30-44) Qualified Code(s): N18.32 - Chronic kidney disease, stage 3b (6) Essential hypertension: Status: Chronic (7) Thrombocytopenia: Status: Acute (8) Lack of intravenous access: Status: Acute (9) Morbid obesity with BMI of 40.0-44.9, adult: Status: Chronic (10) Metastatic breast cancer: Status: Chronic Permanent problem details: Mets to bone, diag 2014 treatment, no activity at this time per PET scan 04/2021 (11) Encounter for long-term opiate analgesic use: Status: Chronic (12) Type 2 diabetes mellitus without complication, without long-term current use of insulin: Status: Chronic Reason for Visit Reason for Visit: abdomen pain/ cp x 2 weeks Brief History: History as per HPI: Samia Sarmiento is a 71 year old female who presented to the emergency room with chief complaint of swelling in her belly, abdominal discomfort and increasing swelling in her left upper extremity.? Also with some shortness of breath worse than baseline.? She has multiple comorbid medical conditions as outlined below.? She has a history of breast cancer with bony metastases.? Last time she saw oncology, a year per her recall but apparently longer going by last oncology note available from 07/2020, she had PET scan demonstrating normaliz ation of activity in areas of widespread osseous metastatic disease, consistent with treated malignancy.? She has been continued on Aromasin since then and has been under the impression that her cancer has been controlled.? Sometime in March or April of this year, she had somewhat sudden onset with minimal external factors contributing of arm pain in the left upper extremity around the elbow.? She was found to have evidence of likely pathologic fracture at the site of lytic lesions.? Given the nature of the fracture, she was referred to orthopedics at outside facility but told that there was not much that could be done.? She is in the process of getting a second evaluation by Dr. Rodarte in [place] that is supposed to occur on the of this month.? She has continued to have significant pain with several ER and clinic visits regarding pain in her arm and inability to attend her activities of daily living well beyond usual challenges because of the fractures.? She indicates she sustained a proximal humerus fracture after the supracondylar fracture at the elbow previously identified in imaging here.? She reports that she has been compliant with her usual medications including her blood pressure medicines.? Home medication records and list reported by patient indicate that she is taking carvedilol and enalapril.? She has a diagnosis of heart failure with preserved ejection fraction on review of available records.? Last EF was 63% in August 2021.? She had previously been on diuretic therapy in the form of oral Lasix but it looks like she has not had this since February.? She has seen several different providers over the course of the last few months both in the emergency room here as well as an outpatient setting so I am thinking that it may have simply been overlooked at 1 point in time.? She describes progressively worsening edema and abdominal girth.? She has had shortness of breath.? Denies productive cough.? No hemoptysis.? No fevers but has had general malaise.? She denies chronic oxygen use but is known to have chronic hypercapnia along with sleep apnea.? In the emergency room saturations were low necessitating 3 to 4 L of oxygen by nasal cannula.? Extensive work-up revealed small right pleural effusion with right lower lobe pneumonia described along with a few infiltrates in the left posterior lobe.? Abdomen was unremarkable including no mention of ascites or colonic dilatation.? Lytic lesions were described as innumerable involving the visualized axial and appendicular skeleton.? Also noted was apparent progression of lytic lesions from imaging studies from August 2021.? Ultrasound of the left upper extremity did not reveal any evidence of DVT despite significant degree of edema appreciated.? Patient was started on antibiotics in the emergency room and request was made for admission for CHF and pneumonia. Hospital Course Hospital Course Patient admitted to hospital further evaluation and management. On admission there was a concern for shortness of breath secondary to congestive heart failure. There was some concern for pneumonia as well due to possibility of consolidation on the CT imaging but as patient did not have any leukocytosis and has remained afebrile without any report of vomiting or aspiration she was kept off antibiotics. She was started on aggressive IV diuresis. Patient responded well to the treatment and was around 11 L negative by the time of discharge. Patient did develop mild GABRIELA because of overdiuresis which was treated with IV fluids. Patient did have swelling of her left upper arm which was thought to be secondary to pathological fractures which are healing. Arm DVT was ruled out. Patient did have episodes of confusion and somnolence for which her pain medications were adjusted. Safe discharge plan were discussed in detail with patient and she is agreeable to 1 particular group home. Patient has been accepted but unfortunately no bed will be available till Tuesday. Patient has been doing better. She has been discharged in hemodynamically stable condition back home with physical therapy and home health. Patient will transition to SNF once bed is made available. Physical Exam Narrative: Constitutional: Awake, alert, more talkative today HEENT: Moist membranes Respiratory: Bibasilar crackles, oxygen in place Cardiovascular: Regular, distant Abdomen: Soft, obese, nontender, positive bowel sounds : Groin not evaluated today beyond confirming that nystatin powder is in place Extremities: Decreased lower extremity edema today most notable around the knees, left upper extremity is remarkably better though still significantly swollen, patient is elevating Skin: Has ichthyosis of the feet but lower extremities are otherwise clear of similar findings seen yesterday consistent with that being from layers of old cream that she has been putting on her legs Neuro: Speech clear, face symmetric, moves all extremities but requires assistance with position changes and utilization of her upper arms, handgrip is stronger on the right than the left Psych: Admits that she likes to talk a lot and even complain a lot, speech pressured at times but directable, anxious about not being cared for appropriately, requires reassurance that we will attend to her needs Urinary Catheter Management: Root: Cath Placed During This Visit: yes Reason for Continuing Indwelling Catheter: Acute Urinary Retention or Obstruction Urinary Catheter Date of Insertion: 06/03/22 Urinary Catheter Time of Insertion: 21:45 Discharge Data Studies Completed and Pending Completed Studies During Hospitalization Category Date Time Status CT chest abdomen pelvis [[place] [id number] Cat Scan 06/03/22 13:56 Completed ] Stat CT head wo con* [id number] Stat Cat Scan 06/03/22 13:56 Completed XR elbow LT 2V [id number] Stat Exams 06/03/22 15:47 Completed US venous duplex upper extremity LT [CV venous duplex Ultrasound 06/03/22 15: 47 [place] [id number]] Stat Pending at discharge Category Date Time Status Blood Culture Stat Lab 06/03/22 14:20 Results Radiology Impressions Chest/Abdomen/Pelvis CT 06/03/22 13:56 IMPRESSION: Limited diagnostic exam due to body habitus with beam hardening artifact. 1. Innumerable diffuse osseous lytic metastatic lesions throughout the visualized axial and appendicular appears progressed compared to September 21, 2021 and 7,021 2. Small RIGHT pleural effusion with RIGHT lower lobe pneumonia. A few infiltrates in the LEFT lower lobe posteriorly. 3. No acute intra-abdominal findings in the abdomen or pelvis. Head CT 06/03/22 13:56 IMPRESSION: No acute intracranial abnormality. Elbow X-Ray 06/03/22 15:47 IMPRESSION: Healing pathologic supracondylar fracture of the left humerus. Laboratory Results WBC 6.8 10^3/uL (4.0-10.0) 06/06/22 05:30 RBC 3.55 10^6/uL (4.1-5.3) L 06/06/22 05:30 Hgb 9.7 g/dL (11.5-15.3) L 06/06/22 05:30 Hct 33.7 % (37.0-47.0) L 06/06/22 05:30 MCV 94.9 fl (81-99) 06/06/22 05:30 MCH 27.3 pg (28.0-34.0) L 06/06/22 05:30 MCHC 28.8 g/dL (30.0-36.0) L 06/06/22 05:30 RDW 17.1 % (12.1-15.1) H 06/06/22 05:30 Plt Count 95 10^3/cmm (130-400) L 06/06/22 05:30 MPV 11.1 fL (7.4-10.4) H 06/06/22 05:30 Neut % (Auto) 68.0 % 06/06/22 05:30 Lymph % (Auto) 22.6 % 06/06/22 05:30 [place] % (Auto) 6.8 % 06/06/22 05:30 Eos % (Auto) 1.9 % 06/06/22 05:30 Baso % (Auto) 0.3 % 06/06/22 05:30 Neut # (Auto) 4.61 10^3/uL (1.8-7.7) 06/06/22 05:30 Lymph # (Auto) 1.5 10^3/uL (0.8-4.8) 06/06/22 05:30 [place] # (Auto) 0.5 10^3/uL (0.2-0.9) 06/06/22 05:30 Eos # (Auto) 0.1 10^3/uL (0.0-0.8) 06/06/22 05:30 Baso # (Auto) 0.0 10^3/uL (0.0-0.1) 06/06/22 05:30 Nucleated RBC % (auto) 0 % 06/06/22 05:30 Nucleated RBCs # 0.0 /100WBC 06/06/22 05:30 PT 14.90 SECONDS (12.1-14.9) 06/04/22 05:49 INR 1.14 (0.8-1.2) 06/04/22 05:49 APTT 28.4 SECONDS (23.9-36.7) 06/04/22 05:49 Specimen Type Arterial 06/04/22 02:58 Sample Site Radial, right 06/04/22 02:58 ABG pH 7.42 (7.35-7.45) 06/04/22 02:58 ABG pCO2 65.1 mmHg (35-45) H* 06/04/22 02:58 ABG pO2 82.6 mmHg (80.0-100.0) 06/04/22 02:58 ABG HCO3 41.8 mmol/L (22-26) H 06/04/22 02:58 ABG Base Excess 14.8 mmol/L (-2.0-2.0) H 06/04/22 02:58 Shoaib Test Pos 06/04/22 02:58 Hematocrit 33.0 % (37-47) L 06/04/22 02:58 O2 Delivery Device Nc 06/04/22 02:58 O2 Liters/Min 3.0 % 06/04/22 02:58 Clerk Stenographer ID Kd 06/04/22 02:58 Sodium 138 mmol/L (136-145) 06/07/22 13:05 Potassium 4.5 mmol/L (3.5-5.1) 06/07/22 13:05 Chloride 92 mmol/L (98-107) L 06/07/22 13:05 Carbon Dioxide 37 mmol/L (22-29) H 06/07/22 13:05 Anion Gap 13.5 (5-19) 06/07/22 13:05 BUN 27 mg/dL (8-23) H 06/07/22 13:05 Creatinine 1.7 mg/dL (0.5-0.9) H 06/07/22 13:05 GFR Calculation 29.8 mL/min (90-130) L 06/07/22 13:05 Glucose 162 mg/dL (65-115) H 06/07/22 13:05 POC Glucose 180 mg/dL (70-110) H 06/08/22 11:20 Calculated Osmolality 295 mOsm/kg (285-295) 06/07/22 13:05 Lactate 0.8 mmol/L (0.5-2.2) 06/03/22 14:20 Calcium 9.5 mg/dL (8.5-10.5) 06/07/22 13:05 Phosphorus 3.7 mg/dL (2.5-4.5) 06/05/22 04:33 Magnesium 2.0 mg/dL (1.7-2.3) 06/05/22 04:33 Iron 57 ug/dL (37-145) 06/05/22 04:33 TIBC 260 mcg/dl 06/05/22 04:33 % Saturation 21.9 % (20-50) 06/05/22 04:33 Unsat Iron Binding 203 ug/dL (112-347) 06/05/22 04:33 Total Bilirubin 0.5 mg/dL (0.15-1.2) 06/07/22 13:05 AST 21 U/L (0-32) 06/07/22 13:05 ALT 9 U/L (0-33) 06/07/22 13:05 Alkaline Phosphatase 230 U/L (35-105) H 06/07/22 13:05 Troponin T Baseline 59 ng/L (0-10) H 06/03/22 14:20 Troponin T 120 Minute 60.35 ng/L (0-10) H 06/03/22 16:05 Delta Troponin T 1.35 ABS# (0-10) 06/03/22 16:05 Troponin T Hi Sens 6Hr 58.94 ng/L (0-10) H 06/03/22 20:59 Troponin T Hi Sens 6Hr Delta -0.06 ng/L (0-12) L 06/03/22 20:59 NT-Pro-B Natriuret Pep 36917 pg/mL (0-125) H 06/05/22 04:33 Total Protein 7.1 g/dL (6.6-8.7) 06/07/22 13:05 Albumin 3.6 g/dL (3.5-5.2) 06/07/22 13:05 Globulin 3.5 g/dL (1.3-4.6) 06/07/22 13:05 Triglycerides 115 mg/dL (0-150) 06/06/22 04:55 Cholesterol 118 mg/dL (0-200) 06/06/22 04:55 LDL Cholesterol, Calc 51 mg/dL (50-129) 06/06/22 04:55 Total VLDL Cholesterol 23 mg/dL (0-30) 06/06/22 04:55 HDL Cholesterol 44 mg/dL (60-100) L 06/06/22 04:55 Cholesterol/HDL Ratio 2.68 mg/dL (0.0-4.40) 06/06/22 04:55 Lipase 30 U/L (13-60) 06/03/22 14:20 Vitamin B12 827 pg/mL (232-1245) 06/05/22 04:33 Folate 4.5 ng/mL (4.8-37.3) L 06/05/22 05:49 Procalcitonin 0.14 ng/mL (0-0.5) 06/04/22 05:49 TSH 1.12 uIU/mL (0.27-4.20) 06/05/22 04:33 Urine Color Yellow (Yellow) 06/03/22 21:50 Urine Appearance Clear (CLEAR) 06/03/22 21:50 Urine pH 8 (5-7) H 06/03/22 21:50 Ur Specific [place] 1.005 (1.005-1.030) 06/03/22 21:50 Urine Protein Trace (Negative) 06/03/22 21:50 Urine Glucose (UA) Norm (Normal) 06/03/22 21:50 Urine Ketones Negative (Negative) 06/03/22 21:50 Urine Blood 3+ (Negative) H 06/03/22 21:50 Urine Nitrate Negative (Negative) 06/03/22 21:50 Urine Bilirubin Neg (Negative) 06/03/22 21:50 Prot Sulfosalicylic Acd Negative (Negative) 06/03/22 21:50 Urine Urobilinogen Norm mg/dL (Negative) 06/03/22 21:50 Ur Leukocyte Esterase Negative (Negative) 06/03/22 21:50 Urine RBC 5-10 /hpf (0-2) H 06/03/22 21:50 Urine WBC 0-4 /hpf (0-5) H 06/03/22 21:50 Ur Squamous Epith Cells 0-4 /hpf (0-5) H 06/03/22 21:50 Amorphous Sediment Not Reportable 06/03/22 21:50 Urine Bacteria Trace /hpf (NONE) 06/03/22 21:50 SARS-CoV-2 Ag (Rapid) Negative (Negative) 06/03/22 13:56 Vitals Last Vital Signs Temp 98.2 F 06/08/22 15:17 Pulse 59 L 06/08/22 15:17 Resp 18 06/08/22 15:17 BP 144/77 06/08/22 15:17 Pulse Ox 98 06/08/22 15:17 O2 Del Method 06/08/22 11:31 O2 Flow Rate 2 06/08/22 09:41 Discharge Plan Discharge Patient Disposition: Home Health Service Condition: Stable Prescriptions: New ferrous gluconate 324 mg (37.5 mg iron) Tablet 324 mg PO BIDWM Qty: 60 0RF furosemide 40 mg Tablet 40 mg PO DAILY@0800 PRN (Reason: sob, edema) Qty: 20 0RF trazodone 150 mg Tablet 75 mg PO BEDTIME Qty: 30 0RF Continued cholecalciferol (vitamin D3) 50 mcg (2,000 unit) capsule 150 mcg PO BID@, lorazepam 0.5 mg tablet 0.5 mg PO BID PRN (Reason: Anxiety) 30 Days Qty: 60 2RF magnesium 200 mg tablet 200 mg PO BID@14,22 Qty: 60 5RF hydrocodone-acetaminophen 10-325 mg tablet 1 tab PO QID PRN (Reason: pain) 30 Days Qty: 120 0RF albuterol sulfate [Ventolin HFA] 90 mcg/actuation HFA aerosol inhaler 2 puff INHALATION Q4H PRN (Reason: shortness of breath or wheezing) Qty: 8.5 5RF lidocaine 5 % adhesive patch,medicated See Rx Instructions .ROUTE .COMPLEX Qty: 90 1RF Dose Instruction: APPLY 1 PATCH TOPICALLY. LEAVE ON FOR 12 HOURS, THEN REMOVE FOR 12 HOURS. Rx Instructions: APPLY 1 PATCH TOPICALLY. LEAVE ON FOR 12 HOURS, THEN REMOVE FOR 12 HOURS. carvedilol 12.5 mg tablet 12.5 mg PO BID exemestane 25 mg tablet 25 mg PO QPM pantoprazole 40 mg tablet,delayed release (DR/EC) 40 mg PO DAILY PRN (Reason: Acid Reflux) Discontinued enalapril maleate 10 mg tablet 10 mg PO DAILY Qty: 30 5RF Discharge Orders: Discharge Order (Routine); Ordered 06/08/22 Ordered By: Reji Thomas Referrals: [facility] ([facility]) [Outside] Ronald Nuno MD [Primary Care Provider] - 1 week Discharge Diet: Diabetic Discharge Activity: Resume usual activity and Increase activity as tolerated Patient Instructions: Opioid Safety Activity Restrictions/Additional Instructions: You do not take enalapril anymore. Take Lasix 40 mg as needed for shortness of breath or body weight increase by 5 pounds then daily. Please follow the primary care provider within next 1 week. Please follow-up with your orthopedic surgeon for further evaluation and management of left arm pathological fracture. Discharge Attestations Time Spent in Discharge Care*: greater than 30 min Specific Discharge Activities: educating patient, educating and/or supporting family/caregiver, discussing with pcp/other providers, discussing with rn case mgr/social workers/dc planners, documenting/other paperwork and evaluating patient/reviewing data Status at Discharge: Cognitive status at discharge: cognitively intact , Behavioral status at discharge: cooperative , Functional status at discharge: uses cane/walker , Overall status at discharge: patient is back to baseline Quality Metrics Clinical Quality Measures [ No reported AMI, CVA or VTE this stay] Coding Level of Care Code Acute Chg FW DC note Diagnoses Pneumonia J18.9 Laterality: right Lung location: lower lobe of lung Pneumonia type: due to unspecified organism Acute exacerbation of CHF (congestive heart failure) I50.9 COPD (chronic obstructive pulmonary disease) J44.1 COPD type: COPD with acute exacerbation Edema of left upper arm R60.0 CKD (chronic kidney disease) stage 3, GFR 30-59 ml/min N18.32 Chronic kidney disease stage 3 subtype: stage 3b (GFR 30-44) Essential hypertension I10 Thrombocytopenia D69.6 Lack of intravenous access Z78.9 Morbid obesity with BMI of 40.0-44.9, adult E66.01; Z68.41 Metastatic breast cancer C50.919 Encounter for long-term opiate analgesic use Z79.891 Type 2 diabetes mellitus without complication, without long-term current use of insulin E11.9
--- NOTE | 2022-06-09 09:53 | DCPLANNER ---
Addendum entered by Elizabeth Levi 06/10/22 13:58: traffic ii manager called the ortho clinic, was told that clinic did receive patients information. Clinic has tried to call patient unable to reach patient. traffic ii manager called phone number [phone], no voicemail and unable to speak with anyone. traffic ii manager called phone number [phone] this number is a non working number. traffic ii manager called phone number [phone], patients brother left a voicemail for him to have patient call supervisor case loading in the ER. Original Note: traffic ii manager was asked to refer patient to oncology, Dr. Romano. traffic ii manager faxed patients records to at fax number [phone], phone number for clinic is [phone]. Patients information will be reviewed, clinic will call patient with appointment information.
== END 2022-06-08 17:55 | disposition home health service (06) | DRG 291 ==
LOC: ER 17:00 → MEDSURG 17:12
PROVIDERS: Admitting Provider Hospitalist; Emergency Provider Emergency Medicine; PCP Family Medicine Adult Medicine; Visit Provider Student in an Organized Health Care Education/Training Program
DX: I13.0 Hypertensive heart and chronic kidney disease with heart failure and stage 1 through stage 4 chronic kidney disease, or unspecified chronic kidney disease (principal); I50.33 Acute on chronic diastolic (congestive) heart failure; J18.9 Pneumonia, unspecified organism; J44.0 Chronic obstructive pulmonary disease with (acute) lower respiratory infection; J44.1 Chronic obstructive pulmonary disease with (acute) exacerbation; C79.51 Secondary malignant neoplasm of bone; J96.12 Chronic respiratory failure with hypercapnia; Z68.43 Body mass index [BMI] 50.0-59.9, adult; N17.9 Acute kidney failure, unspecified; N18.32 Chronic kidney disease, stage 3b; E11.22 Type 2 diabetes mellitus with diabetic chronic kidney disease; E11.51 Type 2 diabetes mellitus with diabetic peripheral angiopathy without gangrene; C50.919 Malignant neoplasm of unspecified site of unspecified female breast; Z79.811 Long term (current) use of aromatase inhibitors; G47.33 Obstructive sleep apnea (adult) (pediatric); F41.9 Anxiety disorder, unspecified; I35.0 Nonrheumatic aortic (valve) stenosis; G89.3 Neoplasm related pain (acute) (chronic); F32.A Depression, unspecified; K57.90 Diverticulosis of intestine, part unspecified, without perforation or abscess without bleeding; E78.5 Hyperlipidemia, unspecified; E66.01 Morbid (severe) obesity due to excess calories; Z87.891 Personal history of nicotine dependence; M84.522D Pathological fracture in neoplastic disease, left humerus, subsequent encounter for fracture with routine healing; Z79.891 Long term (current) use of opiate analgesic; Z79.51 Long term (current) use of inhaled steroids; B35.4 Tinea corporis; D63.1 Anemia in chronic kidney disease; D69.6 Thrombocytopenia, unspecified
CPT/HCPCS: 36415; 36416; 51702; 70450; 71250; 73070; 74176; 80048; 80053; 80061; 80503; 81001; 81003; 82607; 82746; 82803; 82962; 83540; 83550; 83605; 83690; 83735; 83880; 84100; 84145; 84443; 84484; 85025; 85610; 85730; 87040; 87426; 87449; 87641; 93005; 93971; 94640; 96372; 97110; 97116; 97161; 97165; 97530; 99285; A4565; J1644; J1815; J7030; J7626; S0156